=== PATIENT | female | born 1935 | race Caucasian/White ===

== ENCOUNTER → 2016-08-04 | Outpatient (CLI) | payer MEDICARE, OTHER ==
--- NOTE | 2016-08-04 15:12 | CT ---
EXAMINATION TYPE: CT abdomen pelvis w con DATE OF EXAM: 08/04/2016 2:10 PM COMPARISON: 11/15/2015 HISTORY: 80-year-old female with pancreatic mass, follow-up exam TECHNIQUE: Contiguous axial scanning of the abdomen and pelvis following administration of 100 ml Omn ipaque 300 IV contrast. Arterial phase and portal venous phase imaging was performed; coronal/sagitt al reconstructions performed. CT DLP: 1675 mGycm Automated exposure control for dose reduction was used. FINDINGS: Heart is upper limits of normal in size without pericardial effusion. Pacer leads are present. Redemo nstrated is strandy atelectasis or scarring at the left base without pleural effusion. No focal liver lesion or biliary ductal dilatation. Portal venous system is patent though there is ma ss effect onto the posterior margin of the main portal vein which is bowed forward due to the posteri or pancreatic head mass. This pancreatic head mass is lobulated and heterogeneous measuring 6.2 cm wide by 4.9 cm AP by 6.9 cm craniocaudal. This is in comparison to 11/15/2015 where it measured 5.8 x 4.8 x 7.2 cm. On 07/12/2015, t his measured 6.0 x 4.9 x 6.6 cm. Overall, this is not significantly changed allowing for some differe nces in measurement technique. Gallbladder, adrenal glands, kidneys spleen, and remainder of the atrophic pancreas show no gross abn ormality. No dilated small bowel, free fluid, or free air. Moderate atherosclerotic calcifications within the abdominal aorta and iliac arteries with mild fusif orm ectasia of the infrarenal abdominal aorta at 2.5 cm. No mesenteric or retroperitoneal lymphadenopathy. Scattered [id number] stool without pericolonic inflammatory change. Limited evaluation of the pelvis due to extensive artifact from the patient's bilateral hip arthropla sties. Bladder is underdistended. The uterus is visualized. There is normal size left ovary and dense calcifications in the region of the right ovary either representing phlebolith or a small dermoid. N o abnormal fluid collection the pelvis or obvious pelvic lymphadenopathy. Heterotopic ossification superior to the right hip. Posterior lumbar fusion hardware is also present. There appears to be lateral osseous fusion resulting in a fixed grade 2 anterolisthesis at L4-L5. Gr marian 1 retrolisthesis and advanced degenerative changes above the fusion at L2-L3. IMPRESSION: ALLOWING FOR SOME SMALL DIFFERENCES IN MEASUREMENT CALIPER POSITIONING, THE LOBULATED PANCREATIC HEAD MASS IS OVERALL STABLE FROM 07/12/2015, MEASURING UP TO 6.9 CM. 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 Consi jitendra EUS aspiration. If the patient is not eligible for resection, this can continue to be followed.
== END | disposition home or self-care (01) ==
LOC: RADCTMAIN 12:01
PROVIDERS: ATTEND Internal Medicine Gastroenterology
DX: K86.89 Other specified diseases of pancreas (principal)
CPT/HCPCS: 82565; 84520; 74177; 36415; Q9967

== ENCOUNTER 2016-10-08 08:38 | Inpatient (IN) | payer MEDICARE, OTHER ==
[2016-10-08] MEDS ORDERED: ACETAMINOPHEN TAB 325 MG TAB PO STA (09:26)
--- NOTE | 2016-10-08 09:28 | ED ---
SOB HPI - General Chief Complaint: Shortness of Breath Stated Complaint: SOB Time Seen by Provider: 10/08/16 08:38 Source: patient, EMS, RN notes reviewed Mode of arrival: EMS Limitations: no limitations - History of Present Illness Initial Comments: This is a 81-year-old female who was brought in by EMS for evaluation of shortness of breath. Patient is not sure exactly when it started she believes this morning she was given 2 DuoNeb absent as well as 125 mg a slight Medrol and route per EMS she is she was somewhat confused but has improved mentation since the treatment. She denies any overt fevers chills or sweats though per paramedics she did feel warm. She denies any chest pain focal weakness or other symptoms. MD Complaint: shortness of breath, cough - Related Data Home Medications Medication Instructions Recorded Confirmed Cholecalciferol [Vitamin D3] 2,000 unit PO DAILY 07/11/15 10/08/16 Albuterol Nebulized [Ventolin 2.5 mg INHALATION RT-TID 06/21/16 10/08/16 Nebulized] DULoxetine HCL [Cymbalta] 60 mg PO DAILY 06/21/16 10/08/16 Hydrocodone/Acetaminophen [[place] 1 tab PO Q4H PRN 06/21/16 10/08/16 10-325] Ipratropium Nebulized [Atrovent 0.5 mg INHALATION RT-QID 06/21/16 10/08/16 Nebulized] Levothyroxine Sodium [Synthroid] 50 mcg PO DAILY 06/21/16 10/08/16 Oxybutynin ER [Ditropan Xl] 15 mg PO DAILY 06/21/16 10/08/16 Apixaban [Eliquis] 2.5 mg PO BID 10/08/16 10/08/16 Atenolol [Tenormin] 12.5 mg PO DAILY 10/08/16 10/08/16 Biotin 5 mg PO DAILY 10/08/16 10/08/16 Ferrous Sulfate [Feosol] 325 mg PO DAILY 10/08/16 10/08/16 Meloxicam [Mobic] 15 mg PO DAILY 10/08/16 10/08/16 Omeprazole [PriLOSEC] 20 mg PO DAILY 10/08/16 10/08/16 Pregabalin [Lyrica] 75 mg PO BID 10/08/16 10/08/16 amLODIPine [Norvasc] 2.5 mg PO DAILY 10/08/16 10/08/16 Previous Rx's Medication Instructions Recorded Furosemide [Lasix] 40 mg PO DAILY #30 tab 06/24/16 Allergies Allergy/AdvReac Type Severity Reaction Status Date / Time No Known Allergies Allergy Verified 10/08/16 09:36 Review of Systems ROS Statement: Those systems with pertinent positive or pertinent negative responses have been documented in the HPI. ROS Other: All systems not noted in ROS Statement are negative. Past Medical History Past Medical History: COPD, Diabetes Mellitus, Fibromyalgia, Hypertension, Thyroid Disorder Additional Past Medical History / Comment(s): NEUROPATHY, obesity, coronary artery disease, paroxysmal atrial fibrillation, history of pacemaker insertion, degenerative arthritis, fibromyalgia, hypertension History of Any Multi-Drug Resistant Organisms: None Reported Past Surgical History: Appendectomy, Pacemaker Additional Past Surgical History / Comment(s): IVAN HIP, IVAN KNEE, MELANIE TO BACK, plate in left shoulder Past Anesthesia/Blood Transfusion Reactions: No Reported Reaction Type of Cardiac Device: Permanent Pacemaker Device Placement Date:: 2011 Past Psychological History: No Psychological Hx Reported Smoking Status: Former smoker Past Alcohol Use History: None Reported Past Drug Use History: None Reported - Past Family History Mother Family Medical History: Diabetes Mellitus Additional Family Medical History / Comment(s): AAA Father Family Medical History: Diabetes Mellitus, Myocardial Infarction ([place]) Brother(s) Family Medical History: Cancer, Diabetes Mellitus, Hypertension General Exam - General Exam Comments Initial Comments: This is a well-developed well-nourished awake alert but somewhat confused female Limitations: no limitations General appearance: alert, anxious, in distress Head exam: Present: atraumatic, normocephalic, normal inspection Eye exam: Present: normal appearance, PERRL, EOMI. Absent: scleral icterus, conjunctival injection, periorbital swelling ENT exam: Present: mucous membranes dry Neck exam: Present: normal inspection. Absent: tenderness, meningismus, lymphadenopathy Respiratory exam: Present: wheezes, rhonchi, accessory muscle use, decreased breath sounds Cardiovascular Exam: Present: regular rate, normal rhythm, normal heart sounds. Absent: systolic murmur, diastolic murmur, rubs, gallop, clicks GI/Abdominal exam: Present: soft, normal bowel sounds. Absent: distended, tenderness, guarding, rebound, rigid Extremities exam: Present: normal inspection, full ROM, normal capillary refill. Absent: tenderness, pedal edema, joint swelling, calf tenderness Back exam: Present: normal inspection Neurological exam: Present: alert, oriented X3, CN II-XII intact, other ( Patient was more alert during my exam.) Psychiatric exam: Present: normal affect, normal mood Skin exam: Present: warm, dry, intact, normal color. Absent: rash Course Vital Signs 10/08/16 10/08/16 10/08/16 08:41 09:42 10:45 Temperature 102.2 F H 98.0 F Pulse Rate 66 65 65 Respiratory 22 20 18 Rate Blood Pressure 135/63 117/55 128/59 O2 Sat by Pulse 96 95 96 Oximetry - Reevaluation(s) Reevaluation #1: 10/08/16 11:11 The patient was feeling improved and did voice a desire to go home. Reevaluation #2: 10/08/16 11:14 Patient's lung sounds have improved she has she is less dyspneic. Medical Decision Making - Medical Decision Making I did have a long discussion with the patient regarding the findings. She does demonstrate influenza positivity as well as evidence of chronic reveals patient' s he x-ray evidence of some CHF. She has a fever also her left gas is elevated this is likely on the basis of her chronic disease. She has agreed to be admitted. - Lab Data Result diagrams: 10/08/16 09:00 10/08/16 09:00 Lab Results 10/08/16 10/08/16 10/08/16 Range/Units 09:00 09:00 09:00 WBC 10.8 H (3.8-10.6) k/uL RBC 4.89 (3.80-5.40) m/uL Hgb 13.1 (11.4-16.0) gm/dL Hct 41.1 (34.0-46.0) % MCV 84.1 (80.0-100.0) fL MCH 26.8 (25.0-35.0) pg MCHC 31.8 (31.0-37.0) g/dL RDW 17.5 H (11.5-15.5) % Plt Count 130 L (150-450) k/uL Neutrophils % 85 % Lymphocytes % 9 % Monocytes % 2 % Eosinophils % 1 % Basophils % 0 % Neutrophils # 9.1 H (1.3-7.7) k/uL Lymphocytes # 1.0 (1.0-4.8) k/uL Monocytes # 0.2 (0-1.0) k/uL Eosinophils # 0.1 (0-0.7) k/uL Basophils # 0.0 (0-0.2) k/uL Hypochromasia Slight Poikilocytosis Slight Anisocytosis Slight PT (9.0-12.0) sec INR (<1.1) APTT (22.0-30.0) sec Sodium 140 (137-145) mmol/L Potassium 4.6 (3.5-5.1) mmol/L Chloride 103 (98-107) mmol/L Carbon Dioxide 25 (22-30) mmol/L Anion Gap 12 mmol/L BUN 24 H (7-17) mg/dL Creatinine 1.10 H (0.52-1.04) mg/dL Est GFR (MDRD) Af Amer 58 (>60 ml/min/1.73 sqM) Est GFR (MDRD) Non-Af 48 (>60 ml/min/1.73 sqM) Glucose 196 H (74-99) mg/dL Plasma Lactic Acid Benito (0.7-2.0) mmol/L Calcium 8.4 (8.4-10.2) mg/dL Magnesium 1.7 (1.6-2.3) mg/dL Total Bilirubin 0.8 (0.2-1.3) mg/dL AST 48 H (14-36) U/L ALT 27 (9-52) U/L Alkaline Phosphatase 106 (38-126) U/L Total Creatine Kinase 163 H (30-135) U/L CK-MB (CK-2) 1.7 (0.0-2.4) ng/mL CK-MB (CK-2) Rel Index 1.0 Troponin I 0.094 H* (0.000-0.034) ng/mL NT-Pro-B Natriuret Pep pg/mL Total Protein 6.7 (6.3-8.2) g/dL Albumin 3.7 (3.5-5.0) g/dL Influenza Type A RNA (Not Detectd) Influenza Type B (PCR) (Not Detectd) 03/30/17 03/30/17 03/30/17 Range/Units 09:00 09:00 09:00 WBC (3.8-10.6) k/uL RBC (3.80-5.40) m/uL Hgb (11.4-16.0) gm/dL Hct (34.0-46.0) % MCV (80.0-100.0) fL MCH (25.0-35.0) pg MCHC (31.0-37.0) g/dL RDW (11.5-15.5) % Plt Count (150-450) k/uL Neutrophils % % Lymphocytes % % Monocytes % % Eosinophils % % Basophils % % Neutrophils # (1.3-7.7) k/uL Lymphocytes # (1.0-4.8) k/uL Monocytes # (0-1.0) k/uL Eosinophils # (0-0.7) k/uL Basophils # (0-0.2) k/uL Hypochromasia Poikilocytosis Anisocytosis PT 10.4 (9.0-12.0) sec INR 1.0 (<1.1) APTT 25.3 (22.0-30.0) sec Sodium (137-145) mmol/L Potassium (3.5-5.1) mmol/L Chloride (98-107) mmol/L Carbon Dioxide (22-30) mmol/L Anion Gap mmol/L BUN (7-17) mg/dL Creatinine (0.52-1.04) mg/dL Est GFR (MDRD) Af Amer (>60 ml/min/1.73 sqM) Est GFR (MDRD) Non-Af (>60 ml/min/1.73 sqM) Glucose (74-99) mg/dL Plasma Lactic Acid [place]ito 2.8 H* (0.7-2.0) mmol/L Calcium (8.4-10.2) mg/dL Magnesium (1.6-2.3) mg/dL Total Bilirubin (0.2-1.3) mg/dL AST (14-36) U/L ALT (9-52) U/L Alkaline Phosphatase (38-126) U/L Total Creatine Kinase (30-135) U/L CK-MB (CK-2) (0.0-2.4) ng/mL CK-MB (CK-2) Rel Index Troponin I (0.000-0.034) ng/mL NT-Pro-B Natriuret Pep 1360 pg/mL Total Protein (6.3-8.2) g/dL Albumin (3.5-5.0) g/dL Influenza Type A RNA (Not Detectd) Influenza Type B (PCR) (Not Detectd) 10/08/16 Range/Units 09:00 WBC (3.8-10.6) k/uL RBC (3.80-5.40) m/uL Hgb (11.4-16.0) gm/dL Hct (34.0-46.0) % MCV (80.0-100.0) fL MCH (25.0-35.0) pg MCHC (31.0-37.0) g/dL RDW (11.5-15.5) % Plt Count (150-450) k/uL Neutrophils % % Lymphocytes % % Monocytes % % Eosinophils % % Basophils % % Neutrophils # (1.3-7.7) k/uL Lymphocytes # (1.0-4.8) k/uL Monocytes # (0-1.0) k/uL Eosinophils # (0-0.7) k/uL Basophils # (0-0.2) k/uL Hypochromasia Poikilocytosis Anisocytosis PT (9.0-12.0) sec INR (<1.1) APTT (22.0-30.0) sec Sodium (137-145) mmol/L Potassium (3.5-5.1) mmol/L Chloride (98-107) mmol/L Carbon Dioxide (22-30) mmol/L Anion Gap mmol/L BUN (7-17) mg/dL Creatinine (0.52-1.04) mg/dL Est GFR (MDRD) Af Amer (>60 ml/min/1.73 sqM) Est GFR (MDRD) Non-Af (>60 ml/min/1.73 sqM) Glucose (74-99) mg/dL Plasma Lactic Acid [place] (0.7-2.0) mmol/L Calcium (8.4-10.2) mg/dL Magnesium (1.6-2.3) mg/dL Total Bilirubin (0.2-1.3) mg/dL AST (14-36) U/L ALT (9-52) U/L Alkaline Phosphatase (38-126) U/L Total Creatine Kinase (30-135) U/L CK-MB (CK-2) (0.0-2.4) ng/mL CK-MB (CK-2) Rel Index Troponin I (0.000-0.034) ng/mL NT-Pro-B Natriuret Pep pg/mL Total Protein (6.3-8.2) g/dL Albumin (3.5-5.0) g/dL Influenza Type A RNA Not Detected (Not Detectd) Influenza Type B (PCR) Detected H (Not Detectd) - EKG Data -: EKG Interpreted by Ms EKG shows normal: sinus rhythm (Sinus rhythm with a rate of 66 QRS 154 daily since QTC of 448/469 similar configuration to the EKG dated 06/21/16) - Radiology Data Radiology results: report reviewed (X-rays do show evidence of congestive heart failure.), image reviewed Critical Care Time Critical Care Time: Yes Critical Care Time: 32 minutes critical care time which includes monitoring initially EMS run call as well as discussed with paramedics after arrival. History physical lab and x- rays on the patient. Evaluation of the same. Reevaluation the patient on several occasions. Evaluation of old charting. Discussion with patient regarding the findings discussion with the admitting physician and admission orders and documentation of the above. Disposition Clinical Impression: Influenza, Acute exacerbation of chronic obstructive airways disease, Renal insufficiency, Elevated troponin, Fever, Chronic congestive heart failure Disposition: ADMITTED IP TO THIS HOSP Condition: Stable
[2016-10-08 09:36] LABS: Anisocytosis Slight; Basophils % (A) 0 %; CH 26.9; Eosinophils # (A) 0.1 k/uL (0-0.7); Eosinophils % (A) 1 %; HCT 41.1 % (34.0-46.0); HDW 3.69; HGB 13.1 gm/dL (11.4-16.0); Hypochromasia Slight; Luc # (Auto) 0.23; Luc % (Auto) 2; Lymphocytes % (A) 9 %; MCH 26.8 pg (25.0-35.0); MCHC 31.8 g/dL (31.0-37.0); MCV 84.1 fL (80.0-100.0); Mean Platelet Volume 9.2; Monocytes # (A) 0.2 k/uL (0-1.0); Monocytes % (A) 2 %; Neutrophils # (A) 9.1 k/uL (1.3-7.7); Neutrophils % (A) 85 %; Poikilocytosis Slight; RBC 4.89 m/uL (3.80-5.40); RDW 17.5 % (11.5-15.5); WBC 10.8 k/uL (3.8-10.6); WBC (Perox) 11.54
[2016-10-08 09:48] LABS: Calcium 8.4 mg/dL (8.4-10.2); Magnesium 1.7 mg/dL (1.6-2.3); Potassium 4.6 mmol/L (3.5-5.1); Total Bilirubin 0.8 mg/dL (0.2-1.3); Total Protein 6.7 g/dL (6.3-8.2)
[2016-10-08 09:49] LABS: Partial Thromboplastin Time 25.3 sec (22.0-30.0); Prothrombin Time 10.4 sec (9.0-12.0)
--- NOTE | 2016-10-08 09:50 | XR ---
EXAMINATION TYPE: XR chest 2V DATE OF EXAM: 10/08/2016 9:40 AM COMPARISON: Prior chest x-ray 23 June 2016 HISTORY: Difficulty breathing, back pain TECHNIQUE: Frontal and lateral views of the chest are obtained. FINDINGS: Arthropathy noted within the shoulders, postop change noted to the proximal left humerus. Pacemaker generator is present left pectoral region, there are leads in the right atrium and ventricl e. Patient is rotated, the heart is enlarged. Interstitium and central vascularity are prominent. No pneumothorax or pleural effusion. IMPRESSION: Correlate for congestive heart failure.
[2016-10-08 10:15] LABS: Creatine Kinase MB 1.7 ng/mL (0.0-2.4)
[2016-10-08 10:28] LABS: Troponin I 0.094 ng/mL (0.000-0.034)
[2016-10-08] MEDS ORDERED: OSELTAMIVIR 75 MG CAP PO STA (10:36)
[2016-10-08] MEDS ORDERED: ACETAMINOPHEN TAB 325 MG TAB PO PRN (11:29)
[2016-10-08] MEDS ORDERED: SODIUM CHLORIDE 0.9% 1,000 ML IV SCH (11:30)
[2016-10-08] MEDS ORDERED: methylPREDNISolone SOD SUCCI 125 MG/2 ML VIAL IV SCH (12:00)
[2016-10-08] MEDS: IPRATROPIUM-ALBUTEROL 3 ML NEB INHALATION SCH ×3 (12:38→20:11)
[2016-10-08] MEDS: HYDROcodone/APAP 10-325MG 1 EACH TAB PO PRN ×2 (13:39→17:40)
--- NOTE | 2016-10-08 16:57 | P.HPIM ---
History of Present Illness H&P Date: 10/08/16 Chief Complaint: Difficulty breathing 81-year-old female with history of COPD, diastolic heart failure, chronic hypoxic respiratory failure comes in to the hospital with complaints of difficulty breathing associated with cough and will he productive in nature for the last 3-4 days. Patient states to have some generalized weakness, intermittent chills during the same period of time. Patient denies having a influenza vaccine done during this season. In the emergency room patient underwent the testing was found to be positive for influenza. Patient was also noted to have a lactic acid level II.6. Patient's vitals are stable at this time. A chest x-ray was done was read as pulmonary vessel congestion however on my repeat it appears to be more of a infiltrate on the left lower lobe. With some chronic changes. Patient denies having any abdominal pain, urinary urgency or frequency, diarrhea Review of Systems All systems: negative (Noted in HPI) Past Medical History Past Medical History: Atrial Fibrillation, Coronary Artery Disease (CAD), Heart Failure, COPD, Diabetes Mellitus, Fibromyalgia, GERD/Reflux, GI Bleed, Hypertension, Osteoarthritis (OA), Thyroid Disorder Additional Past Medical History / Comment(s): Chronic CHF, bronchitis, NIDDM type II, antral ulcer with bleed, hemorrhoids, pancreatic head mass-being followed at [facility], NEUROPATHY bilateral legs/feet, obesity, paroxysmal atrial fibrillation, CHB-pacemaker insertion, arthritis multiple joints, DJD, UTIs, hypothyroid, past L shoulder fracture x2. History of Any Multi-Drug Resistant Organisms: None Reported Past Surgical History: Appendectomy, Back Surgery, Joint Replacement, Orthopedic Surgery, Pacemaker Additional Past Surgical History / Comment(s): 06/24/16 EGD/colonoscopy, IVAN total hip arthroplasties, IVAN total KNEE arthroplasties, L femur fx with surgery , back fusion, MELANIE TO BACK, plate in left shoulder, bilateral cataract removal, D&Cs. Past Anesthesia/Blood Transfusion Reactions: No Reported Reaction Additional Past Anesthesia/Blood Transfusion Reaction / Comment(s): Pt has had blood transfusions and states "they couldn't finish the last one because I got sick." Type of Cardiac Device: Permanent Pacemaker Device Placement Date:: 2011 Past Psychological History: No Psychological Hx Reported Additional Psychological History / Comment(s): Pt resides alone. She uses a walker or cane. She drives near home. Smoking Status: Former smoker Past Alcohol Use History: None Reported Additional Past Alcohol Use History / Comment(s): Pt smoked from [id number]. Past Drug Use History: None Reported - Past Family History Mother Family Medical History: Diabetes Mellitus Additional Family Medical History / Comment(s): AAA Father Family Medical History: Diabetes Mellitus, Myocardial Infarction ([place]) Additional Family Medical History / Comment(s): Father had a MA at the age of 62 yrs and . Brother(s) Family Medical History: Cancer, Diabetes Mellitus, Hypertension Medications and Allergies Home Medications Medication Instructions Recorded Confirmed Type Cholecalciferol [Vitamin D3] 2,000 unit PO DAILY 07/11/15 10/08/16 History Albuterol Nebulized [Ventolin 2.5 mg INHALATION RT-TID 06/21/16 10/08/16 History Nebulized] DULoxetine HCL [Cymbalta] 60 mg PO DAILY 06/21/16 10/08/16 History Hydrocodone/Acetaminophen [[place] 1 tab PO Q4H PRN 06/21/16 10/08/16 History 10-325] Ipratropium Nebulized [Atrovent 0.5 mg INHALATION RT-QID 06/21/16 10/08/16 History Nebulized] Levothyroxine Sodium [Synthroid] 50 mcg PO DAILY 06/21/16 10/08/16 History Oxybutynin ER [Ditropan Xl] 15 mg PO DAILY 06/21/16 10/08/16 History Apixaban [Eliquis] 2.5 mg PO BID 10/08/16 10/08/16 History Atenolol [Tenormin] 12.5 mg PO DAILY 10/08/16 10/08/16 History Biotin 5 mg PO DAILY 10/08/16 10/08/16 History Ferrous Sulfate [Feosol] 325 mg PO DAILY 10/08/16 10/08/16 History Meloxicam [Mobic] 15 mg PO DAILY 10/08/16 10/08/16 History Omeprazole [PriLOSEC] 20 mg PO DAILY 10/08/16 10/08/16 History Pregabalin [Lyrica] 75 mg PO BID 10/08/16 10/08/16 History amLODIPine [Norvasc] 2.5 mg PO DAILY 10/08/16 10/08/16 History Allergies Allergy/AdvReac Type Severity Reaction Status Date / Time No Known Allergies Allergy Verified 10/08/16 09:36 Physical Exam Vitals: Vital Signs Temp Pulse Resp BP BP Pulse Ox 10/08/16 16:26 97.8 F 16 107/56 94 L 10/08/16 16:15 80 10/08/16 16:01 82 10/08/16 16:00 18 10/08/16 15:02 98.1 F 78 16 119/63 98 10/08/16 12:48 80 10/08/16 12:41 72 Intake and Output 10/08/16 10/08/16 10/08/16 06:59 14:59 22:59 Intake Total 90 Balance 90 Intake: Oral 90 Other: Voiding Method Toilet # Voids 1 Physical exam Gen. appearance oriented 3 in no distress Neck is supple no JVD Lungs rhonchi appreciated on the left posterior lower lung region, some crackles at the right lung base Heart S1-S2 heard regular rate and rhythm no murmurs appreciated Abdomen is soft nontender no organomegaly bowel sounds are intact Neurologically cranial nerves II-12 grossly intact no focal motor or sensory deficits noted Skin no abnormalities appreciated Results CBC & Chem 7: 10/08/16 09:00 10/08/16 09:00 Labs: Abnormal Lab Results - Last 24 Hours (Table) 10/08/16 Range/Units 11:59 Troponin I 0.294 H* (0.000-0.034) ng/mL Thrombosis Risk Factor Assmnt - Choose All That Apply Any of the Below Risk Factors Present?: Yes Each Factor Represents 1 point: Abnormal pulmonary function (COPD), Heart failure (<1month), Obesity (BMI >25) Other Risk Factors: Yes Each Risk Factor Represents 3 Points: Age 75 years or older Other congenital or acquired thrombophilia - If yes, enter type in comment: No Thrombosis Risk Factor Assessment Total Risk Factor Score: 6 Thrombosis Risk Factor Assessment Level: High Risk Assessment and Plan Plan: #1 influenza pneumonitis #2 CAD #3 history of pacemaker placement #4 HF PEF without an acute exacerbation #5 lactic acidosis #6 COPD #Chronic hypoxic respiratory failure #7 history of hypertension #8 history of diverticulosis #9 dyslipidemia #10 proximal atrial fibrillation #11 fiber myalgia #12 N STEMI Plan We'll continue treatment with the Tamiflu. We'll discontinue diuretics at this time. We'll start the patient on Rocephin to treat for any associated bacterial coexistent infection. Consult cardiology. We'll have pulmonary evaluate the patient is well. Continue home medications at this time.
[2016-10-08 17:31] LABS: Glucose,Whole Blood 269 mg/dL (75-99)
[2016-10-08] MEDS: INSULIN LISPRO (humaLOG) 300 UNIT/3 ML VIAL SQ SCH ×2 (17:41→21:03)
[2016-10-08] MEDS: AZITHROMYCIN 1,200 MG/30 ML BOTTLE PO SCH (18:32)
[2016-10-08] MEDS ORDERED: SODIUM CHLORIDE 0.9% 500 ML IV ONE (19:10)
[2016-10-08] MEDS: PREGABALIN 75 MG CAP PO SCH (20:54)
[2016-10-08] MEDS: APIXABAN 2.5 MG TABLET PO SCH (20:54)
[2016-10-08] MEDS ORDERED: OSELTAMIVIR 75 MG CAP PO SCH (21:00)
[2016-10-08 21:04] LABS: Glucose,Whole Blood 228 mg/dL (75-99)
[2016-10-08] MEDS: OSELTAMIVIR 60 MG/10 ML ORAL SYRINGE PO SCH (21:45)
[2016-10-08 21:58] LABS: Hemoglobin A1C 5.9 % (4.2-6.1)
[2016-10-09] MEDS: IPRATROPIUM-ALBUTEROL 3 ML NEB INHALATION SCH ×7 (00:48→20:07)
[2016-10-09] MEDS: HYDROcodone/APAP 10-325MG 1 EACH TAB PO PRN ×4 (01:23→19:56)
--- NOTE | 2016-10-09 01:39 | XR ---
EXAM: XR Chest, 1 View. CLINICAL HISTORY: increased SOB TECHNIQUE: Frontal view of the chest. COMPARISON: 10/08/16 FINDINGS: Lungs: Mild diffuse airspace opacity throughout both lungs, similar. Pleural space: Unremarkable. No pneumothorax. Heart: Unremarkable. No cardiomegaly. Mediastinum: Unremarkable. Bones/joints: Osteopenia. Moderate degenerative changes in the visualized osseous structures. Partially visualized fixation plate and screws of proximal left humerus. Other findings: Left pacer is again noted. IMPRESSION: No substantial change.
[2016-10-09 03:49] LABS: Anisocytosis Slight; CH 26.6; CHCM 31.8; HCT 36.6 % (34.0-46.0); HDW 3.62; HGB 11.7 gm/dL (11.4-16.0); Hypochromasia Moderate; MCH 26.7 pg (25.0-35.0); MCHC 31.9 g/dL (31.0-37.0); MCV 83.8 fL (80.0-100.0); Mean Platelet Volume 9.7; Poikilocytosis Slight; RBC 4.37 m/uL (3.80-5.40); RDW 17.3 % (11.5-15.5); WBC 5.4 k/uL (3.8-10.6); WBC (Perox) 5.97
[2016-10-09 04:04] LABS: Calcium 8.2 mg/dL (8.4-10.2); Potassium 4.6 mmol/L (3.5-5.1); Total Bilirubin 0.5 mg/dL (0.2-1.3); Total Protein 6.2 g/dL (6.3-8.2)
[2016-10-09 04:44] LABS: Add Differential Manual Differential
[2016-10-09 04:48] LABS: Manual Review Performed; Nucleated Red Blood Cells 0 /100 WBC (0-0); Total Cells Counted 100
[2016-10-09 06:25] LABS: Glucose,Whole Blood 176 mg/dL (75-99)
[2016-10-09] MEDS: PANTOPRAZOLE 40 MG TABLET PO SCH (06:37)
[2016-10-09] MEDS: LEVOTHYROXINE 50 MCG TAB PO SCH (06:38)
[2016-10-09] MEDS: INSULIN LISPRO (humaLOG) 300 UNIT/3 ML VIAL SQ SCH ×4 (06:38→21:17)
[2016-10-09] MEDS: ATENOLOL 12.5 MG TAB PO SCH (08:53)
[2016-10-09] MEDS: APIXABAN 2.5 MG TABLET PO SCH ×2 (08:54→21:15)
[2016-10-09] MEDS: amLODIPine 2.5 MG TAB PO SCH (08:54)
[2016-10-09] MEDS: OXYBUTYNIN 15 MG TAB.ER.24 PO SCH ×2 (08:54→09:38)
[2016-10-09] MEDS: PREGABALIN 75 MG CAP PO SCH ×2 (08:54→21:15)
[2016-10-09] MEDS: DULoxetine HCL 60 MG CAPSULE.DR PO SCH (08:54)
[2016-10-09] MEDS: OSELTAMIVIR 60 MG/10 ML ORAL SYRINGE PO SCH ×2 (08:54→21:15)
[2016-10-09] MEDS: MELOXICAM 7.5 MG TAB PO SCH (08:54)
[2016-10-09] MEDS: AZITHROMYCIN 1,200 MG/30 ML BOTTLE PO SCH (08:55)
[2016-10-09] MEDS ORDERED: NON-FORMULARY DRUG (Biotin [Biotin] 5 MG) PO SCH (09:00)
[2016-10-09] MEDS ORDERED: FUROSEMIDE 40 MG TAB PO SCH (09:00)
--- NOTE | 2016-10-09 10:12 | CONS ---
Alesia is an 81-year-old lady who was admitted to hospital primarily with shortness of breath. Cardiology had been consulted because of mild elevation in troponin. She has been getting progressively short of breath over the last several days, moderate to severe intensity, came on at rest, associated with cough that is productive in nature. Her troponin elevation is of unclear clinical significance and she does not have any chest pain. She is currently being evaluated for flu. Past medical history is significant for history of atrial fibrillation, COPD, congestive heart failure, significant for hypertension, atrial fibrillation. Patient had an echocardiogram in August of last year that revealed pulmonary hypertension with normal LV systolic function. Past surgical history is significant for knee arthroplasty, femur surgery, back fusion. MEDICATIONS: Patient is on: 1. Insulin. 2. Amlodipine. 3. Lyrica. 4. Ditropan. 5. Prilosec. 6. Mobic. 7. Synthroid. 8. Atrovent. 9. [place]. 10. Lasix. 11. Iron. 12. Cymbalta. 13. Tenormin. 14. Eliquis and 15. Ventolin. ALLERGIES: No known drug allergies. FAMILY HISTORY: Negative for premature coronary artery disease. SOCIAL HISTORY: Negative for current smoking, EtOH abuse or drug abuse. REVIEW OF SYSTEMS: HEENT: Unremarkable. CARDIAC: As described above. RESPIRATORY: As described above. GI: Negative. GENITOURINARY: Negative. ALLERGY/IMMUNOLOGY: Negative. SKIN: Negative. MUSCULOSKELETAL: Negative. ENDOCRINE: Negative. DERMATOLOGY: Negative. CONSTITUTIONAL: Significant for not feeling well. ONCOLOGICAL: Negative. Rest of the system review is not relevant. EKG shows sinus rhythm with intraventricular conduction delay. Labs have been reviewed and there is mild elevation of the troponin of unclear clinical significance. Chest x-ray shows interstitial prominence and a pacemaker. On exam, patient is comfortable at rest. Vital signs are stable. Chest reveals diffuse rhonchi bilaterally. Heart reveals first and second heart sounds. Systolic murmur at the left lower sternal border. Abdomen is soft. Extremities did not reveal any edema. Peripheral pulses are felt. EKG shows paced rhythm. Labs show hemoglobin of 11.7, platelet count is 101. Potassium is 4.6. Creatinine is 1.3. Troponin is 0.2, 0.2 and 0.09. ASSESSMENT: 1. Shortness of breath secondary to chronic obstructive pulmonary disease exacerbation. 2. History of atrial fibrillation. 3. Sick sinus syndrome, status post permanent pacemaker placement. 4. Elevated troponins. PLAN: Patient's elevated troponin is of unclear clinical significance. Once the respiratory problem resolves, we will consider an outpatient stress test on her.
--- NOTE | 2016-10-09 10:44 | ECHOF ---
Referral Reason:chf MEASUREMENTS -------- HEIGHT: 165.1 cm WEIGHT: 92.5 kg BP: 129/73 RVIDd: 3.9 cm (< 3.3) IVSd: 1.3 cm (0.6 - 1.1) LVIDd: 3.9 cm (3.9 - 5.3) LVPWd: 1.3 cm (0.6 - 1.1) IVSs: 1.7 cm LVIDs: 2.2 cm LVPWs: 1.9 cm Ao Diam: 2.9 cm (2.0 - 3.7) AV Cusp: 1.9 cm (1.5 - 2.6) LA Diam: 4.0 cm (2.7 - 3.8) MV EXCURSION: 16.312 mm (> 18.000) MV EF SLOPE: 52 mm/s (70 - 150) EPSS: 0.3 cm MV E Nico: 1.09 m/s MV DecT: 212 ms MV A Nioc: 0.93 m/s MV E/A Ratio: 1.18 RAP: 20.00 mmHg RVSP: 58.29 mmHg FINDINGS -------- Pacerwire seen in RV and RA. This was a technically difficult study with suboptimal views. The left ventricular size is normal. There is mild concentric left ventricular hypertrophy. Overall left ventricular systolic function is normal with, an EF between 55 - 60 %. The right ventricle is moderately enlarged. The left atrium is mildly dilated. The right atrium is normal in size. Aortic valve is trileaflet and is mildly thickened. Mild mitral annular calcification present. Mild mitral regurgitation is present. Moderate to severe tricuspid regurgitation present. There is moderate pulmonary hypertension. The right ventricular systolic pressure, as measured by Doppler, is 58.29mmHg. There is no pulmonic regurgitation present. The aortic root size is normal. There is no pericardial effusion. CONCLUSIONS -------- 1. Pacerwire seen in RV and RA. 2. There is moderate pulmonary hypertension. 3. The right ventricular systolic pressure, as measured by Doppler, is 58.29mmHg. 4. There is no pulmonic regurgitation present. 5. The aortic root size is normal. 6. There is no pericardial effusion. 7. This was a technically difficult study with suboptimal views. 8. There is mild concentric left ventricular hypertrophy. 9. Overall left ventricular systolic function is normal with, an EF between 55 - 60 %. 10. The right ventricle is moderately enlarged. 11. The left atrium is mildly dilated. 12. Aortic valve is trileaflet and is mildly thickened. 13. Mild mitral annular calcification present. 14. Mild mitral regurgitation is present. MANAGER BALANCE: Earlene Pozo RDCS
[2016-10-09 12:12] LABS: Glucose,Whole Blood 109 mg/dL (75-99)
[2016-10-09] MEDS: FERROUS SULFATE 325 MG TAB PO SCH (12:22)
[2016-10-09] MEDS: CHOLECALCIFEROL 1,000 UNIT TAB PO SCH (12:22)
--- NOTE | 2016-10-09 14:45 | P.CNPUL ---
History of Present Illness Consult date: 10/09/16 Requesting physician: Curtis Lam Reason for consult: dyspnea Chief complaint: Shortness of breath, cough congestion History of present illness: This is a very pleasant 81-year-old female patient who follows with Dr. Marin as her primary care physician. She has a history of hypertension, fibromyalgia, neuropathy, obesity, coronary disease, proximal atrial fibrillation status post permanent pacemaker implantation. She also has a history of chronic obstructive pulmonary disease with a 40 pack year smoking history though she had quit many years ago. She follows with Dr. Perdomo in our office for the same. She presented here to the emergency room yesterday morning with complaints of increasing shortness of breath, cough and congestion. She also had some altered mental status. Her presenting chest x- ray revealed mild diffuse airspace opacity throughout both lungs with some interstitial and central vascularity prominence. There is no significant leukocytosis. She did have a lactic acid level of 3.5 and a T-max of 103.2. She is influenza B+. She did require 6 L of high flow nasal cannula to maintain O2 saturations in the 90s. She's been hemodynamically stable. Troponin of 0.285. Presently, she is seen in consultation today on the selective care unit. She is sitting up in the chair at the bedside. She is awake and alert in no acute distress. Her FiO2 has been titrated down to 2 L/m per nasal cannula. She's been afebrile this morning. She states she is breathing easier today as compared to yesterday. She is still quite fatigued. She is alert and oriented 3. Review of Systems 14 point review of system was conducted. All negative other than as mentioned in HPI. Past Medical History Past Medical History: Atrial Fibrillation, Coronary Artery Disease (CAD), Heart Failure, COPD, Diabetes Mellitus, Fibromyalgia, GERD/Reflux, GI Bleed, Hypertension, Osteoarthritis (OA), Thyroid Disorder Additional Past Medical History / Comment(s): Chronic CHF, bronchitis, NIDDM type II, antral ulcer with bleed, hemorrhoids, pancreatic head mass-being followed at [facility], NEUROPATHY bilateral legs/feet, obesity, paroxysmal atrial fibrillation, CHB-pacemaker insertion, arthritis multiple joints, DJD, UTIs, hypothyroid, past L shoulder fracture x2. History of Any Multi-Drug Resistant Organisms: None Reported Past Surgical History: Appendectomy, Back Surgery, Joint Replacement, Orthopedic Surgery, Pacemaker Additional Past Surgical History / Comment(s): 06/24/16 EGD/colonoscopy, IVAN total hip arthroplasties, IVAN total KNEE arthroplasties, L femur fx with surgery , back fusion, MELANIE TO BACK, plate in left shoulder, bilateral cataract removal, D&Cs. Past Anesthesia/Blood Transfusion Reactions: No Reported Reaction Additional Past Anesthesia/Blood Transfusion Reaction / Comment(s): Pt has had blood transfusions and states "they couldn't finish the last one because I got sick." Type of Cardiac Device: Permanent Pacemaker Device Placement Date:: 2011 Past Psychological History: No Psychological Hx Reported Additional Psychological History / Comment(s): Pt resides alone. She uses a walker or cane. She drives near home. Smoking Status: Former smoker Past Alcohol Use History: None Reported Additional Past Alcohol Use History / Comment(s): Pt smoked from [id number]. Past Drug Use History: None Reported - Past Family History Mother Family Medical History: Diabetes Mellitus Additional Family Medical History / Comment(s): AAA Father Family Medical History: Diabetes Mellitus, Myocardial Infarction (ME) Additional Family Medical History / Comment(s): Father had a ME at the age of 62 yrs and . Brother(s) Family Medical History: Cancer, Diabetes Mellitus, Hypertension Medications and Allergies Home Medications Medication Instructions Recorded Confirmed Type Cholecalciferol [Vitamin D3] 2,000 unit PO DAILY 07/11/15 10/08/16 History Albuterol Nebulized [Ventolin 2.5 mg INHALATION RT-TID 06/21/16 10/08/16 History Nebulized] DULoxetine HCL [Cymbalta] 60 mg PO DAILY 06/21/16 10/08/16 History Hydrocodone/Acetaminophen [[place] 1 tab PO Q4H PRN 06/21/16 10/08/16 History 10-325] Ipratropium Nebulized [Atrovent 0.5 mg INHALATION RT-QID 06/21/16 10/08/16 History Nebulized] Levothyroxine Sodium [Synthroid] 50 mcg PO DAILY 06/21/16 10/08/16 History Oxybutynin ER [Ditropan Xl] 15 mg PO DAILY 06/21/16 10/08/16 History Apixaban [Eliquis] 2.5 mg PO BID 10/08/16 10/08/16 History Atenolol [Tenormin] 12.5 mg PO DAILY 10/08/16 10/08/16 History Biotin 5 mg PO DAILY 10/08/16 10/08/16 History Ferrous Sulfate [Feosol] 325 mg PO DAILY 10/08/16 10/08/16 History Insulin Lispro [humaLOG Kwikpen] 1 unit SQ ACHS PRN 10/08/16 10/08/16 History Meloxicam [Mobic] 15 mg PO DAILY 10/08/16 10/08/16 History Omeprazole [PriLOSEC] 20 mg PO DAILY 10/08/16 10/08/16 History Pregabalin [Lyrica] 75 mg PO BID 10/08/16 10/08/16 History amLODIPine [Norvasc] 2.5 mg PO DAILY 10/08/16 10/08/16 History Allergies Allergy/AdvReac Type Severity Reaction Status Date / Time No Known Allergies Allergy Verified 10/08/16 09:36 Physical Exam Vitals: Vital Signs Temp Pulse Resp BP BP Pulse Ox 10/09/16 12:00 97 F L 20 139/73 93 L 10/09/16 08:00 96.7 F L 20 147/73 97 10/09/16 07:44 88 10/09/16 07:33 84 10/09/16 04:18 80 10/09/16 04:05 76 10/09/16 04:00 96.4 F L 20 129/73 94 L 10/09/16 01:01 80 10/09/16 00:48 76 10/09/16 00:00 97.1 F L 21 129/62 95 10/08/16 20:22 76 10/08/16 20:11 76 10/08/16 20:00 96.6 F L 17 108/61 96 10/08/16 16:26 97.8 F 16 107/56 94 L 10/08/16 16:15 80 10/08/16 16:01 82 10/08/16 16:00 18 10/08/16 15:02 98.1 F 78 16 119/63 98 Intake and Output 10/08/16 10/09/16 10/09/16 22:59 06:59 14:59 Intake Total 290 1460 298 Output Total 750 Balance 290 710 298 Intake: IV 1460 Sodium Chloride 0.9% 1, 320 000 ml @ 80 mls/hr IV . [id number] [facility]ICK[facility] Rx#:[id number] Sodium Chloride 0.9% 500 1140 ml @ 999 mls/hr IV .Q31M ONE Rx#:[id number] Oral 290 298 Output: Urine 750 Other: Voiding Method Toilet Toilet # Voids 2 Weight 92.2 kg 92.9 kg Results - Laboratory Findings CBC and BMP: 10/09/16 03:21 10/09/16 03:21 PT/INR, D-dimer PT 10.4 sec (9.0-12.0) 10/08/16 09:00 INR 1.0 (<1.1) 10/08/16 09:00 Abnormal lab findings: Abnormal Labs 10/08/16 10/08/16 10/08/16 11:59 17:21 17:39 RDW Plt Count Lymphocytes # (Manual) Sodium BUN Creatinine Glucose POC Glucose (mg/dL) 269 H Plasma Lactic Acid Benito 4.4 H* Calcium AST Troponin I 0.294 H* Total Protein 10/08/16 10/08/16 10/08/16 21:02 21:30 21:30 RDW Plt Count Lymphocytes # (Manual) Sodium BUN Creatinine Glucose POC Glucose (mg/dL) 228 H Plasma Lactic Acid Benito 3.5 H* Calcium AST Troponin I 0.285 H* Total Protein 10/09/16 10/09/16 10/09/16 03:21 03:21 03:21 RDW 17.3 H Plt Count 101 L Lymphocytes # (Manual) 0.1 L Sodium 136 L BUN 30 H Creatinine 1.30 H Glucose 183 H POC Glucose (mg/dL) Plasma Lactic Acid Benito 2.1 H Calcium 8.2 L AST 54 H Troponin I Total Protein 6.2 L 10/09/16 10/09/16 06:20 12:05 RDW Plt Count Lymphocytes # (Manual) Sodium BUN Creatinine Glucose POC Glucose (mg/dL) 176 H 109 H Plasma Lactic Acid Benito Calcium AST Troponin I Total Protein - Diagnostic Findings Chest x-ray: image reviewed Assessment and Plan Plan: Impression: #1 Acute exacerbation of chronic obstructive pulmonary disease, complicated by influenza B. #2 Acute on chronic hypoxic respiratory failure secondary to above. #3 Influenza B infection. #4 Acute exacerbation of chronic diastolic congestive heart failure. #5 Moderate pulmonary hypertension, RVSP 58 mmHg. #6 Diabetes mellitus, type II. #7 Hypertension. #8 Hypothyroidism. #9 Proximal atrial fibrillation, status post permanent pacemaker implantation, anticoagulated on Eliquis. #10 Morbid obesity. #12 Coronary artery disease. #13 Remote history of chronic tobacco dependence. Plan: The patient was seen and evaluated by Dr. Boss. Her chest x-ray and labs were reviewed. We'll continue with her current pulmonary medications including bronchodilators will continue with her ceftriaxone and azithromycin. We'll continue her Tamiflu for a total of 5 days. We will continue to follow make further recommendations based on her clinical status. Time with Patient: Greater than 30
--- NOTE | 2016-10-09 15:54 | P.PN ---
Subjective 81-year-old female with history of COPD, diastolic heart failure, chronic hypoxic respiratory failure comes in to the hospital with complaints of difficulty breathing associated with cough and will he productive in nature for the last 3-4 days. Patient states to have some generalized weakness, intermittent chills during the same period of time. Patient denies having a influenza vaccine done during this season. In the emergency room patient underwent the testing was found to be positive for influenza. Patient was also noted to have a lactic acid level II.6. Patient's vitals are stable at this time. A chest x-ray was done was read as pulmonary vessel congestion however on my repeat it appears to be more of a infiltrate on the left lower lobe. With some chronic changes. Patient denies having any abdominal pain, urinary urgency or frequency, diarrhea 10/09/2001 Patient's is to be feeling significantly better. Denies having any fevers, chills, nausea, vomiting. Patient is ambulating around the halls without much difficulty. Objective - Vital Signs Vital signs: Vital Signs Temp 97 F L 10/09/16 12:00 Pulse 88 10/09/16 07:44 Resp 20 10/09/16 12:00 BP 139/73 10/09/16 12:00 Pulse Ox 93 L 10/09/16 12:00 Intake & Output 10/08/16 10/09/16 10/09/16 18:59 06:59 18:59 Intake Total 290 1460 858 Output Total 750 400 Balance 290 710 458 Weight 92.2 kg 92.9 kg Intake: IV 1460 560 Sodium Chloride 0.9% 1, 320 560 000 ml @ 80 mls/hr IV . [id number] [facility] Rx#:[id number] Sodium Chloride 0.9% 500 1140 ml @ 999 mls/hr IV .Q31M ONE Rx#:[id number] Oral 290 298 Output: Urine 750 400 Other: Voiding Method Toilet Toilet # Voids 1 2 - Exam Physical exam Gen. appearance oriented 3 in no distress Neck is supple no JVD Lungs good air movement slight wheezing noted no rhonchi. Significant improved from previous examination. Heart S1-S2 heard regular rate and rhythm no murmurs appreciated Abdomen is soft nontender no organomegaly bowel sounds are intact Neurologically cranial nerves II-12 grossly intact no focal motor or sensory deficits noted Skin no abnormalities appreciated - Labs CBC & Chem 7: 10/09/16 03:21 10/09/16 03:21 Labs: Abnormal Lab Results - Last 24 Hours (Table) 10/08/16 10/08/16 10/08/16 Range/Units 17:21 17:39 21:02 RDW (11.5-15.5) % Plt Count (150-450) k/uL Lymphocytes # (Manual) (1.0-4.8) k/uL Sodium (137-145) mmol/L BUN (7-17) mg/dL Creatinine (0.52-1.04) mg/dL Glucose (74-99) mg/dL POC Glucose (mg/dL) 269 H 228 H (75-99) mg/dL Plasma Lactic Acid Benito 4.4 H* (0.7-2.0) mmol/L Calcium (8.4-10.2) mg/dL AST (14-36) U/L Troponin I (0.000-0.034) ng/mL Total Protein (6.3-8.2) g/dL 10/08/16 10/08/16 10/09/16 Range/Units 21:30 21:30 03:21 RDW 17.3 H (11.5-15.5) % Plt Count 101 L (150-450) k/uL Lymphocytes # (Manual) 0.1 L (1.0-4.8) k/uL Sodium (137-145) mmol/L BUN (7-17) mg/dL Creatinine (0.52-1.04) mg/dL Glucose (74-99) mg/dL POC Glucose (mg/dL) (75-99) mg/dL Plasma Lactic Acid Benito 3.5 H* (0.7-2.0) mmol/L Calcium (8.4-10.2) mg/dL AST (14-36) U/L Troponin I 0.285 H* (0.000-0.034) ng/mL Total Protein (6.3-8.2) g/dL 10/09/16 10/09/16 10/09/16 Range/Units 03:21 03:21 06:20 RDW (11.5-15.5) % Plt Count (150-450) k/uL Lymphocytes # (Manual) (1.0-4.8) k/uL Sodium 136 L (137-145) mmol/L BUN 30 H (7-17) mg/dL Creatinine 1.30 H (0.52-1.04) mg/dL Glucose 183 H (74-99) mg/dL POC Glucose (mg/dL) 176 H (75-99) mg/dL Plasma Lactic Acid Benito 2.1 H (0.7-2.0) mmol/L Calcium 8.2 L (8.4-10.2) mg/dL AST 54 H (14-36) U/L Troponin I (0.000-0.034) ng/mL Total Protein 6.2 L (6.3-8.2) g/dL 10/09/16 Range/Units 12:05 RDW (11.5-15.5) % Plt Count (150-450) k/uL Lymphocytes # (Manual) (1.0-4.8) k/uL Sodium (137-145) mmol/L BUN (7-17) mg/dL Creatinine (0.52-1.04) mg/dL Glucose (74-99) mg/dL POC Glucose (mg/dL) 109 H (75-99) mg/dL Plasma Lactic Acid Benito (0.7-2.0) mmol/L Calcium (8.4-10.2) mg/dL AST (14-36) U/L Troponin I (0.000-0.034) ng/mL Total Protein (6.3-8.2) g/dL Assessment and Plan Plan: #1 influenza pneumonitis causing an acute exacerbation of COPD #2 CAD #3 history of pacemaker placement #4 HF PEF without an acute exacerbation #5 lactic acidosis #6 COPD #Chronic hypoxic respiratory failure #7 history of hypertension #8 history of diverticulosis #9 dyslipidemia #10 proximal atrial fibrillation #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 Outpatient stress test is recommended. #13 sick sinus syndrome status post pacemaker placement. Plan patient is improved. Will likelydischarge the patient with Tamiflu for 5 days in the next 24 hours. Breathing treatments to continue. Encourage ambulation.
[2016-10-09 17:02] LABS: Glucose,Whole Blood 133 mg/dL (75-99)
[2016-10-09] MEDS ORDERED: IPRATROPIUM-ALBUTEROL 3 ML NEB INHALATION PRN (19:55)
[2016-10-09 20:35] LABS: Glucose,Whole Blood 139 mg/dL (75-99)
[2016-10-10] MEDS: HYDROcodone/APAP 10-325MG 1 EACH TAB PO PRN ×2 (04:05→21:47)
[2016-10-10 06:04] LABS: Glucose,Whole Blood 123 mg/dL (75-99)
[2016-10-10] MEDS: INSULIN LISPRO (humaLOG) 300 UNIT/3 ML VIAL SQ SCH ×4 (06:08→21:24)
[2016-10-10] MEDS: LEVOTHYROXINE 50 MCG TAB PO SCH (06:30)
[2016-10-10] MEDS: PANTOPRAZOLE 40 MG TABLET PO SCH (06:30)
[2016-10-10] MEDS: IPRATROPIUM-ALBUTEROL 3 ML NEB INHALATION SCH ×4 (07:34→21:11)
[2016-10-10] MEDS: OSELTAMIVIR 60 MG/10 ML ORAL SYRINGE PO SCH ×2 (09:15→21:27)
[2016-10-10] MEDS: AZITHROMYCIN 1,200 MG/30 ML BOTTLE PO SCH (09:16)
[2016-10-10] MEDS: APIXABAN 2.5 MG TABLET PO SCH ×2 (09:18→21:28)
[2016-10-10] MEDS: amLODIPine 2.5 MG TAB PO SCH (09:18)
[2016-10-10] MEDS: DULoxetine HCL 60 MG CAPSULE.DR PO SCH (09:18)
[2016-10-10] MEDS: ATENOLOL 12.5 MG TAB PO SCH (09:18)
[2016-10-10] MEDS: MELOXICAM 7.5 MG TAB PO SCH (09:19)
[2016-10-10] MEDS: PREGABALIN 75 MG CAP PO SCH ×2 (09:20→21:28)
[2016-10-10] MEDS: CHOLECALCIFEROL 1,000 UNIT TAB PO SCH (09:20)
[2016-10-10] MEDS: FERROUS SULFATE 325 MG TAB PO SCH (09:20)
[2016-10-10] MEDS: OXYBUTYNIN 15 MG TAB.ER.24 PO SCH (09:20)
[2016-10-10 12:06] LABS: Glucose,Whole Blood 121 mg/dL (75-99)
--- NOTE | 2016-10-10 12:29 | P.PN ---
Subjective This is a very pleasant 81-year-old female patient who follows with Dr. Marin as her primary care physician. She has a history of hypertension, fibromyalgia, neuropathy, obesity, coronary disease, proximal atrial fibrillation status post permanent pacemaker implantation. She also has a history of chronic obstructive pulmonary disease with a 40 pack year smoking history though she had quit many years ago. She follows with Dr. Perdomo in our office for the same. She presented here to the emergency room yesterday morning with complaints of increasing shortness of breath, cough and congestion. She also had some altered mental status. Her presenting chest x- ray revealed mild diffuse airspace opacity throughout both lungs with some interstitial and central vascularity prominence. There is no significant leukocytosis. She did have a lactic acid level of 3.5 and a T-max of 103.2. She is influenza B+. She did require 6 L of high flow nasal cannula to maintain O2 saturations in the 90s. She's been hemodynamically stable. Troponin of 0.285. Presently, she is seen in consultation today on the selective care unit. She is sitting up in the chair at the bedside. She is awake and alert in no acute distress. Her FiO2 has been titrated down to 2 L/m per nasal cannula. She's been afebrile this morning. She states she is breathing easier today as compared to yesterday. She is still quite fatigued. She is alert and oriented 3. The patient is seen again today in 10/10/2016 in follow-up on the selective care unit. She is awake and alert in no acute distress. She does get quite dyspneic on minimal exertion. She is still somewhat weak and tired. She denies any worsening shortness of breath, cough or congestion. No fever chills. No diarrhea. Blood cultures reveal no growth to date. She is maintaining good O2 saturations in the low 90s on 3 L/m per nasal cannula. She remains afebrile. Objective - Vital Signs Vital signs: Vital Signs Temp 98.6 F 10/10/16 08:00 Pulse 64 10/10/16 12:02 Resp 18 10/10/16 08:00 BP 147/75 10/10/16 08:00 Pulse Ox 93 L 10/10/16 08:00 Intake & Output 10/09/16 10/10/16 10/10/16 18:59 06:59 18:59 Intake Total 858 Output Total 400 350 Balance 458 -350 Weight 95.2 kg Intake: IV 560 Sodium Chloride 0.9% 1, 560 000 ml @ 80 mls/hr IV . [id number] [facility] Rx#:[id number] Oral 298 Output: Urine 400 350 Other: Voiding Method Toilet Toilet # Voids 1 - Exam GENERAL EXAM: Alert, comfortable in no apparent distress. HEAD: Normocephalic. EYES: Normal reaction of pupils, equal size. NOSE: Clear with pink turbinates. THROAT: No erythema or exudates. NECK: No masses, no JVD. CHEST: No chest wall deformity. LUNGS: Equal air entry with no crackles, wheeze, rhonchi or dullness. CVS: S1 and S2 normal with no audible murmurs, regular rhythm. ABDOMEN: Obese, normal bowel sounds, no guarding or rigidity. Extremities: There is trace peripheral edema. No clubbing, no cyanosis. Peripheral pulses are intact. - Labs CBC & Chem 7: 10/09/16 03:21 10/09/16 03:21 Labs: Abnormal Lab Results - Last 24 Hours (Table) 10/09/16 10/09/16 10/10/16 Range/Units 16:57 20:33 06:02 POC Glucose (mg/dL) 133 H 139 H 123 H (75-99) mg/dL 10/10/16 Range/Units 12:05 POC Glucose (mg/dL) 121 H (75-99) mg/dL Assessment and Plan Plan: Impression: #1 Acute exacerbation of chronic obstructive pulmonary disease, complicated by influenza B. #2 Acute on chronic hypoxic respiratory failure secondary to above. #3 Influenza B. #4 Acute exacerbation of chronic diastolic congestive heart failure. #5 Moderate pulmonary hypertension, RVSP 58 mmHg. #6 Diabetes mellitus, type II. #7 Hypertension. #8 Hypothyroidism. #9 Proximal atrial fibrillation, status post permanent pacemaker implantation, anticoagulated on Eliquis. #10 Morbid obesity. #12 Coronary artery disease. #13 Remote history of chronic tobacco dependence. Plan: The patient was seen and evaluated by Dr. Boss. We'll continue with her current pulmonary medications including bronchodilators will continue with her ceftriaxone and azithromycin. We'll continue her Tamiflu for a total of 5 days. She remains anticoagulated with Eliquis. She is on Protonix for GI prophylaxis. She could possibly be discharged home later today or perhaps tomorrow morning. We will continue to follow make further recommendations based on her clinical status.
[2016-10-10 17:26] LABS: Glucose,Whole Blood 114 mg/dL (75-99)
--- NOTE | 2016-10-10 17:46 | P.PN ---
Subjective 81-year-old female with history of COPD, diastolic heart failure, chronic hypoxic respiratory failure comes in to the hospital with complaints of difficulty breathing associated with cough and will he productive in nature for the last 3-4 days. Patient states to have some generalized weakness, intermittent chills during the same period of time. Patient denies having a influenza vaccine done during this season. In the emergency room patient underwent the testing was found to be positive for influenza. Patient was also noted to have a lactic acid level II.6. Patient's vitals are stable at this time. A chest x-ray was done was read as pulmonary vessel congestion however on my repeat it appears to be more of a infiltrate on the left lower lobe. With some chronic changes. Patient denies having any abdominal pain, urinary urgency or frequency, diarrhea 10/09/2001 Patient's is to be feeling significantly better. Denies having any fevers, chills, nausea, vomiting. Patient is ambulating around the halls without much difficulty. 10/10/2016 States that she is worse today. Has significant difficulty in breathing however this is only started within the few hours prior to my evaluation. Denies having any fevers, chills, nausea, vomiting, diarrhea, chest pain. Objective - Vital Signs Vital signs: Vital Signs Temp 97.6 F 10/10/16 12:00 Pulse 72 10/10/16 15:22 Resp 18 10/10/16 12:00 BP 135/65 10/10/16 12:00 Pulse Ox 96 10/10/16 12:00 Intake & Output 10/09/16 10/10/16 10/10/16 18:59 06:59 18:59 Intake Total 858 Output Total 400 350 Balance 458 -350 Weight 95.2 kg Intake: IV 560 Sodium Chloride 0.9% 1, 560 000 ml @ 80 mls/hr IV . [id number] [facility] Rx#:[id number] Oral 298 Output: Urine 400 350 Other: Voiding Method Toilet Toilet # Voids 1 - Exam Physical exam Gen. appearance oriented 3 in no distress Neck is supple no JVD Lungs my evaluation patient has significant wheezing no rhonchi appreciated Heart S1-S2 heard regular rate and rhythm no murmurs appreciated Abdomen is soft nontender no organomegaly bowel sounds are intact Neurologically cranial nerves II-12 grossly intact no focal motor or sensory deficits noted Skin no abnormalities appreciated - Labs CBC & Chem 7: 10/09/16 03:21 10/09/16 03:21 Labs: Abnormal Lab Results - Last 24 Hours (Table) 10/09/16 10/10/16 10/10/16 Range/Units 20:33 06:02 12:05 POC Glucose (mg/dL) 139 H 123 H 121 H (75-99) mg/dL 10/10/16 Range/Units 17:22 POC Glucose (mg/dL) 114 H (75-99) mg/dL Assessment and Plan Plan: #1 influenza pneumonitis causing an acute exacerbation of COPD #2 CAD #3 history of pacemaker placement #4 HF PEF without an acute exacerbation #5 lactic acidosis #6 COPD #Chronic hypoxic respiratory failure #7 history of hypertension #8 history of diverticulosis #9 dyslipidemia #10 proximal atrial fibrillation #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 Outpatient stress test is recommended. #13 sick sinus syndrome status post pacemaker placement. Plan Evaluation patient had significant amount of wheezing. Additional breathing treatments were given. Patient was dyspneic with minimal exertion. Hence we' ll hold the patient another night. We'll give the patient prednisone 40 mg. Patient does have a underlying diagnosis of COPD. Continue current antibiotics and breathing treatments at this time.
[2016-10-10] MEDS: predniSONE 20 MG TAB PO SCH (20:22)
[2016-10-10 21:10] LABS: Glucose,Whole Blood 116 mg/dL (75-99)
[2016-10-11 05:58] LABS: Glucose,Whole Blood 172 mg/dL (75-99)
[2016-10-11] MEDS: LEVOTHYROXINE 50 MCG TAB PO SCH (06:42)
[2016-10-11] MEDS: PANTOPRAZOLE 40 MG TABLET PO SCH (06:42)
[2016-10-11] MEDS: INSULIN LISPRO (humaLOG) 300 UNIT/3 ML VIAL SQ SCH ×2 (06:43→12:20)
[2016-10-11] MEDS: IPRATROPIUM-ALBUTEROL 3 ML NEB INHALATION SCH ×2 (08:15→11:30)
[2016-10-11] MEDS: MELOXICAM 7.5 MG TAB PO SCH (09:11)
[2016-10-11] MEDS: OXYBUTYNIN 15 MG TAB.ER.24 PO SCH (09:11)
[2016-10-11] MEDS: amLODIPine 2.5 MG TAB PO SCH (09:12)
[2016-10-11] MEDS: PREGABALIN 75 MG CAP PO SCH (09:12)
[2016-10-11] MEDS: APIXABAN 2.5 MG TABLET PO SCH (09:12)
[2016-10-11] MEDS: DULoxetine HCL 60 MG CAPSULE.DR PO SCH (09:12)
[2016-10-11] MEDS: predniSONE 20 MG TAB PO SCH (09:12)
[2016-10-11] MEDS: AZITHROMYCIN 1,200 MG/30 ML BOTTLE PO SCH (09:12)
[2016-10-11] MEDS: ATENOLOL 12.5 MG TAB PO SCH (09:12)
[2016-10-11] MEDS: OSELTAMIVIR 60 MG/10 ML ORAL SYRINGE PO SCH (09:17)
[2016-10-11 09:28] VITALS: RESP 20
[2016-10-11 11:35] VITALS: BP 167/79; TEMP 97
[2016-10-11 11:44] VITALS: PULSE 80
[2016-10-11 12:10] LABS: Glucose,Whole Blood 197 mg/dL (75-99)
--- NOTE | 2016-10-11 12:15 | P.PN ---
Subjective Progress note dated 10/11/2016 This is an 81-year-old female who was seen by myself and our nurse practitioner. Note to Dr. Perdomo and our office. Came with complaints of shortness of breath with minimal exertion. Was weak and tired. Had cough and congestion. The patient is feeling a bit better. Blood cultures are thus far negative. Vital signs are reasonably stable. She remains on oxygen therapy. She was positive for influenza B. She has a history of COPD influenza B hypoxemic respiratory failure diastolic CHF pulmonary pretension diabetes hypertension hypothyroidism atrial fibrillation obesity coronary artery disease and remote history of chronic tobacco dependence. She should be on the Tamiflu for 5 days. She'll continue on her current antibiotics. Objective - Vital Signs Vital signs: Vital Signs Temp 97.0 F L 10/11/16 11:34 Pulse 80 10/11/16 11:40 Resp 20 10/11/16 11:34 BP 167/79 10/11/16 11:34 Pulse Ox 97 10/11/16 11:34 Intake & Output 10/10/16 10/11/16 10/11/16 18:59 06:59 18:59 Intake Total 300 230 Output Total 350 Balance -350 300 230 Weight 93.7 kg Intake: Intake, IV Titration 50 Amount cefTRIAXone 1,000 mg In 50 Sodium Chloride 0.9% 50 ml @ 100 mls/hr IVPB Q24HR [facility] Rx#:[id number] Oral 300 180 Output: Urine 350 Other: Voiding Method Toilet Toilet Toilet # Voids 1 # Bowel Movements 1 - Exam No acute distress, oriented 3. HEENT examination is grossly unremarkable. Mucous members are moist. No oral lesions. Neck supple. Full range of motion. No adenopathy or thyromegaly. Neck veins are flat. Cardiovascular examination reveals regular rhythm rate. No S3-S4. No murmur. Heart rate about 80. His regular. Lungs reveal few scattered rhonchi. No wheezes or crackles. Breath sounds are diminished. Slight prolongation. Abdomen soft bowel sounds are heard. Extremities are intact. - Labs CBC & Chem 7: 10/09/16 03:21 10/09/16 03:21 Labs: Abnormal Lab Results - Last 24 Hours (Table) 10/10/16 10/10/16 10/11/16 Range/Units 17:22 21:07 05:57 POC Glucose (mg/dL) 114 H 116 H 172 H (75-99) mg/dL 10/11/16 Range/Units 12:07 POC Glucose (mg/dL) 197 H (75-99) mg/dL Assessment and Plan (1) Acute exacerbation of chronic obstructive airways disease Status: Acute (2) Chronic congestive heart failure Status: Acute (3) Fever Status: Acute (4) Influenza Status: Acute (5) Atypical chest pain Status: Acute (6) CHF (congestive heart failure) Status: Acute (7) Diastolic CHF, acute on chronic Status: Acute (8) HTN (hypertension) Status: Acute (9) Pacemaker Status: Acute Plan: Plan dated 10/11/2016 The patient is doing well. The patient could be discharged home. We saw the patient yesterday we thought the patient would be discharged to a yesterday or today. The patient's overall clinical status has improved. She should continue on the Tamiflu 75 mg twice a day for full 5 days. Currently on her anticoagulant and antibiotics. We'll continue to follow. Prognosis is guarded but generally good. She is improved. Time with Patient: Less than 30
[2016-10-11] MEDS: FERROUS SULFATE 325 MG TAB PO SCH (12:20)
[2016-10-11] MEDS: CHOLECALCIFEROL 1,000 UNIT TAB PO SCH (12:20)
--- NOTE | 2016-10-14 15:04 | P.DS ---
Providers Date of admission: 10/08/16 11:21 Attending physician: Curtsi Lam MD Consults: 10/08/16 15:11 Consult Physician Urgent Consulting Provider: Scott Bo Consult Reason/Comments: NSTEMI Do you want consulting provider notified?: Yes 10/08/16 16:57 Consult Physician Urgent Consulting Provider: Houston Boss Reason/Comments: CHARLIE Do you want consulting provider notified?: Yes Primary care physician: [facility] Course: 81-year-old female with history of COPD, diastolic heart failure, chronic hypoxic respiratory failure comes in to the hospital with complaints of difficulty breathing associated with cough and will he productive in nature for the last 3-4 days. Patient states to have some generalized weakness, intermittent chills during the same period of time. Patient denies having a influenza vaccine done during this season. In the emergency room patient underwent the testing was found to be positive for influenza. Patient was also noted to have a lactic acid level II.6. Patient's vitals are stable at this time. A chest x-ray was done was read as pulmonary vessel congestion however on my repeat it appears to be more of a infiltrate on the left lower lobe. With some chronic changes. Patient denies having any abdominal pain, urinary urgency or frequency, diarrhea 10/09/2001 Patient's is to be feeling significantly better. Denies having any fevers, chills, nausea, vomiting. Patient is ambulating around the halls without much difficulty. 10/10/2016 States that she is worse today. Has significant difficulty in breathing however this is only started within the few hours prior to my evaluation. Denies having any fevers, chills, nausea, vomiting, diarrhea, chest pain. - Exam Physical exam Gen. appearance oriented 3 in no distress Neck is supple no JVD Lungs my evaluation patient has significant wheezing no rhonchi appreciated Heart S1-S2 heard regular rate and rhythm no murmurs appreciated Abdomen is soft nontender no organomegaly bowel sounds are intact Neurologically cranial nerves II-12 grossly intact no focal motor or sensory deficits noted Skin no abnormalities appreciated Assessment and Plan Plan: #1 influenza pneumonitis causing an acute exacerbation of COPD #2 CAD #3 history of pacemaker placement #4 HF PEF without an acute exacerbation #5 lactic acidosis #6 COPD #Chronic hypoxic respiratory failure #7 history of hypertension #8 history of diverticulosis #9 dyslipidemia #10 proximal atrial fibrillation #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 Outpatient stress test is recommended. #13 sick sinus syndrome status post pacemaker placement. discharged home Taper of steroids Patient Condition at Discharge: Stable Plan - Discharge Summary New Discharge Prescriptions: Azithromycin [Zithromax] 250 mg PO DAILY #5 ml Oseltamivir 6Mg/ml Oral Susp [Tamiflu] 30 mg PO Q12HR 5 Days predniSONE 20 mg PO DAILY #5 tab Discharge Medication List Cholecalciferol [Vitamin D3] 2,000 unit PO DAILY 07/11/15 [History] Albuterol Nebulized [Ventolin Nebulized] 2.5 mg INHALATION RT-TID 06/21/16 [ History] DULoxetine HCL [Cymbalta] 60 mg PO DAILY 06/21/16 [History] Hydrocodone/Acetaminophen [[place] 10-325] 1 tab PO Q4H PRN 06/21/16 [History] Ipratropium Nebulized [Atrovent Nebulized] 0.5 mg INHALATION RT-QID 06/21/16 [ History] Levothyroxine Sodium [Synthroid] 50 mcg PO DAILY 06/21/16 [History] Oxybutynin ER [Ditropan Xl] 15 mg PO DAILY 06/21/16 [History] Furosemide [Lasix] 40 mg PO DAILY #30 tab 06/24/16 [Rx] Apixaban [Eliquis] 2.5 mg PO BID 10/08/16 [History] Atenolol [Tenormin] 12.5 mg PO DAILY 10/08/16 [History] Biotin 5 mg PO DAILY 10/08/16 [History] Ferrous Sulfate [Feosol] 325 mg PO DAILY 10/08/16 [History] Insulin Lispro [humaLOG Kwikpen] 1 unit SQ ACHS PRN 10/08/16 [History] Meloxicam [Mobic] 15 mg PO DAILY 10/08/16 [History] Omeprazole [PriLOSEC] 20 mg PO DAILY 10/08/16 [History] Pregabalin [Lyrica] 75 mg PO BID 10/08/16 [History] amLODIPine [Norvasc] 2.5 mg PO DAILY 10/08/16 [History] Azithromycin [Zithromax] 250 mg PO DAILY #5 ml 10/11/16 [Rx] Oseltamivir 6Mg/ml Oral Susp [Tamiflu] 30 mg PO Q12HR 5 Days 10/11/16 [Rx] predniSONE 20 mg PO DAILY #5 tab 10/11/16 [Rx] Follow up Appointment(s)/Referral(s): [facility], [NON-STAFF] - Balaji Marin DO [Primary Care Provider] - 1-2 days (OFFICES ARE CLOSED, AT THIS TIME I AM UNABLE TO MAKE AN APPOINTMENT. PLEASE CALL TO MAKE AN APPOINTMENT.) Izabella Perdomo MD [STAFF PHYSICIAN] - 1 Week (OFFICES ARE CLOSED, AT THIS TIME I AM UNABLE TO MAKE AN APPOINTMENT. PLEASE CALL TO MAKE AN APPOINTMENT.) Patient Instructions/Handouts: Influenza Virus Vaccine (By injection), Influenza (DC) Discharge Disposition: HOME WITH HOME HEALTH SERVICES
== END 2016-10-11 15:44 | disposition home health service (06) | DRG 194 ==
LOC: EC 08:38 → 6SEL 11:21
PROVIDERS: ADMIT Internal Medicine; ATTEND Internal Medicine
DX: J10.00 Influenza due to other identified influenza virus with unspecified type of pneumonia (principal); I44.2 Atrioventricular block, complete; N17.9 Acute kidney failure, unspecified; J96.11 Chronic respiratory failure with hypoxia; I27.2 Other secondary pulmonary hypertension; I50.32 Chronic diastolic (congestive) heart failure; J44.0 Chronic obstructive pulmonary disease with (acute) lower respiratory infection; E87.2 Acidosis; J44.1 Chronic obstructive pulmonary disease with (acute) exacerbation; I49.5 Sick sinus syndrome; E11.40 Type 2 diabetes mellitus with diabetic neuropathy, unspecified; I11.0 Hypertensive heart disease with heart failure; E66.01 Morbid (severe) obesity due to excess calories; I48.0 Paroxysmal atrial fibrillation; R74.8 Abnormal levels of other serum enzymes; E78.5 Hyperlipidemia, unspecified; M79.7 Fibromyalgia; I25.10 Atherosclerotic heart disease of native coronary artery without angina pectoris; E03.9 Hypothyroidism, unspecified; R41.82 Altered mental status, unspecified; R53.83 Other fatigue; K64.9 Unspecified hemorrhoids; K57.90 Diverticulosis of intestine, part unspecified, without perforation or abscess without bleeding; K21.9 Gastro-esophageal reflux disease without esophagitis; M19.90 Unspecified osteoarthritis, unspecified site; Z79.01 Long term (current) use of anticoagulants; Z87.891 Personal history of nicotine dependence; Z83.3 Family history of diabetes mellitus; Z82.49 Family history of ischemic heart disease and other diseases of the circulatory system; Z79.899 Other long term (current) drug therapy; Z96.653 Presence of artificial knee joint, bilateral; Z95.0 Presence of cardiac pacemaker; Z79.1 Long term (current) use of non-steroidal anti-inflammatories (NSAID); Z87.11 Personal history of peptic ulcer disease; Z79.4 Long term (current) use of insulin; Z79.891 Long term (current) use of opiate analgesic; Z87.19 Personal history of other diseases of the digestive system; Z68.34 Body mass index [BMI] 34.0-34.9, adult; Z98.1 Arthrodesis status; Z96.643 Presence of artificial hip joint, bilateral; Z98.42 Cataract extraction status, left eye; Z98.41 Cataract extraction status, right eye; Z90.49 Acquired absence of other specified parts of digestive tract; Z87.440 Personal history of urinary (tract) infections; Z86.19 Personal history of other infectious and parasitic diseases; Z87.09 Personal history of other diseases of the respiratory system; Z80.9 Family history of malignant neoplasm, unspecified; Z87.81 Personal history of (healed) traumatic fracture
CPT/HCPCS: 36415; 71010; 71020; 80053; 82550; 82553; 83036; 83605; 83735; 83880; 84484; 85025; 85610; 85730; 87040; 87502; 93005; 93306; 94640; 96361; 96374; 99291

== ENCOUNTER 2016-11-24 15:04 | Inpatient (IN) | payer MEDICARE, OTHER ==
[2016-11-24] MEDS ORDERED: SODIUM CHLORIDE 0.9% 500 ML IV STA (15:28)
[2016-11-24] MEDS ORDERED: SODIUM CHLORIDE 0.9% 1,000 ML IV STA (15:28)
[2016-11-24] MEDS ORDERED: ACETAMINOPHEN TAB 500 MG TAB PO STA (15:28)
[2016-11-24] MEDS ORDERED: LEVOFLOXACIN 750MG-D5W PMX 750 MG in DEXTROSE/WATER 1 150ML.BAG IVPB STA (15:30)
--- NOTE | 2016-11-24 15:56 | XR ---
EXAMINATION TYPE: XR chest 2V DATE OF EXAM: 11/24/2016 3:52 PM COMPARISON: 10/09/2016 TECHNIQUE: PA and lateral views submitted. HISTORY: Fever FINDINGS: Postsurgical change left shoulder with arthropathy noted bilaterally. Central interstitial pattern se en. Cardiac device and cardiomegaly noted. No definite consolidative process. Hypertrophic and degene rative change of the spine. IMPRESSION: 1. Correlate for mild venous congestion. Interstitial pneumonitis or pneumonia would be less likely c onsideration.
[2016-11-24 16:01] LABS: Basophils % (A) 0 %; CH 28.8; CHCM 33.6; Eosinophils % (A) 0 %; HCT 40.6 % (34.0-46.0); HDW 3.24; HGB 13.4 gm/dL (11.4-16.0); Luc # (Auto) 0.14; Luc % (Auto) 1; Lymphocytes # (A) 0.9 k/uL (1.0-4.8); Lymphocytes % (A) 5 %; MCH 28.4 pg (25.0-35.0); MCHC 33.1 g/dL (31.0-37.0); Monocytes # (A) 0.5 k/uL (0-1.0); Monocytes % (A) 3 %; Neutrophils # (A) 14.3 k/uL (1.3-7.7); Neutrophils % (A) 90 %; RBC 4.71 m/uL (3.80-5.40); RDW 15.3 % (11.5-15.5); WBC 15.8 k/uL (3.8-10.6)
[2016-11-24 16:06] LABS: Appearance,Urine Clear (Clear); Bilirubin,Urine Negative (Negative); Glucose,Urine (UA) Negative (Negative); Ketones,Urine Trace (Negative); Leukocyte Esterase,Urine Small (Negative); Mucus,Urine Rare /hpf; Nitrite,Urine Negative (Negative); Particle Count 29561; Protein,Urine 1+ (Negative); RBC,Urine 14 /hpf (0-5); Specific Gravity,Urine 1.014 (1.001-1.035); UA Billing (MACRO vs. MICRO) MICRO; Urobilinogen,Urine <2.0 mg/dL (<2.0); WBC,Urine 9 /hpf (0-5)
[2016-11-24 16:16] LABS: ALT 23 U/L (9-52); AST 37 U/L (14-36); Alkaline Phosphatase 94 U/L (38-126); Anion Gap 14 mmol/L; Blood Urea Nitrogen 20 mg/dL (7-17); Calcium 8.5 mg/dL (8.4-10.2); Carbon Dioxide 24 mmol/L (22-30); Chloride 100 mmol/L (98-107); Glucose 149 mg/dL (74-99); Non-African American GFR(MDRD) 55 (>60 ml/min/1.73 sqM); Potassium 3.8 mmol/L (3.5-5.1); Sodium 138 mmol/L (137-145); Total Bilirubin 2.2 mg/dL (0.2-1.3); Total Protein 6.9 g/dL (6.3-8.2)
--- NOTE | 2016-11-24 18:03 | ED ---
Fever HPI - General Chief Complaint: Fever Stated Complaint: Weakness Time Seen by Provider: 11/24/16 15:12 Source: patient Mode of arrival: EMS Limitations: no limitations - History of Present Illness Initial Comments: This 81-year-old white female presents with a complaint of a fever. She apparently developed a fever 102 today. She does relate that she's been feeling very weak. She denies any cough or difficulty breathing. She denies any frequency, urgency, or dysuria. She denies any nausea, vomiting, diarrhea, or constipation. Everything apparently occurred this morning. Her son later does present and states that over the past month he's noticed a cognitive decline. He is worried about polypharmacy. She apparently was taken off her Lyrica due to the possible side effects of this medication causing cognitive problems. She apparently fell several times in the past month as well. She denies any other complaints or modifying factors. - Related Data Home Medications Medication Instructions Recorded Confirmed Albuterol Nebulized [Ventolin 2.5 mg INHALATION RT-TID 06/21/16 11/24/16 Nebulized] DULoxetine HCL [Cymbalta] 60 mg PO DAILY 06/21/16 11/24/16 Hydrocodone/Acetaminophen [[place] 1 tab PO Q4H PRN 06/21/16 11/24/16 10-325] Levothyroxine Sodium [Synthroid] 50 mcg PO DAILY 06/21/16 11/24/16 Oxybutynin ER [Ditropan Xl] 15 mg PO DAILY 06/21/16 11/24/16 Apixaban [Eliquis] 2.5 mg PO BID 10/08/16 11/24/16 Atenolol [Tenormin] 12.5 mg PO DAILY 10/08/16 11/24/16 Biotin 5 mg PO DAILY 10/08/16 11/24/16 Insulin Lispro [humaLOG Kwikpen] See Protocol SQ ACHS PRN 10/08/16 11/24/16 Meloxicam [Mobic] 15 mg PO DAILY 10/08/16 11/24/16 Omeprazole [PriLOSEC] 20 mg PO DAILY 10/08/16 11/24/16 Ipratropium-Albuterol Nebulize 3 ml INHALATION RT-TID 11/24/16 11/24/16 [Duoneb 0.5 mg-3 mg/3 ml Soln] amLODIPine BESYLATE [Norvasc] 2.5 mg PO DAILY 11/24/16 11/24/16 Previous Rx's Medication Instructions Recorded Furosemide [Lasix] 40 mg PO DAILY #30 tab 06/24/16 Allergies Allergy/AdvReac Type Severity Reaction Status Date / Time No Known Allergies Allergy Verified 11/24/16 15:12 Review of Systems ROS Statement: Those systems with pertinent positive or pertinent negative responses have been documented in the HPI. ROS Other: All systems not noted in ROS Statement are negative. Past Medical History Past Medical History: Atrial Fibrillation, Coronary Artery Disease (CAD), Heart Failure, COPD, Diabetes Mellitus, Fibromyalgia, GERD/Reflux, GI Bleed, Hypertension, Osteoarthritis (OA), Thyroid Disorder Additional Past Medical History / Comment(s): Chronic CHF, bronchitis, NIDDM type II, antral ulcer with bleed, hemorrhoids, pancreatic head mass-being followed at [facility], NEUROPATHY bilateral legs/feet, obesity, paroxysmal atrial fibrillation, CHB-pacemaker insertion, arthritis multiple joints, DJD, UTIs, hypothyroid, past L shoulder fracture x2. History of Any Multi-Drug Resistant Organisms: None Reported Past Surgical History: Appendectomy, Back Surgery, Joint Replacement, Orthopedic Surgery, Pacemaker Additional Past Surgical History / Comment(s): 06/24/16 EGD/colonoscopy, IVAN total hip arthroplasties, IVAN total KNEE arthroplasties, L femur fx with surgery , back fusion, MELANIE TO BACK, plate in left shoulder, bilateral cataract removal, D&Cs. Past Anesthesia/Blood Transfusion Reactions: No Reported Reaction Additional Past Anesthesia/Blood Transfusion Reaction / Comment(s): Pt has had blood transfusions and states "they couldn't finish the last one because I got sick." Type of Cardiac Device: Permanent Pacemaker Device Placement Date:: 2011 Past Psychological History: No Psychological Hx Reported Additional Psychological History / Comment(s): Pt resides alone. She uses a walker or cane. She drives near home. Smoking Status: Former smoker Past Alcohol Use History: None Reported Additional Past Alcohol Use History / Comment(s): Pt smoked from [id number]. Past Drug Use History: None Reported - Past Family History Mother Family Medical History: Diabetes Mellitus Additional Family Medical History / Comment(s): AAA Father Family Medical History: Diabetes Mellitus, Myocardial Infarction (ID) Additional Family Medical History / Comment(s): Father had a ID at the age of 62 yrs and . Brother(s) Family Medical History: Cancer, Diabetes Mellitus, Hypertension General Exam - General Exam Comments Initial Comments: GENERAL: The patient is well nourished and well hydrated. VITAL SIGNS: Heart rate, blood pressure, respiratory rate reviewed as recorded in nurse's notes. EYES: Pupils are round and reactive. Extraocular movements are intact. No conjunctival / lid redness or swelling. ENT: No external evidence of injury, swelling, or ecchymosis. Airway is patent. Throat is clear. NECK: Nontender. No swelling or evidence of injury. No subcutaneous emphysema. Trachea is midline. No thyroid mass. HEART: Regular rate and rhythm. Good peripheral pulses. LUNGS/CHEST: Breath sounds clear and equal bilaterally. No rales, rhonchi, or wheezes. No ecchymosis, subcutaneous emphysema, or tenderness. ABDOMEN: Abdomen soft without tenderness. No palpable masses or organomegaly. No peritoneal signs. No abdominal wall swelling or ecchymosis. EXTREMITIES: No extremity tenderness. Normal muscle tone and function. No thoracolumbar tenderness. NEUROLOGIC: Sensation is grossly intact. Cranial nerve exam reveals face is symmetrical, tongue is midline, speech is clear. SKIN: No abrasions or ecchymosis is noted. No induration or masses noted. PSYCHIATRIC: Alert and oriented. Appropriate behavior and judgment. Limitations: no limitations Course Vital Signs 11/24/16 11/24/16 11/24/16 15:10 16:00 17:00 Temperature 102.0 F H 100.6 F H Pulse Rate 65 65 64 Respiratory 22 22 20 Rate Blood Pressure 177/72 163/73 146/65 O2 Sat by Pulse 97 98 98 Oximetry Medical Decision Making - Medical Decision Making The patient was seen and examined. All diagnostics were reviewed. EKG shows a ventricular paced rhythm. The heart rate is 65, QRS duration is 154, and the QTc interval is 465. The patient had a laboratory analysis done which shows elevation of the white blood cell count. It also shows signs of a urinary tract infection. The chest x-ray shows possible fluid overload. The possibility of underlying pneumonitis or pneumonia is possible as well. She started on some Levaquin intravenously. It is felt that she would benefit from admission to the hospital for further treatment. Blood cultures and urine cultures are pending. Case is discussed with internal medicine and they're agreeable to admission. The son does relate a significant concern regarding her recent decline in mental status over the past month and not just over the past day or 2 with her current fevers. He would like this further investigated and is requesting a neurology consult. He also states that she is not always there completely mentally and that he would like to be involved with her care significantly. He would like his name placed on the chart for physicians to call him with any updates and for further input. His name is Ga Box and his cell phone is [phone]. - Lab Data Result diagrams: 11/24/16 15:15 11/24/16 15:15 Lab Results 11/24/16 11/24/16 11/24/16 Range/Units 15:15 15:15 15:15 WBC 15.8 H (3.8-10.6) k/uL RBC 4.71 (3.80-5.40) m/uL Hgb 13.4 (11.4-16.0) gm/dL Hct 40.6 (34.0-46.0) % MCV 86.0 (80.0-100.0) fL MCH 28.4 (25.0-35.0) pg MCHC 33.1 (31.0-37.0) g/dL RDW 15.3 (11.5-15.5) % Plt Count 119 L (150-450) k/uL Neutrophils % 90 % Lymphocytes % 5 % Monocytes % 3 % Eosinophils % 0 % Basophils % 0 % Neutrophils # 14.3 H (1.3-7.7) k/uL Lymphocytes # 0.9 L (1.0-4.8) k/uL Monocytes # 0.5 (0-1.0) k/uL Eosinophils # 0.0 (0-0.7) k/uL Basophils # 0.0 (0-0.2) k/uL Sodium 138 (137-145) mmol/L Potassium 3.8 (3.5-5.1) mmol/L Chloride 100 (98-107) mmol/L Carbon Dioxide 24 (22-30) mmol/L Anion Gap 14 mmol/L BUN 20 H (7-17) mg/dL Creatinine 0.97 (0.52-1.04) mg/dL Est GFR (MDRD) Af Amer >60 (>60 ml/min/1.73 sqM) Est GFR (MDRD) Non-Af 55 (>60 ml/min/1.73 sqM) Glucose 149 H (74-99) mg/dL Plasma Lactic Acid Benito 2.8 H* (0.7-2.0) mmol/L Calcium 8.5 (8.4-10.2) mg/dL Total Bilirubin 2.2 H (0.2-1.3) mg/dL AST 37 H (14-36) U/L ALT 23 (9-52) U/L Alkaline Phosphatase 94 (38-126) U/L Total Protein 6.9 (6.3-8.2) g/dL Albumin 3.9 (3.5-5.0) g/dL Urine Color Urine Appearance (Clear) Urine pH (5.0-8.0) Ur Specific Wilson (1.001-1.035) Urine Protein (Negative) Urine Glucose (UA) (Negative) Urine Ketones (Negative) Urine Blood (Negative) Urine Nitrite (Negative) Urine Bilirubin (Negative) Urine Urobilinogen (<2.0) mg/dL Ur Leukocyte Esterase (Negative) Urine RBC (0-5) /hpf Urine WBC (0-5) /hpf Urine Mucus (None) /hpf 11/24/16 Range/Units 15:15 WBC (3.8-10.6) k/uL RBC (3.80-5.40) m/uL Hgb (11.4-16.0) gm/dL Hct (34.0-46.0) % MCV (80.0-100.0) fL MCH (25.0-35.0) pg MCHC (31.0-37.0) g/dL RDW (11.5-15.5) % Plt Count (150-450) k/uL Neutrophils % % Lymphocytes % % Monocytes % % Eosinophils % % Basophils % % Neutrophils # (1.3-7.7) k/uL Lymphocytes # (1.0-4.8) k/uL Monocytes # (0-1.0) k/uL Eosinophils # (0-0.7) k/uL Basophils # (0-0.2) k/uL Sodium (137-145) mmol/L Potassium (3.5-5.1) mmol/L Chloride (98-107) mmol/L Carbon Dioxide (22-30) mmol/L Anion Gap mmol/L BUN (7-17) mg/dL Creatinine (0.52-1.04) mg/dL Est GFR (MDRD) Af Amer (>60 ml/min/1.73 sqM) Est GFR (MDRD) Non-Af (>60 ml/min/1.73 sqM) Glucose (74-99) mg/dL Plasma Lactic Acid Benito (0.7-2.0) mmol/L Calcium (8.4-10.2) mg/dL Total Bilirubin (0.2-1.3) mg/dL AST (14-36) U/L ALT (9-52) U/L Alkaline Phosphatase (38-126) U/L Total Protein (6.3-8.2) g/dL Albumin (3.5-5.0) g/dL Urine Color Yellow Urine Appearance Clear (Clear) Urine pH 7.0 (5.0-8.0) Ur Specific [place] 1.014 (1.001-1.035) Urine Protein 1+ H (Negative) Urine Glucose (UA) Negative (Negative) Urine Ketones Trace H (Negative) Urine Blood Small H (Negative) Urine Nitrite Negative (Negative) Urine Bilirubin Negative (Negative) Urine Urobilinogen <2.0 (<2.0) mg/dL Ur Leukocyte Esterase Small H (Negative) Urine RBC 14 H (0-5) /hpf Urine WBC 9 H (0-5) /hpf Urine Mucus Rare H (None) /hpf Disposition Clinical Impression: Fever, UTI (urinary tract infection), Leukocytosis, Weakness, Cognitive impairment, Lactic acidosis Disposition: ADMITTED IP TO THIS HOSP Condition: Fair Referrals: Balaji Marin DO [Primary Care Provider] - 1-2 days Time of Disposition: 18:02
[2016-11-24] MEDS ORDERED: NALOXONE 0.4 MG/ML 1 ML VIAL IV PRN (18:04)
[2016-11-24 20:30] LABS: Glucose,Whole Blood 102 mg/dL (75-99)
[2016-11-24] MEDS: ALBUTEROL NEBULIZED 2.5 MG/3 ML INHALATION SCH (20:46)
[2016-11-24] MEDS: APIXABAN 2.5 MG TABLET PO SCH (20:58)
[2016-11-24] MEDS ORDERED: INSULIN LISPRO (humaLOG) 300 UNIT/3 ML VIAL SQ SCH (21:00)
[2016-11-24] MEDS ORDERED: SODIUM CHLORIDE 0.9% 500 ML IV ONE (21:24)
[2016-11-24] MEDS: HYDROcodone/APAP 10-325MG 1 EACH TAB PO PRN (23:13)
[2016-11-25 00:12] LABS: Glucose,Whole Blood 167 mg/dL (75-99)
[2016-11-25] MEDS ORDERED: ALPRAZolam 0.25 MG TAB PO STA (00:16)
[2016-11-25] MEDS ORDERED: FUROSEMIDE 10 MG/ML 4 ML VIAL IV STA ×2 (00:17→15:47)
[2016-11-25] MEDS ORDERED: hydrALAZINE HCL 20 MG/ML 1 ML VIAL IVP PRN (00:17)
[2016-11-25] MEDS ORDERED: RX INFO: IV CONTRAST WAS GIVEN 1 EACH MISC MISCELLANE PRN (00:43)
[2016-11-25 01:01] LABS: Glucose,Whole Blood 190 mg/dL (75-99)
[2016-11-25] MEDS ORDERED: ACETAMINOPHEN IV (For NPO) 1,000 MG in EMPTY BAG 1 BAG IVPB ONE (01:50)
[2016-11-25] MEDS ORDERED: NALOXONE 0.4 MG/ML 1 ML VIAL IV PRN (01:50)
[2016-11-25 01:54] LABS: ABG PCO2 32 mmHg (35-45); ABG PH 7.41 (7.35-7.45)
[2016-11-25 01:55] LABS: ABG HCO3 20 mmol/L (21-25); ABG PO2 >400 mmHg (83-108); ABG TCO2 21 mmol/L (19-24)
[2016-11-25] MEDS ORDERED: LORazepam 2 MG/ML SYRINGE IV STA (01:57)
[2016-11-25] MEDS: INSULIN LISPRO (humaLOG) 300 UNIT/3 ML VIAL SQ SCH ×3 (05:33→18:42)
[2016-11-25] MEDS: LEVOTHYROXINE 50 MCG TAB PO SCH (05:33)
[2016-11-25 05:34] LABS: Glucose,Whole Blood 182 mg/dL (75-99)
[2016-11-25 05:43] LABS: Anion Gap 12 mmol/L; Blood Urea Nitrogen 21 mg/dL (7-17); Calcium 8.6 mg/dL (8.4-10.2); Carbon Dioxide 21 mmol/L (22-30); Chloride 103 mmol/L (98-107); Glucose 184 mg/dL (74-99); Magnesium 1.6 mg/dL (1.6-2.3); Non-African American GFR(MDRD) 53 (>60 ml/min/1.73 sqM); Phosphorous 4.1 mg/dL (2.5-4.5); Potassium 4.1 mmol/L (3.5-5.1); Sodium 136 mmol/L (137-145)
[2016-11-25] MEDS: MAGNESIUM SULFATE-D5W PMX 1 GM in DEXTROSE/WATER 1 100ML.BAG IVPB SCH ×2 (06:22→09:23)
[2016-11-25 06:44] LABS: Basophils % (A) 0 %; CH 28.6; CHCM 33.1; Eosinophils % (A) 0 %; HCT 39.8 % (34.0-46.0); HDW 3.27; HGB 12.9 gm/dL (11.4-16.0); Luc # (Auto) 0.21; Luc % (Auto) 1; Lymphocytes # (A) 0.9 k/uL (1.0-4.8); Lymphocytes % (A) 5 %; MCH 28.1 pg (25.0-35.0); MCHC 32.4 g/dL (31.0-37.0); MCV 86.8 fL (80.0-100.0); Mean Platelet Volume 9.7; Monocytes # (A) 0.7 k/uL (0-1.0); Monocytes % (A) 4 %; Neutrophils # (A) 15.7 k/uL (1.3-7.7); Neutrophils % (A) 90 %; RBC 4.59 m/uL (3.80-5.40); RDW 15.4 % (11.5-15.5); WBC 17.5 k/uL (3.8-10.6); WBC (Perox) 18.18
[2016-11-25 07:58] LABS: Manual Review Performed
[2016-11-25] MEDS ORDERED: FUROSEMIDE 10 MG/ML 4 ML VIAL IV SCH (08:00)
[2016-11-25 08:07] LABS: Toxic Granulation Present; Toxic Vacuolation Present
[2016-11-25] MEDS: ALBUTEROL NEBULIZED 2.5 MG/3 ML INHALATION SCH ×2 (08:10→12:43)
[2016-11-25] MEDS ORDERED: NON-FORMULARY DRUG (Biotin [Biotin] 5 MG) PO SCH (09:00)
[2016-11-25] MEDS ORDERED: FUROSEMIDE 40 MG TAB PO SCH (09:00)
--- NOTE | 2016-11-25 09:09 | XR ---
EXAMINATION TYPE: XR chest 1V DATE OF EXAM: 11/25/2016 6:22 AM COMPARISON: 11/24/2016 HISTORY: Shortness of breath, infiltrate TECHNIQUE: Single frontal view of the chest is obtained. FINDINGS: Left lower lobe infiltrate noted. Heart is enlarged and there is cardiac device. Previous surgery left shoulder. No pneumothorax or overt failure. Hypertrophic change of the spine. IMPRESSION: 1. Left lower lobe infiltrate and small effusion. Interstitium appears to be improved suggestive of r educing venous congestion.
[2016-11-25] MEDS ORDERED: IV VANCOMYCIN PER PHARMACY 1 EACH MISC MISCELLANE PRN (09:14)
[2016-11-25] MEDS: APIXABAN 2.5 MG TABLET PO SCH ×2 (09:30→20:27)
--- NOTE | 2016-11-25 09:41 | P.CNPUL ---
History of Present Illness Consult date: 11/25/16 Chief complaint: sepsis History of present illness: 81-year-old female patient with multiple medical positive comorbidities who lives independently at home and the patient was found to be having some altered mental status. There has been gradual decline in the patient's health. The patient become more weak and she had been falling at home and over the past 24 hours she started having episodes of high-grade fever with a temperature 102 along with altered mental status. No neck stiffness. No headaches. No head trauma. She denies having any cough or sputum production. She did complain of some increased shortness of breath. No nausea. No vomiting. No diarrhea. No aspiration. No dystrophic emergency. No hematuria. No flank pain. No open wounds or sores. The patient has multiple orthopedic surgeries with bilateral knee and hip replacement and she has a pacemaker in place.yet, none of these seem to be infected at this point. The patient got moved to the intensive care unit after being admitted to the medical floor. She was having altered mental status. Her lactic acid level was at 2.8. The patient received IV fluids initially half a liter bolus of normal saline and then another half a liter. Subsequent lactic acid level dropped down to 1.4. Her blood cultures from this morning is showing gram-positive cocci in pairs. The patient had received a dose of Levaquin in the emergency department. I switch her to a combination of Zosyn and Levaquin. The patient's white cell count is at 17.5. Her renal function is within normal. Chest x-ray shows some limited infiltration of the left lung base other was not acute abdominal masses noted. Overnight, the patient was placed on a BiPAP and earlier this morning she was taken off the BiPAP and she was placed on 40 still oxygen nasal cannula. She is known to have CHF with diastolic dysfunction with an ejection fraction of 55-60%. She was in the hospital in September 2016 for an acute influenza be respiratory tract infection pH is known to have COPD along with various other comorbidities as will be discussed later on in my dictation. No skin rashes. No focal neurological deficits. She seems to be much more awake and alert is point in time. Hemodynamically stable. Producing adequate amount of urine output. Review of Systems Full review of system was done and the positive findings are almost above in history of present illness Past Medical History Past Medical History: Atrial Fibrillation, Coronary Artery Disease (CAD), Heart Failure, COPD, Diabetes Mellitus, Fibromyalgia, GERD/Reflux, GI Bleed, Hypertension, Osteoarthritis (OA), Thyroid Disorder Additional Past Medical History / Comment(s): Chronic CHF with an ejection fraction of 55-60% and diastolic dysfunction, coronary artery disease , COPD, nondistended dependent diabetes mellitus type 2, peptic ulcer disease with an antral ulcer and previous history of bleeding, hemorrhoids, history of pancreatic head mass/lesion that has been stable and this has been followed up at [facility], previous history of GI bleeding, fibromyalgia, obesity, paroxysmal atrial fibrillation, cardiac heart block insertion, arthritis multiple joints, DJD, UTIs, hypothyroid, past L shoulder fracture x2, influenza B respiratory tract infection History of Any Multi-Drug Resistant Organisms: None Reported Past Surgical History: Appendectomy, Back Surgery, Joint Replacement, Orthopedic Surgery, Pacemaker Additional Past Surgical History / Comment(s): 06/24/16 EGD/colonoscopy, IVAN total hip arthroplasties, IVAN total KNEE arthroplasties, L femur fx with surgery , back fusion, MELANIE TO BACK, plate in left shoulder, bilateral cataract removal, D&Cs. Past Anesthesia/Blood Transfusion Reactions: No Reported Reaction Additional Past Anesthesia/Blood Transfusion Reaction / Comment(s): Pt has had blood transfusions and states "they couldn't finish the last one because I got sick." Type of Cardiac Device: Permanent Pacemaker Device Placement Date:: 2011 Past Psychological History: No Psychological Hx Reported Additional Psychological History / Comment(s): Pt resides alone. She uses a walker or cane. She drives near home. Smoking Status: Former smoker Past Alcohol Use History: None Reported Additional Past Alcohol Use History / Comment(s): Pt smoked from [id number]. Past Drug Use History: None Reported - Past Family History Mother Family Medical History: Diabetes Mellitus Additional Family Medical History / Comment(s): AAA Father Family Medical History: Diabetes Mellitus, Myocardial Infarction (NV) Additional Family Medical History / Comment(s): Father had a NV at the age of 62 yrs and . Brother(s) Family Medical History: Cancer, Diabetes Mellitus, Hypertension Medications and Allergies Home Medications Medication Instructions Recorded Confirmed Type Albuterol Nebulized [Ventolin 2.5 mg INHALATION RT-TID 06/21/16 11/24/16 History Nebulized] DULoxetine HCL [Cymbalta] 60 mg PO DAILY 06/21/16 11/24/16 History Hydrocodone/Acetaminophen [Tibbie 1 tab PO Q4H PRN 06/21/16 11/24/16 History 10-325] Levothyroxine Sodium [Synthroid] 50 mcg PO DAILY 06/21/16 11/24/16 History Oxybutynin ER [Ditropan Xl] 15 mg PO DAILY 06/21/16 11/24/16 History Apixaban [Eliquis] 2.5 mg PO BID 10/08/16 11/24/16 History Atenolol [Tenormin] 12.5 mg PO DAILY 10/08/16 11/24/16 History Biotin 5 mg PO DAILY 10/08/16 11/24/16 History Insulin Lispro [humaLOG Kwikpen] See Protocol SQ ACHS PRN 10/08/16 11/24/16 History Meloxicam [Mobic] 15 mg PO DAILY 10/08/16 11/24/16 History Omeprazole [PriLOSEC] 20 mg PO DAILY 10/08/16 11/24/16 History Ipratropium-Albuterol Nebulize 3 ml INHALATION RT-TID 11/24/16 11/24/16 History [Duoneb 0.5 mg-3 mg/3 ml Soln] amLODIPine BESYLATE [Norvasc] 2.5 mg PO DAILY 11/24/16 11/24/16 History Allergies Allergy/AdvReac Type Severity Reaction Status Date / Time No Known Allergies Allergy Verified 11/24/16 15:12 Physical Exam Vitals: Vital Signs Temp Pulse Pulse Pulse Resp BP BP 11/25/16 08:30 65 11/25/16 08:10 65 11/25/16 08:00 97.7 F 65 18 106/58 11/25/16 07:00 65 20 106/56 11/25/16 06:50 65 18 100/49 11/25/16 06:40 65 18 100/49 11/25/16 06:30 65 16 99/53 11/25/16 06:20 65 18 111/54 11/25/16 06:10 65 18 111/54 11/25/16 06:00 65 18 88/49 11/25/16 05:50 65 19 116/57 05/17/17 05:40 65 19 116/57 11/25/16 05:30 65 35 H 128/58 11/25/16 05:20 65 19 133/61 11/25/16 05:10 65 36 H 133/61 11/25/16 05:00 65 40 H 124/53 11/25/16 04:50 65 29 H 111/56 11/25/16 04:40 65 36 H 111/56 11/25/16 04:30 65 33 H 123/56 11/25/16 04:20 65 23 118/57 11/25/16 04:10 65 32 H 118/57 11/25/16 04:00 98.9 F 65 65 41 H 117/48 11/25/16 03:50 65 25 H 125/60 11/25/16 03:40 65 42 H 125/60 11/25/16 03:30 65 29 H 117/45 11/25/16 03:20 65 22 94/47 11/25/16 03:10 98.7 F 65 23 94/47 11/25/16 03:00 65 22 91/44 11/25/16 02:59 65 40 H 11/25/16 02:50 65 24 151/101 11/25/16 02:40 65 39 H 169/66 11/25/16 02:30 65 28 H 169/66 11/25/16 02:20 65 35 H 158/76 11/25/16 02:10 65 35 H 152/78 11/25/16 02:00 65 60 H 154/59 11/25/16 01:50 65 38 H 111/58 11/25/16 01:40 65 35 H 145/61 11/25/16 01:30 65 22 145/61 11/25/16 01:20 101 F H 65 41 H 177/88 11/25/16 01:10 65 43 H 229/78 11/25/16 01:00 65 41 H 11/25/16 00:59 65 11/25/16 00:54 65 42 H 11/25/16 00:25 100.9 F H 61 40 H 11/24/16 23:19 100.7 F H 05 23:00 98 F 65 20 133/60 11/24/16 20:58 68 05 20:46 66 11/24/16 19:31 97.7 F 69 18 145/62 11/24/16 17:00 100.6 F H 64 20 146/65 11/24/16 16:00 65 22 163/73 11/24/16 15:10 102.0 F H 65 22 177/72 BP Pulse Ox 11/25/16 08:30 11/25/16 08:10 11/25/16 08:00 98 11/25/16 07:00 11/25/16 06:50 11/25/16 06:40 11/25/16 06:30 11/25/16 06:20 11/25/16 06:10 11/25/16 06:00 11/25/16 05:50 11/25/16 05:40 11/25/16 05:30 11/25/16 05:20 11/25/16 05:10 11/25/16 05:00 11/25/16 04:50 11/25/16 04:40 11/25/16 04:30 11/25/16 04:20 11/25/16 04:10 99 11/25/16 04:00 99 11/25/16 03:50 99 11/25/16 03:40 99 11/25/16 03:30 99 11/25/16 03:20 99 11/25/16 03:10 99 11/25/16 03:00 99 11/25/16 02:59 11/25/16 02:50 11/25/16 02:40 11/25/16 02:30 99 11/25/16 02:20 99 11/25/16 02:10 97 11/25/16 02:00 98 11/25/16 01:50 99 11/25/16 01:40 98 11/25/16 01:30 11/25/16 01:20 11/25/16 01:10 11/25/16 01:00 11/25/16 00:59 11/25/16 00:54 220/69 94 L 11/25/16 00:25 230/96 94 L 11/24/16 23:19 11/24/16 23:00 98 11/24/16 20:58 11/24/16 20:46 11/24/16 19:31 95 11/24/16 17:00 98 11/24/16 16:00 98 11/24/16 15:10 97 Intake and Output 11/24/16 11/25/16 11/25/16 22:59 06:59 14:59 Intake Total 240 100 Output Total 915 85 Balance 240 -915 15 Intake: Intake, IV Titration 100 Amount Magnesium Sulfate-D5w Pmx 100 1 gm In Dextrose/Water 1 100ml.bag @ 100 mls/hr IVPB Q1H COUNT INCLUDES THE [facility] Rx#: [id number] Oral 240 Output: Urine 915 85 Other: Voiding Method Indwelling Catheter # Voids 1 Weight 85.729 kg 85.5 kg 89 kg Patient Weight 11/26/16 06:59 Weight 89 kg The patient appeared well nourished and normally developed. Vital signs as documented. Head exam is unremarkable. No scleral icterus or corneal arcus noted. Neck is without jugular venous distension, thyromegaly, or carotid bruits. Carotid upstrokes are brisk bilaterally. Lung sounds are diminished and there are some crackles in the lung bases bilaterally more so on the left. Cardiac exam reveals the PMI to be normally sized and situated. Rhythm is regular. First and second heart sounds normal. No murmurs, rubs or gallops. Patient has a pacemaker in place and the pacemaker pocket seems to be intact and within normal limits. Abdominal exam reveals normal bowel sounds, no masses , no organomegaly and no aortic enlargement. Extremities are nonedematous and both femoral and pedal pulses are normal. The patient has had multiple orthopedic surgeries including a scar over the left shoulder, bilateral hips, bilateral knees and all of these joints are within normal limits. Skin is intact and there is no open wounds or sores. Results - Laboratory Findings CBC and BMP: 11/25/16 05:13 11/25/16 05:13 ABG ABG pH 7.41 (7.35-7.45) 11/25/16 01:46 ABG pCO2 32 mmHg (35-45) L 11/25/16 01:46 ABG pO2 >400 mmHg (83-108) H 11/25/16 01:46 ABG O2 Saturation 100.0 % (94-97) H 11/25/16 01:46 Abnormal lab findings: Abnormal Labs 11/24/16 11/24/16 11/24/16 15:15 15:15 15:15 WBC 15.8 H Plt Count 119 L Neutrophils # 14.3 H Lymphocytes # 0.9 L ABG pCO2 ABG pO2 ABG HCO3 ABG O2 Saturation Sodium Carbon Dioxide BUN 20 H Glucose 149 H POC Glucose (mg/dL) Plasma Lactic Acid Benito 2.8 H* Total Bilirubin 2.2 H AST 37 H Urine Protein Urine Ketones Urine Blood Ur Leukocyte Esterase Urine RBC Urine WBC Urine Mucus 11/24/16 11/24/16 11/24/16 15:15 19:46 20:28 WBC Plt Count Neutrophils # Lymphocytes # ABG pCO2 ABG pO2 ABG HCO3 ABG O2 Saturation Sodium Carbon Dioxide BUN Glucose POC Glucose (mg/dL) 102 H Plasma Lactic Acid Benito 2.7 H* Total Bilirubin AST Urine Protein 1+ H Urine Ketones Trace H Urine Blood Small H Ur Leukocyte Esterase Small H Urine RBC 14 H Urine WBC 9 H Urine Mucus Rare H 11/25/16 11/25/16 11/25/16 00:11 00:58 01:46 WBC Plt Count Neutrophils # Lymphocytes # ABG pCO2 32 L ABG pO2 >400 H ABG HCO3 20 L ABG O2 Saturation 100.0 H Sodium Carbon Dioxide BUN Glucose POC Glucose (mg/dL) 167 H 190 H Plasma Lactic Acid Benito Total Bilirubin AST Urine Protein Urine Ketones Urine Blood Ur Leukocyte Esterase Urine RBC Urine WBC Urine Mucus 11/25/16 11/25/16 11/25/16 05:13 05:13 05:32 WBC 17.5 H Plt Count 98 L Neutrophils # 15.7 H Lymphocytes # 0.9 L ABG pCO2 ABG pO2 ABG HCO3 ABG O2 Saturation Sodium 136 L Carbon Dioxide 21 L BUN 21 H Glucose 184 H POC Glucose (mg/dL) 182 H Plasma Lactic Acid Benito Total Bilirubin AST Urine Protein Urine Ketones Urine Blood Ur Leukocyte Esterase Urine RBC Urine WBC Urine Mucus - Diagnostic Findings Chest x-ray: image reviewed Assessment and Plan Plan: Assessment 1 sepsis with gram-positive bacteremia. The blood cultures are showing gram- positive cocci impairs. Exact source is not clear. Rule out underlying lower lobe pneumonia. Alternative source of infection cannot be completely excluded. No evidence of encephalitis or meningitis. Mental status is improving 2 acute febrile illness secondary to sepsis 3 change in mental status secondary to above, improving. We'll obtain a CAT scan of the head based on her history of falls and trauma and long-term anticoagulation 4 recent hospitalization for influenza B respiratory tract infection 5 CHF with diastolic dysfunction and an ejection fraction of 55% 6 history of heart block status post permanent pacemaker insertion 7 diabetes mellitus type 2 8 fibromyalgia 9 degenerative arthritis with multiple joint replacements 10 history of peptic ulcer disease and previous history of GI bleed 11 paroxysmal atrial fibrillation, current rhythm is paced and the patient is on anticoagulation 12 history of falls 13 peripheral neuropathy 14 COPD 15 coronary artery disease 16 hypothyroidism Plan We will continue IV fluids and we'll cut down the IV fluids to normal saline at rate of 50 mL an hour. Put the patient on a combination of Zosyn and vancomycin. Obtain a CAT scan of the head without contrast for the reasons mentioned above. Obtain ID consultation. Follow-up on the blood cultures and urine cultures. Follow-up chest x-ray with next 24 hours. 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 Sliding scale insulin for blood sugar control. Continue cannulation for now. Provide diet. A transferred to [facility] with telemetry at a later stage of her condition remains stable.
[2016-11-25] MEDS: PIPERACILLIN-TAZOBACTAM 3.375 GM in DEXTROSE/WATER 1 50ML.BAG IVPB SCH ×2 (09:56→16:31)
[2016-11-25] MEDS: ATENOLOL 12.5 MG TAB PO SCH (09:57)
[2016-11-25] MEDS: amLODIPine 2.5 MG TAB PO SCH (09:57)
[2016-11-25] MEDS: PANTOPRAZOLE 40 MG/10 ML VIAL IV SCH (10:25)
[2016-11-25] MEDS: DULoxetine HCL 60 MG CAPSULE.DR PO SCH (10:27)
[2016-11-25] MEDS: MELOXICAM 7.5 MG TAB PO SCH (10:27)
[2016-11-25] MEDS: SODIUM CHLORIDE 0.9% 1,000 ML IV SCH (10:28)
[2016-11-25] MEDS: OXYBUTYNIN 15 MG TAB.ER.24 PO SCH (10:28)
[2016-11-25] MEDS ORDERED: VANCOMYCIN 2,500 MG in SODIUM CHLORIDE 0.9% 500 ML IVPB ONE (10:30)
--- NOTE | 2016-11-25 12:24 | CT ---
EXAMINATION TYPE: CT brain wo con DATE OF EXAM: 11/25/2016 11:41 AM COMPARISON: NONE INDICATION: Patient poor historian. Patient shows signs of altered mental status and weakness. DLP: 831.5 mGycm, Automated exposure control for dose reduction was used. CONTRAST: None CT of the brain is performed utilizing 3 mm thick sections through the posterior fossa and 3 mm thick sections through the remaining calvarium. Study is performed within 24 hours of arrival to the hosp ital. No abnormal hyperdensity is present to suggest an acute intracranial hemorrhage. No mass lesion is evident. No acute infarcts are evident. Chronic appearing periventricular white matter hypodensity is present likely on the basis of white matter ischemic changes. Note is made of some hyperostosis frontalis int ernus, normal variant. Ventricles and sulci are mildly prominent for the patient age. Paranasal sinuses and mastoid air cells within the [id number] are clear. IMPRESSIONS: 1. Age-related atrophy with chronic appearing periventricular white matter ischemic type changes.
[2016-11-25 12:26] LABS: Hemoglobin A1C 5.7 % (4.2-6.1)
[2016-11-25 12:52] LABS: Glucose,Whole Blood 122 mg/dL (75-99)
[2016-11-25] MEDS ORDERED: FUROSEMIDE 10 MG/ML 4 ML VIAL ONE (15:45)
[2016-11-25] MEDS ORDERED: IPRATROPIUM-ALBUTEROL 3 ML NEB INHALATION PRN (15:51)
[2016-11-25] MEDS ORDERED: LEVOFLOXACIN 750MG-D5W PMX 750 MG in DEXTROSE/WATER 1 150ML.BAG IVPB SCH (16:00)
[2016-11-25] MEDS: LORazepam 2 MG/ML SYRINGE IV PRN ×2 (16:22→21:06)
[2016-11-25] MEDS ORDERED: LABETALOL 5 MG/ML VIAL MDV IVP PRN (16:25)
[2016-11-25] MEDS: IPRATROPIUM-ALBUTEROL 3 ML NEB INHALATION SCH ×2 (16:28→19:47)
[2016-11-25 18:34] LABS: Glucose,Whole Blood 132 mg/dL (75-99)
--- NOTE | 2016-11-25 19:41 | HP ---
DATE OF ADMISSION: REASON FOR ADMISSION: Difficulty in breathing. HISTORY OF PRESENTING ILLNESS: This is an 81-year-old female who was admitted to the hospital multiple times previously; comes into the hospital with some complaints of difficulty in breathing. However, patient was brought into the hospital with change in mental status, was noted to have a high-grade fever recorded at 102 degrees Fahrenheit. Patient was initially admitted to the med/telemetry floor. Patient was appropriately fluid-resuscitated; however, due to respiratory distress, a Rapid Response was called. Thereafter she was triaged to the intensive care unit. Patient improved rapidly, until this morning on BiPAP; was alert, oriented x3. She was moving air well on physical examination, according to the securities attorney's note. Patient was supposed to be triaged out of the ICU; however, about half hour prior to my evaluation patient apparently was significantly dyspneic and was audibly wheezing. Thereafter BiPAP was restarted. Patient appeared to be in respiratory distress during my evaluation. Most of the history is obtained from review of the chart. Patient is currently on BiPAP with settings of 12/5 with FiO2 of 40%. Patient is noted to have a left lower lobe infiltrate with concern about [id number] organisms. Patient has been started on Levaquin and Zosyn at this time. The patient appears to be answering some questions appropriately. No other complaints are reported, including headaches, nausea, vomiting, diarrhea or lower extremity tenderness. REVIEW OF SYSTEMS: Fourteen-point review of systems was none; none pertinent other than what was mentioned above. Past medical history includes: 1. Atrial fibrillation. 2. CAD. 3. Heart failure. 4. COPD. 5. Diabetes mellitus. 6. Fibromyalgia. 7. History of GI bleed. 8. Hypertension. 9. Osteoarthritis. 10. History of a pancreatic mass. 11. Hypothyroidism. Past surgical history includes: 1. Appendectomy. 2. Back surgery. 3. Joint replacement. 4. Orthopedic surgery. 5. Pacemaker placement. 6. Bilateral knee arthroplasties. 7. EGD. 8. Colonoscopy. 9. Bilateral cataract removal. 10. D&C. SOCIAL HISTORY: Currently lives alone. Former smoker. No alcohol or other illicit drug use is reported. FAMILY HISTORY: Not pertinent to the current admission. Some history of cancers reported in her brother. Medications at home include: 1. Ventolin. 2. Duloxetine. 3. Toughkenamon. 4. Synthroid. 5. Ditropan. 6. Eliquis. 7. Tenormin. 8. Biotin. 9. Insulin Lispro. 10. Meloxicam. 11. Omeprazole. 12. DuoNeb. 13. Amlodipine. Doses were appropriately reviewed and reconciled. ALLERGIES: NO KNOWN DRUG ALLERGIES. PHYSICAL EXAM: Temperature 97.7, respiratory rate 32, heart rate around 110. Saturating 95% on 40% FiO2. Blood pressure is around 190/64 during my evaluation. GENERAL APPEARANCE: Appears to be in distress; however, awake to answer some questions. LUNGS: Poor air movement appreciated anteriorly. Silent chest. No significant wheezing appreciated yet. HEART: S1, S2 heard. Appears to be irregular at this time. No murmurs appreciated. ABDOMEN: Soft; however, slightly distended. No organomegaly appreciated. LOWER EXTREMITIES: No significant edema noted. NEURO: Slightly confused; however, is moving all 4 extremities. No focal deficit appreciated from the limited examination. Laboratory data include hemoglobin 12.9, hematocrit 39.8, white count of 17.5, platelets of 98,000. Sodium 136, potassium 4.1, chloride 103, bicarb 20. BUN 21, creatinine of 1. ASSESSMENT AND PLAN: 1. Severe sepsis with Gram-positive bacteremia, source likely being pneumonia. 2. Acute hypoxic respiratory failure from [id number] pneumonia. 3. Congestive heart failure with diastolic dysfunction, which is compensated. 4. History of heart block, status post pacemaker placement. 5. History of atrial fibrillation. Continues to be in atrial fibrillation. 6. Fibromyalgia. 7. Degenerative disc disease. 8. Diabetes mellitus, type 2. 9. Peripheral neuropathy. 10. Chronic obstructive pulmonary disease. 11. Mild to moderate protein-calorie malnutrition. 12. Hypothyroidism. 13. Coronary artery disease. PLAN: Continue ongoing care with antibiotic therapy. Continue with BiPAP therapy, breathing treatments at this time. Await results of the bacteremia. Continue with empiric antibiotic therapy at this time. A CT scan of the head was obtained by the securities attorney which appears to be within normal limits. Continue glucose control with sliding scale, as patient does not have significant ( ) intake. Continue full ICU support at this time. DVT prophylaxis is maintained, as patient is already on Eliquis. Patient's family was at bedside as well. I did discuss the case with patient's son. Continue ongoing care.
[2016-11-25] MEDS: ACETAMINOPHEN TAB 325 MG TAB PO PRN (20:26)
--- NOTE | 2016-11-25 23:06 | P.CONS ---
History of Present Illness - Reason for Consult Consult date: 11/25/16 - History of Present Illness 81-year-old female who has a history of hospitalization earlier this year. At that point in time she had significant pneumonia and influenza. Since her hospital stations been doing relatively well. He does appear in the days before admission she was becoming weak and having difficulties with falls. She then developed temperature 102 and her mental status became altered. Because of this she was brought to the emergency room where she was complaining of shortness of breath she had cough without significant sputum production or hemoptysis. There was evidence of an elevated lactic acid and she did respond to fluid resuscitation and antibiotics. Ultrasound evidence of sepsis and was brought to the intensive care unit because of her respiratory failure requiring BiPAP. She this point time is doing slightly better. She is regaining her appetite and would like to have her dinner. BiPAP was removed and she does have some difficulties with decreasing oxygenation. She however is comfortable is denying acute discomfort at this time. Review of Systems 81-year-old woman with a BiPAP in place. It is removed and she relates that she is more comfortable. She is hungry and would like to have her dinner. HEENT:Denies headache or acute visual change. Denies sinus or mouth discomforts. Denies neck stiffness or pain. Denies significant oral cavity pain. Denies difficulty on swallowing. Lungs: As per the HPI Cardiovascular: Denies significant chest pain, chest wall pain, orthopnea, dyspnea on exertion, syncope Gastrointestinal:Denies nausea, vomiting, diarrhea, constipation, hematemesis, melena, hematochezia. No no significant change of bowel habit noticed. Musculoskeletal: denies significant myalgias or arthralgias. No new joint swelling. Denies new back pain. Skin: Denies new rash or lesions. No new ulcers or wounds are related.. Neuro: Denies headache or visual change. Denies any new onset weakness or difficulty with ambulation. Denies falls or seizures. Psychiatric:Denies anxiety or depression. Endocrine: Recent fatigue but weight is been stable Past Medical History Past Medical History: Atrial Fibrillation, Coronary Artery Disease (CAD), Heart Failure, COPD, Diabetes Mellitus, Fibromyalgia, GERD/Reflux, GI Bleed, Hypertension, Osteoarthritis (OA), Thyroid Disorder Additional Past Medical History / Comment(s): Chronic CHF with an ejection fraction of 55-60% and diastolic dysfunction, coronary artery disease , COPD, nondistended dependent diabetes mellitus type 2, peptic ulcer disease with an antral ulcer and previous history of bleeding, hemorrhoids, history of pancreatic head mass/lesion that has been stable and this has been followed up at [facility], previous history of GI bleeding, fibromyalgia, obesity, paroxysmal atrial fibrillation, cardiac heart block insertion, arthritis multiple joints, DJD, UTIs, hypothyroid, past L shoulder fracture x2, influenza B respiratory tract infection History of Any Multi-Drug Resistant Organisms: None Reported Past Surgical History: Appendectomy, Back Surgery, Joint Replacement, Orthopedic Surgery, Pacemaker Additional Past Surgical History / Comment(s): 06/24/16 EGD/colonoscopy, IVAN total hip arthroplasties, IVAN total KNEE arthroplasties, L femur fx with surgery , back fusion, MELANIE TO BACK, plate in left shoulder, bilateral cataract removal, D&Cs. Past Anesthesia/Blood Transfusion Reactions: No Reported Reaction Additional Past Anesthesia/Blood Transfusion Reaction / Comm: Pt has had blood transfusions and states "they couldn't finish the last one because I got sick." Type of Cardiac Device: Permanent Pacemaker Device Placement Date:: 2011 Past Psychological History: No Psychological Hx Reported Additional Psychological History / Comment(s): Pt resides alone. She uses a walker or cane. She drives near home. No animal exposures. No experience. 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 No international travel Smoking Status: Former smoker Past Alcohol Use History: None Reported Additional Past Alcohol Use History / Comment(s): Pt smoked from [id number]. Past Drug Use History: None Reported - Past Family History Mother Family Medical History: Diabetes Mellitus Additional Family Medical History / Comment(s): AAA Father Family Medical History: Diabetes Mellitus, Myocardial Infarction (MA) Additional Family Medical History / Comment(s): Father had a MA at the age of 62 yrs and . Brother(s) Family Medical History: Cancer, Diabetes Mellitus, Hypertension Medications and Allergies Home Medications and Allergies Comment(s): Current Medications Acetaminophen (Tylenol Tab) 650 mg PO Q6HR PRN PRN Reason: Mild Pain or Fever > 100.5 Last Admin: 11/25/16 20:26 Dose: 650 mg Hydrocodone Bitart/Acetaminophen ([place] 10) 1 each PO Q4H PRN PRN Reason: Moderate Pain Last Admin: 11/24/16 23:13 Dose: 1 each Albuterol/Ipratropium (Duoneb 0.5 Mg-3 Mg/3 Ml Soln) 3 ml INHALATION RT-QID PRN PRN Reason: Shortness Of Breath Or Wheezing Albuterol/Ipratropium (Duoneb 0.5 Mg-3 Mg/3 Ml Soln) 3 ml INHALATION RT-QID [facility] Last Admin: 11/25/16 19:47 Dose: 3 ml Amlodipine Besylate (Norvasc) 2.5 mg PO DAILY [facility] Last Admin: 11/25/16 09:57 Dose: Not Given Apixaban (Eliquis) 2.5 mg PO BID [facility] Last Admin: 11/25/16 20:27 Dose: 2.5 mg Atenolol (Tenormin) 12.5 mg PO DAILY [facility] Last Admin: 11/25/16 09:57 Dose: Not Given Duloxetine HCl (Cymbalta) 60 mg PO DAILY [facility] Last Admin: 11/25/16 10:27 Dose: 60 mg Hydralazine HCl (Apresoline) 10 mg IVP Q6HR PRN PRN Reason: Blood Pressure - High Last Admin: 11/25/16 00:38 Dose: 10 mg Piperacillin/Tazobactam/ (Dextrose 3.375 gm/ IV Solution) 50 mls @ 12.5 mls/hr IVPB Q8HR [facility] Last Admin: 11/25/16 16:31 Dose: 12.5 mls/hr Vancomycin HCl 1,500 mg/ (Sodium Chloride) 250 mls @ 125 mls/hr IVPB Q48H [facility] Sodium Chloride (Saline 0.9%) 1,000 mls @ 50 mls/hr IV .Q20H [facility] Last Admin: 11/25/16 10:28 Dose: 50 mls/hr Insulin Human Lispro (Humalog) 0 unit SQ Q6H [facility] PRN Reason: Protocol Last Admin: 11/25/16 18:42 Dose: Not Given Labetalol HCl (Trandate) 10 mg IVP Q6H PRN PRN Reason: For SBP > 180 Levothyroxine Sodium (Synthroid) 50 mcg PO DAILY@0630 [facility] Last Admin: 11/25/16 05:33 Dose: 50 mcg Lorazepam (Ativan) 0.5 mg IV Q2H PRN PRN Reason: Anxiety Last Admin: 11/25/16 21:06 Dose: 0.5 mg Meloxicam (Mobic) 15 mg PO DAILY [facility] Last Admin: 11/25/16 10:27 Dose: 15 mg Miscellaneous Information (Rx Info: Iv Contrast Was Given) 1 each MISCELLANE DAILY PRN PRN Reason: Per Protocol Stop: 11/27/16 00:44 Naloxone HCl (Narcan) 0.2 mg IV Q2M PRN PRN Reason: Opioid Reversal Oxybutynin Chloride (Ditropan Xl) 15 mg PO DAILY [facility] Last Admin: 11/25/16 10:28 Dose: 15 mg Pantoprazole Sodium (Protonix) 40 mg IV DAILY [facility] Last Admin: 11/25/16 10:25 Dose: 40 mg Sodium Chloride (Saline Flush) 10 ml IV BID [facility] Last Admin: 11/25/16 20:48 Dose: 10 ml Home Medications Medication Instructions Recorded Confirmed Type Albuterol Nebulized [Ventolin 2.5 mg INHALATION RT-TID 06/21/16 11/24/16 History Nebulized] DULoxetine HCL [Cymbalta] 60 mg PO DAILY 06/21/16 11/24/16 History Hydrocodone/Acetaminophen [[place] 1 tab PO Q4H PRN 06/21/16 11/24/16 History 10-325] Levothyroxine Sodium [Synthroid] 50 mcg PO DAILY 06/21/16 11/24/16 History Oxybutynin ER [Ditropan Xl] 15 mg PO DAILY 06/21/16 11/24/16 History Apixaban [Eliquis] 2.5 mg PO BID 10/08/16 11/24/16 History Atenolol [Tenormin] 12.5 mg PO DAILY 10/08/16 11/24/16 History Biotin 5 mg PO DAILY 10/08/16 11/24/16 History Insulin Lispro [humaLOG Kwikpen] See Protocol SQ ACHS PRN 10/08/16 11/24/16 History Meloxicam [Mobic] 15 mg PO DAILY 10/08/16 11/24/16 History Omeprazole [PriLOSEC] 20 mg PO DAILY 10/08/16 11/24/16 History Ipratropium-Albuterol Nebulize 3 ml INHALATION RT-TID 11/24/16 11/24/16 History [Duoneb 0.5 mg-3 mg/3 ml Soln] amLODIPine BESYLATE [Norvasc] 2.5 mg PO DAILY 11/24/16 11/24/16 History Allergies Allergy/AdvReac Type Severity Reaction Status Date / Time No Known Allergies Allergy Verified 11/24/16 15:12 Physical Exam Vitals: Vital Signs Temp Pulse Pulse Pulse Resp BP BP 11/25/16 21:00 65 24 116/40 11/25/16 20:00 100.6 F H 65 28 H 111/44 11/25/16 19:51 65 11/25/16 19:39 65 11/25/16 19:00 65 32 H 102/54 11/25/16 18:00 65 34 H 152/52 11/25/16 17:00 65 32 H 161/63 11/25/16 16:00 65 32 H 199/80 11/25/16 15:00 97.7 F 65 26 H 142/63 11/25/16 14:00 65 27 H 91/64 11/25/16 13:00 66 25 H 155/65 11/25/16 12:44 65 11/25/16 12:00 97.7 F 65 25 H 127/54 11/25/16 11:00 65 16 119/57 11/25/16 10:00 65 20 104/50 11/25/16 09:00 65 21 128/64 11/25/16 08:30 65 11/25/16 08:10 65 11/25/16 08:00 97.7 F 65 25 H 106/58 11/25/16 07:00 65 20 106/56 11/25/16 06:50 65 18 100/49 11/25/16 06:40 65 18 100/49 11/25/16 06:30 65 16 99/53 11/25/16 06:20 65 18 111/54 11/25/16 06:10 65 18 111/54 11/25/16 06:00 65 18 88/49 11/25/16 05:50 65 19 116/57 11/25/16 05:40 65 19 116/57 11/25/16 05:30 65 35 H 128/58 11/25/16 05:20 65 19 133/61 11/25/16 05:10 65 36 H 133/61 11/25/16 05:00 65 40 H 124/53 11/25/16 04:50 65 29 H 111/56 11/25/16 04:40 65 36 H 111/56 11/25/16 04:30 65 33 H 123/56 11/25/16 04:20 65 23 118/57 11/25/16 04:10 65 32 H 118/57 11/25/16 04:00 98.9 F 65 65 41 H 117/48 11/25/16 03:50 65 25 H 125/60 11/25/16 03:40 65 42 H 125/60 11/25/16 03:30 65 29 H 117/45 11/25/16 03:20 65 22 94/47 11/25/16 03:10 98.7 F 65 23 94/47 11/25/16 03:00 65 22 91/44 11/25/16 02:59 65 40 H 11/25/16 02:50 65 24 151/101 11/25/16 02:40 65 39 H 169/66 11/25/16 02:30 65 28 H 169/66 11/25/16 02:20 65 35 H 158/76 11/25/16 02:10 65 35 H 152/78 11/25/16 02:00 65 60 H 154/59 11/25/16 01:50 65 38 H 111/58 11/25/16 01:40 65 35 H 145/61 11/25/16 01:30 65 22 145/61 11/25/16 01:20 101 F H 65 41 H 177/88 11/25/16 01:10 65 43 H 229/78 11/25/16 01:00 65 41 H 11/25/16 00:59 65 11/25/16 00:54 65 42 H 11/25/16 00:25 100.9 F H 61 40 H 11/24/16 23:19 100.7 F H 11/24/16 23:00 98 F 65 20 133/60 BP Pulse Ox 11/25/16 21:00 97 11/25/16 20:00 98 11/25/16 19:51 11/25/16 19:39 11/25/16 19:00 99 11/25/16 18:00 97 11/25/16 17:00 99 11/25/16 16:00 96 11/25/16 15:00 93 L 11/25/16 14:00 93 L 11/25/16 13:00 11/25/16 12:44 11/25/16 12:00 100 11/25/16 11:00 100 11/25/16 10:00 11/25/16 09:00 11/25/16 08:30 11/25/16 08:10 11/25/16 08:00 98 11/25/16 07:00 11/25/16 06:50 11/25/16 06:40 11/25/16 06:30 11/25/16 06:20 11/25/16 06:10 11/25/16 06:00 11/25/16 05:50 11/25/16 05:40 11/25/16 05:30 11/25/16 05:20 11/25/16 05:10 11/25/16 05:00 11/25/16 04:50 11/25/16 04:40 11/25/16 04:30 11/25/16 04:20 11/25/16 04:10 99 11/25/16 04:00 99 11/25/16 03:50 99 11/25/16 03:40 99 11/25/16 03:30 99 11/25/16 03:20 99 11/25/16 03:10 99 11/25/16 03:00 99 11/25/16 02:59 11/25/16 02:50 11/25/16 02:40 11/25/16 02:30 99 11/25/16 02:20 99 11/25/16 02:10 97 11/25/16 02:00 98 11/25/16 01:50 99 11/25/16 01:40 98 11/25/16 01:30 11/25/16 01:20 11/25/16 01:10 11/25/16 01:00 11/25/16 00:59 11/25/16 00:54 220/69 94 L 11/25/16 00:25 230/96 94 L 11/24/16 23:19 11/24/16 23:00 98 Intake and Output 11/25/16 11/25/16 11/25/16 06:59 14:59 22:59 Intake Total 950 520 Output Total 915 355 700 Balance -915 595 -180 Intake: Intake, IV Titration 950 400 Amount Magnesium Sulfate-D5w Pmx 200 1 gm In Dextrose/Water 1 100ml.bag @ 100 mls/hr IVPB Q1H [facility] Rx#: [id number] Piperacillin-Tazobactam 3 50 50 .375 gm In Dextrose/Water 1 50ml.bag @ 12.5 mls/hr IVPB Q8HR [facility] Rx#: [id number] Sodium Chloride 0.9% 1, 200 350 000 ml @ 50 mls/hr IV . Q20H [facility] Rx#:[id number] Vancomycin 2,500 mg In 500 Sodium Chloride 0.9% 500 ml @ 167 mls/hr IVPB ONCE ONE Rx#:[id number] Oral 120 Output: Urine 915 469 700 Other: Voiding Method Indwelling Catheter Indwelling Catheter Indwelling Catheter Weight 85.5 kg 89 kg 89 kg Patient Weight 11/26/16 06:59 Weight 89 kg Pleasant 81-year-old woman who has BiPAP in place. It is removed for her meal. She is able to speak quite well. Does have some difficulty with some desaturation with BiPAP off. HEENT: Anicteric conjunctiva are pink and moist nasal mucosa grossly intact without significant lesions, there is no thrush. Neck: The neck is supple without significant lymphadenopathy or thyromegaly. Lungs: There is symmetrical air entry. Evidence of basilar crackles. Few bronchial sounds at the right base are noted. No dullness or egophony was noted. Heart: Irregular with an audible S1 and S2 soft S4 no distinct murmur click or rub. Pacemaker left anterior chest wall is without tenderness or purulence. Abdomen: Positive bowel sounds soft and nontender without palpable masses or organomegaly. There was no guarding or rebound. Extremities: The extremity is have trace edema. Pulses are 2+ and symmetric. No open lesions are seen. Neuro: Awake alert oriented to person place and time. There are no acute new gross focal sensory motor deficits. Results CBC & Chem 7: 11/25/16 05:13 11/25/16 05:13 Labs: Abnormal Lab Results - Last 24 Hours (Table) 11/25/16 11/25/16 11/25/16 Range/Units 00:11 00:58 01:46 WBC (3.8-10.6) k/uL Plt Count (150-450) k/uL Neutrophils # (1.3-7.7) k/uL Lymphocytes # (1.0-4.8) k/uL ABG pCO2 32 L (35-45) mmHg ABG pO2 >400 H (83-108) mmHg ABG HCO3 20 L (21-25) mmol/L ABG O2 Saturation 100.0 H (94-97) % Sodium (137-145) mmol/L Carbon Dioxide (22-30) mmol/L BUN (7-17) mg/dL Glucose (74-99) mg/dL POC Glucose (mg/dL) 167 H 190 H (75-99) mg/dL 11/25/16 11/25/16 11/25/16 Range/Units 05:13 05:13 05:32 WBC 17.5 H (3.8-10.6) k/uL Plt Count 98 L (150-450) k/uL Neutrophils # 15.7 H (1.3-7.7) k/uL Lymphocytes # 0.9 L (1.0-4.8) k/uL ABG pCO2 (35-45) mmHg ABG pO2 (83-108) mmHg ABG HCO3 (21-25) mmol/L ABG O2 Saturation (94-97) % Sodium 136 L (137-145) mmol/L Carbon Dioxide 21 L (22-30) mmol/L BUN 21 H (7-17) mg/dL Glucose 184 H (74-99) mg/dL POC Glucose (mg/dL) 182 H (75-99) mg/dL 11/25/16 11/25/16 Range/Units 12:50 18:32 WBC (3.8-10.6) k/uL Plt Count (150-450) k/uL Neutrophils # (1.3-7.7) k/uL Lymphocytes # (1.0-4.8) k/uL ABG pCO2 (35-45) mmHg ABG pO2 (83-108) mmHg ABG HCO3 (21-25) mmol/L ABG O2 Saturation (94-97) % Sodium (137-145) mmol/L Carbon Dioxide (22-30) mmol/L BUN (7-17) mg/dL Glucose (74-99) mg/dL POC Glucose (mg/dL) 122 H 132 H (75-99) mg/dL Microbiology - Last 24 Hours (Table) 11/24/16 15:15 Blood Culture Gram Stain - Preliminary Blood Blood Culture - Preliminary Group D Enterococcus 11/24/16 15:15 Blood Culture - Preliminary Blood No Growth after 24 hours 11/24/16 15:15 Urine Culture - Preliminary Urine,Catheterized Laboratory Results WBC 17.5 k/uL (3.8-10.6) H 11/25/16 05:13 RBC 4.59 m/uL (3.80-5.40) 11/25/16 05:13 Hgb 12.9 gm/dL (11.4-16.0) 11/25/16 05:13 Hct 39.8 % (34.0-46.0) 11/25/16 05:13 MCV 86.8 fL (80.0-100.0) 11/25/16 05:13 MCH 28.1 pg (25.0-35.0) 11/25/16 05:13 MCHC 32.4 g/dL (31.0-37.0) 11/25/16 05:13 RDW 15.4 % (11.5-15.5) 11/25/16 05:13 Plt Count 98 k/uL (150-450) L 11/25/16 05:13 Neutrophils % 90 % 11/25/16 05:13 Lymphocytes % 5 % 11/25/16 05:13 Monocytes % 4 % 11/25/16 05:13 Eosinophils % 0 % 11/25/16 05:13 Basophils % 0 % 11/25/16 05:13 Neutrophils # 15.7 k/uL (1.3-7.7) H 11/25/16 05:13 Lymphocytes # 0.9 k/uL (1.0-4.8) L 11/25/16 05:13 Monocytes # 0.7 k/uL (0-1.0) 11/25/16 05:13 Eosinophils # 0.0 k/uL (0-0.7) 11/25/16 05:13 Basophils # 0.0 k/uL (0-0.2) 11/25/16 05:13 Manual Slide Review Performed 11/25/16 05:13 Toxic Granulation Present 11/25/16 05:13 Toxic Vacuolation Present 11/25/16 05:13 Poikilocytosis (manual Present 11/25/16 05:13 Sample Site rbch 11/25/16 01:46 ABG pH 7.41 (7.35-7.45) 11/25/16 01:46 ABG pCO2 32 mmHg (35-45) L 11/25/16 01:46 ABG pO2 >400 mmHg (83-108) H 11/25/16 01:46 ABG HCO3 20 mmol/L (21-25) L 11/25/16 01:46 ABG Total CO2 21 mmol/L (19-24) 11/25/16 01:46 ABG O2 Saturation 100.0 % (94-97) H 11/25/16 01:46 ABG Base Excess -4.0 mmol/L 11/25/16 01:46 FiO2 100 % 11/25/16 01:46 Sodium 136 mmol/L (137-145) L 11/25/16 05:13 Potassium 4.1 mmol/L (3.5-5.1) 11/25/16 05:13 Chloride 103 mmol/L (98-107) 11/25/16 05:13 Carbon Dioxide 21 mmol/L (22-30) L 11/25/16 05:13 Anion Gap 12 mmol/L 11/25/16 05:13 BUN 21 mg/dL (7-17) H 11/25/16 05:13 Creatinine 1.00 mg/dL (0.52-1.04) 11/25/16 05:13 Est GFR (MDRD) Af Amer >60 (>60 ml/min/1.73 sqM) 11/25/16 05:13 Est GFR (MDRD) Non-Af 53 (>60 ml/min/1.73 sqM) 11/25/16 05:13 Glucose 184 mg/dL (74-99) H 11/25/16 05:13 POC Glucose (mg/dL) 132 mg/dL (75-99) H 11/25/16 18:32 POC Glu Support Dba ID PegGris 11/25/16 18:[address] Glu mg/dL 117 mg/dL 11/25/16 05:13 Hemoglobin A1c 5.7 % (4.2-6.1) 11/25/16 05:13 Plasma Lactic Acid [place] 1.4 mmol/L (0.7-2.0) 11/25/16 05:13 Calcium 8.6 mg/dL (8.4-10.2) 11/25/16 05:13 Phosphorus 4.1 mg/dL (2.5-4.5) 11/25/16 05:13 Magnesium 1.6 mg/dL (1.6-2.3) 11/25/16 05:13 Total Bilirubin 2.2 mg/dL (0.2-1.3) H 11/24/16 15:15 AST 37 U/L (14-36) H 11/24/16 15:15 ALT 23 U/L (9-52) 11/24/16 15:15 Alkaline Phosphatase 94 U/L (38-126) 11/24/16 15:15 Total Protein 6.9 g/dL (6.3-8.2) 11/24/16 15:15 Albumin 3.9 g/dL (3.5-5.0) 11/24/16 15:15 Urine Color Yellow 11/24/16 15:15 Urine Appearance Clear (Clear) 11/24/16 15:15 Urine pH 7.0 (5.0-8.0) 11/24/16 15:15 Ur Specific [place] 1.014 (1.001-1.035) 11/24/16 15:15 Urine Protein 1+ (Negative) H 11/24/16 15:15 Urine Glucose (UA) Negative (Negative) 11/24/16 15:15 Urine Ketones Trace (Negative) H 11/24/16 15:15 Urine Blood Small (Negative) H 11/24/16 15:15 Urine Nitrite Negative (Negative) 11/24/16 15:15 Urine Bilirubin Negative (Negative) 11/24/16 15:15 Urine Urobilinogen <2.0 mg/dL (<2.0) 11/24/16 15:15 Ur Leukocyte Esterase Small (Negative) H 11/24/16 15:15 Urine RBC 14 /hpf (0-5) H 11/24/16 15:15 Urine WBC 9 /hpf (0-5) H 11/24/16 15:15 Urine Mucus Rare /hpf (None) H 11/24/16 15:15 Microbiology 11/24/16 15:15 Blood Blood Culture Gram Stain - Preliminary 11/24/16 15:15 Blood Blood Culture - Preliminary Group D Enterococcus 11/24/16 15:15 Blood Blood Culture - Preliminary No Growth after 24 hours 11/24/16 15:15 Urine,Catheterized Urine Culture - Preliminary Assessment and Plan (1) Sepsis Narrative/Plan: 81-year-old woman who has a history of hospitalization earlier this year with pneumonia. Was at home when she became ill. She was having increasing weakness and falls. She had altered mental status was brought to hospital. There is evidence of a new left lower lobe infiltrate on the chest x-ray. The patient is evidence of positive blood cultures. Antibiotic therapy with piperacillin tazobactam and vancomycin are being utilized. Workup is in progress and septic coccus pneumoniae or group C strep would be concerned at this point in time for which Zosyn should give us coverage. as would the vancomycin. Continue Zosyn for now some process would continue treatment for gram-negative pneumonia given the fact she is in ICU and has a recent history of pneumonia. It is sometime since her influenza pneumonia diagnosis staph aureus pneumonia would be somewhat unusual in this situation. The leukocytosis directly related to the current pneumonia. As is the respiratory failure. The city showing some slight improvement this evening. We'll follow blood cultures to ensure her bacteremia is clearing. Did have an echocardiogram done in September which showed evidence of a preserved ejection fraction and some pulmonary hypertension. If she has ongoing positive blood cultures follow-up imaging study of her heart will be required assessing for endocarditis. Status: Acute
[2016-11-26 00:02] LABS: Glucose,Whole Blood 125 mg/dL (75-99)
[2016-11-26] MEDS: INSULIN LISPRO (humaLOG) 300 UNIT/3 ML VIAL SQ SCH ×4 (00:02→22:31)
[2016-11-26] MEDS: PIPERACILLIN-TAZOBACTAM 3.375 GM in DEXTROSE/WATER 1 50ML.BAG IVPB SCH ×4 (00:02→23:12)
[2016-11-26 04:50] LABS: Basophils % (A) 0 %; CH 28.5; Eosinophils # (A) 0.2 k/uL (0-0.7); Eosinophils % (A) 3 %; HCT 33.2 % (34.0-46.0); HDW 3.51; HGB 11.5 gm/dL (11.4-16.0); Luc # (Auto) 0.24; Luc % (Auto) 3; Lymphocytes # (A) 1.2 k/uL (1.0-4.8); Lymphocytes % (A) 16 %; MCH 29.1 pg (25.0-35.0); MCHC 34.6 g/dL (31.0-37.0); MCV 84.1 fL (80.0-100.0); Mean Platelet Volume 9.4; Monocytes # (A) 0.5 k/uL (0-1.0); Monocytes % (A) 7 %; Neutrophils # (A) 5.5 k/uL (1.3-7.7); Neutrophils % (A) 72 %; Poikilocytosis Slight; RBC 3.95 m/uL (3.80-5.40); WBC 7.6 k/uL (3.8-10.6); WBC (Perox) 7.42
[2016-11-26 05:01] LABS: Glucose,Whole Blood 104 mg/dL (75-99)
[2016-11-26 05:09] LABS: Calcium 8.3 mg/dL (8.4-10.2); Magnesium 2.1 mg/dL (1.6-2.3); Phosphorous 4.1 mg/dL (2.5-4.5); Potassium 3.4 mmol/L (3.5-5.1)
[2016-11-26] MEDS ORDERED: Potassium Replacement Protocol 1 EACH MISC MISCELLANE PRN (05:35)
[2016-11-26] MEDS: POTASSIUM CHLORIDE 10 MEQ, LIDOCAINE 2% INJ 10 MG in SODIUM CHLORIDE 0.9% 100 ML IV SCH ×2 (06:14→07:19)
[2016-11-26] MEDS: LEVOTHYROXINE 50 MCG TAB PO SCH (06:14)
[2016-11-26] MEDS: SODIUM CHLORIDE 0.9% 1,000 ML IV SCH ×3 (06:14→21:41)
[2016-11-26] MEDS: IPRATROPIUM-ALBUTEROL 3 ML NEB INHALATION SCH ×4 (08:07→21:11)
[2016-11-26] MEDS: PANTOPRAZOLE 40 MG/10 ML VIAL IV SCH (08:38)
[2016-11-26] MEDS: DULoxetine HCL 60 MG CAPSULE.DR PO SCH (08:44)
[2016-11-26] MEDS: MELOXICAM 7.5 MG TAB PO SCH (08:44)
[2016-11-26] MEDS: OXYBUTYNIN 15 MG TAB.ER.24 PO SCH (08:45)
--- NOTE | 2016-11-26 09:25 | XR ---
EXAMINATION TYPE: XR chest 1V DATE OF EXAM: 11/26/2016 5:54 AM COMPARISON: 11/25/2016 HISTORY: Shortness of breath TECHNIQUE: Single frontal view of the chest is obtained. FINDINGS: Heart is prominent there is improving left lower lobe infiltrate. Cardiac device seen. Ath erosclerotic change aorta. Postsurgical change left shoulder arthropathy of the shoulders. IMPRESSION: Improving left lower lobe infiltrate
--- NOTE | 2016-11-26 09:52 | CONS ---
DATE OF CONSULTATION: 11/25/2016 CHIEF COMPLAINT: Cognitive impairment. HISTORY OF PRESENT ILLNESS: Mrs. Box is a pleasant 81-year-old female who is being evaluated today on 11/25/2016 by the Neurology Service per the request of Dr. Vasquez for cognitive impairment. The patient was brought in to [facility] emergency room with complaints of a fever and generalized weakness. She was also slightly confused. Her son was with her and he was concerned about medications causing her symptoms. 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 The Lyrica was discontinued approximately 2 weeks ago. In the emergency room, a CT scan of the brain was done, which showed generalized atrophy and small vessel ischemic changes. Her CBC showed leukocytosis at 17.5 and thrombocytopenia at 98,000. Her chest x-ray showed evidence of a left lower lobe infiltrate and her urinalysis showed 9 WBCs with small leukocyte esterase. Her basic metabolic profile was normal. The patient was started on IV antibiotics. Regarding her confusion, her son states that she has been having some memory issues for the past couple of months but it has significantly worsened over the past few days. At the time of my evaluation, the patient is lying in her intensive care unit bed and is on a BiPAP at this time. She is awake and follows commands appropriately. She denies any headache or lateralizing numbness or weakness. PAST MEDICAL HISTORY: Atrial fibrillation, coronary artery disease, heart failure, chronic obstructive pulmonary disease, diabetes, fibromyalgia, chronic joint pain, gastroesophageal reflux disease, hypertension, osteoarthritis, hypothyroidism, history of pancreatic mass, history of pacemaker placement, arthritis, degenerative joint disease, orthopedic surgeries, appendectomy, lumbar spine surgery, cataract surgery, D&C, left shoulder surgery. SOCIAL HISTORY: The patient is a former smoker. She denies any alcohol or drug use. FAMILY HISTORY: Positive for diabetes and heart disease and cancer. HOME MEDICATIONS: Reviewed in the chart. ALLERGIES: No known drug allergies. REVIEW OF SYSTEMS: As mentioned above and otherwise negative. PHYSICAL EXAM: Vital signs show a temperature of 97.7, pulse 65, respirations 32, blood pressure 161/63. GENERAL APPEARANCE: The patient is an obese female who appears to be in no acute distress. HEENT: Normocephalic, atraumatic, no facial asymmetry is seen. BiPAP mask is intact. Neck is supple with no masses felt. CARDIOVASCULAR: Regular rate and rhythm. ABDOMEN: Obese, nontender, nondistended. Extremities showed trace edema with no clubbing seen. NEUROLOGICAL EXAM: The patient is awake and oriented x3. The patient does follow commands appropriately and her language testing was normal. Speech was difficult to assess due to BiPAP mask. She does move all 4 extremities to command with no obvious lateralizing weakness seen. Strength appears to be 4-/5 in bilateral lower extremities and 5-/5 in bilateral upper extremities. No facial asymmetry is seen on cranial nerve testing. IMPRESSION: 1. Acute infectious encephalopathy. 2. Altered mental status. 3. Mild cognitive impairment. 4. Pneumonia. 5. Acute urinary tract infection. RECOMMENDATION: The patient's current confusion is likely due to her current pneumonia and urinary tract infection. Continue IV antibiotics and continue BiPAP use as needed. I had a lengthy discussion with the patient and her son who was at bedside. I did inform them that this current worsening that he has noticed over the past couple of days is most likely reversible once the infection has cleared. As for the mild cognitive impairment he had noticed over the past couple of months, she will need further outpatient neurological work-up to check for evidence of dementia. This will only be done once her medical condition has improved. I will order a thyroid function panel and a serum B12 level. I will continue to follow with you. Further recommendations to follow. Thank you for allowing me participate in the care of your patient. If you have any questions, please feel free to contact me.
[2016-11-26] MEDS: ATENOLOL 12.5 MG TAB PO SCH (11:19)
[2016-11-26] MEDS: amLODIPine 2.5 MG TAB PO SCH (11:19)
[2016-11-26] MEDS: APIXABAN 2.5 MG TABLET PO SCH ×2 (11:29→21:36)
[2016-11-26 12:35] LABS: Glucose,Whole Blood 111 mg/dL (75-99)
--- NOTE | 2016-11-26 13:17 | P.PN ---
Subjective HISTORY OF PRESENTING ILLNESS: This is an 81-year-old female who was admitted to the hospital multiple times previously; comes into the hospital with some complaints of difficulty in breathing. However, patient was brought into the hospital with change in mental status, was noted to have a high-grade fever recorded at 102 degrees Fahrenheit. Patient was initially admitted to the med/telemetry floor. Patient was appropriately fluid-resuscitated; however, due to respiratory distress, a Rapid Response was called. Thereafter she was triaged to the intensive care unit. Patient improved rapidly, until this morning on BiPAP; was alert, oriented x3. She was moving air well on physical examination, according to the certified coder's note. Patient was supposed to be triaged out of the ICU; however, about half hour prior to my evaluation patient apparently was significantly dyspneic and was audibly wheezing. Thereafter BiPAP was restarted. Patient appeared to be in respiratory distress during my evaluation. Most of the history is obtained from review of the chart. Patient is currently on BiPAP with settings of 12/5 with FiO2 of 40%. Patient is noted to have a left lower lobe infiltrate with concern about [id number] organisms. Patient has been started on Levaquin and Zosyn at this time. The patient appears to be answering some questions appropriately. No other complaints are reported, including headaches, nausea, vomiting, diarrhea or lower extremity tenderness. 11/26/2016 Patient is on supplemental oxygen is awake is answering questions appropriately denies having any Breathing difficulty at this time. States that she is tired of being admitted to the hospital multiple times or graft no fevers chills diarrhea Nausea vomiting or reported at this time. REVIEW OF SYSTEMS: Fourteen-point review of systems was none; none pertinent other than what was mentioned above. PHYSICAL EXAM: Temperature 97.7, respiratory rate 32, heart rate around 110. Saturating 95% on 3 L of supplemental oxygen. GENERAL APPEARANCE: Appears to be in distress; however, awake to answer some questions. LUNGS: Poor air movement appreciated anteriorly. Silent chest. No significant wheezing appreciated yet. HEART: S1, S2 heard. Appears to be irregular at this time. No murmurs appreciated. ABDOMEN: Soft; however, slightly distended. No organomegaly appreciated. LOWER EXTREMITIES: No significant edema noted. NEURO: Appropriate however, is moving all 4 extremities. No focal deficit appreciated Objective - Vital Signs Vital signs: Vital Signs Temp 97.6 F 11/26/16 12:00 Pulse 65 11/26/16 12:00 Resp 16 11/26/16 12:00 BP 101/54 11/26/16 12:00 Pulse Ox 97 11/26/16 12:00 Intake & Output 11/25/16 11/26/16 11/26/16 18:59 06:59 18:59 Intake Total 1250 720.0 740 Output Total 940 445 175 Balance 310 275.0 565 Weight 89 kg 90.6 kg 90.6 kg Intake: Intake, IV Titration 1250 600.0 500 Amount Magnesium Sulfate-D5w Pmx 200 1 gm In Dextrose/Water 1 100ml.bag @ 100 mls/hr IVPB Q1H [facility] Rx#: [id number] Piperacillin-Tazobactam 3 100 50.0 50 .375 gm In Dextrose/Water 1 50ml.bag @ 12.5 mls/hr IVPB Q8HR [facility] Rx#: [id number] Potassium Chloride 10 meq 200 Lidocaine 2% Inj 10 mg In Sodium Chloride 0.9% 100 ml @ 100 mls/hr IV Q1HR [facility] Rx#:[id number] Sodium Chloride 0.9% 1, 450 550 250 000 ml @ 50 mls/hr IV . Q20H [facility] Rx#:[id number] Vancomycin 2,500 mg In 500 Sodium Chloride 0.9% 500 ml @ 167 mls/hr IVPB ONCE ONE Rx#:[id number] Oral 120 240 Output: Urine 940 445 175 Other: Voiding Method Indwelling Catheter Indwelling Catheter Indwelling Catheter - Labs CBC & Chem 7: 11/26/16 04:30 11/26/16 04:30 Labs: Abnormal Lab Results - Last 24 Hours (Table) 11/25/16 11/26/16 11/26/16 Range/Units 18:32 00:01 04:30 Hct 33.2 L (34.0-46.0) % Plt Count 82 L (150-450) k/uL Sodium (137-145) mmol/L Potassium (3.5-5.1) mmol/L BUN (7-17) mg/dL Creatinine (0.52-1.04) mg/dL Glucose (74-99) mg/dL POC Glucose (mg/dL) 132 H 125 H (75-99) mg/dL Calcium (8.4-10.2) mg/dL 11/26/16 11/26/16 11/26/16 Range/Units 04:30 04:59 12:30 Hct (34.0-46.0) % Plt Count (150-450) k/uL Sodium 135 L (137-145) mmol/L Potassium 3.4 L (3.5-5.1) mmol/L BUN 27 H (7-17) mg/dL Creatinine 1.10 H (0.52-1.04) mg/dL Glucose 101 H (74-99) mg/dL POC Glucose (mg/dL) 104 H 111 H (75-99) mg/dL Calcium 8.3 L (8.4-10.2) mg/dL Microbiology - Last 24 Hours (Table) 11/24/16 15:15 Urine Culture - Preliminary Urine,Catheterized Group D Enterococcus 11/24/16 15:15 Blood Culture Gram Stain - Preliminary Blood Blood Culture - Preliminary Group D Enterococcus 11/24/16 15:15 Blood Culture - Preliminary Blood No Growth after 24 hours Assessment and Plan Plan: ASSESSMENT AND PLAN: 1. Severe sepsis with Gram-positive bacteremia, source likely being pneumonia. 2. Acute hypoxic respiratory failure from [id number]-[id number] pneumonia. 3. Congestive heart failure with diastolic dysfunction, which is compensated. 4. History of heart block, status post pacemaker placement. 5. History of atrial fibrillation. Continues to be in atrial fibrillation. 6. Fibromyalgia. 7. Degenerative disc disease. 8. Diabetes mellitus, type 2. 9. Peripheral neuropathy. 10. Chronic obstructive pulmonary disease. 11. Mild to moderate protein-calorie malnutrition. 12. Hypothyroidism. 13. Coronary artery disease Plan Patient is noted to have group D enterococcus continue the antibiotic therapy as recommended by infectious diseases. Patient is significantly improved Triaged out of the intensive care unit. Patient states that she started being admitted to the hospital discussed that we continue the current goals of care at this time she states that she does not want to be readmitted to the hospital again I discussed this would ultimately lead to her demise. Verbalized understanding stated he would have a detailed discussion in the next 24-48 hours regarding further goals of care no decisions made at this time We'll need to assess the patient would benefit from BiPAP at home defer to the certified coder .
--- NOTE | 2016-11-26 15:07 | P.PN ---
Subjective 81-year-old female patient with multiple medical positive comorbidities who lives independently at home and the patient was found to be having some altered mental status. There has been gradual decline in the patient's health. The patient become more weak and she had been falling at home and over the past 24 hours she started having episodes of high-grade fever with a temperature 102 along with altered mental status. No neck stiffness. No headaches. No head trauma. She denies having any cough or sputum production. She did complain of some increased shortness of breath. No nausea. No vomiting. No diarrhea. No aspiration. No dystrophic emergency. No hematuria. No flank pain. No open wounds or sores. The patient has multiple orthopedic surgeries with bilateral knee and hip replacement and she has a pacemaker in place.yet, none of these seem to be infected at this point. The patient got moved to the intensive care unit after being admitted to the medical floor. She was having altered mental status. Her lactic acid level was at 2.8. The patient received IV fluids initially half a liter bolus of normal saline and then another half a liter. Subsequent lactic acid level dropped down to 1.4. Her blood cultures from this morning is showing gram-positive cocci in pairs. The patient had received a dose of Levaquin in the emergency department. I switch her to a combination of Zosyn and Levaquin. The patient's white cell count is at 17.5. Her renal function is within normal. Chest x-ray shows some limited infiltration of the left lung base other was not acute abdominal masses noted. Overnight, the patient was placed on a BiPAP and earlier this morning she was taken off the BiPAP and she was placed on 40 still oxygen nasal cannula. She is known to have CHF with diastolic dysfunction with an ejection fraction of 55-60%. She was in the hospital in September 2016 for an acute influenza be respiratory tract infection pH is known to have COPD along with various other comorbidities as will be discussed later on in my dictation. No skin rashes. No focal neurological deficits. She seems to be much more awake and alert is point in time. Hemodynamically stable. Producing adequate amount of urine output. On today's evaluation of 11/26/2016, the patient is being seen in follow-up. The patient is doing better. She is awake and alert. She was found to have enterococcus group D urinary tract infection and her blood culture was also positive. The patient was seen by infectious disease. The patient was kept on accommodation of Zosyn and vancomycin. She is on no pressors. No chest pain. No shortness of breath. No other complaints otherwise for now. Pulse ox is around 97% 40s of oxygen nasal cannula. The patient remains in atrial fibrillation. Objective - Vital Signs Vital signs: Vital Signs Temp 97.6 F 11/26/16 12:00 Pulse 65 11/26/16 13:00 Resp 28 H 11/26/16 13:00 BP 110/58 11/26/16 13:00 Pulse Ox 90 L 11/26/16 13:00 Intake & Output 11/25/16 11/26/16 11/26/16 18:59 06:59 18:59 Intake Total 1250 720.0 840 Output Total 940 445 245 Balance 310 275.0 595 Weight 89 kg 90.6 kg 90.6 kg Intake: Intake, IV Titration 1250 600.0 600 Amount Magnesium Sulfate-D5w Pmx 200 1 gm In Dextrose/Water 1 100ml.bag @ 100 mls/hr IVPB Q1H [facility] Rx#: [id number] Piperacillin-Tazobactam 3 100 50.0 50 .375 gm In Dextrose/Water 1 50ml.bag @ 12.5 mls/hr IVPB Q8HR [facility] Rx#: [id number] Potassium Chloride 10 meq 200 Lidocaine 2% Inj 10 mg In Sodium Chloride 0.9% 100 ml @ 100 mls/hr IV Q1HR [facility] Rx#:[id number] Sodium Chloride 0.9% 1, 450 550 350 000 ml @ 50 mls/hr IV . Q20H [facility] Rx#:[id number] Vancomycin 2,500 mg In 500 Sodium Chloride 0.9% 500 ml @ 167 mls/hr IVPB ONCE ONE Rx#:[id number] Oral 120 240 Output: Urine 940 445 245 Other: Voiding Method Indwelling Catheter Indwelling Catheter Indwelling Catheter - Exam The patient appeared well nourished and normally developed. Vital signs as documented. Head exam is unremarkable. No scleral icterus or corneal arcus noted. Neck is without jugular venous distension, thyromegaly, or carotid bruits. Carotid upstrokes are brisk bilaterally. Lung sounds are diminished and there are some crackles in the lung bases bilaterally more so on the left. Cardiac exam reveals the PMI to be normally sized and situated. Rhythm is regular. First and second heart sounds normal. No murmurs, rubs or gallops. Patient has a pacemaker in place and the pacemaker pocket seems to be intact and within normal limits. Abdominal exam reveals normal bowel sounds, no masses , no organomegaly and no aortic enlargement. Extremities are nonedematous and both femoral and pedal pulses are normal. The patient has had multiple orthopedic surgeries including a scar over the left shoulder, bilateral hips, bilateral knees and all of these joints are within normal limits. Skin is intact and there is no open wounds or sores. - Labs CBC & Chem 7: 11/26/16 04:30 11/26/16 04:30 Labs: Abnormal Lab Results - Last 24 Hours (Table) 11/25/16 11/26/16 11/26/16 Range/Units 18:32 00:01 04:30 Hct 33.2 L (34.0-46.0) % Plt Count 82 L (150-450) k/uL Sodium (137-145) mmol/L Potassium (3.5-5.1) mmol/L BUN (7-17) mg/dL Creatinine (0.52-1.04) mg/dL Glucose (74-99) mg/dL POC Glucose (mg/dL) 132 H 125 H (75-99) mg/dL Calcium (8.4-10.2) mg/dL 11/26/16 11/26/16 11/26/16 Range/Units 04:30 04:59 12:30 Hct (34.0-46.0) % Plt Count (150-450) k/uL Sodium 135 L (137-145) mmol/L Potassium 3.4 L (3.5-5.1) mmol/L BUN 27 H (7-17) mg/dL Creatinine 1.10 H (0.52-1.04) mg/dL Glucose 101 H (74-99) mg/dL POC Glucose (mg/dL) 104 H 111 H (75-99) mg/dL Calcium 8.3 L (8.4-10.2) mg/dL Microbiology - Last 24 Hours (Table) 11/24/16 15:15 Urine Culture - Preliminary Urine,Catheterized Group D Enterococcus 11/24/16 15:15 Blood Culture Gram Stain - Preliminary Blood Blood Culture - Preliminary Group D Enterococcus 11/24/16 15:15 Blood Culture - Preliminary Blood No Growth after 24 hours Assessment and Plan Plan: Assessment 1 sepsis with enterococcus group D. This is likely of a urinary source. The same microorganism was cultured in the urine and the blood. Mental status is improving 2 acute febrile illness secondary to sepsis, improved 3 change in mental status secondary to above, improving, improved, and a CAT scan of the brain was essentially negative 4 recent hospitalization for influenza B respiratory tract infection 5 CHF with diastolic dysfunction and an ejection fraction of 55% 6 history of heart block status post permanent pacemaker insertion 7 diabetes mellitus type 2 8 fibromyalgia 9 degenerative arthritis with multiple joint replacements 10 history of peptic ulcer disease and previous history of GI bleed 11 paroxysmal atrial fibrillation, current rhythm is paced and the patient is on anticoagulation 12 history of falls 13 peripheral neuropathy 14 COPD 15 coronary artery disease 16 hypothyroidism Plan 8 IV fluids to KVO. Continue the same antibiotic coverage pending further cultures and sensitivities. Patient is condition is stable. Continue same medications. She can be transferred to a medical surgical floor for now. She needs to be placed on telemetry in addition.
[2016-11-26] MEDS: ACETAMINOPHEN TAB 325 MG TAB PO PRN (15:17)
--- NOTE | 2016-11-26 16:02 | P.PN ---
Subjective Principal diagnosis: Patient is a pleasant 81-year-old female who is being followed by the neurology service for cognitive impairment. Family reports patient has been decreased mentation and increased falls over the last few weeks. Patient developed a fever and generalized weakness and was brought to [facility] for further evaluation. Computed tomography scan of the brain was done which showed generalized atrophy and small vessel ischemic changes. CBC showed leukocytosis at 17.5. Chest x-ray showed evidence of left lower lobe infiltrate and UA revealed UTI. Patient's son also reports patient mentation has been declining over the last few months even prior to this episode. At the time of my evaluation, patient is seen in the ICU setting. Patient is sitting up in bed is awake alert and conversant. Patient appears to be in no acute distress. Family is at the bedside. Objective - Vital Signs Vital signs: Vital Signs Temp 97.6 F 11/26/16 12:00 Pulse 63 11/26/16 15:39 Resp 25 H 11/26/16 15:00 BP 101/50 11/26/16 15:00 Pulse Ox 98 11/26/16 15:00 Intake & Output 11/25/16 11/26/16 11/26/16 18:59 06:59 18:59 Intake Total 1250 720.0 890 Output Total 940 445 285 Balance 310 275.0 605 Weight 89 kg 90.6 kg 90.6 kg Intake: Intake, IV Titration 1250 600.0 650 Amount Magnesium Sulfate-D5w Pmx 200 1 gm In Dextrose/Water 1 100ml.bag @ 100 mls/hr IVPB Q1H [facility] Rx#: [id number] Piperacillin-Tazobactam 3 100 50.0 50 .375 gm In Dextrose/Water 1 50ml.bag @ 12.5 mls/hr IVPB Q8HR [facility] Rx#: [id number] Potassium Chloride 10 meq 200 Lidocaine 2% Inj 10 mg In Sodium Chloride 0.9% 100 ml @ 100 mls/hr IV Q1HR [facility] Rx#:[id number] Sodium Chloride 0.9% 1, 450 550 400 000 ml @ 50 mls/hr IV . Q20H [facility] Rx#:[id number] Vancomycin 2,500 mg In 500 Sodium Chloride 0.9% 500 ml @ 167 mls/hr IVPB ONCE ONE Rx#:[id number] Oral 120 240 Output: Urine 940 445 285 Other: Voiding Method Indwelling Catheter Indwelling Catheter Indwelling Catheter - Exam PHYSICAL EXAM: GENERAL APPEARANCE: Patient is a well-developed, female who appears to be in no acute distress. HEENT: Normocephalic, atraumatic, no facial asymmetry is seen. Neck is supple with no masses felt. CARDIOVASCULAR: Regular rate and rhythm. ABDOMEN: Nontender, nondistended. EXTREMITIES: Show no edema or clubbing. NEUROLOGICAL EXAM: Patient is awake, alert, and oriented 3. Speech and language are normal. Strength is full in all 4 extremities. Sensory exam is normal to light touch in all 4 extremities. No facial asymmetry is seen on cranial nerve testing. No tremors or seizure-like activity is seen. - Labs CBC & Chem 7: 11/26/16 04:30 11/26/16 04:30 Labs: Abnormal Lab Results - Last 24 Hours (Table) 11/25/16 11/26/16 11/26/16 Range/Units 18:32 00:01 04:30 Hct 33.2 L (34.0-46.0) % Plt Count 82 L (150-450) k/uL Sodium (137-145) mmol/L Potassium (3.5-5.1) mmol/L BUN (7-17) mg/dL Creatinine (0.52-1.04) mg/dL Glucose (74-99) mg/dL POC Glucose (mg/dL) 132 H 125 H (75-99) mg/dL Calcium (8.4-10.2) mg/dL 11/26/16 11/26/16 11/26/16 Range/Units 04:30 04:59 12:30 Hct (34.0-46.0) % Plt Count (150-450) k/uL Sodium 135 L (137-145) mmol/L Potassium 3.4 L (3.5-5.1) mmol/L BUN 27 H (7-17) mg/dL Creatinine 1.10 H (0.52-1.04) mg/dL Glucose 101 H (74-99) mg/dL POC Glucose (mg/dL) 104 H 111 H (75-99) mg/dL Calcium 8.3 L (8.4-10.2) mg/dL Microbiology - Last 24 Hours (Table) 11/24/16 15:15 Urine Culture - Preliminary Urine,Catheterized Group D Enterococcus 11/24/16 15:15 Blood Culture Gram Stain - Preliminary Blood Blood Culture - Preliminary Group D Enterococcus 11/24/16 15:15 Blood Culture - Preliminary Blood No Growth after 24 hours Assessment and Plan (1) Cognitive impairment Status: Acute (2) Leukocytosis Status: Acute (3) Sepsis Status: Acute (4) UTI (urinary tract infection) Status: Acute Plan: Recommendation: Patient is much more alert and responsive today. Patient's confusion was likely due to her pneumonia and urinary tract infection. As previously mentioned, family is concerned about declining mentation over the past few months. It was discussed with family, as infections improve, so should her mental status. As for her decline in mentation over the last few months, this can be worked up as an outpatient in the office setting. I did order a thyroid function panel and a serum B12 level which both were within normal limits. Again, mental status changes felt to be related to sepsis. I will continue to follow with you on an as-needed basis. Feel free to call with any questions or concerns. I performed an examination of the patient and discussed the management with the ELEMENTARY READING SPECIALIST. I have reviewed the ELEMENTARY READING SPECIALIST notes and agree with the findings and plan of care.
[2016-11-26] MEDS: HYDROcodone/APAP 10-325MG 1 EACH TAB PO PRN (21:37)
[2016-11-26 22:35] LABS: Glucose,Whole Blood 109 mg/dL (75-99)
--- NOTE | 2016-11-26 23:14 | P.PN ---
Subjective Principal diagnosis: Pneumonia 81-year-old female who has a history of hospitalization earlier this year. At that point in time she had significant pneumonia and influenza. Since her hospital stations been doing relatively well. He does appear in the days before admission she was becoming weak and having difficulties with falls. She then developed temperature 102 and her mental status became altered. Because of this she was brought to the emergency room where she was complaining of shortness of breath she had cough without significant sputum production or hemoptysis. There was evidence of an elevated lactic acid and she did respond to fluid resuscitation and antibiotics. Ultrasound evidence of sepsis and was brought to the intensive care unit because of her respiratory failure requiring BiPAP. She this point time is doing slightly better. She is regaining her appetite and would like to have her dinner. BiPAP was removed and she does have some difficulties with decreasing oxygenation. Patient is more comfortable tonight. Still having some confusion. But does not relate to any new discomforts. Objective - Vital Signs Vital signs: Vital Signs Temp 97.6 F 11/26/16 12:00 Pulse 78 11/26/16 21:12 Resp 18 11/26/16 17:00 BP 101/56 11/26/16 17:00 Pulse Ox 97 11/26/16 17:00 Intake & Output 11/26/16 11/26/16 11/27/16 06:59 18:59 06:59 Intake Total 720.0 990 Output Total 445 355 Balance 275.0 635 Weight 90.6 kg 90.6 kg Intake: Intake, IV Titration 600.0 750 Amount Piperacillin-Tazobactam 3 50.0 50 .375 gm In Dextrose/Water 1 50ml.bag @ 12.5 mls/hr IVPB Q8HR RICKI Rx#: [id number] Potassium Chloride 10 meq 200 Lidocaine 2% Inj 10 mg In Sodium Chloride 0.9% 100 ml @ 100 mls/hr IV Q1HR R[facility]I Rx#:[id number] Sodium Chloride 0.9% 1, 550 500 000 ml @ 50 mls/hr IV . Q20H RICKI Rx#:[id number] Oral 120 240 Output: Urine 445 355 Other: Voiding Method Indwelling Catheter Indwelling Catheter - Exam Pleasant 81-year-old woman who improved now on 4 L nasal cannula off of the BiPAP with adequate oxygenation. HEENT: Anicteric conjunctiva are pink and moist nasal mucosa grossly intact without significant lesions, there is no thrush. Neck: The neck is supple without significant lymphadenopathy or thyromegaly. Lungs: There is symmetrical air entry. Evidence of basilar crackles. Few bronchial sounds at the right base are noted. No dullness or egophony was noted. Heart: Irregular with an audible S1 and S2 soft S4 no distinct murmur click or rub. Pacemaker left anterior chest wall is without tenderness or purulence. Abdomen: Positive bowel sounds soft and nontender without palpable masses or organomegaly. There was no guarding or rebound. Extremities: The extremity is have trace edema. Pulses are 2+ and symmetric. No open lesions are seen. Neuro: Awake alert oriented to person and place. There are no acute new gross focal sensory motor deficits. - Labs CBC & Chem 7: 11/26/16 04:30 11/26/16 04:30 Labs: Abnormal Lab Results - Last 24 Hours (Table) 11/26/16 11/26/16 11/26/16 Range/Units 00:01 04:30 04:30 Hct 33.2 L (34.0-46.0) % Plt Count 82 L (150-450) k/uL Sodium 135 L (137-145) mmol/L Potassium 3.4 L (3.5-5.1) mmol/L BUN 27 H (7-17) mg/dL Creatinine 1.10 H (0.52-1.04) mg/dL Glucose 101 H (74-99) mg/dL POC Glucose (mg/dL) 125 H (75-99) mg/dL Calcium 8.3 L (8.4-10.2) mg/dL 11/26/16 11/26/16 11/26/16 Range/Units 04:59 12:30 22:15 Hct (34.0-46.0) % Plt Count (150-450) k/uL Sodium (137-145) mmol/L Potassium (3.5-5.1) mmol/L BUN (7-17) mg/dL Creatinine (0.52-1.04) mg/dL Glucose (74-99) mg/dL POC Glucose (mg/dL) 104 H 111 H 109 H (75-99) mg/dL Calcium (8.4-10.2) mg/dL Microbiology - Last 24 Hours (Table) 11/24/16 15:15 Blood Culture Gram Stain - Final Blood Blood Culture - Final Enterococcus faecalis 11/24/16 15:15 Blood Culture - Preliminary Blood No Growth after 48 hours 11/24/16 15:15 Urine Culture - Preliminary Urine,Catheterized Group D Enterococcus Laboratory Results WBC 7.6 k/uL (3.8-10.6) 11/26/16 04:30 RBC 3.95 m/uL (3.80-5.40) 11/26/16 04:30 Hgb 11.5 gm/dL (11.4-16.0) 11/26/16 04:30 Hct 33.2 % (34.0-46.0) L 11/26/16 04:30 MCV 84.1 fL (80.0-100.0) 11/26/16 04:30 MCH 29.1 pg (25.0-35.0) 11/26/16 04:30 MCHC 34.6 g/dL (31.0-37.0) 11/26/16 04:30 RDW 15.0 % (11.5-15.5) 11/26/16 04:30 Plt Count 82 k/uL (150-450) L 11/26/16 04:30 Neutrophils % 72 % 11/26/16 04:30 Lymphocytes % 16 % 11/26/16 04:30 Monocytes % 7 % 11/26/16 04:30 Eosinophils % 3 % 11/26/16 04:30 Basophils % 0 % 11/26/16 04:30 Neutrophils # 5.5 k/uL (1.3-7.7) 11/26/16 04:30 Lymphocytes # 1.2 k/uL (1.0-4.8) 11/26/16 04:30 Monocytes # 0.5 k/uL (0-1.0) 11/26/16 04:30 Eosinophils # 0.2 k/uL (0-0.7) 11/26/16 04:30 Basophils # 0.0 k/uL (0-0.2) 11/26/16 04:30 Manual Slide Review Performed 11/25/16 05:13 Toxic Granulation Present 11/25/16 05:13 Toxic Vacuolation Present 11/25/16 05:13 Poikilocytosis Slight 11/26/16 04:30 Poikilocytosis (manual Present 11/25/16 05:13 Sample Site rbch 11/25/16 01:46 ABG pH 7.41 (7.35-7.45) 11/25/16 01:46 ABG pCO2 32 mmHg (35-45) L 11/25/16 01:46 ABG pO2 >400 mmHg (83-108) H 11/25/16 01:46 ABG HCO3 20 mmol/L (21-25) L 11/25/16 01:46 ABG Total CO2 21 mmol/L (19-24) 11/25/16 01:46 ABG O2 Saturation 100.0 % (94-97) H 11/25/16 01:46 ABG Base Excess -4.0 mmol/L 11/25/16 01:46 FiO2 100 % 11/25/16 01:46 Sodium 135 mmol/L (137-145) L 11/26/16 04:30 Potassium 3.4 mmol/L (3.5-5.1) L 11/26/16 04:30 Chloride 103 mmol/L (98-107) 11/26/16 04:30 Carbon Dioxide 24 mmol/L (22-30) 11/26/16 04:30 Anion Gap 8 mmol/L 11/26/16 04:30 BUN 27 mg/dL (7-17) H 11/26/16 04:30 Creatinine 1.10 mg/dL (0.52-1.04) H 11/26/16 04:30 Est GFR (MDRD) Af Amer 58 (>60 ml/min/1.73 sqM) 11/26/16 04:30 Est GFR (MDRD) Non-Af 48 (>60 ml/min/1.73 sqM) 11/26/16 04:30 Glucose 101 mg/dL (74-99) H 11/26/16 04:30 POC Glucose (mg/dL) 109 mg/dL (75-99) H 11/26/16 22:15 POC Glu Senior [employer] Systems Administrator ID Carlene Manzano 11/26/16 22:[address] Glu mg/dL 117 mg/dL 11/25/16 05:13 Hemoglobin A1c 5.7 % (4.2-6.1) 11/25/16 05:13 Plasma Lactic Acid Benito 1.4 mmol/L (0.7-2.0) 11/25/16 05:13 Calcium 8.3 mg/dL (8.4-10.2) L 11/26/16 04:30 Phosphorus 4.1 mg/dL (2.5-4.5) 11/26/16 04:30 Magnesium 2.1 mg/dL (1.6-2.3) 11/26/16 04:30 Total Bilirubin 2.2 mg/dL (0.2-1.3) H 11/24/16 15:15 AST 37 U/L (14-36) H 11/24/16 15:15 ALT 23 U/L (9-52) 11/24/16 15:15 Alkaline Phosphatase 94 U/L (38-126) 11/24/16 15:15 Total Protein 6.9 g/dL (6.3-8.2) 11/24/16 15:15 Albumin 3.9 g/dL (3.5-5.0) 11/24/16 15:15 Vitamin B12 366 pg/mL 11/26/16 04:30 TSH 1.000 mIU/L (0.465-4.680) 11/26/16 04:30 Free T4 1.63 ng/dL (0.78-2.19) 11/26/16 04:30 Free T3 pg/mL 3.0 pg/ml (2.8-5.3) 11/26/16 04:30 Urine Color Yellow 11/24/16 15:15 Urine Appearance Clear (Clear) 11/24/16 15:15 Urine pH 7.0 (5.0-8.0) 11/24/16 15:15 Ur Specific [place] 1.014 (1.001-1.035) 11/24/16 15:15 Urine Protein 1+ (Negative) H 11/24/16 15:15 Urine Glucose (UA) Negative (Negative) 11/24/16 15:15 Urine Ketones Trace (Negative) H 11/24/16 15:15 Urine Blood Small (Negative) H 11/24/16 15:15 Urine Nitrite Negative (Negative) 11/24/16 15:15 Urine Bilirubin Negative (Negative) 11/24/16 15:15 Urine Urobilinogen <2.0 mg/dL (<2.0) 11/24/16 15:15 Ur Leukocyte Esterase Small (Negative) H 11/24/16 15:15 Urine RBC 14 /hpf (0-5) H 11/24/16 15:15 Urine WBC 9 /hpf (0-5) H 11/24/16 15:15 Urine Mucus Rare /hpf (None) H 11/24/16 15:15 Microbiology 11/24/16 15:15 Blood Blood Culture Gram Stain - Final 11/24/16 15:15 Blood Blood Culture - Final Enterococcus faecalis 11/24/16 15:15 Blood Blood Culture - Preliminary No Growth after 48 hours 11/24/16 15:15 Urine,Catheterized Urine Culture - Preliminary Group D Enterococcus Assessment and Plan (1) Sepsis Narrative/Plan: 81-year-old woman who has a history of hospitalization earlier this year with pneumonia. Was at home when she became ill. She was having increasing weakness and falls. She had altered mental status was brought to hospital. There is evidence of a new left lower lobe infiltrate on the chest x-ray. The patient is evidence of positive blood cultures. Antibiotic therapy with piperacillin tazobactam and vancomycin are being utilized. Workup is in progress and septic coccus pneumoniae or group C strep would be concerned at this point in time for which Zosyn should give us coverage. as would the vancomycin. Continue Zosyn for now some process would continue treatment for gram-negative pneumonia given the fact she is in ICU and has a recent history of pneumonia. It is sometime since her influenza pneumonia diagnosis staph aureus pneumonia would be somewhat unusual in this situation. The leukocytosis directly related to the current pneumonia. As is the respiratory failure. The city showing some slight improvement this evening. We'll follow blood cultures to ensure her bacteremia is clearing. Did have an echocardiogram done in September which showed evidence of a preserved ejection fraction and some pulmonary hypertension. No evidence of vegetations at that time. If she has ongoing positive blood cultures follow-up imaging study of her heart will be required assessing for endocarditis. There is evidence of enterococcus in the urine as well as the blood with the bloodstream is a likely etiology of the current sepsis. Complicated by secondary pneumonia. Enterococcus is not VRE. Status: Acute
[2016-11-27] MEDS: LORazepam 2 MG/ML SYRINGE IV PRN ×2 (00:02→02:14)
[2016-11-27] MEDS: ACETAMINOPHEN TAB 325 MG TAB PO PRN (02:10)
[2016-11-27] MEDS: PIPERACILLIN-TAZOBACTAM 3.375 GM in DEXTROSE/WATER 1 50ML.BAG IVPB SCH ×3 (04:51→19:17)
[2016-11-27] MEDS: LEVOTHYROXINE 50 MCG TAB PO SCH (06:25)
[2016-11-27] MEDS: IPRATROPIUM-ALBUTEROL 3 ML NEB INHALATION SCH ×4 (07:29→19:31)
[2016-11-27 07:37] LABS: Glucose,Whole Blood 93 mg/dL (75-99)
[2016-11-27] MEDS: INSULIN LISPRO (humaLOG) 300 UNIT/3 ML VIAL SQ SCH ×4 (07:52→21:35)
[2016-11-27] MEDS: DULoxetine HCL 60 MG CAPSULE.DR PO SCH (08:17)
[2016-11-27] MEDS: MELOXICAM 7.5 MG TAB PO SCH (08:17)
[2016-11-27] MEDS: ATENOLOL 12.5 MG TAB PO SCH (08:17)
[2016-11-27] MEDS: APIXABAN 2.5 MG TABLET PO SCH ×2 (08:21→20:30)
[2016-11-27] MEDS: PANTOPRAZOLE 40 MG TABLET PO SCH (08:21)
[2016-11-27] MEDS: amLODIPine 2.5 MG TAB PO SCH (08:21)
[2016-11-27] MEDS: OXYBUTYNIN 15 MG TAB.ER.24 PO SCH (08:21)
[2016-11-27] MEDS ORDERED: VANCOMYCIN 1,500 MG in SODIUM CHLORIDE 0.9% 250 ML IVPB SCH (09:00)
[2016-11-27 09:03] LABS: Anion Gap 10 mmol/L; Blood Urea Nitrogen 27 mg/dL (7-17); Calcium 8.6 mg/dL (8.4-10.2); Carbon Dioxide 23 mmol/L (22-30); Chloride 106 mmol/L (98-107); Glucose 99 mg/dL (74-99); Magnesium 2.1 mg/dL (1.6-2.3); Non-African American GFR(MDRD) 51 (>60 ml/min/1.73 sqM); Phosphorous 4.1 mg/dL (2.5-4.5); Potassium 3.8 mmol/L (3.5-5.1); Sodium 139 mmol/L (137-145)
[2016-11-27 09:09] LABS: Basophils % (A) 0 %; CH 28.5; CHCM 33.7; Eosinophils # (A) 0.6 k/uL (0-0.7); Eosinophils % (A) 9 %; HCT 34.9 % (34.0-46.0); HDW 3.52; HGB 11.8 gm/dL (11.4-16.0); Luc # (Auto) 0.28; Luc % (Auto) 4; Lymphocytes # (A) 1.5 k/uL (1.0-4.8); Lymphocytes % (A) 22 %; MCH 28.8 pg (25.0-35.0); MCHC 33.8 g/dL (31.0-37.0); MCV 85.1 fL (80.0-100.0); Mean Platelet Volume 9.4; Monocytes # (A) 0.4 k/uL (0-1.0); Monocytes % (A) 6 %; Neutrophils # (A) 3.9 k/uL (1.3-7.7); Neutrophils % (A) 59 %; Poikilocytosis Slight; WBC 6.6 k/uL (3.8-10.6); WBC (Perox) 6.23
[2016-11-27 10:38] LABS: Hemoglobin A1C 5.8 % (4.2-6.1)
[2016-11-27 12:29] LABS: Glucose,Whole Blood 110 mg/dL (75-99)
[2016-11-27] MEDS: SODIUM CHLORIDE 0.9% 1,000 ML IV SCH (14:06)
--- NOTE | 2016-11-27 14:40 | P.PN ---
Subjective 81-year-old female patient with multiple medical positive comorbidities who lives independently at home and the patient was found to be having some altered mental status. There has been gradual decline in the patient's health. The patient become more weak and she had been falling at home and over the past 24 hours she started having episodes of high-grade fever with a temperature 102 along with altered mental status. No neck stiffness. No headaches. No head trauma. She denies having any cough or sputum production. She did complain of some increased shortness of breath. No nausea. No vomiting. No diarrhea. No aspiration. No dystrophic emergency. No hematuria. No flank pain. No open wounds or sores. The patient has multiple orthopedic surgeries with bilateral knee and hip replacement and she has a pacemaker in place.yet, none of these seem to be infected at this point. The patient got moved to the intensive care unit after being admitted to the medical floor. She was having altered mental status. Her lactic acid level was at 2.8. The patient received IV fluids initially half a liter bolus of normal saline and then another half a liter. Subsequent lactic acid level dropped down to 1.4. Her blood cultures from this morning is showing gram-positive cocci in pairs. The patient had received a dose of Levaquin in the emergency department. I switch her to a combination of Zosyn and Levaquin. The patient's white cell count is at 17.5. Her renal function is within normal. Chest x-ray shows some limited infiltration of the left lung base other was not acute abdominal masses noted. Overnight, the patient was placed on a BiPAP and earlier this morning she was taken off the BiPAP and she was placed on 40 still oxygen nasal cannula. She is known to have CHF with diastolic dysfunction with an ejection fraction of 55-60%. She was in the hospital in September 2016 for an acute influenza be respiratory tract infection pH is known to have COPD along with various other comorbidities as will be discussed later on in my dictation. No skin rashes. No focal neurological deficits. She seems to be much more awake and alert is point in time. Hemodynamically stable. Producing adequate amount of urine output. On today's evaluation of 11/26/2016, the patient is being seen in follow-up. The patient is doing better. She is awake and alert. She was found to have enterococcus group D urinary tract infection and her blood culture was also positive. The patient was seen by infectious disease. The patient was kept on accommodation of Zosyn and vancomycin. She is on no pressors. No chest pain. No shortness of breath. No other complaints otherwise for now. Pulse ox is around 97% 40s of oxygen nasal cannula. The patient remains in atrial fibrillation. The patient was seen again today 11/27/2016 on the regular medical floor in follow-up. She is awake and alert in no acute distress. She denies any worsening shortness of breath, cough or congestion. She is maintaining good O2 saturations in the mid 90s on 2 L/m per nasal cannula. Blood and urine cultures were positive for Enterococcus faecalis. She remains on vancomycin and Zosyn. She has been hemodynamically stable. No leukocytosis. No fever. Objective - Vital Signs Vital signs: Vital Signs Temp 98 F 11/27/16 07:00 Pulse 68 11/27/16 11:45 Resp 16 11/27/16 08:00 BP 141/67 11/27/16 07:00 Pulse Ox 95 11/27/16 07:30 Intake & Output 11/26/16 11/27/16 11/27/16 18:59 06:59 18:59 Intake Total 990 850 Output Total 355 Balance 635 850 Weight 90.6 kg 90 kg Intake: IV 260 Piperacillin-Tazobactam 3 100 .375 gm In Dextrose/Water 1 50ml.bag @ 12.5 mls/hr IVPB Q8H [facility] Rx#: [id number] Sodium Chloride 0.9% 1, 160 000 ml @ 20 mls/hr IV . Q24H [facility]I Rx#:[id number] Intake, IV Titration 750 Amount Piperacillin-Tazobactam 3 50 .375 gm In Dextrose/Water 1 50ml.bag @ 12.5 mls/hr IVPB Q8HR [facility] Rx#: [id number] Potassium Chloride 10 meq 200 Lidocaine 2% Inj 10 mg In Sodium Chloride 0.9% 100 ml @ 100 mls/hr IV Q1HR [facility] Rx#:[id number] Sodium Chloride 0.9% 1, 500 000 ml @ 20 mls/hr IV . Q24H [facility]I Rx#:[id number] Oral 240 590 Output: Urine 355 Other: Voiding Method Indwelling Catheter Bedside Commode Bedside Commode # Voids 2 # Bowel Movements 1 - Exam The patient appeared well nourished and normally developed. Vital signs as documented. Head exam is unremarkable. No scleral icterus or corneal arcus noted. Neck is without jugular venous distension, thyromegaly, or carotid bruits. Carotid upstrokes are brisk bilaterally. Lung sounds are diminished and there are some crackles in the lung bases bilaterally more so on the left. Cardiac exam reveals the PMI to be normally sized and situated. Rhythm is regular. First and second heart sounds normal. No murmurs, rubs or gallops. Patient has a pacemaker in place and the pacemaker pocket seems to be intact and within normal limits. Abdominal exam reveals normal bowel sounds, no masses , no organomegaly and no aortic enlargement. Extremities are nonedematous and both femoral and pedal pulses are normal. The patient has had multiple orthopedic surgeries including a scar over the left shoulder, bilateral hips, bilateral knees and all of these joints are within normal limits. Skin is intact and there is no open wounds or sores. - Labs CBC & Chem 7: 11/27/16 08:06 11/27/16 08:06 Labs: Abnormal Lab Results - Last 24 Hours (Table) 11/26/16 11/27/16 11/27/16 Range/Units 22:15 08:06 08:06 Plt Count 95 L (150-450) k/uL BUN 27 H (7-17) mg/dL POC Glucose (mg/dL) 109 H (75-99) mg/dL 11/27/16 Range/Units 12:23 Plt Count (150-450) k/uL BUN (7-17) mg/dL POC Glucose (mg/dL) 110 H (75-99) mg/dL Microbiology - Last 24 Hours (Table) 11/26/16 04:57 Blood Culture - Preliminary Blood No Growth after 24 hours 11/26/16 04:30 Blood Culture - Preliminary Blood No Growth after 24 hours 11/24/16 15:15 Urine Culture - Final Urine,Catheterized Enterococcus faecalis 11/24/16 15:15 Blood Culture Gram Stain - Final Blood Blood Culture - Final Enterococcus faecalis 11/24/16 15:15 Blood Culture - Preliminary Blood No Growth after 48 hours Assessment and Plan Plan: Assessment 1 sepsis with enterococcus group D. This is likely of a urinary source. The same microorganism was cultured in the urine and the blood. Mental status is improved 2 acute febrile illness secondary to sepsis, improved 3 change in mental status secondary to above, improving, improved, and a CAT scan of the brain was essentially negative 4 recent hospitalization for influenza B respiratory tract infection 5 CHF with diastolic dysfunction and an ejection fraction of 55% 6 history of heart block status post permanent pacemaker insertion 7 diabetes mellitus type 2 8 fibromyalgia 9 degenerative arthritis with multiple joint replacements 10 history of peptic ulcer disease and previous history of GI bleed 11 paroxysmal atrial fibrillation, current rhythm is paced and the patient is on anticoagulation 12 history of falls 13 peripheral neuropathy 14 COPD 15 coronary artery disease 16 hypothyroidism Plan: The patient was seen and evaluated by Dr. Perdomo. She is improved from the pulmonary and critical care standpoint. She's been stable on the regular medical floor. We'll continue with her current medications including antibiotics in form of vancomycin and Zosyn. We'll continue to follow.
--- NOTE | 2016-11-27 15:27 | P.PN ---
Subjective HISTORY OF PRESENTING ILLNESS: This is an 81-year-old female who was admitted to the hospital multiple times previously; comes into the hospital with some complaints of difficulty in breathing. However, patient was brought into the hospital with change in mental status, was noted to have a high-grade fever recorded at 102 degrees Fahrenheit. Patient was initially admitted to the med/telemetry floor. Patient was appropriately fluid-resuscitated; however, due to respiratory distress, a Rapid Response was called. Thereafter she was triaged to the intensive care unit. Patient improved rapidly, until this morning on BiPAP; was alert, oriented x3. She was moving air well on physical examination, according to the clean rice grader and reel tender's note. Patient was supposed to be triaged out of the ICU; however, about half hour prior to my evaluation patient apparently was significantly dyspneic and was audibly wheezing. Thereafter BiPAP was restarted. Patient appeared to be in respiratory distress during my evaluation. Most of the history is obtained from review of the chart. Patient is currently on BiPAP with settings of 12/5 with FiO2 of 40%. Patient is noted to have a left lower lobe infiltrate with concern about [id number] organisms. Patient has been started on Levaquin and Zosyn at this time. The patient appears to be answering some questions appropriately. No other complaints are reported, including headaches, nausea, vomiting, diarrhea or lower extremity tenderness. 11/26/2016 Patient is on supplemental oxygen is awake is answering questions appropriately denies having any Breathing difficulty at this time. States that she is tired of being admitted to the hospital multiple times or graft no fevers chills diarrhea Nausea vomiting or reported at this time. 11/27/2016 Patient is improved is able to answer questions appropriately denies having headaches blurry vision nausea vomiting or diarrhea. No urinary urgency or frequency is reported. REVIEW OF SYSTEMS: Fourteen-point review of systems was none; none pertinent other than what was mentioned above. Objective - Vital Signs Vital signs: Vital Signs Temp 98 F 11/27/16 07:00 Pulse 68 11/27/16 11:45 Resp 16 11/27/16 08:00 BP 141/67 11/27/16 07:00 Pulse Ox 95 11/27/16 07:30 Intake & Output 11/26/16 11/27/16 11/27/16 18:59 06:59 18:59 Intake Total 990 850 Output Total 355 Balance 635 850 Weight 90.6 kg 90 kg Intake: IV 260 Piperacillin-Tazobactam 3 100 .375 gm In Dextrose/Water 1 50ml.bag @ 12.5 mls/hr IVPB Q8H [facility] Rx#: [id number] Sodium Chloride 0.9% 1, 160 000 ml @ 20 mls/hr IV . Q24H RICKI Rx#:[id number] Intake, IV Titration 750 Amount Piperacillin-Tazobactam 3 50 .375 gm In Dextrose/Water 1 50ml.bag @ 12.5 mls/hr IVPB Q8HR [facility]I Rx#: [id number] Potassium Chloride 10 meq 200 Lidocaine 2% Inj 10 mg In Sodium Chloride 0.9% 100 ml @ 100 mls/hr IV Q1HR [facility]I Rx#:[id number] Sodium Chloride 0.9% 1, 500 000 ml @ 20 mls/hr IV . Q24H RICKI Rx#:[id number] Oral 240 590 Output: Urine 355 Other: Voiding Method Indwelling Catheter Bedside Commode Bedside Commode # Voids 2 # Bowel Movements 1 - Exam PHYSICAL EXAM: Temperature 97.7, respiratory rate 32, heart rate around 110. Saturating 95% on 3 L of supplemental oxygen. GENERAL APPEARANCE: Appears to be in distress; however, awake to answer some questions. LUNGS: Poor air movement appreciated anteriorly. Silent chest. No significant wheezing appreciated yet. HEART: S1, S2 heard. Appears to be irregular at this time. No murmurs appreciated. ABDOMEN: Soft; however, slightly distended. No organomegaly appreciated. LOWER EXTREMITIES: No significant edema noted. NEURO: Appropriate however, is moving all 4 extremities. No focal deficit appreciated - Labs CBC & Chem 7: 11/27/16 08:06 11/27/16 08:06 Labs: Abnormal Lab Results - Last 24 Hours (Table) 11/26/16 11/27/16 11/27/16 Range/Units 22:15 08:06 08:06 Plt Count 95 L (150-450) k/uL BUN 27 H (7-17) mg/dL POC Glucose (mg/dL) 109 H (75-99) mg/dL 11/27/16 Range/Units 12:23 Plt Count (150-450) k/uL BUN (7-17) mg/dL POC Glucose (mg/dL) 110 H (75-99) mg/dL Microbiology - Last 24 Hours (Table) 11/26/16 04:57 Blood Culture - Preliminary Blood No Growth after 24 hours 11/26/16 04:30 Blood Culture - Preliminary Blood No Growth after 24 hours 11/24/16 15:15 Urine Culture - Final Urine,Catheterized Enterococcus faecalis 11/24/16 15:15 Blood Culture Gram Stain - Final Blood Blood Culture - Final Enterococcus faecalis 11/24/16 15:15 Blood Culture - Preliminary Blood No Growth after 48 hours Assessment and Plan Plan: ASSESSMENT AND PLAN: 1. Severe sepsis with Gram-positive bacteremia, source likely being pneumonia. 2. Acute hypoxic respiratory failure from [id number] pneumonia. 3. Congestive heart failure with diastolic dysfunction, which is compensated. 4. History of heart block, status post pacemaker placement. 5. History of atrial fibrillation. Continues to be in atrial fibrillation. 6. Fibromyalgia. 7. Degenerative disc disease. 8. Diabetes mellitus, type 2. 9. Peripheral neuropathy. 10. Chronic obstructive pulmonary disease. 11. Mild to moderate protein-calorie malnutrition. 12. Hypothyroidism. 13. Coronary artery disease Plan patient is noted to have enterococcus faecalis bacteremia. If repeat blood cultures are negative patient could likely be treated with ampicillin for total of 14 days thereafter we'll defer to infectious diseases for the treatment. Repeat blood cultures. Will likely need a placement on discharge Continue ongoing care
[2016-11-27] MEDS: HYDROcodone/APAP 10-325MG 1 EACH TAB PO PRN (15:43)
[2016-11-27 17:23] LABS: Glucose,Whole Blood 96 mg/dL (75-99)
[2016-11-27 21:27] LABS: Glucose,Whole Blood 117 mg/dL (75-99)
--- NOTE | 2016-11-27 23:43 | P.PN ---
Subjective Principal diagnosis: Pneumonia 81-year-old female who has a history of hospitalization earlier this year. At that point in time she had significant pneumonia and influenza. Since her hospital stations been doing relatively well. He does appear in the days before admission she was becoming weak and having difficulties with falls. She then developed temperature 102 and her mental status became altered. Because of this she was brought to the emergency room where she was complaining of shortness of breath she had cough without significant sputum production or hemoptysis. There was evidence of an elevated lactic acid and she did respond to fluid resuscitation and antibiotics. Ultrasound evidence of sepsis and was brought to the intensive care unit because of her respiratory failure requiring BiPAP. She this point time is doing slightly better. She is regaining her appetite and would like to have her dinner. BiPAP was removed and she does have some difficulties with decreasing oxygenation. Patient is more comfortable tonight. confusion has further improved Objective - Vital Signs Vital signs: Vital Signs Temp 97.6 F 11/27/16 22:35 Pulse 64 11/27/16 22:35 Resp 18 11/27/16 22:35 BP 155/68 11/27/16 22:35 Pulse Ox 95 11/27/16 22:35 Intake & Output 11/27/16 11/27/16 11/28/16 06:59 18:59 06:59 Intake Total 850 Balance 850 Weight 90 kg Intake: IV 260 Piperacillin-Tazobactam 3 100 .375 gm In Dextrose/Water 1 50ml.bag @ 12.5 mls/hr IVPB Q8H [facility] Rx#: [id number] Sodium Chloride 0.9% 1, 160 000 ml @ 20 mls/hr IV . Q24H [facility] Rx#:[id number] Oral 590 Other: Voiding Method Bedside Commode Bedside Commode # Voids 2 1 # Bowel Movements 1 1 - Exam Pleasant 81-year-old woman who improved now on 4 L nasal cannula off of the BiPAP with adequate oxygenation. HEENT: Anicteric conjunctiva are pink and moist nasal mucosa grossly intact without significant lesions, there is no thrush. Neck: The neck is supple without significant lymphadenopathy or thyromegaly. Lungs: There is symmetrical air entry. Evidence of basilar crackles. Few bronchial sounds at the right base are noted. No dullness or egophony was noted. Heart: Irregular with an audible S1 and S2 soft S4 no distinct murmur click or rub. Pacemaker left anterior chest wall is without tenderness or purulence. Abdomen: Positive bowel sounds soft and nontender without palpable masses or organomegaly. There was no guarding or rebound. Extremities: The extremity is have trace edema. Pulses are 2+ and symmetric. No open lesions are seen. Neuro: Awake alert oriented to person and place. There are no acute new gross focal sensory motor deficits. - Labs CBC & Chem 7: 11/27/16 08:06 11/27/16 08:06 Labs: Abnormal Lab Results - Last 24 Hours (Table) 11/27/16 11/27/16 11/27/16 Range/Units 08:06 08:06 12:23 Plt Count 95 L (150-450) k/uL BUN 27 H (7-17) mg/dL POC Glucose (mg/dL) 110 H (75-99) mg/dL 11/27/16 Range/Units 21:07 Plt Count (150-450) k/uL BUN (7-17) mg/dL POC Glucose (mg/dL) 117 H (75-99) mg/dL Microbiology - Last 24 Hours (Table) 11/26/16 04:57 Blood Culture Gram Stain - Preliminary Blood 11/26/16 04:57 Blood Culture - Preliminary Blood 11/24/16 15:15 Blood Culture - Preliminary Blood No Growth after 72 hours 11/26/16 04:30 Blood Culture - Preliminary Blood No Growth after 24 hours 11/24/16 15:15 Urine Culture - Final Urine,Catheterized Enterococcus faecalis 11/24/16 15:15 Blood Culture Gram Stain - Final Blood Blood Culture - Final Enterococcus faecalis Laboratory Results WBC 6.6 k/uL (3.8-10.6) 11/27/16 08:06 RBC 4.10 m/uL (3.80-5.40) 11/27/16 08:06 Hgb 11.8 gm/dL (11.4-16.0) 11/27/16 08:06 Hct 34.9 % (34.0-46.0) 11/27/16 08:06 MCV 85.1 fL (80.0-100.0) 11/27/16 08:06 MCH 28.8 pg (25.0-35.0) 11/27/16 08:06 MCHC 33.8 g/dL (31.0-37.0) 11/27/16 08:06 RDW 15.0 % (11.5-15.5) 11/27/16 08:06 Plt Count 95 k/uL (150-450) L 11/27/16 08:06 Neutrophils % 59 % 11/27/16 08:06 Lymphocytes % 22 % 11/27/16 08:06 Monocytes % 6 % 11/27/16 08:06 Eosinophils % 9 % 11/27/16 08:06 Basophils % 0 % 11/27/16 08:06 Neutrophils # 3.9 k/uL (1.3-7.7) 11/27/16 08:06 Lymphocytes # 1.5 k/uL (1.0-4.8) 11/27/16 08:06 Monocytes # 0.4 k/uL (0-1.0) 11/27/16 08:06 Eosinophils # 0.6 k/uL (0-0.7) 11/27/16 08:06 Basophils # 0.0 k/uL (0-0.2) 11/27/16 08:06 Manual Slide Review Performed 11/25/16 05:13 Toxic Granulation Present 11/25/16 05:13 Toxic Vacuolation Present 11/25/16 05:13 Poikilocytosis Slight 11/27/16 08:06 Poikilocytosis (manual Present 11/25/16 05:13 [facility] 11/25/16 01:46 ABG pH 7.41 (7.35-7.45) 11/25/16 01:46 ABG pCO2 32 mmHg (35-45) L 11/25/16 01:46 ABG pO2 >400 mmHg (83-108) H 11/25/16 01:46 ABG HCO3 20 mmol/L (21-25) L 11/25/16 01:46 ABG Total CO2 21 mmol/L (19-24) 11/25/16 01:46 ABG O2 Saturation 100.0 % (94-97) H 11/25/16 01:46 ABG Base Excess -4.0 mmol/L 11/25/16 01:46 FiO2 100 % 11/25/16 01:46 Sodium 139 mmol/L (137-145) 11/27/16 08:06 Potassium 3.8 mmol/L (3.5-5.1) 11/27/16 08:06 Chloride 106 mmol/L (98-107) 11/27/16 08:06 Carbon Dioxide 23 mmol/L (22-30) 11/27/16 08:06 Anion Gap 10 mmol/L 11/27/16 08:06 BUN 27 mg/dL (7-17) H 11/27/16 08:06 Creatinine 1.04 mg/dL (0.52-1.04) 11/27/16 08:06 Est GFR (MDRD) Af Amer >60 (>60 ml/min/1.73 sqM) 11/27/16 08:06 Est GFR (MDRD) Non-Af 51 (>60 ml/min/1.73 sqM) 11/27/16 08:06 Glucose 99 mg/dL (74-99) 11/27/16 08:06 POC Glucose (mg/dL) 117 mg/dL (75-99) H 11/27/16 21:07 POC Glu Medical Device JASON Gutierrezler Judi 11/27/16 21:[address] Glu mg/dL 120 mg/dL 11/27/16 08:06 Hemoglobin A1c 5.8 % (4.2-6.1) 11/27/16 08:06 Plasma Lactic Acid Benito 1.4 mmol/L (0.7-2.0) 11/25/16 05:13 Calcium 8.6 mg/dL (8.4-10.2) 11/27/16 08:06 Phosphorus 4.1 mg/dL (2.5-4.5) 11/27/16 08:06 Magnesium 2.1 mg/dL (1.6-2.3) 11/27/16 08:06 Total Bilirubin 2.2 mg/dL (0.2-1.3) H 11/24/16 15:15 AST 37 U/L (14-36) H 11/24/16 15:15 ALT 23 U/L (9-52) 11/24/16 15:15 Alkaline Phosphatase 94 U/L (38-126) 11/24/16 15:15 Total Protein 6.9 g/dL (6.3-8.2) 11/24/16 15:15 Albumin 3.9 g/dL (3.5-5.0) 11/24/16 15:15 Vitamin B12 366 pg/mL 11/26/16 04:30 TSH 1.000 mIU/L (0.465-4.680) 11/26/16 04:30 Free T4 1.63 ng/dL (0.78-2.19) 11/26/16 04:30 Free T3 pg/mL 3.0 pg/ml (2.8-5.3) 11/26/16 04:30 Urine Color Yellow 11/24/16 15:15 Urine Appearance Clear (Clear) 11/24/16 15:15 Urine pH 7.0 (5.0-8.0) 11/24/16 15:15 Ur Specific [place] 1.014 (1.001-1.035) 11/24/16 15:15 Urine Protein 1+ (Negative) H 11/24/16 15:15 Urine Glucose (UA) Negative (Negative) 11/24/16 15:15 Urine Ketones Trace (Negative) H 11/24/16 15:15 Urine Blood Small (Negative) H 11/24/16 15:15 Urine Nitrite Negative (Negative) 11/24/16 15:15 Urine Bilirubin Negative (Negative) 11/24/16 15:15 Urine Urobilinogen <2.0 mg/dL (<2.0) 11/24/16 15:15 Ur Leukocyte Esterase Small (Negative) H 11/24/16 15:15 Urine RBC 14 /hpf (0-5) H 11/24/16 15:15 Urine WBC 9 /hpf (0-5) H 11/24/16 15:15 Urine Mucus Rare /hpf (None) H 11/24/16 15:15 Microbiology 11/26/16 04:57 Blood Blood Culture Gram Stain - Preliminary 11/26/16 04:57 Blood Blood Culture - Preliminary 11/24/16 15:15 Blood Blood Culture - Preliminary No Growth after 72 hours 11/26/16 04:30 Blood Blood Culture - Preliminary No Growth after 24 hours 11/24/16 15:15 Urine,Catheterized Urine Culture - Final Enterococcus faecalis 11/24/16 15:15 Blood Blood Culture Gram Stain - Final 11/24/16 15:15 Blood Blood Culture - Final Enterococcus faecalis Assessment and Plan (1) Sepsis Narrative/Plan: 81-year-old woman who has a history of hospitalization earlier this year with pneumonia. Was at home when she became ill. She was having increasing weakness and falls. She had altered mental status was brought to hospital. There is evidence of a new left lower lobe infiltrate on the chest x-ray. The patient is evidence of positive blood cultures. Antibiotic therapy with piperacillin tazobactam and vancomycin are being utilized. Workup is in progress and septic coccus pneumoniae or group C strep would be concerned at this point in time for which Zosyn should give us coverage. as would the vancomycin. Continue Zosyn for now some process would continue treatment for gram-negative pneumonia given the fact she is in ICU and has a recent history of pneumonia. It is sometime since her influenza pneumonia diagnosis staph aureus pneumonia would be somewhat unusual in this situation. The leukocytosis directly related to the current pneumonia. As is the respiratory failure. The city showing some slight improvement this evening. We'll follow blood cultures to ensure her bacteremia is clearing. Did have an echocardiogram done in September which showed evidence of a preserved ejection fraction and some pulmonary hypertension. No evidence of vegetations at that time. If she has ongoing positive blood cultures follow-up imaging study of her heart will be required assessing for endocarditis. There is evidence of enterococcus in the urine as well as the blood with the bloodstream is a likely etiology of the current sepsis. Complicated by secondary pneumonia. Enterococcus is not VRE.is showing some improvement. Status: Acute
[2016-11-28] MEDS: ACETAMINOPHEN TAB 325 MG TAB PO PRN (00:19)
[2016-11-28] MEDS: PIPERACILLIN-TAZOBACTAM 3.375 GM in DEXTROSE/WATER 1 50ML.BAG IVPB SCH ×3 (04:41→19:40)
[2016-11-28] MEDS: LEVOTHYROXINE 50 MCG TAB PO SCH (06:18)
[2016-11-28] MEDS: IPRATROPIUM-ALBUTEROL 3 ML NEB INHALATION SCH ×4 (07:25→20:22)
[2016-11-28 07:29] LABS: Glucose,Whole Blood 103 mg/dL (75-99)
[2016-11-28] MEDS: INSULIN LISPRO (humaLOG) 300 UNIT/3 ML VIAL SQ SCH ×4 (07:48→21:15)
[2016-11-28] MEDS: OXYBUTYNIN 15 MG TAB.ER.24 PO SCH (07:51)
[2016-11-28] MEDS: PANTOPRAZOLE 40 MG TABLET PO SCH (07:51)
[2016-11-28] MEDS: amLODIPine 2.5 MG TAB PO SCH (07:51)
[2016-11-28] MEDS: ATENOLOL 12.5 MG TAB PO SCH (07:52)
[2016-11-28] MEDS: MELOXICAM 7.5 MG TAB PO SCH (07:52)
[2016-11-28] MEDS: APIXABAN 2.5 MG TABLET PO SCH ×2 (07:52→20:24)
[2016-11-28] MEDS: DULoxetine HCL 60 MG CAPSULE.DR PO SCH (07:54)
[2016-11-28 08:53] LABS: Aty Lym Flag Slight; CH 28.1; CHCM 32.6; HCT 35.4 % (34.0-46.0); HDW 3.31; HGB 11.6 gm/dL (11.4-16.0); Hypochromasia Slight; MCH 28.4 pg (25.0-35.0); MCHC 32.8 g/dL (31.0-37.0); MCV 86.6 fL (80.0-100.0); Mean Platelet Volume 9.3; RBC 4.09 m/uL (3.80-5.40); RDW 15.1 % (11.5-15.5); WBC 5.3 k/uL (3.8-10.6); WBC (Perox) 5.86
[2016-11-28 09:06] LABS: ALT 33 U/L (9-52); AST 34 U/L (14-36); Alkaline Phosphatase 71 U/L (38-126); Anion Gap 8 mmol/L; Blood Urea Nitrogen 19 mg/dL (7-17); Calcium 8.7 mg/dL (8.4-10.2); Carbon Dioxide 27 mmol/L (22-30); Chloride 107 mmol/L (98-107); Glucose 105 mg/dL (74-99); Magnesium 2.1 mg/dL (1.6-2.3); Non-African American GFR(MDRD) >60 (>60 ml/min/1.73 sqM); Phosphorous 4.5 mg/dL (2.5-4.5); Potassium 3.9 mmol/L (3.5-5.1); Sodium 142 mmol/L (137-145); Total Bilirubin 1.2 mg/dL (0.2-1.3); Total Protein 5.9 g/dL (6.3-8.2)
[2016-11-28 10:01] LABS: Add Differential Manual Differential
[2016-11-28 10:03] LABS: Manual Review Performed; Nucleated Red Blood Cells 0 /100 WBC (0-0); Total Cells Counted 100; Toxic Granulation Present
[2016-11-28] MEDS ORDERED: amLODIPine 5 MG TAB PO STA (10:25)
[2016-11-28 12:27] LABS: Glucose,Whole Blood 115 mg/dL (75-99)
[2016-11-28] MEDS: SODIUM CHLORIDE 0.9% 1,000 ML IV SCH (12:53)
[2016-11-28] MEDS: VANCOMYCIN 1,500 MG in SODIUM CHLORIDE 0.9% 250 ML IVPB SCH (13:08)
--- NOTE | 2016-11-28 14:48 | P.PN ---
Subjective 81-year-old female patient with multiple medical positive comorbidities who lives independently at home and the patient was found to be having some altered mental status. There has been gradual decline in the patient's health. The patient become more weak and she had been falling at home and over the past 24 hours she started having episodes of high-grade fever with a temperature 102 along with altered mental status. No neck stiffness. No headaches. No head trauma. She denies having any cough or sputum production. She did complain of some increased shortness of breath. No nausea. No vomiting. No diarrhea. No aspiration. No dystrophic emergency. No hematuria. No flank pain. No open wounds or sores. The patient has multiple orthopedic surgeries with bilateral knee and hip replacement and she has a pacemaker in place.yet, none of these seem to be infected at this point. The patient got moved to the intensive care unit after being admitted to the medical floor. She was having altered mental status. Her lactic acid level was at 2.8. The patient received IV fluids initially half a liter bolus of normal saline and then another half a liter. Subsequent lactic acid level dropped down to 1.4. Her blood cultures from this morning is showing gram-positive cocci in pairs. The patient had received a dose of Levaquin in the emergency department. I switch her to a combination of Zosyn and Levaquin. The patient's white cell count is at 17.5. Her renal function is within normal. Chest x-ray shows some limited infiltration of the left lung base other was not acute abdominal masses noted. Overnight, the patient was placed on a BiPAP and earlier this morning she was taken off the BiPAP and she was placed on 40 still oxygen nasal cannula. She is known to have CHF with diastolic dysfunction with an ejection fraction of 55-60%. She was in the hospital in September 2016 for an acute influenza be respiratory tract infection pH is known to have COPD along with various other comorbidities as will be discussed later on in my dictation. No skin rashes. No focal neurological deficits. She seems to be much more awake and alert is point in time. Hemodynamically stable. Producing adequate amount of urine output. On today's evaluation of 11/26/2016, the patient is being seen in follow-up. The patient is doing better. She is awake and alert. She was found to have enterococcus group D urinary tract infection and her blood culture was also positive. The patient was seen by infectious disease. The patient was kept on accommodation of Zosyn and vancomycin. She is on no pressors. No chest pain. No shortness of breath. No other complaints otherwise for now. Pulse ox is around 97% 40s of oxygen nasal cannula. The patient remains in atrial fibrillation. The patient was seen again today 11/27/2016 on the regular medical floor in follow-up. She is awake and alert in no acute distress. She denies any worsening shortness of breath, cough or congestion. She is maintaining good O2 saturations in the mid 90s on 2 L/m per nasal cannula. Blood and urine cultures were positive for Enterococcus faecalis. She remains on vancomycin and Zosyn. She has been hemodynamically stable. No leukocytosis. No fever. The patient is seen again today 11/28/2016 in follow-up on the regular medical floor. She is currently sitting up in a chair at the bedside. She is awake and alert in no acute distress. She states she is feeling stronger today as compared to yesterday. She has no pulmonary complaints. No worsening shortness of breath, cough or congestion. She is maintaining good O2 saturations in the mid 90s on 2 L/m per nasal cannula. She's been afebrile. Hemodynamically stable. Objective - Vital Signs Vital signs: Vital Signs Temp 97.0 F L 11/28/16 07:00 Pulse 65 11/28/16 13:12 Resp 16 11/28/16 08:00 BP 151/66 11/28/16 13:12 Pulse Ox 95 11/28/16 07:26 Intake & Output 11/27/16 11/28/16 11/28/16 18:59 06:59 18:59 Intake Total 160 Balance 160 Weight 90 kg Intake: IV 160 Sodium Chloride 0.9% 1, 160 000 ml @ 20 mls/hr IV . Q24H [facility] Rx#:[id number] Other: Voiding Method Bedside Commode Bedside Commode Bedside Commode # Voids 3 2 # Bowel Movements 1 - Exam The patient appeared well nourished and normally developed. Vital signs as documented. Head exam is unremarkable. No scleral icterus or corneal arcus noted. Neck is without jugular venous distension, thyromegaly, or carotid bruits. Carotid upstrokes are brisk bilaterally. Lung sounds are diminished and there are some crackles in the lung bases bilaterally more so on the left. Cardiac exam reveals the PMI to be normally sized and situated. Rhythm is regular. First and second heart sounds normal. No murmurs, rubs or gallops. Patient has a pacemaker in place and the pacemaker pocket seems to be intact and within normal limits. Abdominal exam reveals normal bowel sounds, no masses , no organomegaly and no aortic enlargement. Extremities are nonedematous and both femoral and pedal pulses are normal. The patient has had multiple orthopedic surgeries including a scar over the left shoulder, bilateral hips, bilateral knees and all of these joints are within normal limits. Skin is intact and there is no open wounds or sores. - Labs CBC & Chem 7: 11/28/16 08:06 11/28/16 08:06 Labs: Abnormal Lab Results - Last 24 Hours (Table) 11/27/16 11/28/16 11/28/16 Range/Units 21:07 07:23 08:06 Plt Count 117 L (150-450) k/uL BUN (7-17) mg/dL Glucose (74-99) mg/dL POC Glucose (mg/dL) 117 H 103 H (75-99) mg/dL Total Protein (6.3-8.2) g/dL Albumin (3.5-5.0) g/dL 11/28/16 11/28/16 Range/Units 08:06 12:22 Plt Count (150-450) k/uL BUN 19 H (7-17) mg/dL Glucose 105 H (74-99) mg/dL POC Glucose (mg/dL) 115 H (75-99) mg/dL Total Protein 5.9 L (6.3-8.2) g/dL Albumin 3.1 L (3.5-5.0) g/dL Microbiology - Last 24 Hours (Table) 11/27/16 08:06 Blood Culture Gram Stain - Preliminary Blood 11/26/16 04:57 Blood Culture Gram Stain - Preliminary Blood 11/27/16 08:35 Blood Culture - Preliminary Blood No Growth after 24 hours 11/27/16 08:06 Blood Culture - Preliminary Blood 11/26/16 04:30 Blood Culture - Preliminary Blood No Growth after 48 hours 11/26/16 04:57 Blood Culture - Preliminary Blood 11/24/16 15:15 Blood Culture - Preliminary Blood No Growth after 72 hours Assessment and Plan Plan: Assessment 1 sepsis with enterococcus group D. This is likely of a urinary source. The same microorganism was cultured in the urine and the blood. Mental status is improved 2 acute febrile illness secondary to sepsis, improved 3 change in mental status secondary to above, improving, improved, and a CAT scan of the brain was essentially negative 4 recent hospitalization for influenza B respiratory tract infection 5 CHF with diastolic dysfunction and an ejection fraction of 55% 6 history of heart block status post permanent pacemaker insertion 7 diabetes mellitus type 2 8 fibromyalgia 9 degenerative arthritis with multiple joint replacements 10 history of peptic ulcer disease and previous history of GI bleed 11 paroxysmal atrial fibrillation, current rhythm is paced and the patient is on anticoagulation 12 history of falls 13 peripheral neuropathy 14 COPD 15 coronary artery disease 16 hypothyroidism Plan: The patient was seen and evaluated by Dr. Perdomo. She currently has no pulmonary complaints. She is up ambulating with assistance. Discharge planning is in place whether she will go home with help or to an extended care facility. In the interim, we'll continue with her current medications including antibiotics in form of vancomycin and Zosyn. We'll continue to follow.
--- NOTE | 2016-11-28 15:42 | P.PN ---
Subjective HISTORY OF PRESENTING ILLNESS: This is an 81-year-old female who was admitted to the hospital multiple times previously; comes into the hospital with some complaints of difficulty in breathing. However, patient was brought into the hospital with change in mental status, was noted to have a high-grade fever recorded at 102 degrees Fahrenheit. Patient was initially admitted to the med/telemetry floor. Patient was appropriately fluid-resuscitated; however, due to respiratory distress, a Rapid Response was called. Thereafter she was triaged to the intensive care unit. Patient improved rapidly, until this morning on BiPAP; was alert, oriented x3. She was moving air well on physical examination, according to the gas meter repairer's note. Patient was supposed to be triaged out of the ICU; however, about half hour prior to my evaluation patient apparently was significantly dyspneic and was audibly wheezing. Thereafter BiPAP was restarted. Patient appeared to be in respiratory distress during my evaluation. Most of the history is obtained from review of the chart. Patient is currently on BiPAP with settings of 12/5 with FiO2 of 40%. Patient is noted to have a left lower lobe infiltrate with concern about [id number] organisms. Patient has been started on Levaquin and Zosyn at this time. The patient appears to be answering some questions appropriately. No other complaints are reported, including headaches, nausea, vomiting, diarrhea or lower extremity tenderness. 11/26/2016 Patient is on supplemental oxygen is awake is answering questions appropriately denies having any Breathing difficulty at this time. States that she is tired of being admitted to the hospital multiple times or graft no fevers chills diarrhea Nausea vomiting or reported at this time. 11/27/2016 Patient is improved is able to answer questions appropriately denies having headaches blurry vision nausea vomiting or diarrhea. No urinary urgency or frequency is reported. REVIEW OF SYSTEMS: Fourteen-point review of systems was none; none pertinent other than what was mentioned above. 11/28/2001 No new overnight events reported. Patient is doing well. States that she is had some cough with minimal sputum production No fevers chills nausea vomiting diarrhea or urinary urgency or frequency is reported Objective - Vital Signs Vital signs: Vital Signs Temp 97.0 F L 11/28/16 07:00 Pulse 65 11/28/16 13:12 Resp 16 11/28/16 08:00 BP 151/66 11/28/16 13:12 Pulse Ox 95 11/28/16 07:26 Intake & Output 11/27/16 11/28/16 11/28/16 18:59 06:59 18:59 Intake Total 160 Balance 160 Weight 90 kg Intake: IV 160 Sodium Chloride 0.9% 1, 160 000 ml @ 20 mls/hr IV . Q24H [facility] Rx#:[id number] Other: Voiding Method Bedside Commode Bedside Commode Bedside Commode # Voids 3 2 # Bowel Movements 1 - Exam PHYSICAL EXAM: Temperature 97.7, respiratory rate 32, heart rate around 110. Saturating 95% on 3 L of supplemental oxygen. GENERAL APPEARANCE: Appears to be in distress; however, awake to answer some questions. LUNGS: Poor air movement appreciated anteriorly. Silent chest. No significant wheezing appreciated yet. HEART: S1, S2 heard. Appears to be irregular at this time. No murmurs appreciated. ABDOMEN: Soft; however, slightly distended. No organomegaly appreciated. LOWER EXTREMITIES: No significant edema noted. NEURO: Appropriate however, is moving all 4 extremities. No focal deficit appreciated - Labs CBC & Chem 7: 11/28/16 08:06 11/28/16 08:06 Labs: Abnormal Lab Results - Last 24 Hours (Table) 11/27/16 11/28/16 11/28/16 Range/Units 21:07 07:23 08:06 Plt Count 117 L (150-450) k/uL BUN (7-17) mg/dL Glucose (74-99) mg/dL POC Glucose (mg/dL) 117 H 103 H (75-99) mg/dL Total Protein (6.3-8.2) g/dL Albumin (3.5-5.0) g/dL 11/28/16 11/28/16 Range/Units 08:06 12:22 Plt Count (150-450) k/uL BUN 19 H (7-17) mg/dL Glucose 105 H (74-99) mg/dL POC Glucose (mg/dL) 115 H (75-99) mg/dL Total Protein 5.9 L (6.3-8.2) g/dL Albumin 3.1 L (3.5-5.0) g/dL Microbiology - Last 24 Hours (Table) 11/27/16 08:06 Blood Culture Gram Stain - Preliminary Blood 11/26/16 04:57 Blood Culture Gram Stain - Preliminary Blood 11/27/16 08:35 Blood Culture - Preliminary Blood No Growth after 24 hours 11/27/16 08:06 Blood Culture - Preliminary Blood 11/26/16 04:30 Blood Culture - Preliminary Blood No Growth after 48 hours 11/26/16 04:57 Blood Culture - Preliminary Blood 11/24/16 15:15 Blood Culture - Preliminary Blood No Growth after 72 hours Assessment and Plan Plan: ASSESSMENT AND PLAN: 1. Severe sepsis with Gram-positive bacteremia, source likely being pneumonia. 2. Acute hypoxic respiratory failure from [id number] pneumonia. 3. Congestive heart failure with diastolic dysfunction, which is compensated. 4. History of heart block, status post pacemaker placement. 5. History of atrial fibrillation. Continues to be in atrial fibrillation. 6. Fibromyalgia. 7. Degenerative disc disease. 8. Diabetes mellitus, type 2. 9. Peripheral neuropathy. 10. Chronic obstructive pulmonary disease. 11. Mild to moderate protein-calorie malnutrition. 12. Hypothyroidism. 13. Coronary artery disease Plan patient is noted to have enterococcus faecalis bacteremia. Await repeat blood cultures. So far no growth is noted after 48 hours Vitals are stable. Clinically improved. Will likely need a placement on discharge Continue ongoing care
[2016-11-28 17:33] LABS: Glucose,Whole Blood 119 mg/dL (75-99)
[2016-11-28] MEDS: HYDROcodone/APAP 10-325MG 1 EACH TAB PO PRN (19:44)
[2016-11-28 21:00] LABS: Glucose,Whole Blood 118 mg/dL (75-99)
[2016-11-28] MEDS: TEMAZEPAM 15 MG CAP PO PRN (23:28)
[2016-11-28] MEDS: guaiFENesin SYRUP 100MG/5ML 200 MG/10 ML CUP PO PRN (23:28)
[2016-11-29] MEDS: PIPERACILLIN-TAZOBACTAM 3.375 GM in DEXTROSE/WATER 1 50ML.BAG IVPB SCH (04:31)
[2016-11-29] MEDS: LEVOTHYROXINE 50 MCG TAB PO SCH (06:07)
[2016-11-29] MEDS: guaiFENesin SYRUP 100MG/5ML 200 MG/10 ML CUP PO PRN (06:10)
[2016-11-29 07:35] LABS: Glucose,Whole Blood 102 mg/dL (75-99)
[2016-11-29 07:54] LABS: Aty Lym Flag Slight; CH 27.9; CHCM 32.4; HCT 34.9 % (34.0-46.0); HDW 3.29; HGB 11.3 gm/dL (11.4-16.0); Hypochromasia Slight; MCH 28.1 pg (25.0-35.0); MCHC 32.5 g/dL (31.0-37.0); MCV 86.6 fL (80.0-100.0); Mean Platelet Volume 8.9; RBC 4.03 m/uL (3.80-5.40); RDW 14.9 % (11.5-15.5); WBC 6.6 k/uL (3.8-10.6); WBC (Perox) 6.95
[2016-11-29] MEDS: INSULIN LISPRO (humaLOG) 300 UNIT/3 ML VIAL SQ SCH ×4 (07:59→20:58)
[2016-11-29 08:24] LABS: Anion Gap 7 mmol/L; Blood Urea Nitrogen 12 mg/dL (7-17); Calcium 8.7 mg/dL (8.4-10.2); Carbon Dioxide 29 mmol/L (22-30); Chloride 107 mmol/L (98-107); Glucose 104 mg/dL (74-99); Magnesium 1.9 mg/dL (1.6-2.3); Non-African American GFR(MDRD) >60 (>60 ml/min/1.73 sqM); Phosphorous 3.9 mg/dL (2.5-4.5); Potassium 3.9 mmol/L (3.5-5.1); Sodium 143 mmol/L (137-145)
[2016-11-29] MEDS: PANTOPRAZOLE 40 MG TABLET PO SCH (08:28)
[2016-11-29] MEDS: DULoxetine HCL 60 MG CAPSULE.DR PO SCH (08:28)
[2016-11-29] MEDS: OXYBUTYNIN 15 MG TAB.ER.24 PO SCH (08:28)
[2016-11-29] MEDS: amLODIPine 10 MG TAB PO SCH (08:28)
[2016-11-29] MEDS: ATENOLOL 12.5 MG TAB PO SCH (08:28)
[2016-11-29] MEDS: APIXABAN 2.5 MG TABLET PO SCH ×2 (08:28→20:58)
[2016-11-29] MEDS: MELOXICAM 7.5 MG TAB PO SCH (08:29)
[2016-11-29] MEDS: VANCOMYCIN 1,500 MG in SODIUM CHLORIDE 0.9% 250 ML IVPB SCH (08:30)
[2016-11-29] MEDS: HYDROcodone/APAP 10-325MG 1 EACH TAB PO PRN ×2 (08:30→21:01)
[2016-11-29 08:50] LABS: Add Differential Manual Differential
[2016-11-29 08:55] LABS: Nucleated Red Blood Cells 0 /100 WBC (0-0)
[2016-11-29 08:56] LABS: Manual Review Performed; Myelocytes % 0.5 %; Total Cells Counted 200
[2016-11-29] MEDS: IPRATROPIUM-ALBUTEROL 3 ML NEB INHALATION SCH ×4 (09:25→20:28)
[2016-11-29] MEDS ORDERED: GENTAMICIN PER PHARMACY MISCELLANE PRN (10:48)
--- NOTE | 2016-11-29 11:17 | P.PN ---
Subjective Principal diagnosis: Pneumonia 81-year-old female who has a history of hospitalization earlier this year. At that point in time she had significant pneumonia and influenza. Since her hospital stations been doing relatively well. He does appear in the days before admission she was becoming weak and having difficulties with falls. She then developed temperature 102 and her mental status became altered. Because of this she was brought to the emergency room where she was complaining of shortness of breath she had cough without significant sputum production or hemoptysis. There was evidence of an elevated lactic acid and she did respond to fluid resuscitation and antibiotics. Ultrasound evidence of sepsis and was brought to the intensive care unit because of her respiratory failure requiring BiPAP. She this point time is doing slightly better. She is regaining her appetite and would like to have her dinner. Remains on nasal oxygen. She is having significant congestion. She is somewhat short of breath. Relates that she was more short of breath with breakfast. She is denying fever, chills or rigors. Feels poorly. Objective - Vital Signs Vital signs: Vital Signs Temp 97.6 F 11/29/16 07:00 Pulse 64 11/29/16 09:36 Resp 18 11/29/16 08:00 BP 175/77 11/29/16 07:00 Pulse Ox 98 11/29/16 07:00 Intake & Output 11/28/16 11/29/16 11/29/16 18:59 06:59 18:59 Intake Total 830 460 Balance 830 460 Intake: IV 160 Sodium Chloride 0.9% 1, 160 000 ml @ 20 mls/hr IV . Q24H RICKI Rx#:[id number] Intake, IV Titration 350 Amount Piperacillin-Tazobactam 3 100 .375 gm In Dextrose/Water 1 50ml.bag @ 12.5 mls/hr IVPB Q8H RICKI Rx#: [id number] Vancomycin 1,500 mg In 250 Sodium Chloride 0.9% 250 ml @ 125 mls/hr IVPB Q24HR RICKI Rx#:[id number] Oral 480 300 Other: Voiding Method Bedside Commode Bedside Commode Bedside Commode # Voids 3 1 - Exam Pleasant 81-year-old woman who improved now on 4 L nasal cannula off of the BiPAP with adequate oxygenation. HEENT: Anicteric conjunctiva are pink and moist nasal mucosa grossly intact without significant lesions, there is no thrush. Neck: The neck is supple without significant lymphadenopathy or thyromegaly. Lungs: There is symmetrical air entry. There are now some coarse crackles that are scattered in the lung armendariz. Few basilar crackles are also noted. No dullness is noted. Heart: Irregular with an audible S1 and S2 soft S4 no distinct murmur click or rub. Pacemaker left anterior chest wall is without tenderness or purulence. Abdomen: Positive bowel sounds soft and nontender without palpable masses or organomegaly. There was no guarding or rebound. Extremities: The extremity is have trace edema. Pulses are 2+ and symmetric. No open lesions are seen. Neuro: Awake alert oriented to person and place. There are no acute new gross focal sensory motor deficits. - Labs CBC & Chem 7: 11/29/16 07:12 11/29/16 07:12 Labs: Abnormal Lab Results - Last 24 Hours (Table) 11/28/16 11/28/16 11/28/16 Range/Units 12:22 17:27 20:39 Hgb (11.4-16.0) gm/dL Plt Count (150-450) k/uL Glucose (74-99) mg/dL POC Glucose (mg/dL) 115 H 119 H 118 H (75-99) mg/dL 11/29/16 11/29/16 11/29/16 Range/Units 07:12 07:12 07:31 Hgb 11.3 L (11.4-16.0) gm/dL Plt Count 130 L (150-450) k/uL Glucose 104 H (74-99) mg/dL POC Glucose (mg/dL) 102 H (75-99) mg/dL Microbiology - Last 24 Hours (Table) 11/27/16 08:35 Blood Culture - Preliminary Blood No Growth after 48 hours 11/26/16 04:30 Blood Culture - Preliminary Blood No Growth after 72 hours 11/24/16 15:15 Blood Culture - Preliminary Blood No Growth after 96 hours 11/27/16 08:06 Blood Culture Gram Stain - Preliminary Blood Blood Culture - Preliminary Group D Enterococcus 11/26/16 04:57 Blood Culture Gram Stain - Preliminary Blood Blood Culture - Preliminary Group D Enterococcus Laboratory Results WBC 6.6 k/uL (3.8-10.6) 11/29/16 07:12 RBC 4.03 m/uL (3.80-5.40) 11/29/16 07:12 Hgb 11.3 gm/dL (11.4-16.0) L 11/29/16 07:12 Hct 34.9 % (34.0-46.0) 11/29/16 07:12 MCV 86.6 fL (80.0-100.0) 11/29/16 07:12 MCH 28.1 pg (25.0-35.0) 11/29/16 07:12 MCHC 32.5 g/dL (31.0-37.0) 11/29/16 07:12 RDW 14.9 % (11.5-15.5) 11/29/16 07:12 Plt Count 130 k/uL (150-450) L 11/29/16 07:12 Neutrophils % 59 % 11/27/16 08:06 Neutrophils % (Manual) 58.0 % 11/29/16 07:12 Band Neutrophils % 1.0 % 11/29/16 07:12 Lymphocytes % 22 % 11/27/16 08:06 Lymphocytes % (Manual) 26.5 % 11/29/16 07:12 Monocytes % 6 % 11/27/16 08:06 Monocytes % (Manual) 8.0 % 11/29/16 07:12 Eosinophils % 9 % 11/27/16 08:06 Eosinophils % (Manual) 6.0 % 11/29/16 07:12 Basophils % 0 % 11/27/16 08:06 Myelocytes % 0.5 % 11/29/16 07:12 Neutrophils # 3.9 k/uL (1.3-7.7) 11/27/16 08:06 Neutrophils # (Manual) 3.9 k/uL (1.3-7.7) 11/29/16 07:12 Lymphocytes # 1.5 k/uL (1.0-4.8) 11/27/16 08:06 Lymphocytes # (Manual) 1.7 k/uL (1.0-4.8) 11/29/16 07:12 Monocytes # 0.4 k/uL (0-1.0) 11/27/16 08:06 Monocytes # (Manual) 0.5 k/uL (0-1.0) 11/29/16 07:12 Eosinophils # 0.6 k/uL (0-0.7) 11/27/16 08:06 Eosinophils # (Manual) 0.4 k/uL (0-0.7) 11/29/16 07:12 Basophils # 0.0 k/uL (0-0.2) 11/27/16 08:06 Nucleated RBCs 0 /100 WBC (0-0) 11/29/16 07:12 Manual Slide Review Performed 11/29/16 07:12 Toxic Granulation Present 11/28/16 08:06 Toxic Vacuolation Present 11/25/16 05:13 Hypochromasia Slight 11/29/16 07:12 Poikilocytosis Slight 11/27/16 08:06 Poikilocytosis (manual Present 11/25/16 05:13 [facility] 11/25/16 01:46 ABG pH 7.41 (7.35-7.45) 11/25/16 01:46 ABG pCO2 32 mmHg (35-45) L 11/25/16 01:46 ABG pO2 >400 mmHg (83-108) H 11/25/16 01:46 ABG HCO3 20 mmol/L (21-25) L 11/25/16 01:46 ABG Total CO2 21 mmol/L (19-24) 11/25/16 01:46 ABG O2 Saturation 100.0 % (94-97) H 11/25/16 01:46 ABG Base Excess -4.0 mmol/L 11/25/16 01:46 FiO2 100 % 11/25/16 01:46 Sodium 143 mmol/L (137-145) 11/29/16 07:12 Potassium 3.9 mmol/L (3.5-5.1) 11/29/16 07:12 Chloride 107 mmol/L (98-107) 11/29/16 07:12 Carbon Dioxide 29 mmol/L (22-30) 11/29/16 07:12 Anion Gap 7 mmol/L 11/29/16 07:12 BUN 12 mg/dL (7-17) 11/29/16 07:12 Creatinine 0.81 mg/dL (0.52-1.04) 11/29/16 07:12 Est GFR (MDRD) Af Amer >60 (>60 ml/min/1.73 sqM) 11/29/16 07:12 Est GFR (MDRD) Non-Af >60 (>60 ml/min/1.73 sqM) 11/29/16 07:12 Glucose 104 mg/dL (74-99) H 11/29/16 07:12 POC Glucose (mg/dL) 102 mg/dL (75-99) H 11/29/16 07:31 POC Glu Supervisor [employer] ID Carlene Minor 11/29/16 07:[address] Glu mg/dL 120 mg/dL 11/27/16 08:06 Hemoglobin A1c 5.8 % (4.2-6.1) 11/27/16 08:06 Plasma Lactic Acid Benito 1.4 mmol/L (0.7-2.0) 11/25/16 05:13 Calcium 8.7 mg/dL (8.4-10.2) 11/29/16 07:12 Phosphorus 3.9 mg/dL (2.5-4.5) 11/29/16 07:12 Magnesium 1.9 mg/dL (1.6-2.3) 11/29/16 07:12 Total Bilirubin 1.2 mg/dL (0.2-1.3) 11/28/16 08:06 AST 34 U/L (14-36) 11/28/16 08:06 ALT 33 U/L (9-52) 11/28/16 08:06 Alkaline Phosphatase 71 U/L (38-126) 11/28/16 08:06 Total Protein 5.9 g/dL (6.3-8.2) L 11/28/16 08:06 Albumin 3.1 g/dL (3.5-5.0) L 11/28/16 08:06 Vitamin B12 366 pg/mL 11/26/16 04:30 TSH 1.000 mIU/L (0.465-4.680) 11/26/16 04:30 Free T4 1.63 ng/dL (0.78-2.19) 11/26/16 04:30 Free T3 pg/mL 3.0 pg/ml (2.8-5.3) 11/26/16 04:30 Urine Color Yellow 11/24/16 15:15 Urine Appearance Clear (Clear) 11/24/16 15:15 Urine pH 7.0 (5.0-8.0) 11/24/16 15:15 Ur Specific [place] 1.014 (1.001-1.035) 11/24/16 15:15 Urine Protein 1+ (Negative) H 11/24/16 15:15 Urine Glucose (UA) Negative (Negative) 11/24/16 15:15 Urine Ketones Trace (Negative) H 11/24/16 15:15 Urine Blood Small (Negative) H 11/24/16 15:15 Urine Nitrite Negative (Negative) 11/24/16 15:15 Urine Bilirubin Negative (Negative) 11/24/16 15:15 Urine Urobilinogen <2.0 mg/dL (<2.0) 11/24/16 15:15 Ur Leukocyte Esterase Small (Negative) H 11/24/16 15:15 Urine RBC 14 /hpf (0-5) H 11/24/16 15:15 Urine WBC 9 /hpf (0-5) H 11/24/16 15:15 Urine Mucus Rare /hpf (None) H 11/24/16 15:15 Microbiology 11/27/16 08:35 Blood Blood Culture - Preliminary No Growth after 48 hours 11/26/16 04:30 Blood Blood Culture - Preliminary No Growth after 72 hours 11/24/16 15:15 Blood Blood Culture - Preliminary No Growth after 96 hours 11/27/16 08:06 Blood Blood Culture Gram Stain - Preliminary 11/27/16 08:06 Blood Blood Culture - Preliminary Group D Enterococcus 11/26/16 04:57 Blood Blood Culture Gram Stain - Preliminary 11/26/16 04:57 Blood Blood Culture - Preliminary Group D Enterococcus 11/27/16 08:06 Blood Blood Culture - Preliminary 11/26/16 04:57 Blood Blood Culture - Preliminary 11/24/16 15:15 Urine,Catheterized Urine Culture - Final Enterococcus faecalis 11/24/16 15:15 Blood Blood Culture Gram Stain - Final 11/24/16 15:15 Blood Blood Culture - Final Enterococcus faecalis Assessment and Plan (1) Sepsis Narrative/Plan: 81-year-old woman who has a history of hospitalization earlier this year with pneumonia. Was at home when she became ill. She was having increasing weakness and falls. She had altered mental status was brought to hospital. There is evidence of a new left lower lobe infiltrate on the chest x-ray. The patient is evidence of positive blood cultures. Antibiotic therapy with piperacillin tazobactam and vancomycin are being utilized. Workup is in progress and septic coccus pneumoniae or group C strep would be concerned at this point in time for which Zosyn should give us coverage. as would the vancomycin. Continue Zosyn for now some process would continue treatment for gram-negative pneumonia given the fact she is in ICU and has a recent history of pneumonia. It is sometime since her influenza pneumonia diagnosis staph aureus pneumonia would be somewhat unusual in this situation. The leukocytosis directly related to the current pneumonia. As is the respiratory failure. The city showing some slight improvement this evening. We'll follow blood cultures to ensure her bacteremia is clearing. Did have an echocardiogram done in September which showed evidence of a preserved ejection fraction and some pulmonary hypertension. No evidence of vegetations at that time. If she has ongoing positive blood cultures follow-up imaging study of her heart will be required assessing for endocarditis. There is evidence of enterococcus in the urine as well as the blood with the bloodstream is a likely etiology of the current sepsis. Complicated by secondary pneumonia. At this time there is ongoing positive blood culture. Enterococcus continues to be isolated. No other pathogens found. We'll alter antibiotic therapy to ampicillin with sulbactam and gentamicin for synergistic combination with maximum enterococcal activity. ROBERTO will be arranged Chart is reviewed and would like to image her renal system also to assure there is no obstruction or stone as a potential etiology of ongoing bacteremia. Chest x-ray requested in that she is a bit more congested Status: Acute
--- NOTE | 2016-11-29 11:39 | US ---
EXAMINATION TYPE: US kidneys/renal and bladder DATE OF EXAM: 11/29/2016 11:28 AM COMPARISON: NONE CLINICAL HISTORY: obstructive uropathy with ongoing bacteremia. EXAM MEASUREMENTS: Right Kidney: 9.2 x 4.5 x 4.6 cm Left Kidney: 9.2 x 5.6 x 4.9 cm Right Kidney: No hydronephrosis or masses seen Left Kidney: No hydronephrosis or masses seen, lobular contour . There may be a cyst on the lateral left renal cortex with a dromedary hump. This would measure 1.0 cm in size. Bladder: wnl There is no evidence for hydronephrosis at this point in time. No nephrolithiasis is seen. No naresh s are identified. The urinary bladder is anechoic. Bilateral ureteral jets are seen. IMPRESSION: 1. No suspicious acute changes bilateral kidneys
[2016-11-29 12:09] LABS: Glucose,Whole Blood 127 mg/dL (75-99)
--- NOTE | 2016-11-29 12:23 | XR ---
EXAMINATION TYPE: XR chest 2V DATE OF EXAM: 11/29/2016 11:43 AM COMPARISON: 11/26/2016 INDICATION: Pneumonia, CHF TECHNIQUE: 2 view chest FINDINGS: The heart size is normal. The pulmonary vasculature is prominent. Small left pleural effusion is present. There is subtle blunting of the right costophrenic angle. A minimal right pleural effusion may be pre sent. IMPRESSION: 1. Correlate for volume overload or early congestive heart failure. 2. Small left pleural effusion. Minimal right pleural effusion may be present.
[2016-11-29] MEDS ORDERED: GENTAMICIN IVPB ONE (13:00)
[2016-11-29] MEDS ORDERED: SODIUM CHLORIDE 0.9% IVPB ONE (13:00)
[2016-11-29] MEDS: AMPICILLIN-SULBACTAM 3 GM in SODIUM CHLORIDE 0.9% 100 ML IVPB SCH ×2 (13:25→17:56)
[2016-11-29] MEDS: SODIUM CHLORIDE 0.9% 1,000 ML IV SCH (13:26)
--- NOTE | 2016-11-29 14:32 | P.PN ---
Subjective 81-year-old female patient with multiple medical positive comorbidities who lives independently at home and the patient was found to be having some altered mental status. There has been gradual decline in the patient's health. The patient become more weak and she had been falling at home and over the past 24 hours she started having episodes of high-grade fever with a temperature 102 along with altered mental status. No neck stiffness. No headaches. No head trauma. She denies having any cough or sputum production. She did complain of some increased shortness of breath. No nausea. No vomiting. No diarrhea. No aspiration. No dystrophic emergency. No hematuria. No flank pain. No open wounds or sores. The patient has multiple orthopedic surgeries with bilateral knee and hip replacement and she has a pacemaker in place.yet, none of these seem to be infected at this point. The patient got moved to the intensive care unit after being admitted to the medical floor. She was having altered mental status. Her lactic acid level was at 2.8. The patient received IV fluids initially half a liter bolus of normal saline and then another half a liter. Subsequent lactic acid level dropped down to 1.4. Her blood cultures from this morning is showing gram-positive cocci in pairs. The patient had received a dose of Levaquin in the emergency department. I switch her to a combination of Zosyn and Levaquin. The patient's white cell count is at 17.5. Her renal function is within normal. Chest x-ray shows some limited infiltration of the left lung base other was not acute abdominal masses noted. Overnight, the patient was placed on a BiPAP and earlier this morning she was taken off the BiPAP and she was placed on 40 still oxygen nasal cannula. She is known to have CHF with diastolic dysfunction with an ejection fraction of 55-60%. She was in the hospital in September 2016 for an acute influenza be respiratory tract infection pH is known to have COPD along with various other comorbidities as will be discussed later on in my dictation. No skin rashes. No focal neurological deficits. She seems to be much more awake and alert is point in time. Hemodynamically stable. Producing adequate amount of urine output. On today's evaluation of 11/26/2016, the patient is being seen in follow-up. The patient is doing better. She is awake and alert. She was found to have enterococcus group D urinary tract infection and her blood culture was also positive. The patient was seen by infectious disease. The patient was kept on accommodation of Zosyn and vancomycin. She is on no pressors. No chest pain. No shortness of breath. No other complaints otherwise for now. Pulse ox is around 97% 40s of oxygen nasal cannula. The patient remains in atrial fibrillation. The patient was seen again today 11/27/2016 on the regular medical floor in follow-up. She is awake and alert in no acute distress. She denies any worsening shortness of breath, cough or congestion. She is maintaining good O2 saturations in the mid 90s on 2 L/m per nasal cannula. Blood and urine cultures were positive for Enterococcus faecalis. She remains on vancomycin and Zosyn. She has been hemodynamically stable. No leukocytosis. No fever. The patient is seen again today 11/28/2016 in follow-up on the regular medical floor. She is currently sitting up in a chair at the bedside. She is awake and alert in no acute distress. She states she is feeling stronger today as compared to yesterday. She has no pulmonary complaints. No worsening shortness of breath, cough or congestion. She is maintaining good O2 saturations in the mid 90s on 2 L/m per nasal cannula. She's been afebrile. Hemodynamically stable. On 11/29/2016, the patient is doing well pH is sitting up on a chair. She is less short of breath. She is not having any major stroke difficulties. No nausea. No vomiting. Her main complaint is generalized weakness. The patient has shown persistent bacteremia and 2 of the blood cultures came back positive for enterococcus group D and this is likely an Enterococcus faecalis. As such, ID is on the case and further workup will be done regarding the source of this infection including the possibility of endocarditis. As part of the investigation, a ROBERTO will be done. Meanwhile, the patient is on IV Unasyn. ID is on the case. Ultrasound of the renal system will be also done to make sure there is no evidence of any septic focus within the kidneys. Objective - Vital Signs Vital signs: Vital Signs Temp 97.6 F 11/29/16 07:00 Pulse 64 11/29/16 09:36 Resp 18 11/29/16 08:00 BP 175/77 11/29/16 07:00 Pulse Ox 98 11/29/16 07:00 Intake & Output 11/28/16 11/29/16 11/29/16 18:59 06:59 18:59 Intake Total 830 460 Balance 830 460 Intake: IV 160 Sodium Chloride 0.9% 1, 160 000 ml @ 20 mls/hr IV . Q24H RICKI Rx#:[id number] Intake, IV Titration 350 Amount Piperacillin-Tazobactam 3 100 .375 gm In Dextrose/Water 1 50ml.bag @ 12.5 mls/hr IVPB Q8H RICKI Rx#: [id number] Vancomycin 1,500 mg In 250 Sodium Chloride 0.9% 250 ml @ 125 mls/hr IVPB Q24HR RICKI Rx#:[id number] Oral 480 300 Other: Voiding Method Bedside Commode Bedside Commode Bedside Commode # Voids 3 1 - Exam The patient appeared well nourished and normally developed. Vital signs as documented. Head exam is unremarkable. No scleral icterus or corneal arcus noted. Neck is without jugular venous distension, thyromegaly, or carotid bruits. Carotid upstrokes are brisk bilaterally. Lung sounds are diminished and there are some crackles in the lung bases bilaterally more so on the left. Cardiac exam reveals the PMI to be normally sized and situated. Rhythm is regular. First and second heart sounds normal. No murmurs, rubs or gallops. Patient has a pacemaker in place and the pacemaker pocket seems to be intact and within normal limits. Abdominal exam reveals normal bowel sounds, no masses , no organomegaly and no aortic enlargement. Extremities are nonedematous and both femoral and pedal pulses are normal. The patient has had multiple orthopedic surgeries including a scar over the left shoulder, bilateral hips, bilateral knees and all of these joints are within normal limits. Skin is intact and there is no open wounds or sores. - Labs CBC & Chem 7: 11/29/16 07:12 11/29/16 07:12 Labs: Abnormal Lab Results - Last 24 Hours (Table) 11/28/16 11/28/16 11/29/16 Range/Units 17:27 20:39 07:12 Hgb 11.3 L (11.4-16.0) gm/dL Plt Count 130 L (150-450) k/uL Glucose (74-99) mg/dL POC Glucose (mg/dL) 119 H 118 H (75-99) mg/dL 11/29/16 11/29/16 11/29/16 Range/Units 07:12 07:31 11:55 Hgb (11.4-16.0) gm/dL Plt Count (150-450) k/uL Glucose 104 H (74-99) mg/dL POC Glucose (mg/dL) 102 H 127 H (75-99) mg/dL Microbiology - Last 24 Hours (Table) 11/27/16 08:35 Blood Culture - Preliminary Blood No Growth after 48 hours 11/26/16 04:30 Blood Culture - Preliminary Blood No Growth after 72 hours 11/24/16 15:15 Blood Culture - Preliminary Blood No Growth after 96 hours 11/27/16 08:06 Blood Culture Gram Stain - Preliminary Blood Blood Culture - Preliminary Group D Enterococcus 11/26/16 04:57 Blood Culture Gram Stain - Preliminary Blood Blood Culture - Preliminary Group D Enterococcus Assessment and Plan Plan: Assessment 1 sepsis with Enterococcus faecalis and persistent bacteremia despite being on antibiotics. We'll further screen this patient for any ongoing septic focus including the possibility of endocarditis. 2 acute febrile illness secondary to sepsis, improved 3 change in mental status secondary to above, improving, improved, and a CAT scan of the brain was essentially negative 4 recent hospitalization for influenza B respiratory tract infection 5 CHF with diastolic dysfunction and an ejection fraction of 55% 6 history of heart block status post permanent pacemaker insertion 7 diabetes mellitus type 2 8 fibromyalgia 9 degenerative arthritis with multiple joint replacements 10 history of peptic ulcer disease and previous history of GI bleed 11 paroxysmal atrial fibrillation, current rhythm is paced and the patient is on anticoagulation 12 history of falls 13 peripheral neuropathy 14 COPD 15 coronary artery disease 16 hypothyroidism Plan Into the IV antibiotics. Monitor the blood cultures. ROBERTO will be arranged. Ultrasound the kidneys. ID is on the case. Clinically improved. We'll continue to follow.
[2016-11-29 17:03] LABS: Glucose,Whole Blood 104 mg/dL (75-99)
[2016-11-29] MEDS ORDERED: FUROSEMIDE 10 MG/ML 4 ML VIAL IV STA (18:52)
--- NOTE | 2016-11-29 18:58 | P.PN ---
Subjective HISTORY OF PRESENTING ILLNESS: This is an 81-year-old female who was admitted to the hospital multiple times previously; comes into the hospital with some complaints of difficulty in breathing. However, patient was brought into the hospital with change in mental status, was noted to have a high-grade fever recorded at 102 degrees Fahrenheit. Patient was initially admitted to the med/telemetry floor. Patient was appropriately fluid-resuscitated; however, due to respiratory distress, a Rapid Response was called. Thereafter she was triaged to the intensive care unit. Patient improved rapidly, until this morning on BiPAP; was alert, oriented x3. She was moving air well on physical examination, according to the storage battery inspector's note. Patient was supposed to be triaged out of the ICU; however, about half hour prior to my evaluation patient apparently was significantly dyspneic and was audibly wheezing. Thereafter BiPAP was restarted. Patient appeared to be in respiratory distress during my evaluation. Most of the history is obtained from review of the chart. Patient is currently on BiPAP with settings of 12/5 with FiO2 of 40%. Patient is noted to have a left lower lobe infiltrate with concern about [id number] organisms. Patient has been started on Levaquin and Zosyn at this time. The patient appears to be answering some questions appropriately. No other complaints are reported, including headaches, nausea, vomiting, diarrhea or lower extremity tenderness. 11/26/2016 Patient is on supplemental oxygen is awake is answering questions appropriately denies having any Breathing difficulty at this time. States that she is tired of being admitted to the hospital multiple times or graft no fevers chills diarrhea Nausea vomiting or reported at this time. 11/27/2016 Patient is improved is able to answer questions appropriately denies having headaches blurry vision nausea vomiting or diarrhea. No urinary urgency or frequency is reported. REVIEW OF SYSTEMS: Fourteen-point review of systems was none; none pertinent other than what was mentioned above. 11/28/2016 No new overnight events reported. Patient is doing well. States that she is had some cough with minimal sputum production No fevers chills nausea vomiting diarrhea or urinary urgency or frequency is reported 11/29/16 states to have cough with yellowish sputum no fevers, headaches, nausea, vomiting, diarrhea reported Objective - Vital Signs Vital signs: Vital Signs Temp 97.9 F 11/29/16 15:00 Pulse 68 11/29/16 16:16 Resp 20 11/29/16 15:00 BP 127/59 11/29/16 15:00 Pulse Ox 96 11/29/16 15:00 Intake & Output 11/28/16 11/29/16 11/29/16 18:59 06:59 18:59 Intake Total 830 460 480 Balance 830 460 480 Intake: IV 160 Sodium Chloride 0.9% 1, 160 000 ml @ 20 mls/hr IV . Q24H RICKI Rx#:[id number] Intake, IV Titration 350 Amount Piperacillin-Tazobactam 3 100 .375 gm In Dextrose/Water 1 50ml.bag @ 12.5 mls/hr IVPB Q8H RICKI Rx#: [id number] Vancomycin 1,500 mg In 250 Sodium Chloride 0.9% 250 ml @ 125 mls/hr IVPB Q24HR RICKI Rx#:[id number] Oral 480 300 480 Other: Voiding Method Bedside Commode Bedside Commode Bedside Commode # Voids 3 1 - Exam PHYSICAL EXAM: Temperature 97.7, respiratory rate 32, heart rate around 110. Saturating 95% on 3 L of supplemental oxygen. GENERAL APPEARANCE: Appears to be in distress; improved LUNGS: Poor air movement appreciated anteriorly. Silent chest. No significant wheezing appreciated yet. HEART: S1, S2 heard. Appears to be irregular at this time. No murmurs appreciated. ABDOMEN: Soft; however, slightly distended. No organomegaly appreciated. LOWER EXTREMITIES: No significant edema noted. NEURO: Appropriate however, is moving all 4 extremities. No focal deficit appreciated - Labs CBC & Chem 7: 11/29/16 07:12 11/29/16 07:12 Labs: Abnormal Lab Results - Last 24 Hours (Table) 11/28/16 11/29/16 11/29/16 Range/Units 20:39 07:12 07:12 Hgb 11.3 L (11.4-16.0) gm/dL Plt Count 130 L (150-450) k/uL Glucose 104 H (74-99) mg/dL POC Glucose (mg/dL) 118 H (75-99) mg/dL 11/29/16 11/29/16 11/29/16 Range/Units 07:31 11:55 16:59 Hgb (11.4-16.0) gm/dL Plt Count (150-450) k/uL Glucose (74-99) mg/dL POC Glucose (mg/dL) 102 H 127 H 104 H (75-99) mg/dL Microbiology - Last 24 Hours (Table) 11/24/16 15:15 Blood Culture - Preliminary Blood No Growth after 120 hours 11/27/16 08:06 Blood Culture Gram Stain - Final Blood Blood Culture - Final Enterococcus faecalis 11/26/16 04:57 Blood Culture Gram Stain - Final Blood Blood Culture - Final Enterococcus faecalis 11/27/16 08:35 Blood Culture - Preliminary Blood No Growth after 48 hours 11/26/16 04:30 Blood Culture - Preliminary Blood No Growth after 72 hours Assessment and Plan Plan: ASSESSMENT AND PLAN: 1. Severe sepsis with Gram-positive bacteremia, source likely being pneumonia. 2. Acute hypoxic respiratory failure from [id number] pneumonia. 3. Congestive heart failure with diastolic dysfunction, which is compensated. 4. History of heart block, status post pacemaker placement. 5. History of atrial fibrillation. Continues to be in atrial fibrillation. 6. Fibromyalgia. 7. Degenerative disc disease. 8. Diabetes mellitus, type 2. 9. Peripheral neuropathy. 10. Chronic obstructive pulmonary disease. 11. Mild to moderate protein-calorie malnutrition. 12. Hypothyroidism. 13. Coronary artery disease Plan patient is noted to have enterococcus faecalis bacteremia. which is persistent TTE is ordered ROBERTO will be requested to rule out endocarditis abx were changes tesselon pearles abdomen ultrasound Will likely need a placement on discharge Continue ongoing care
[2016-11-29] MEDS: BENZONATATE 100 MG CAP PO SCH (19:40)
[2016-11-29 20:30] LABS: Glucose,Whole Blood 117 mg/dL (75-99)
[2016-11-29] MEDS: GENTAMICIN IVPB SCH (22:56)
[2016-11-29] MEDS: TEMAZEPAM 15 MG CAP PO PRN (22:56)
[2016-11-29] MEDS: SODIUM CHLORIDE 0.9% IVPB SCH (22:56)
[2016-11-30] MEDS: AMPICILLIN-SULBACTAM 3 GM in SODIUM CHLORIDE 0.9% 100 ML IVPB SCH ×5 (00:58→23:37)
[2016-11-30] MEDS: LEVOTHYROXINE 50 MCG TAB PO SCH (06:16)
[2016-11-30 07:06] LABS: Glucose,Whole Blood 111 mg/dL (75-99)
[2016-11-30] MEDS: IPRATROPIUM-ALBUTEROL 3 ML NEB INHALATION SCH ×4 (08:02→20:29)
[2016-11-30 08:13] LABS: Basophils # (A) 0.1 k/uL (0-0.2); Basophils % (A) 1 %; CH 28.1; CHCM 32.7; Eosinophils # (A) 0.8 k/uL (0-0.7); Eosinophils % (A) 10 %; HCT 35.8 % (34.0-46.0); HDW 3.27; HGB 11.6 gm/dL (11.4-16.0); Luc # (Auto) 0.36; Luc % (Auto) 5; Lymphocytes # (A) 1.7 k/uL (1.0-4.8); Lymphocytes % (A) 21 %; MCH 27.9 pg (25.0-35.0); MCHC 32.3 g/dL (31.0-37.0); MCV 86.3 fL (80.0-100.0); Mean Platelet Volume 7.9; Monocytes # (A) 0.4 k/uL (0-1.0); Monocytes % (A) 5 %; Neutrophils # (A) 4.8 k/uL (1.3-7.7); Neutrophils % (A) 59 %; RBC 4.16 m/uL (3.80-5.40); RDW 14.9 % (11.5-15.5); WBC (Perox) 8.16
[2016-11-30 08:35] LABS: ALT 28 U/L (9-52); AST 35 U/L (14-36); Alkaline Phosphatase 75 U/L (38-126); Anion Gap 9 mmol/L; Blood Urea Nitrogen 12 mg/dL (7-17); Calcium 8.8 mg/dL (8.4-10.2); Carbon Dioxide 29 mmol/L (22-30); Chloride 105 mmol/L (98-107); Glucose 102 mg/dL (74-99); Magnesium 1.7 mg/dL (1.6-2.3); Non-African American GFR(MDRD) >60 (>60 ml/min/1.73 sqM); Phosphorous 4.6 mg/dL (2.5-4.5); Potassium 3.6 mmol/L (3.5-5.1); Sodium 143 mmol/L (137-145); Total Bilirubin 0.9 mg/dL (0.2-1.3)
[2016-11-30] MEDS: INSULIN LISPRO (humaLOG) 300 UNIT/3 ML VIAL SQ SCH ×4 (08:38→21:04)
[2016-11-30] MEDS: BENZONATATE 100 MG CAP PO SCH ×3 (08:41→21:02)
[2016-11-30] MEDS: ATENOLOL 12.5 MG TAB PO SCH (08:41)
[2016-11-30] MEDS: PANTOPRAZOLE 40 MG TABLET PO SCH (08:41)
[2016-11-30] MEDS: OXYBUTYNIN 15 MG TAB.ER.24 PO SCH (08:41)
[2016-11-30] MEDS: APIXABAN 2.5 MG TABLET PO SCH ×2 (08:41→21:02)
[2016-11-30] MEDS: amLODIPine 10 MG TAB PO SCH (08:41)
[2016-11-30] MEDS: DULoxetine HCL 60 MG CAPSULE.DR PO SCH (08:41)
[2016-11-30] MEDS: MELOXICAM 7.5 MG TAB PO SCH (08:42)
--- NOTE | 2016-11-30 10:15 | ECHOF ---
Referral Reason:endocarditis MEASUREMENTS -------- HEIGHT: 157.5 cm WEIGHT: 89.8 kg BP: 134/62 IVSd: 1.1 cm (0.6 - 1.1) LVIDd: 4.2 cm (3.9 - 5.3) LVPWd: 1.1 cm (0.6 - 1.1) IVSs: 1.7 cm LVIDs: 2.1 cm LVPWs: 1.5 cm Ao Diam: 3.0 cm (2.0 - 3.7) AV Cusp: 1.4 cm (1.5 - 2.6) LA Diam: 3.5 cm (2.7 - 3.8) MV EXCURSION: 9.371 mm (> 18.000) MV EF SLOPE: 41 mm/s (70 - 150) EPSS: 0.9 cm MV E Nico: 1.02 m/s MV DecT: 276 ms MV A Nico: 0.97 m/s MV E/A Ratio: 1.06 AV maxP.48 mmHg AV meanP.93 mmHg RAP: 5.00 mmHg RVSP: 12.60 mmHg FINDINGS -------- Sinus rhythm. Pacemaker This was a technically difficult study with suboptimal views. The left ventricular size is normal. Left ventricular wall thickness is normal. Overall left ventricular systolic function is normal with, an EF between 55 - 60 %. The right ventricle is normal in size and function. The left atrium is normal in size. The right atrium is normal in size. 1.5mg of Definity was utilized for enhancement of images There is mild aortic valve sclerosis. Moderate mitral annular calcification present. Mild mitral regurgitation is present. Moderate tricuspid regurgitation present. The right ventricular systolic pressure, as measured by Doppler, is 12.60mmHg. The pulmonic valve was not well visualized. There is no pericardial effusion. CONCLUSIONS -------- 1. Sinus rhythm. 2. Mild mitral regurgitation is present. 3. Moderate tricuspid regurgitation present. 4. The right ventricular systolic pressure, as measured by Doppler, is 12.60mmHg. 5. The pulmonic valve was not well visualized. 6. There is no pericardial effusion. 7. Pacemaker 8. This was a technically difficult study with suboptimal views. 9. Left ventricular wall thickness is normal. 10. Overall left ventricular systolic function is normal with, an EF between 55 - 60 %. 11. The left atrium is normal in size. 12. 1.5mg of Definity was utilized for enhancement of images 13. There is mild aortic valve sclerosis. 14. Moderate mitral annular calcification present. MANAGER MEDICARE: Earlene Pozo RDCS
[2016-11-30] MEDS: HYDROcodone/APAP 10-325MG 1 EACH TAB PO PRN ×2 (11:02→18:07)
[2016-11-30 11:41] LABS: Glucose,Whole Blood 128 mg/dL (75-99)
[2016-11-30] MEDS: guaiFENesin SYRUP 100MG/5ML 200 MG/10 ML CUP PO PRN (11:52)
[2016-11-30] MEDS: SODIUM CHLORIDE 0.9% 1,000 ML IV SCH (12:03)
--- NOTE | 2016-11-30 12:14 | CONS ---
DATE OF CONSULTATION: Mrs. Box is an 81-year-old female with a history of permanent pacemaker implantation, history of hypertension as well as diabetes mellitus, who has been followed on a regular basis by Dr. Wade. She presented to the hospital with change in mental status and evidence of an infectious process. She had continued positive blood cultures and Cardiology consultation was requested to undergo transesophageal echocardiogram to rule out endocarditis. Patient has been told in the past that she has a congestive heart failure. She also has a history of atrial fibrillation and she has a permanent pacemaker and has been anticoagulated. She has occasional peripheral edema. No chest pain. No clear PND. No orthopnea. No dizziness. No palpitation. No syncope. She is average in her exercise tolerance and has done reasonably well. She was in the hospital in September of this year for symptoms of progressive dyspnea and had minimal elevation of the troponin. She was coughing at that time. Patient has a history of chronic obstructive lung disease. She had an echocardiogram during that admission that revealed no evidence of significant abnormalities. Her coronary risk factors are remarkable for hypertension, hyperlipidemia, diabetes. She is a nonsmoker. Her medications at home include amlodipine, Ditropan, insulin, Lasix 40 mg daily, atenolol 12.5 mg daily, Eliquis 2.5 mg twice a day, Ventolin, Cymbalta. REVIEW OF SYSTEMS: RESPIRATORY SYSTEM: She had a history of chronic obstructive lung disease. Mild cough. She had fever on presentation. GI SYSTEM: No recent GI bleeding. No peptic ulcer disease. SYSTEM: No dysuria or hematuria. NERVOUS SYSTEM: No history of seizure. PHYSICAL EXAMINATION: She is an 81-year-old female, alert, in no apparent distress. Blood pressure running in the 130s to 150s with a heart rate in the 60s. HEAD: Normocephalic. EYES: Sclerae nonicteric. NECK: Good upstroke. No bruit. LUNGS: With decreased air exchange. No wheezes appreciated. HEART: S1, S2 with systolic murmur at the base. No diastolic murmur. No rub. ABDOMEN: Soft, nontender, positive bowel sounds. No organomegaly. EXTREMITIES: No edema. +1 distal pulses. LAB DATA: Her chest x-ray showed left lower lobe infiltrate. BUN and creatinine of 12 and 0.76. Potassium 3.6. Hemoglobin of 11.6. Her blood culture continued to be positive for Enterococcus faecalis. IMPRESSION: 1. Febrile episode with possible pneumonia and persistent positive blood cultures in a patient with a history of permanent pacemaker implantation. 2. Status post permanent pacemaker implantation. 3. History of atrial fibrillation. 4. Prior history of congestive heart failure with diastolic dysfunction. 5. History of hypertension. RECOMMENDATION: Because of the persistent positive blood cultures and the febrile episode, patient will undergo transesophageal echocardiogram. I have discussed with her the risks and the complication of the procedure. The procedure will be done tomorrow by Dr. Les Wade who is her primary punch finisher. Thank you for this consult. Will follow with you.
[2016-11-30] MEDS: GENTAMICIN IVPB SCH ×2 (13:13→22:32)
[2016-11-30] MEDS: SODIUM CHLORIDE 0.9% IVPB SCH ×2 (13:13→22:32)
--- NOTE | 2016-11-30 16:35 | P.PN ---
Subjective Principal diagnosis: Acute enterococcal faecalis sepsis and bacteremia 81-year-old female patient with multiple medical positive comorbidities who lives independently at home and the patient was found to be having some altered mental status. There has been gradual decline in the patient's health. The patient become more weak and she had been falling at home and over the past 24 hours she started having episodes of high-grade fever with a temperature 102 along with altered mental status. No neck stiffness. No headaches. No head trauma. She denies having any cough or sputum production. She did complain of some increased shortness of breath. No nausea. No vomiting. No diarrhea. No aspiration. No dystrophic emergency. No hematuria. No flank pain. No open wounds or sores. The patient has multiple orthopedic surgeries with bilateral knee and hip replacement and she has a pacemaker in place.yet, none of these seem to be infected at this point. The patient got moved to the intensive care unit after being admitted to the medical floor. She was having altered mental status. Her lactic acid level was at 2.8. The patient received IV fluids initially half a liter bolus of normal saline and then another half a liter. Subsequent lactic acid level dropped down to 1.4. Her blood cultures from this morning is showing gram-positive cocci in pairs. The patient had received a dose of Levaquin in the emergency department. I switch her to a combination of Zosyn and Levaquin. The patient's white cell count is at 17.5. Her renal function is within normal. Chest x-ray shows some limited infiltration of the left lung base other was not acute abdominal masses noted. Overnight, the patient was placed on a BiPAP and earlier this morning she was taken off the BiPAP and she was placed on 40 still oxygen nasal cannula. She is known to have CHF with diastolic dysfunction with an ejection fraction of 55-60%. She was in the hospital in September 2016 for an acute influenza be respiratory tract infection pH is known to have COPD along with various other comorbidities as will be discussed later on in my dictation. No skin rashes. No focal neurological deficits. She seems to be much more awake and alert is point in time. Hemodynamically stable. Producing adequate amount of urine output. On today's evaluation of 11/26/2016, the patient is being seen in follow-up. The patient is doing better. She is awake and alert. She was found to have enterococcus group D urinary tract infection and her blood culture was also positive. The patient was seen by infectious disease. The patient was kept on accommodation of Zosyn and vancomycin. She is on no pressors. No chest pain. No shortness of breath. No other complaints otherwise for now. Pulse ox is around 97% 40s of oxygen nasal cannula. The patient remains in atrial fibrillation. The patient was seen again today 11/27/2016 on the regular medical floor in follow-up. She is awake and alert in no acute distress. She denies any worsening shortness of breath, cough or congestion. She is maintaining good O2 saturations in the mid 90s on 2 L/m per nasal cannula. Blood and urine cultures were positive for Enterococcus faecalis. She remains on vancomycin and Zosyn. She has been hemodynamically stable. No leukocytosis. No fever. The patient is seen again today 11/28/2016 in follow-up on the regular medical floor. She is currently sitting up in a chair at the bedside. She is awake and alert in no acute distress. She states she is feeling stronger today as compared to yesterday. She has no pulmonary complaints. No worsening shortness of breath, cough or congestion. She is maintaining good O2 saturations in the mid 90s on 2 L/m per nasal cannula. She's been afebrile. Hemodynamically stable. On 11/29/2016, the patient is doing well pH is sitting up on a chair. She is less short of breath. She is not having any major stroke difficulties. No nausea. No vomiting. Her main complaint is generalized weakness. The patient has shown persistent bacteremia and 2 of the blood cultures came back positive for enterococcus group D and this is likely an Enterococcus faecalis. As such, ID is on the case and further workup will be done regarding the source of this infection including the possibility of endocarditis. As part of the investigation, a ROBERTO will be done. Meanwhile, the patient is on IV Unasyn. ID is on the case. Ultrasound of the renal system will be also done to make sure there is no evidence of any septic focus within the kidneys. On 11/30/2016, patient seems to be very comfortable, in no form of distress. No shortness of breath no cough no wheezing, patient is scheduled to have a transesophageal echocardiogram in a.m. Her blood cultures are positive for enterococcus group D/Enterococcus faecalis. Patient is being investigated for possible endocarditis. Remains on Unasyn, being followed by infectious disease. Objective - Vital Signs Vital signs: Vital Signs Temp 97.3 F L 11/30/16 14:57 Pulse 65 11/30/16 14:57 Resp 20 11/30/16 14:57 BP 140/67 11/30/16 14:57 Pulse Ox 96 11/30/16 14:57 Intake & Output 11/29/16 11/30/16 11/30/16 18:59 06:59 18:59 Intake Total 480 50 140 Balance 480 50 140 Weight 90 kg Intake: IV 140 Sodium Chloride 0.9% 1, 140 000 ml @ 20 mls/hr IV . Q24H RICKI Rx#:[id number] Oral 480 50 Other: Voiding Method Bedside Commode Bedside Commode Toilet # Voids 3 2 # Bowel Movements 1 - Exam The patient appeared well nourished and normally developed. Vital signs as documented. Head exam is unremarkable. No scleral icterus or corneal arcus noted. Neck is without jugular venous distension, thyromegaly, or carotid bruits. Carotid upstrokes are brisk bilaterally. Lung sounds are diminished and there are some crackles in the lung bases bilaterally more so on the left. Cardiac exam reveals the PMI to be normally sized and situated. Rhythm is regular. First and second heart sounds normal. No murmurs, rubs or gallops. Patient has a pacemaker in place and the pacemaker pocket seems to be intact and within normal limits. Abdominal exam reveals normal bowel sounds, no masses , no organomegaly and no aortic enlargement. Extremities are nonedematous and both femoral and pedal pulses are normal. The patient has had multiple orthopedic surgeries including a scar over the left shoulder, bilateral hips, bilateral knees and all of these joints are within normal limits. Skin is intact and there is no open wounds or sores. - Labs CBC & Chem 7: 11/30/16 07:42 11/30/16 07:42 Labs: Abnormal Lab Results - Last 24 Hours (Table) 11/29/16 11/29/16 11/30/16 Range/Units 16:59 20:20 07:05 Eosinophils # (0-0.7) k/uL Glucose (74-99) mg/dL POC Glucose (mg/dL) 104 H 117 H 111 H (75-99) mg/dL Phosphorus (2.5-4.5) mg/dL Total Protein (6.3-8.2) g/dL Albumin (3.5-5.0) g/dL 11/30/16 11/30/16 11/30/16 Range/Units 07:42 07:42 11:39 Eosinophils # 0.8 H (0-0.7) k/uL Glucose 102 H (74-99) mg/dL POC Glucose (mg/dL) 128 H (75-99) mg/dL Phosphorus 4.6 H (2.5-4.5) mg/dL Total Protein 6.0 L (6.3-8.2) g/dL Albumin 3.3 L (3.5-5.0) g/dL Microbiology - Last 24 Hours (Table) 11/26/16 04:57 Blood Culture - Final Blood 11/27/16 08:06 Blood Culture - Final Blood 11/27/16 08:35 Blood Culture - Preliminary Blood No Growth after 72 hours 11/26/16 04:30 Blood Culture - Preliminary Blood No Growth after 96 hours 11/24/16 15:15 Blood Culture - Preliminary Blood No Growth after 120 hours 11/27/16 08:06 Blood Culture Gram Stain - Final Blood Blood Culture - Final Enterococcus faecalis 11/26/16 04:57 Blood Culture Gram Stain - Final Blood Blood Culture - Final Enterococcus faecalis Assessment and Plan Plan: 1 sepsis with Enterococcus faecalis and persistent bacteremia despite being on antibiotics. We'll further screen this patient for any ongoing septic focus including the possibility of endocarditis. 2 acute febrile illness secondary to sepsis, improved 3 change in mental status secondary to above, improving, improved, and a CAT scan of the brain was essentially negative 4 recent hospitalization for influenza B respiratory tract infection 5 CHF with diastolic dysfunction and an ejection fraction of 55% 6 history of heart block status post permanent pacemaker insertion 7 diabetes mellitus type 2 8 fibromyalgia 9 degenerative arthritis with multiple joint replacements 10 history of peptic ulcer disease and previous history of GI bleed 11 paroxysmal atrial fibrillation, current rhythm is paced and the patient is on anticoagulation 12 history of falls 13 peripheral neuropathy 14 COPD 15 coronary artery disease 16 hypothyroidism Recommendation: Continue IV antibiotics, workup in progress for possible endocarditis. We'll continue to follow. Time with Patient: Less than 30
[2016-11-30 17:36] LABS: Glucose,Whole Blood 100 mg/dL (75-99)
--- NOTE | 2016-11-30 17:37 | P.PN ---
Subjective HISTORY OF PRESENTING ILLNESS: This is an 81-year-old female who was admitted to the hospital multiple times previously; comes into the hospital with some complaints of difficulty in breathing. However, patient was brought into the hospital with change in mental status, was noted to have a high-grade fever recorded at 102 degrees Fahrenheit. Patient was initially admitted to the med/telemetry floor. Patient was appropriately fluid-resuscitated; however, due to respiratory distress, a Rapid Response was called. Thereafter she was triaged to the intensive care unit. Patient improved rapidly, until this morning on BiPAP; was alert, oriented x3. She was moving air well on physical examination, according to the remote broadcast engineer's note. Patient was supposed to be triaged out of the ICU; however, about half hour prior to my evaluation patient apparently was significantly dyspneic and was audibly wheezing. Thereafter BiPAP was restarted. Patient appeared to be in respiratory distress during my evaluation. Most of the history is obtained from review of the chart. Patient is currently on BiPAP with settings of 12/5 with FiO2 of 40%. Patient is noted to have a left lower lobe infiltrate with concern about [id number] organisms. Patient has been started on Levaquin and Zosyn at this time. The patient appears to be answering some questions appropriately. No other complaints are reported, including headaches, nausea, vomiting, diarrhea or lower extremity tenderness. 11/26/2016 Patient is on supplemental oxygen is awake is answering questions appropriately denies having any Breathing difficulty at this time. States that she is tired of being admitted to the hospital multiple times or graft no fevers chills diarrhea Nausea vomiting or reported at this time. 11/27/2016 Patient is improved is able to answer questions appropriately denies having headaches blurry vision nausea vomiting or diarrhea. No urinary urgency or frequency is reported. REVIEW OF SYSTEMS: Fourteen-point review of systems was none; none pertinent other than what was mentioned above. 11/28/2016 No new overnight events reported. Patient is doing well. States that she is had some cough with minimal sputum production No fevers chills nausea vomiting diarrhea or urinary urgency or frequency is reported 11/29/16 states to have cough with yellowish sputum no fevers, headaches, nausea, vomiting, diarrhea reported 11/30/16 Improved in regards to cough no fevers, chills, n/v, diarrhea noted Objective - Vital Signs Vital signs: Vital Signs Temp 97.3 F L 11/30/16 14:57 Pulse 70 11/30/16 17:23 Resp 16 11/30/16 16:00 BP 140/67 11/30/16 14:57 Pulse Ox 96 11/30/16 14:57 Intake & Output 11/29/16 11/30/16 11/30/16 18:59 06:59 18:59 Intake Total 480 50 140 Balance 480 50 140 Weight 90 kg Intake: IV 140 Sodium Chloride 0.9% 1, 140 000 ml @ 20 mls/hr IV . Q24H [facility] Rx#:[id number] Oral 480 50 Other: Voiding Method Bedside Commode Bedside Commode Toilet # Voids 3 2 # Bowel Movements 1 - Exam PHYSICAL EXAM: Temperature 97.7, respiratory rate 32, heart rate around 110. Saturating 95% on 3 L of supplemental oxygen. GENERAL APPEARANCE: Appears to be in distress; improved LUNGS: Poor air movement appreciated anteriorly. Silent chest. No significant wheezing appreciated yet. HEART: S1, S2 heard. Appears to be irregular at this time. No murmurs appreciated. ABDOMEN: Soft; however, slightly distended. No organomegaly appreciated. LOWER EXTREMITIES: No significant edema noted. NEURO: Appropriate however, is moving all 4 extremities. No focal deficit appreciated - Labs CBC & Chem 7: 11/30/16 07:42 11/30/16 07:42 Labs: Abnormal Lab Results - Last 24 Hours (Table) 11/29/16 11/30/16 11/30/16 Range/Units 20:20 07:05 07:42 Eosinophils # 0.8 H (0-0.7) k/uL Glucose (74-99) mg/dL POC Glucose (mg/dL) 117 H 111 H (75-99) mg/dL Phosphorus (2.5-4.5) mg/dL Total Protein (6.3-8.2) g/dL Albumin (3.5-5.0) g/dL 11/30/16 11/30/16 Range/Units 07:42 11:39 Eosinophils # (0-0.7) k/uL Glucose 102 H (74-99) mg/dL POC Glucose (mg/dL) 128 H (75-99) mg/dL Phosphorus 4.6 H (2.5-4.5) mg/dL Total Protein 6.0 L (6.3-8.2) g/dL Albumin 3.3 L (3.5-5.0) g/dL Microbiology - Last 24 Hours (Table) 11/26/16 04:57 Blood Culture - Final Blood 11/27/16 08:06 Blood Culture - Final Blood 11/27/16 08:35 Blood Culture - Preliminary Blood No Growth after 72 hours 11/26/16 04:30 Blood Culture - Preliminary Blood No Growth after 96 hours 11/24/16 15:15 Blood Culture - Preliminary Blood No Growth after 120 hours 11/27/16 08:06 Blood Culture Gram Stain - Final Blood Blood Culture - Final Enterococcus faecalis 11/26/16 04:57 Blood Culture Gram Stain - Final Blood Blood Culture - Final Enterococcus faecalis Assessment and Plan Plan: ASSESSMENT AND PLAN: 1. Severe sepsis with Gram-positive bacteremia, source likely being pneumonia. 2. Acute hypoxic respiratory failure from [id number] pneumonia. 3. Congestive heart failure with diastolic dysfunction, which is compensated. 4. History of heart block, status post pacemaker placement. 5. History of atrial fibrillation. Continues to be in atrial fibrillation. 6. Fibromyalgia. 7. Degenerative disc disease. 8. Diabetes mellitus, type 2. 9. Peripheral neuropathy. 10. Chronic obstructive pulmonary disease. 11. Mild to moderate protein-calorie malnutrition. 12. Hypothyroidism. 13. Coronary artery disease Plan patient is noted to have enterococcus faecalis bacteremia. which is persistent ROBERTO will be requested to rule out endocarditis abx to continue bonifacio wheelermouna Will likely need a placement on discharge
[2016-11-30 20:34] LABS: Glucose,Whole Blood 138 mg/dL (75-99)
[2016-11-30] MEDS: TEMAZEPAM 15 MG CAP PO PRN (22:32)
--- NOTE | 2016-11-30 23:07 | P.PN ---
Subjective Principal diagnosis: Pneumonia 81-year-old female who has a history of hospitalization earlier this year. At that point in time she had significant pneumonia and influenza. Since her hospital stations been doing relatively well. He does appear in the days before admission she was becoming weak and having difficulties with falls. She then developed temperature 102 and her mental status became altered. Because of this she was brought to the emergency room where she was complaining of shortness of breath she had cough without significant sputum production or hemoptysis. There was evidence of an elevated lactic acid and she did respond to fluid resuscitation and antibiotics. Ultrasound evidence of sepsis and was brought to the intensive care unit because of her respiratory failure requiring BiPAP. She this point time is doing slightly better. She is regaining her appetite and would like to have her dinner. Remains on nasal oxygen. She is having significant congestion. She is somewhat short of breath. Relates that she was more short of breath with breakfast. She is denying fever, chills or rigors. Feels poorly. Objective - Vital Signs Vital signs: Vital Signs Temp 97.9 F 11/30/16 22:52 Pulse 65 11/30/16 22:52 Resp 16 11/30/16 22:52 BP 133/64 11/30/16 22:52 Pulse Ox 96 11/30/16 22:52 Intake & Output 11/30/16 11/30/16 12/01/16 06:59 18:59 06:59 Intake Total 50 140 Balance 50 140 Intake: IV 140 Sodium Chloride 0.9% 1, 140 000 ml @ 20 mls/hr IV . Q24H [facility] Rx#:[id number] Oral 50 Other: Voiding Method Bedside Commode Toilet # Voids 2 # Bowel Movements 1 - Exam Pleasant 81-year-old woman who improved now on 4 L nasal cannula off of the BiPAP with adequate oxygenation. HEENT: Anicteric conjunctiva are pink and moist nasal mucosa grossly intact without significant lesions, there is no thrush. Neck: The neck is supple without significant lymphadenopathy or thyromegaly. Lungs: There is symmetrical air entry. There are now some coarse crackles that are scattered in the lung armendariz. Few basilar crackles are also noted. No dullness is noted. Heart: Irregular with an audible S1 and S2 soft S4 no distinct murmur click or rub. Pacemaker left anterior chest wall is without tenderness or purulence. Abdomen: Positive bowel sounds soft and nontender without palpable masses or organomegaly. There was no guarding or rebound. Extremities: The extremity is have trace edema. Pulses are 2+ and symmetric. No open lesions are seen. Neuro: Awake alert oriented to person and place. There are no acute new gross focal sensory motor deficits. - Labs CBC & Chem 7: 11/30/16 07:42 11/30/16 07:42 Labs: Abnormal Lab Results - Last 24 Hours (Table) 11/30/16 11/30/16 11/30/16 Range/Units 07:05 07:42 07:42 Eosinophils # 0.8 H (0-0.7) k/uL Glucose 102 H (74-99) mg/dL POC Glucose (mg/dL) 111 H (75-99) mg/dL Phosphorus 4.6 H (2.5-4.5) mg/dL Total Protein 6.0 L (6.3-8.2) g/dL Albumin 3.3 L (3.5-5.0) g/dL 11/30/16 11/30/16 11/30/16 Range/Units 11:39 17:34 20:16 Eosinophils # (0-0.7) k/uL Glucose (74-99) mg/dL POC Glucose (mg/dL) 128 H 100 H 138 H (75-99) mg/dL Phosphorus (2.5-4.5) mg/dL Total Protein (6.3-8.2) g/dL Albumin (3.5-5.0) g/dL Microbiology - Last 24 Hours (Table) 11/24/16 15:15 Blood Culture - Final Blood No Growth after 144 hours 11/26/16 04:57 Blood Culture - Final Blood 11/27/16 08:06 Blood Culture - Final Blood 11/27/16 08:35 Blood Culture - Preliminary Blood No Growth after 72 hours 11/26/16 04:30 Blood Culture - Preliminary Blood No Growth after 96 hours Laboratory Results WBC 8.0 k/uL (3.8-10.6) 11/30/16 07:42 RBC 4.16 m/uL (3.80-5.40) 11/30/16 07:42 Hgb 11.6 gm/dL (11.4-16.0) 11/30/16 07:42 Hct 35.8 % (34.0-46.0) 11/30/16 07:42 MCV 86.3 fL (80.0-100.0) 11/30/16 07:42 MCH 27.9 pg (25.0-35.0) 11/30/16 07:42 MCHC 32.3 g/dL (31.0-37.0) 11/30/16 07:42 RDW 14.9 % (11.5-15.5) 11/30/16 07:42 Plt Count 163 k/uL (150-450) 11/30/16 07:42 Neutrophils % 59 % 11/30/16 07:42 Neutrophils % (Manual) 58.0 % 11/29/16 07:12 Band Neutrophils % 1.0 % 11/29/16 07:12 Lymphocytes % 21 % 11/30/16 07:42 Lymphocytes % (Manual) 26.5 % 11/29/16 07:12 Monocytes % 5 % 11/30/16 07:42 Monocytes % (Manual) 8.0 % 11/29/16 07:12 Eosinophils % 10 % 11/30/16 07:42 Eosinophils % (Manual) 6.0 % 11/29/16 07:12 Basophils % 1 % 11/30/16 07:42 Myelocytes % 0.5 % 11/29/16 07:12 Neutrophils # 4.8 k/uL (1.3-7.7) 11/30/16 07:42 Neutrophils # (Manual) 3.9 k/uL (1.3-7.7) 11/29/16 07:12 Lymphocytes # 1.7 k/uL (1.0-4.8) 11/30/16 07:42 Lymphocytes # (Manual) 1.7 k/uL (1.0-4.8) 11/29/16 07:12 Monocytes # 0.4 k/uL (0-1.0) 11/30/16 07:42 Monocytes # (Manual) 0.5 k/uL (0-1.0) 11/29/16 07:12 Eosinophils # 0.8 k/uL (0-0.7) H 11/30/16 07:42 Eosinophils # (Manual) 0.4 k/uL (0-0.7) 11/29/16 07:12 Basophils # 0.1 k/uL (0-0.2) 11/30/16 07:42 Nucleated RBCs 0 /100 WBC (0-0) 11/29/16 07:12 Manual Slide Review Performed 11/29/16 07:12 Toxic Granulation Present 11/28/16 08:06 Toxic Vacuolation Present 11/25/16 05:13 Hypochromasia Slight 11/29/16 07:12 Poikilocytosis Slight 11/27/16 08:06 Poikilocytosis (manual Present 11/25/16 05:13 [facility] 11/25/16 01:46 ABG pH 7.41 (7.35-7.45) 11/25/16 01:46 ABG pCO2 32 mmHg (35-45) L 11/25/16 01:46 ABG pO2 >400 mmHg (83-108) H 11/25/16 01:46 ABG HCO3 20 mmol/L (21-25) L 11/25/16 01:46 ABG Total CO2 21 mmol/L (19-24) 11/25/16 01:46 ABG O2 Saturation 100.0 % (94-97) H 11/25/16 01:46 ABG Base Excess -4.0 mmol/L 11/25/16 01:46 FiO2 100 % 11/25/16 01:46 Sodium 143 mmol/L (137-145) 11/30/16 07:42 Potassium 3.6 mmol/L (3.5-5.1) 11/30/16 07:42 Chloride 105 mmol/L (98-107) 11/30/16 07:42 Carbon Dioxide 29 mmol/L (22-30) 11/30/16 07:42 Anion Gap 9 mmol/L 11/30/16 07:42 BUN 12 mg/dL (7-17) 11/30/16 07:42 Creatinine 0.76 mg/dL (0.52-1.04) 11/30/16 07:42 Est GFR (MDRD) Af Amer >60 (>60 ml/min/1.73 sqM) 11/30/16 07:42 Est GFR (MDRD) Non-Af >60 (>60 ml/min/1.73 sqM) 11/30/16 07:42 Glucose 102 mg/dL (74-99) H 11/30/16 07:42 POC Glucose (mg/dL) 138 mg/dL (75-99) H 11/30/16 20:16 POC Glu Industrial Arts Teacher ID Carlene Manzano 11/30/16 20:[address] Glu mg/dL 120 mg/dL 11/27/16 08:06 Hemoglobin A1c 5.8 % (4.2-6.1) 11/27/16 08:06 Plasma Lactic Acid Benito 1.4 mmol/L (0.7-2.0) 11/25/16 05:13 Calcium 8.8 mg/dL (8.4-10.2) 11/30/16 07:42 Phosphorus 4.6 mg/dL (2.5-4.5) H 11/30/16 07:42 Magnesium 1.7 mg/dL (1.6-2.3) 11/30/16 07:42 Total Bilirubin 0.9 mg/dL (0.2-1.3) 11/30/16 07:42 AST 35 U/L (14-36) 11/30/16 07:42 ALT 28 U/L (9-52) 11/30/16 07:42 Alkaline Phosphatase 75 U/L (38-126) 11/30/16 07:42 Total Protein 6.0 g/dL (6.3-8.2) L 11/30/16 07:42 Albumin 3.3 g/dL (3.5-5.0) L 11/30/16 07:42 Vitamin B12 366 pg/mL 11/26/16 04:30 TSH 1.000 mIU/L (0.465-4.680) 11/26/16 04:30 Free T4 1.63 ng/dL (0.78-2.19) 11/26/16 04:30 Free T3 pg/mL 3.0 pg/ml (2.8-5.3) 11/26/16 04:30 Urine Color Yellow 11/24/16 15:15 Urine Appearance Clear (Clear) 11/24/16 15:15 Urine pH 7.0 (5.0-8.0) 11/24/16 15:15 Ur Specific [place] 1.014 (1.001-1.035) 11/24/16 15:15 Urine Protein 1+ (Negative) H 11/24/16 15:15 Urine Glucose (UA) Negative (Negative) 11/24/16 15:15 Urine Ketones Trace (Negative) H 11/24/16 15:15 Urine Blood Small (Negative) H 11/24/16 15:15 Urine Nitrite Negative (Negative) 11/24/16 15:15 Urine Bilirubin Negative (Negative) 11/24/16 15:15 Urine Urobilinogen <2.0 mg/dL (<2.0) 11/24/16 15:15 Ur Leukocyte Esterase Small (Negative) H 11/24/16 15:15 Urine RBC 14 /hpf (0-5) H 11/24/16 15:15 Urine WBC 9 /hpf (0-5) H 11/24/16 15:15 Urine Mucus Rare /hpf (None) H 11/24/16 15:15 Microbiology 11/24/16 15:15 Blood Blood Culture - Final No Growth after 144 hours 11/26/16 04:57 Blood Blood Culture - Final 11/27/16 08:06 Blood Blood Culture - Final 11/27/16 08:35 Blood Blood Culture - Preliminary No Growth after 72 hours 11/26/16 04:30 Blood Blood Culture - Preliminary No Growth after 96 hours 11/27/16 08:06 Blood Blood Culture Gram Stain - Final 11/27/16 08:06 Blood Blood Culture - Final Enterococcus faecalis 11/26/16 04:57 Blood Blood Culture Gram Stain - Final 11/26/16 04:57 Blood Blood Culture - Final Enterococcus faecalis 11/24/16 15:15 Urine,Catheterized Urine Culture - Final Enterococcus faecalis 11/24/16 15:15 Blood Blood Culture Gram Stain - Final 11/24/16 15:15 Blood Blood Culture - Final Enterococcus faecalis Assessment and Plan (1) Sepsis Narrative/Plan: 81-year-old woman who has a history of hospitalization earlier this year with pneumonia. Was at home when she became ill. She was having increasing weakness and falls. She had altered mental status was brought to hospital. There is evidence of a new left lower lobe infiltrate on the chest x-ray. The patient is evidence of positive blood cultures. Antibiotic therapy with piperacillin tazobactam and vancomycin are being utilized. Workup is in progress and septic coccus pneumoniae or group C strep would be concerned at this point in time for which Zosyn should give us coverage. as would the vancomycin. Continue Zosyn for now some process would continue treatment for gram-negative pneumonia given the fact she is in ICU and has a recent history of pneumonia. It is sometime since her influenza pneumonia diagnosis staph aureus pneumonia would be somewhat unusual in this situation. The leukocytosis directly related to the current pneumonia. As is the respiratory failure. The city showing some slight improvement this evening. We'll follow blood cultures to ensure her bacteremia is clearing. Did have an echocardiogram done in September which showed evidence of a preserved ejection fraction and some pulmonary hypertension. No evidence of vegetations at that time. With the multiple positive blood cultures follow-up imaging study of her heart will be required assessing for endocarditis. ROBERTO planned. There is evidence of enterococcus in the urine as well as the blood with the bloodstream is a likely etiology of the current sepsis. Complicated by secondary pneumonia. At this time there is ongoing positive blood culture. Enterococcus continues to be isolated. No other pathogens found. We'll alter antibiotic therapy to ampicillin with sulbactam and gentamicin for synergistic combination with maximum enterococcal activity. Renal ultrasound did not reveal hydronephrosis or mass Chest x-ray requested in that she is a bit more congested Status: Acute
[2016-12-01] MEDS: AMPICILLIN-SULBACTAM 3 GM in SODIUM CHLORIDE 0.9% 100 ML IVPB SCH ×3 (05:04→17:10)
[2016-12-01] MEDS: LEVOTHYROXINE 50 MCG TAB PO SCH (05:51)
[2016-12-01] MEDS: PANTOPRAZOLE 40 MG TABLET PO SCH (07:18)
[2016-12-01] MEDS: INSULIN LISPRO (humaLOG) 300 UNIT/3 ML VIAL SQ SCH ×4 (07:18→21:21)
[2016-12-01 07:22] LABS: Glucose,Whole Blood 101 mg/dL (75-99)
[2016-12-01] MEDS: IPRATROPIUM-ALBUTEROL 3 ML NEB INHALATION SCH ×5 (08:47→20:48)
[2016-12-01] MEDS: amLODIPine 10 MG TAB PO SCH (08:49)
[2016-12-01] MEDS: DULoxetine HCL 60 MG CAPSULE.DR PO SCH (08:49)
[2016-12-01] MEDS: APIXABAN 2.5 MG TABLET PO SCH ×2 (08:49→21:21)
[2016-12-01] MEDS: ATENOLOL 12.5 MG TAB PO SCH (08:49)
[2016-12-01] MEDS: MELOXICAM 7.5 MG TAB PO SCH (08:49)
[2016-12-01] MEDS: BENZONATATE 100 MG CAP PO SCH ×3 (08:49→21:47)
[2016-12-01] MEDS: OXYBUTYNIN 15 MG TAB.ER.24 PO SCH (08:49)
[2016-12-01] MEDS: HYDROcodone/APAP 10-325MG 1 EACH TAB PO PRN (08:50)
[2016-12-01 09:28] LABS: Basophils % (A) 0 %; CH 27.8; CHCM 31.9; Eosinophils # (A) 0.8 k/uL (0-0.7); Eosinophils % (A) 8 %; HCT 39.6 % (34.0-46.0); HDW 3.24; HGB 13.2 gm/dL (11.4-16.0); Hypochromasia Slight; Luc # (Auto) 0.24; Luc % (Auto) 2; Lymphocytes # (A) 1.8 k/uL (1.0-4.8); Lymphocytes % (A) 17 %; MCH 29.3 pg (25.0-35.0); MCHC 33.3 g/dL (31.0-37.0); MCV 87.7 fL (80.0-100.0); Mean Platelet Volume 8.5; Monocytes # (A) 0.7 k/uL (0-1.0); Monocytes % (A) 7 %; Neutrophils # (A) 6.9 k/uL (1.3-7.7); Neutrophils % (A) 66 %; RBC 4.51 m/uL (3.80-5.40); RDW 15.2 % (11.5-15.5); WBC 10.5 k/uL (3.8-10.6); WBC (Perox) 9.93
[2016-12-01 10:06] LABS: Polychromasia Present
[2016-12-01 11:24] LABS: Glucose,Whole Blood 108 mg/dL (75-99)
[2016-12-01] MEDS: GENTAMICIN IVPB SCH (11:33)
[2016-12-01] MEDS: SODIUM CHLORIDE 0.9% IVPB SCH (11:33)
[2016-12-01 11:45] VITALS: BMI 44.3
[2016-12-01] MEDS ORDERED: fentaNYL (PF) 50 MCG/ML 2 ML AMP ONE (12:07)
[2016-12-01] MEDS ORDERED: MIDAZOLAM 2 MG/2 ML VIAL ONE (12:07)
[2016-12-01] MEDS ORDERED: SODIUM CHLORIDE 0.9% 1,000 ML IV ONE (12:21)
[2016-12-01] MEDS ORDERED: BENZOCAINE SPRAY 100 APPLIC/CAN MUCOUS MEM ONE ×2 (12:21→12:32)
[2016-12-01] MEDS ORDERED: fentaNYL (PF) 50 MCG/ML 2 ML AMP IV ONE (12:31)
[2016-12-01] MEDS ORDERED: MIDAZOLAM 2 MG/2 ML VIAL IVP ONE ×2 (12:31→12:37)
--- NOTE | 2016-12-01 13:41 | ECHOT ---
DATE OF SERVICE: This transesophageal echocardiogram was performed to rule out any evidence of endocarditis because of the persistent bacteremia with Enterococcus faecalis. Patient was given intravenous sedation with Versed and fentanyl and transesophageal echocardiogram was performed without any complications. Left ventricular chamber is normal in size with normal left ventricular systolic function. There is mild thickening of the mitral leaflet noted without any evidence of vegetations. There is a mild thickening of the aortic leaflets without any evidence of vegetations. Tricuspid valve morphology is normal. Color Doppler study shows evidence of mild degree of mitral regurgitation. No significant aortic regurgitation is noted. Interatrial septum is intact. There is no evidence of any PFO. The pacemaker wire is well visualized and there is no definite evidence of vegetations, which could be seen on the pacemaker wire. FINAL IMPRESSION: 1. This study reveals mild thickening of the mitral and aortic valve without any definite evidence of vegetations. There is a mild degree of mitral regurgitation. 2. The left ventricular systolic function is normal. The pacemaker wire appears normal. There is no definite evidence of vegetations. Interatrial septum is intact.
[2016-12-01] MEDS: SODIUM CHLORIDE 0.9% 1,000 ML IV SCH (13:42)
--- NOTE | 2016-12-01 14:22 | P.PN ---
Subjective 81-year-old female patient with multiple medical positive comorbidities who lives independently at home and the patient was found to be having some altered mental status. There has been gradual decline in the patient's health. The patient become more weak and she had been falling at home and over the past 24 hours she started having episodes of high-grade fever with a temperature 102 along with altered mental status. No neck stiffness. No headaches. No head trauma. She denies having any cough or sputum production. She did complain of some increased shortness of breath. No nausea. No vomiting. No diarrhea. No aspiration. No dystrophic emergency. No hematuria. No flank pain. No open wounds or sores. The patient has multiple orthopedic surgeries with bilateral knee and hip replacement and she has a pacemaker in place.yet, none of these seem to be infected at this point. The patient got moved to the intensive care unit after being admitted to the medical floor. She was having altered mental status. Her lactic acid level was at 2.8. The patient received IV fluids initially half a liter bolus of normal saline and then another half a liter. Subsequent lactic acid level dropped down to 1.4. Her blood cultures from this morning is showing gram-positive cocci in pairs. The patient had received a dose of Levaquin in the emergency department. I switch her to a combination of Zosyn and Levaquin. The patient's white cell count is at 17.5. Her renal function is within normal. Chest x-ray shows some limited infiltration of the left lung base other was not acute abdominal masses noted. Overnight, the patient was placed on a BiPAP and earlier this morning she was taken off the BiPAP and she was placed on 40 still oxygen nasal cannula. She is known to have CHF with diastolic dysfunction with an ejection fraction of 55-60%. She was in the hospital in September 2016 for an acute influenza be respiratory tract infection pH is known to have COPD along with various other comorbidities as will be discussed later on in my dictation. No skin rashes. No focal neurological deficits. She seems to be much more awake and alert is point in time. Hemodynamically stable. Producing adequate amount of urine output. On today's evaluation of 11/26/2016, the patient is being seen in follow-up. The patient is doing better. She is awake and alert. She was found to have enterococcus group D urinary tract infection and her blood culture was also positive. The patient was seen by infectious disease. The patient was kept on accommodation of Zosyn and vancomycin. She is on no pressors. No chest pain. No shortness of breath. No other complaints otherwise for now. Pulse ox is around 97% 40s of oxygen nasal cannula. The patient remains in atrial fibrillation. The patient was seen again today 11/27/2016 on the regular medical floor in follow-up. She is awake and alert in no acute distress. She denies any worsening shortness of breath, cough or congestion. She is maintaining good O2 saturations in the mid 90s on 2 L/m per nasal cannula. Blood and urine cultures were positive for Enterococcus faecalis. She remains on vancomycin and Zosyn. She has been hemodynamically stable. No leukocytosis. No fever. The patient is seen again today 11/28/2016 in follow-up on the regular medical floor. She is currently sitting up in a chair at the bedside. She is awake and alert in no acute distress. She states she is feeling stronger today as compared to yesterday. She has no pulmonary complaints. No worsening shortness of breath, cough or congestion. She is maintaining good O2 saturations in the mid 90s on 2 L/m per nasal cannula. She's been afebrile. Hemodynamically stable. On 11/29/2016, the patient is doing well pH is sitting up on a chair. She is less short of breath. She is not having any major stroke difficulties. No nausea. No vomiting. Her main complaint is generalized weakness. The patient has shown persistent bacteremia and 2 of the blood cultures came back positive for enterococcus group D and this is likely an Enterococcus faecalis. As such, ID is on the case and further workup will be done regarding the source of this infection including the possibility of endocarditis. As part of the investigation, a ROBERTO will be done. Meanwhile, the patient is on IV Unasyn. ID is on the case. Ultrasound of the renal system will be also done to make sure there is no evidence of any septic focus within the kidneys. On 11/30/2016, patient seems to be very comfortable, in no form of distress. No shortness of breath no cough no wheezing, patient is scheduled to have a transesophageal echocardiogram in a.m. Her blood cultures are positive for enterococcus group D/Enterococcus faecalis. Patient is being investigated for possible endocarditis. Remains on Unasyn, being followed by infectious disease. The patient is seen again today 12/01/2016 in follow-up in the regular medical floor. She is currently sitting up in the chair at the bedside. She is awake and alert in no acute distress. No pulmonary complaints. She is somewhat fatigued and weak more so today as compared to yesterday. She is planning to go for a ROBERTO today to rule out endocarditis. She remains on Unasyn per infectious disease for her positive enterococcus group D/Enterococcus faecalis follows blood cultures. Objective - Vital Signs Vital signs: Vital Signs Temp 97.6 F 12/01/16 07:00 Pulse 72 12/01/16 11:35 Resp 16 12/01/16 08:00 BP 157/70 12/01/16 07:00 Pulse Ox 94 L 12/01/16 07:00 Intake & Output 11/30/16 12/01/16 12/01/16 18:59 06:59 18:59 Intake Total 140 550 200 Balance 140 550 200 Weight 110 kg 110 kg Intake: IV 140 140 200 Sodium Chloride 0.9% 1, 140 140 000 ml @ 20 mls/hr IV . Q24H RICKI Rx#:[id number] Intake, IV Titration 360 Amount Ampicillin-Sulbactam 3 gm 100 In Sodium Chloride 0.9% 100 ml @ 100 mls/hr IVPB Q6HR RICKI Rx#:[id number] Gentamicin 64 mg In 100 Sodium Chloride 0.9% 100 ml @ 101.6 mls/hr IVPB Q12HR@1100,2300 RICKI Rx#: [id number] Sodium Chloride 0.9% 1, 160 000 ml @ 20 mls/hr IV . Q24H RICKI Rx#:[id number] Oral 50 Other: Voiding Method Toilet Toilet Toilet # Voids 2 - Exam The patient appeared well nourished and normally developed. Vital signs as documented. Head exam is unremarkable. No scleral icterus or corneal arcus noted. Neck is without jugular venous distension, thyromegaly, or carotid bruits. Carotid upstrokes are brisk bilaterally. Lung sounds are diminished and there are some crackles in the lung bases bilaterally more so on the left. Cardiac exam reveals the PMI to be normally sized and situated. Rhythm is regular. First and second heart sounds normal. No murmurs, rubs or gallops. Patient has a pacemaker in place and the pacemaker pocket seems to be intact and within normal limits. Abdominal exam reveals normal bowel sounds, no masses , no organomegaly and no aortic enlargement. Extremities are nonedematous and both femoral and pedal pulses are normal. The patient has had multiple orthopedic surgeries including a scar over the left shoulder, bilateral hips, bilateral knees and all of these joints are within normal limits. Skin is intact and there is no open wounds or sores. - Labs CBC & Chem 7: 12/01/16 07:16 11/30/16 07:42 Labs: Abnormal Lab Results - Last 24 Hours (Table) 11/30/16 11/30/16 12/01/16 Range/Units 17:34 20:16 07:01 Eosinophils # (0-0.7) k/uL POC Glucose (mg/dL) 100 H 138 H 101 H (75-99) mg/dL 12/01/16 12/01/16 Range/Units 07:16 11:19 Eosinophils # 0.8 H (0-0.7) k/uL POC Glucose (mg/dL) 108 H (75-99) mg/dL Microbiology - Last 24 Hours (Table) 11/27/16 08:35 Blood Culture - Preliminary Blood No Growth after 96 hours 11/26/16 04:30 Blood Culture - Preliminary Blood No Growth after 120 hours 11/24/16 15:15 Blood Culture - Final Blood No Growth after 144 hours 11/26/16 04:57 Blood Culture - Final Blood 11/27/16 08:06 Blood Culture - Final Blood Assessment and Plan Plan: Assessment 1 sepsis secondary to Enterococcus faecalis and persistent bacteremia despite antibiotics. Currently on Unasyn. The plan is for ROBERTO today to rule out endocarditis. 2 acute febrile illness secondary to sepsis, improved 3 change in mental status secondary to above, improving, improved, and a CAT scan of the brain was essentially negative 4 recent hospitalization for influenza B respiratory tract infection 5 CHF with diastolic dysfunction and an ejection fraction of 55% 6 history of heart block status post permanent pacemaker insertion 7 diabetes mellitus type 2 8 fibromyalgia 9 degenerative arthritis with multiple joint replacements 10 history of peptic ulcer disease and previous history of GI bleed 11 paroxysmal atrial fibrillation, current rhythm is paced and the patient is on anticoagulation in the form of Eliquis. 12 history of falls 13 peripheral neuropathy 14 COPD 15 coronary artery disease 16 hypothyroidism Plan: The patient was seen and evaluated by Dr. Danielle. She remains stable from the pulmonary standpoint. We will await results of the ROBERTO. Continue current antibiotics and medications. Infectious diseases on the case as well. We will continue to follow.
[2016-12-01] MEDS ORDERED: methylPREDNISolone SOD SUCCI 125 MG/2 ML VIAL IV STA (16:30)
--- NOTE | 2016-12-01 16:30 | P.PN ---
Subjective HISTORY OF PRESENTING ILLNESS: This is an 81-year-old female who was admitted to the hospital multiple times previously; comes into the hospital with some complaints of difficulty in breathing. However, patient was brought into the hospital with change in mental status, was noted to have a high-grade fever recorded at 102 degrees Fahrenheit. Patient was initially admitted to the med/telemetry floor. Patient was appropriately fluid-resuscitated; however, due to respiratory distress, a Rapid Response was called. Thereafter she was triaged to the intensive care unit. Patient improved rapidly, until this morning on BiPAP; was alert, oriented x3. She was moving air well on physical examination, according to the parking lot laborer's note. Patient was supposed to be triaged out of the ICU; however, about half hour prior to my evaluation patient apparently was significantly dyspneic and was audibly wheezing. Thereafter BiPAP was restarted. Patient appeared to be in respiratory distress during my evaluation. Most of the history is obtained from review of the chart. Patient is currently on BiPAP with settings of 12/5 with FiO2 of 40%. Patient is noted to have a left lower lobe infiltrate with concern about [id number] organisms. Patient has been started on Levaquin and Zosyn at this time. The patient appears to be answering some questions appropriately. No other complaints are reported, including headaches, nausea, vomiting, diarrhea or lower extremity tenderness. 11/26/2016 Patient is on supplemental oxygen is awake is answering questions appropriately denies having any Breathing difficulty at this time. States that she is tired of being admitted to the hospital multiple times or graft no fevers chills diarrhea Nausea vomiting or reported at this time. 11/27/2016 Patient is improved is able to answer questions appropriately denies having headaches blurry vision nausea vomiting or diarrhea. No urinary urgency or frequency is reported. REVIEW OF SYSTEMS: Fourteen-point review of systems was none; none pertinent other than what was mentioned above. 11/28/2016 No new overnight events reported. Patient is doing well. States that she is had some cough with minimal sputum production No fevers chills nausea vomiting diarrhea or urinary urgency or frequency is reported 11/29/16 states to have cough with yellowish sputum no fevers, headaches, nausea, vomiting, diarrhea reported 11/30/16 Improved in regards to cough no fevers, chills, n/v, diarrhea noted 12/01/16 states to be doing well however continues to have a cough productive in nature states to have pleuritic chest pain no fevers, chills, diarrhea, urinary urgency or frequency reported. Objective - Vital Signs Vital signs: Vital Signs Temp 97.3 F L 12/01/16 14:18 Pulse 72 12/01/16 16:19 Resp 16 12/01/16 15:43 BP 131/65 12/01/16 14:18 Pulse Ox 96 12/01/16 14:18 Intake & Output 11/30/16 12/01/16 12/01/16 18:59 06:59 18:59 Intake Total 140 550 340 Balance 140 550 340 Weight 110 kg 110 kg Intake: IV 140 140 340 Sodium Chloride 0.9% 1, 140 140 140 000 ml @ 20 mls/hr IV . Q24H RICKI Rx#:[id number] Intake, IV Titration 360 Amount Ampicillin-Sulbactam 3 gm 100 In Sodium Chloride 0.9% 100 ml @ 100 mls/hr IVPB Q6HR R[facility]I Rx#:[id number] Gentamicin 64 mg In 100 Sodium Chloride 0.9% 100 ml @ 101.6 mls/hr IVPB Q12HR@1100,2300 RICKI Rx#: [id number] Sodium Chloride 0.9% 1, 160 000 ml @ 20 mls/hr IV . Q24H RICKI Rx#:[id number] Oral 50 Other: Voiding Method Toilet Toilet Toilet # Voids 2 - Exam PHYSICAL EXAM: Temperature 97.7, respiratory rate 32, heart rate around 110. Saturating 95% on 3 L of supplemental oxygen. GENERAL APPEARANCE: Appears to be in distress; improved LUNGS: Poor air movement appreciated anteriorly. Silent chest. No significant wheezing appreciated yet. HEART: S1, S2 heard. Appears to be irregular at this time. No murmurs appreciated. ABDOMEN: Soft; however, slightly distended. No organomegaly appreciated. LOWER EXTREMITIES: No significant edema noted. NEURO: Appropriate however, is moving all 4 extremities. No focal deficit appreciated - Labs CBC & Chem 7: 12/01/16 07:16 11/30/16 07:42 Labs: Abnormal Lab Results - Last 24 Hours (Table) 11/30/16 11/30/16 12/01/16 Range/Units 17:34 20:16 07:01 Eosinophils # (0-0.7) k/uL POC Glucose (mg/dL) 100 H 138 H 101 H (75-99) mg/dL 12/01/16 12/01/16 Range/Units 07:16 11:19 Eosinophils # 0.8 H (0-0.7) k/uL POC Glucose (mg/dL) 108 H (75-99) mg/dL Microbiology - Last 24 Hours (Table) 11/27/16 08:35 Blood Culture - Preliminary Blood No Growth after 96 hours 11/26/16 04:30 Blood Culture - Preliminary Blood No Growth after 120 hours 11/24/16 15:15 Blood Culture - Final Blood No Growth after 144 hours Assessment and Plan Plan: ASSESSMENT AND PLAN: 1. Severe sepsis with Gram-positive bacteremia, source likely being pneumonia. 2. Acute hypoxic respiratory failure from [id number] pneumonia. 3. Congestive heart failure with diastolic dysfunction, which is compensated. 4. History of heart block, status post pacemaker placement. 5. History of atrial fibrillation. Continues to be in atrial fibrillation. 6. Fibromyalgia. 7. Degenerative disc disease. 8. Diabetes mellitus, type 2. 9. Peripheral neuropathy. 10. Chronic obstructive pulmonary disease. 11. Mild to moderate protein-calorie malnutrition. 12. Hypothyroidism. 13. Coronary artery disease Plan patient is noted to have enterococcus faecalis bacteremia. which is persistent ROBERTO was negative for vegetations one dose of solumedrol respiratory cultures to be repeated blood cultures to be repeated. abx to continue tesselon pearles Will likely need a placement on discharge
[2016-12-01 17:27] LABS: Glucose,Whole Blood 98 mg/dL (75-99)
[2016-12-01] MEDS: guaiFENesin SYRUP 100MG/5ML 200 MG/10 ML CUP PO PRN (19:57)
[2016-12-01 20:16] LABS: Glucose,Whole Blood 200 mg/dL (75-99)
[2016-12-01] MEDS: TEMAZEPAM 15 MG CAP PO PRN (22:50)
--- NOTE | 2016-12-01 22:53 | P.PN ---
Subjective Principal diagnosis: Pneumonia 81-year-old female who has a history of hospitalization earlier this year. At that point in time she had significant pneumonia and influenza. Since her hospital stations been doing relatively well. He does appear in the days before admission she was becoming weak and having difficulties with falls. She then developed temperature 102 and her mental status became altered. Because of this she was brought to the emergency room where she was complaining of shortness of breath she had cough without significant sputum production or hemoptysis. There was evidence of an elevated lactic acid and she did respond to fluid resuscitation and antibiotics. Ultrasound evidence of sepsis and was brought to the intensive care unit because of her respiratory failure requiring BiPAP. She this point time is doing slightly better. She is regaining her appetite and would like to have her dinner. Remains on nasal oxygen. She is having significant congestion. She is somewhat short of breath. Relates that she was more short of breath with breakfast. She is denying fever, chills or rigors. Feels poorly. Will have ROBERTO today. Objective - Vital Signs Vital signs: Vital Signs Temp 97.3 F L 12/01/16 14:18 Pulse 74 12/01/16 21:03 Resp 16 12/01/16 15:43 BP 131/65 12/01/16 14:18 Pulse Ox 96 12/01/16 14:18 Intake & Output 12/01/16 12/01/16 12/02/16 06:59 18:59 06:59 Intake Total 550 340 240 Balance 550 340 240 Weight 110 kg 110 kg Intake: IV 140 340 Sodium Chloride 0.9% 1, 140 140 000 ml @ 20 mls/hr IV . Q24H [facility] Rx#:[id number] Intake, IV Titration 360 Amount Ampicillin-Sulbactam 3 gm 100 In Sodium Chloride 0.9% 100 ml @ 100 mls/hr IVPB Q6HR [facility] Rx#:[id number] Gentamicin 64 mg In 100 Sodium Chloride 0.9% 100 ml @ 101.6 mls/hr IVPB Q12HR@1100,2300 [facility] Rx#: [id number] Sodium Chloride 0.9% 1, 160 000 ml @ 20 mls/hr IV . Q24H [facility] Rx#:[id number] Oral 50 240 Other: Voiding Method Toilet Toilet Toilet # Voids 2 - Exam Pleasant 81-year-old woman who improved now on 4 L nasal cannula off of the BiPAP with adequate oxygenation. HEENT: Anicteric conjunctiva are pink and moist nasal mucosa grossly intact without significant lesions, there is no thrush. Neck: The neck is supple without significant lymphadenopathy or thyromegaly. Lungs: There is symmetrical air entry. There are now some coarse crackles that are scattered in the lung armendariz. Few basilar crackles are also noted. No dullness is noted. Heart: Irregular with an audible S1 and S2 soft S4 no distinct murmur click or rub. Pacemaker left anterior chest wall is without tenderness or purulence. Abdomen: Positive bowel sounds soft and nontender without palpable masses or organomegaly. There was no guarding or rebound. Extremities: The extremity is have trace edema. Pulses are 2+ and symmetric. No open lesions are seen. Neuro: Awake alert oriented to person and place. There are no acute new gross focal sensory motor deficits. - Labs CBC & Chem 7: 12/01/16 07:16 11/30/16 07:42 Labs: Abnormal Lab Results - Last 24 Hours (Table) 12/01/16 12/01/16 12/01/16 Range/Units 07:01 07:16 11:19 Eosinophils # 0.8 H (0-0.7) k/uL POC Glucose (mg/dL) 101 H 108 H (75-99) mg/dL 12/01/16 Range/Units 20:15 Eosinophils # (0-0.7) k/uL POC Glucose (mg/dL) 200 H (75-99) mg/dL Microbiology - Last 24 Hours (Table) 11/30/16 19:31 Blood Culture - Preliminary Blood No Growth after 24 hours 11/30/16 18:55 Blood Culture - Preliminary Blood No Growth after 24 hours 11/27/16 08:35 Blood Culture - Preliminary Blood No Growth after 96 hours 11/26/16 04:30 Blood Culture - Preliminary Blood No Growth after 120 hours Laboratory Results WBC 10.5 k/uL (3.8-10.6) 12/01/16 07:16 RBC 4.51 m/uL (3.80-5.40) 12/01/16 07:16 Hgb 13.2 gm/dL (11.4-16.0) 12/01/16 07:16 Hct 39.6 % (34.0-46.0) 12/01/16 07:16 MCV 87.7 fL (80.0-100.0) 12/01/16 07:16 MCH 29.3 pg (25.0-35.0) 12/01/16 07:16 MCHC 33.3 g/dL (31.0-37.0) 12/01/16 07:16 RDW 15.2 % (11.5-15.5) 12/01/16 07:16 Plt Count 229 k/uL (150-450) 12/01/16 07:16 Neutrophils % 66 % 12/01/16 07:16 Neutrophils % (Manual) 58.0 % 11/29/16 07:12 Band Neutrophils % 1.0 % 11/29/16 07:12 Lymphocytes % 17 % 12/01/16 07:16 Lymphocytes % (Manual) 26.5 % 11/29/16 07:12 Monocytes % 7 % 12/01/16 07:16 Monocytes % (Manual) 8.0 % 11/29/16 07:12 Eosinophils % 8 % 12/01/16 07:16 Eosinophils % (Manual) 6.0 % 11/29/16 07:12 Basophils % 0 % 12/01/16 07:16 Myelocytes % 0.5 % 11/29/16 07:12 Neutrophils # 6.9 k/uL (1.3-7.7) 12/01/16 07:16 Neutrophils # (Manual) 3.9 k/uL (1.3-7.7) 11/29/16 07:12 Lymphocytes # 1.8 k/uL (1.0-4.8) 12/01/16 07:16 Lymphocytes # (Manual) 1.7 k/uL (1.0-4.8) 11/29/16 07:12 Monocytes # 0.7 k/uL (0-1.0) 12/01/16 07:16 Monocytes # (Manual) 0.5 k/uL (0-1.0) 11/29/16 07:12 Eosinophils # 0.8 k/uL (0-0.7) H 12/01/16 07:16 Eosinophils # (Manual) 0.4 k/uL (0-0.7) 11/29/16 07:12 Basophils # 0.0 k/uL (0-0.2) 12/01/16 07:16 Nucleated RBCs 0 /100 WBC (0-0) 11/29/16 07:12 Manual Slide Review Performed 11/29/16 07:12 Toxic Granulation Present 11/28/16 08:06 Toxic Vacuolation Present 11/25/16 05:13 Polychromasia Present 12/01/16 07:16 Hypochromasia Slight 12/01/16 07:16 Poikilocytosis Slight 11/27/16 08:06 Poikilocytosis (manual Present 11/25/16 05:13 [facility] 11/25/16 01:46 ABG pH 7.41 (7.35-7.45) 11/25/16 01:46 ABG pCO2 32 mmHg (35-45) L 11/25/16 01:46 ABG pO2 >400 mmHg (83-108) H 11/25/16 01:46 ABG HCO3 20 mmol/L (21-25) L 11/25/16 01:46 ABG Total CO2 21 mmol/L (19-24) 11/25/16 01:46 ABG O2 Saturation 100.0 % (94-97) H 11/25/16 01:46 ABG Base Excess -4.0 mmol/L 11/25/16 01:46 FiO2 100 % 11/25/16 01:46 Sodium 143 mmol/L (137-145) 11/30/16 07:42 Potassium 3.6 mmol/L (3.5-5.1) 11/30/16 07:42 Chloride 105 mmol/L (98-107) 11/30/16 07:42 Carbon Dioxide 29 mmol/L (22-30) 11/30/16 07:42 Anion Gap 9 mmol/L 11/30/16 07:42 BUN 12 mg/dL (7-17) 11/30/16 07:42 Creatinine 0.76 mg/dL (0.52-1.04) 11/30/16 07:42 Est GFR (MDRD) Af Amer >60 (>60 ml/min/1.73 sqM) 11/30/16 07:42 Est GFR (MDRD) Non-Af >60 (>60 ml/min/1.73 sqM) 11/30/16 07:42 Glucose 102 mg/dL (74-99) H 11/30/16 07:42 POC Glucose (mg/dL) 200 mg/dL (75-99) H 12/01/16 20:15 POC Glu [employer] Hallie Paul 12/01/16 20:[address] Glu mg/dL 120 mg/dL 11/27/16 08:06 Hemoglobin A1c 5.8 % (4.2-6.1) 11/27/16 08:06 Plasma Lactic Acid Benito 1.4 mmol/L (0.7-2.0) 11/25/16 05:13 Calcium 8.8 mg/dL (8.4-10.2) 11/30/16 07:42 Phosphorus 4.6 mg/dL (2.5-4.5) H 11/30/16 07:42 Magnesium 1.7 mg/dL (1.6-2.3) 11/30/16 07:42 Total Bilirubin 0.9 mg/dL (0.2-1.3) 11/30/16 07:42 AST 35 U/L (14-36) 11/30/16 07:42 ALT 28 U/L (9-52) 11/30/16 07:42 Alkaline Phosphatase 75 U/L (38-126) 11/30/16 07:42 Total Protein 6.0 g/dL (6.3-8.2) L 11/30/16 07:42 Albumin 3.3 g/dL (3.5-5.0) L 11/30/16 07:42 Vitamin B12 366 pg/mL 11/26/16 04:30 TSH 1.000 mIU/L (0.465-4.680) 11/26/16 04:30 Free T4 1.63 ng/dL (0.78-2.19) 11/26/16 04:30 Free T3 pg/mL 3.0 pg/ml (2.8-5.3) 11/26/16 04:30 Urine Color Yellow 11/24/16 15:15 Urine Appearance Clear (Clear) 11/24/16 15:15 Urine pH 7.0 (5.0-8.0) 11/24/16 15:15 Ur Specific Plover 1.014 (1.001-1.035) 11/24/16 15:15 Urine Protein 1+ (Negative) H 11/24/16 15:15 Urine Glucose (UA) Negative (Negative) 11/24/16 15:15 Urine Ketones Trace (Negative) H 11/24/16 15:15 Urine Blood Small (Negative) H 11/24/16 15:15 Urine Nitrite Negative (Negative) 11/24/16 15:15 Urine Bilirubin Negative (Negative) 11/24/16 15:15 Urine Urobilinogen <2.0 mg/dL (<2.0) 11/24/16 15:15 Ur Leukocyte Esterase Small (Negative) H 11/24/16 15:15 Urine RBC 14 /hpf (0-5) H 11/24/16 15:15 Urine WBC 9 /hpf (0-5) H 11/24/16 15:15 Urine Mucus Rare /hpf (None) H 11/24/16 15:15 Microbiology 11/30/16 19:31 Blood Blood Culture - Preliminary No Growth after 24 hours 11/30/16 18:55 Blood Blood Culture - Preliminary No Growth after 24 hours 11/27/16 08:35 Blood Blood Culture - Preliminary No Growth after 96 hours 11/26/16 04:30 Blood Blood Culture - Preliminary No Growth after 120 hours 11/24/16 15:15 Blood Blood Culture - Final No Growth after 144 hours 11/26/16 04:57 Blood Blood Culture - Final 11/27/16 08:06 Blood Blood Culture - Final 11/27/16 08:06 Blood Blood Culture Gram Stain - Final 11/27/16 08:06 Blood Blood Culture - Final Enterococcus faecalis 11/26/16 04:57 Blood Blood Culture Gram Stain - Final 11/26/16 04:57 Blood Blood Culture - Final Enterococcus faecalis 11/24/16 15:15 Urine,Catheterized Urine Culture - Final Enterococcus faecalis 11/24/16 15:15 Blood Blood Culture Gram Stain - Final 11/24/16 15:15 Blood Blood Culture - Final Enterococcus faecalis Assessment and Plan (1) Sepsis Narrative/Plan: 81-year-old woman who has a history of hospitalization earlier this year with pneumonia. Was at home when she became ill. She was having increasing weakness and falls. She had altered mental status was brought to hospital. There is evidence of a new left lower lobe infiltrate on the chest x-ray. The patient is evidence of positive blood cultures. Antibiotic therapy with piperacillin tazobactam and vancomycin are being utilized. Workup is in progress and septic coccus pneumoniae or group C strep would be concerned at this point in time for which Zosyn should give us coverage. as would the vancomycin. Continue Zosyn for now some process would continue treatment for gram-negative pneumonia given the fact she is in ICU and has a recent history of pneumonia. It is sometime since her influenza pneumonia diagnosis staph aureus pneumonia would be somewhat unusual in this situation. The leukocytosis directly related to the current pneumonia. As is the respiratory failure. The city showing some slight improvement this evening. We'll follow blood cultures to ensure her bacteremia is clearing. Did have an echocardiogram done in September which showed evidence of a preserved ejection fraction and some pulmonary hypertension. No evidence of vegetations at that time. With the multiple positive blood cultures follow-up imaging study of her heart will be required assessing for endocarditis. ROBERTO planned. There is evidence of enterococcus in the urine as well as the blood with the bloodstream is a likely etiology of the current sepsis. Complicated by secondary pneumonia. Antibiotic therapy was altered to Unasyn and gentamicin. Goal for clearance of her bacteremia. With evidence of negative blood cultures the gentamicin was discontinued, especially because the CHOCO 500 is resistant. ROBERTO to be performed today Renal ultrasound did not reveal hydronephrosis or mass Chest x-ray requested in that she is a bit more congested Status: Acute
[2016-12-02] MEDS: AMPICILLIN-SULBACTAM 3 GM in SODIUM CHLORIDE 0.9% 100 ML IVPB SCH ×4 (00:13→18:02)
[2016-12-02] MEDS: LEVOTHYROXINE 50 MCG TAB PO SCH (06:10)
[2016-12-02 07:33] LABS: Glucose,Whole Blood 132 mg/dL (75-99)
[2016-12-02] MEDS: IPRATROPIUM-ALBUTEROL 3 ML NEB INHALATION SCH ×4 (07:52→20:50)
[2016-12-02] MEDS: INSULIN LISPRO (humaLOG) 300 UNIT/3 ML VIAL SQ SCH ×4 (08:34→20:41)
[2016-12-02] MEDS: HYDROcodone/APAP 10-325MG 1 EACH TAB PO PRN ×3 (08:36→22:47)
[2016-12-02] MEDS: ATENOLOL 12.5 MG TAB PO SCH (08:37)
[2016-12-02] MEDS: PANTOPRAZOLE 40 MG TABLET PO SCH (08:37)
[2016-12-02] MEDS: BENZONATATE 100 MG CAP PO SCH ×3 (08:37→20:39)
[2016-12-02] MEDS: APIXABAN 2.5 MG TABLET PO SCH ×2 (08:37→20:39)
[2016-12-02] MEDS: amLODIPine 10 MG TAB PO SCH (08:38)
[2016-12-02] MEDS: MELOXICAM 7.5 MG TAB PO SCH (08:38)
[2016-12-02] MEDS: DULoxetine HCL 60 MG CAPSULE.DR PO SCH (08:39)
[2016-12-02] MEDS: SODIUM CHLORIDE 0.9% 1,000 ML IV SCH ×3 (08:45→14:57)
[2016-12-02] MEDS: OXYBUTYNIN 15 MG TAB.ER.24 PO SCH (08:47)
[2016-12-02 09:34] LABS: ALT 28 U/L (9-52); AST 35 U/L (14-36); Alkaline Phosphatase 92 U/L (38-126); Anion Gap 14 mmol/L; Blood Urea Nitrogen 16 mg/dL (7-17); Calcium 9.5 mg/dL (8.4-10.2); Carbon Dioxide 21 mmol/L (22-30); Chloride 107 mmol/L (98-107); Glucose 129 mg/dL (74-99); Non-African American GFR(MDRD) >60 (>60 ml/min/1.73 sqM); Potassium 4.5 mmol/L (3.5-5.1); Sodium 142 mmol/L (137-145); Total Bilirubin 1.1 mg/dL (0.2-1.3); Total Protein 7.3 g/dL (6.3-8.2)
[2016-12-02 09:42] LABS: Basophils % (A) 0 %; CH 28.1; CHCM 32.4; Eosinophils % (A) 0 %; HCT 39.1 % (34.0-46.0); HDW 3.26; HGB 12.8 gm/dL (11.4-16.0); Hypochromasia Slight; Luc # (Auto) 0.08; Luc % (Auto) 1; Lymphocytes # (A) 0.9 k/uL (1.0-4.8); Lymphocytes % (A) 10 %; MCH 28.6 pg (25.0-35.0); MCHC 32.8 g/dL (31.0-37.0); MCV 87.1 fL (80.0-100.0); Mean Platelet Volume 8.2; Monocytes # (A) 0.2 k/uL (0-1.0); Monocytes % (A) 2 %; Neutrophils # (A) 7.4 k/uL (1.3-7.7); Neutrophils % (A) 87 %; RBC 4.49 m/uL (3.80-5.40); WBC 8.6 k/uL (3.8-10.6); WBC (Perox) 9.11
[2016-12-02] MEDS: guaiFENesin SYRUP 100MG/5ML 200 MG/10 ML CUP PO PRN ×2 (10:34→22:48)
[2016-12-02 12:02] LABS: Glucose,Whole Blood 129 mg/dL (75-99)
--- NOTE | 2016-12-02 12:07 | P.PN ---
Subjective 81-year-old female patient with multiple medical positive comorbidities who lives independently at home and the patient was found to be having some altered mental status. There has been gradual decline in the patient's health. The patient become more weak and she had been falling at home and over the past 24 hours she started having episodes of high-grade fever with a temperature 102 along with altered mental status. No neck stiffness. No headaches. No head trauma. She denies having any cough or sputum production. She did complain of some increased shortness of breath. No nausea. No vomiting. No diarrhea. No aspiration. No dystrophic emergency. No hematuria. No flank pain. No open wounds or sores. The patient has multiple orthopedic surgeries with bilateral knee and hip replacement and she has a pacemaker in place.yet, none of these seem to be infected at this point. The patient got moved to the intensive care unit after being admitted to the medical floor. She was having altered mental status. Her lactic acid level was at 2.8. The patient received IV fluids initially half a liter bolus of normal saline and then another half a liter. Subsequent lactic acid level dropped down to 1.4. Her blood cultures from this morning is showing gram-positive cocci in pairs. The patient had received a dose of Levaquin in the emergency department. I switch her to a combination of Zosyn and Levaquin. The patient's white cell count is at 17.5. Her renal function is within normal. Chest x-ray shows some limited infiltration of the left lung base other was not acute abdominal masses noted. Overnight, the patient was placed on a BiPAP and earlier this morning she was taken off the BiPAP and she was placed on 40 still oxygen nasal cannula. She is known to have CHF with diastolic dysfunction with an ejection fraction of 55-60%. She was in the hospital in September 2016 for an acute influenza be respiratory tract infection pH is known to have COPD along with various other comorbidities as will be discussed later on in my dictation. No skin rashes. No focal neurological deficits. She seems to be much more awake and alert is point in time. Hemodynamically stable. Producing adequate amount of urine output. On today's evaluation of 11/26/2016, the patient is being seen in follow-up. The patient is doing better. She is awake and alert. She was found to have enterococcus group D urinary tract infection and her blood culture was also positive. The patient was seen by infectious disease. The patient was kept on accommodation of Zosyn and vancomycin. She is on no pressors. No chest pain. No shortness of breath. No other complaints otherwise for now. Pulse ox is around 97% 40s of oxygen nasal cannula. The patient remains in atrial fibrillation. The patient was seen again today 11/27/2016 on the regular medical floor in follow-up. She is awake and alert in no acute distress. She denies any worsening shortness of breath, cough or congestion. She is maintaining good O2 saturations in the mid 90s on 2 L/m per nasal cannula. Blood and urine cultures were positive for Enterococcus faecalis. She remains on vancomycin and Zosyn. She has been hemodynamically stable. No leukocytosis. No fever. The patient is seen again today 11/28/2016 in follow-up on the regular medical floor. She is currently sitting up in a chair at the bedside. She is awake and alert in no acute distress. She states she is feeling stronger today as compared to yesterday. She has no pulmonary complaints. No worsening shortness of breath, cough or congestion. She is maintaining good O2 saturations in the mid 90s on 2 L/m per nasal cannula. She's been afebrile. Hemodynamically stable. On 11/29/2016, the patient is doing well pH is sitting up on a chair. She is less short of breath. She is not having any major stroke difficulties. No nausea. No vomiting. Her main complaint is generalized weakness. The patient has shown persistent bacteremia and 2 of the blood cultures came back positive for enterococcus group D and this is likely an Enterococcus faecalis. As such, ID is on the case and further workup will be done regarding the source of this infection including the possibility of endocarditis. As part of the investigation, a ROBERTO will be done. Meanwhile, the patient is on IV Unasyn. ID is on the case. Ultrasound of the renal system will be also done to make sure there is no evidence of any septic focus within the kidneys. On 11/30/2016, patient seems to be very comfortable, in no form of distress. No shortness of breath no cough no wheezing, patient is scheduled to have a transesophageal echocardiogram in a.m. Her blood cultures are positive for enterococcus group D/Enterococcus faecalis. Patient is being investigated for possible endocarditis. Remains on Unasyn, being followed by infectious disease. The patient is seen again today 12/01/2016 in follow-up in the regular medical floor. She is currently sitting up in the chair at the bedside. She is awake and alert in no acute distress. No pulmonary complaints. She is somewhat fatigued and weak more so today as compared to yesterday. She is planning to go for a ROBERTO today to rule out endocarditis. She remains on Unasyn per infectious disease for her positive enterococcus group D/Enterococcus faecalis follows blood cultures. The patient is seen again today 12/02/2016 in follow-up. She is awake and alert in no acute distress. She is actually anxious to go home. She is feeling quite a bit stronger today as compared to yesterday. Follow-up blood cultures from 11/30/2016 revealing no growth to date. ROBERTO did not reveal any evidence of vegetation. She remains afebrile. No leukocytosis. Maintaining good O2 saturations in the 90s on 2 L/m per nasal cannula. She's been hemodynamically stable. She has been maintained on Unasyn. Objective - Vital Signs Vital signs: Vital Signs Temp 97.6 F 12/02/16 07:00 Pulse 65 12/02/16 08:00 Resp 16 12/02/16 08:00 BP 142/66 12/02/16 07:00 Pulse Ox 97 12/02/16 07:00 Intake & Output 12/01/16 12/02/16 12/02/16 18:59 06:59 18:59 Intake Total 340 480 Output Total 35 Balance 340 480 -35 Weight 110 kg 110 kg Intake: IV 340 Sodium Chloride 0.9% 1, 140 000 ml @ 20 mls/hr IV . Q24H [facility] Rx#:[id number] Oral 480 Output: Urine 35 Other: Voiding Method Toilet Toilet Toilet # Voids 2 - Exam The patient appeared well nourished and normally developed. Vital signs as documented. Head exam is unremarkable. No scleral icterus or corneal arcus noted. Neck is without jugular venous distension, thyromegaly, or carotid bruits. Carotid upstrokes are brisk bilaterally. Lung sounds are diminished and there are some crackles in the lung bases bilaterally more so on the left. Cardiac exam reveals the PMI to be normally sized and situated. Rhythm is regular. First and second heart sounds normal. No murmurs, rubs or gallops. Patient has a pacemaker in place and the pacemaker pocket seems to be intact and within normal limits. Abdominal exam reveals normal bowel sounds, no masses , no organomegaly and no aortic enlargement. Extremities are nonedematous and both femoral and pedal pulses are normal. The patient has had multiple orthopedic surgeries including a scar over the left shoulder, bilateral hips, bilateral knees and all of these joints are within normal limits. Skin is intact and there is no open wounds or sores. - Labs CBC & Chem 7: 12/02/16 08:33 12/02/16 08:33 Labs: Abnormal Lab Results - Last 24 Hours (Table) 12/01/16 12/02/16 12/02/16 Range/Units 20:15 06:59 08:33 Lymphocytes # 0.9 L (1.0-4.8) k/uL Carbon Dioxide (22-30) mmol/L Glucose (74-99) mg/dL POC Glucose (mg/dL) 200 H 132 H (75-99) mg/dL 12/02/16 Range/Units 08:33 Lymphocytes # (1.0-4.8) k/uL Carbon Dioxide 21 L (22-30) mmol/L Glucose 129 H (74-99) mg/dL POC Glucose (mg/dL) (75-99) mg/dL Microbiology - Last 24 Hours (Table) 11/27/16 08:35 Blood Culture - Preliminary Blood No Growth after 120 hours 11/26/16 04:30 Blood Culture - Final Blood No Growth after 144 hours 11/30/16 19:31 Blood Culture - Preliminary Blood No Growth after 24 hours 11/30/16 18:55 Blood Culture - Preliminary Blood No Growth after 24 hours Assessment and Plan Plan: Assessment 1 sepsis secondary to Enterococcus faecalis and persistent bacteremia despite antibiotics. Currently on Unasyn. ROBERTO ruled out vegetation. Blood cultures from 11/30/2016 revealed no growth to date. 2 acute febrile illness secondary to sepsis, improved 3 change in mental status secondary to above, improving, improved, and a CAT scan of the brain was essentially negative 4 recent hospitalization for influenza B respiratory tract infection 5 CHF with diastolic dysfunction and an ejection fraction of 55% 6 history of heart block status post permanent pacemaker insertion 7 diabetes mellitus type 2 8 fibromyalgia 9 degenerative arthritis with multiple joint replacements 10 history of peptic ulcer disease and previous history of GI bleed 11 paroxysmal atrial fibrillation, current rhythm is paced and the patient is on anticoagulation in the form of Eliquis. 12 history of falls 13 peripheral neuropathy 14 COPD 15 coronary artery disease 16 hypothyroidism Plan: The patient was seen and evaluated by Dr. Danielle. She remains stable from the pulmonary standpoint. She is anxious to go home. Antibiotics per infectious disease. She has home oxygen in place. Continue with her current pulmonary medications. Follow-up in our office in 1 week. She is however encouraged to call sooner with any recurrence of symptoms or other questions or concerns.
--- NOTE | 2016-12-02 12:51 | PN ---
This patient is admitted with Enterobacter bacteremia. Patient underwent a transesophageal echocardiogram and there is no definite evidence of vegetations. Patient clinically is doing better. She is afebrile. First and second heart sounds are normal. Lungs are clinically clear to auscultation and percussion. IMPRESSION: It appears that this patient's Escherichia coli bacteremia is most likely secondary to underlying urinary tract infection. Clinically at present and by transesophageal echocardiogram, there is no definite evidence of any vegetations. Continue current antibiotic treatment at this point.
--- NOTE | 2016-12-02 16:57 | P.PN ---
Subjective HISTORY OF PRESENTING ILLNESS: This is an 81-year-old female who was admitted to the hospital multiple times previously; comes into the hospital with some complaints of difficulty in breathing. However, patient was brought into the hospital with change in mental status, was noted to have a high-grade fever recorded at 102 degrees Fahrenheit. Patient was initially admitted to the med/telemetry floor. Patient was appropriately fluid-resuscitated; however, due to respiratory distress, a Rapid Response was called. Thereafter she was triaged to the intensive care unit. Patient improved rapidly, until this morning on BiPAP; was alert, oriented x3. She was moving air well on physical examination, according to the dentures lab technician's note. Patient was supposed to be triaged out of the ICU; however, about half hour prior to my evaluation patient apparently was significantly dyspneic and was audibly wheezing. Thereafter BiPAP was restarted. Patient appeared to be in respiratory distress during my evaluation. Most of the history is obtained from review of the chart. Patient is currently on BiPAP with settings of 12/5 with FiO2 of 40%. Patient is noted to have a left lower lobe infiltrate with concern about [id number] organisms. Patient has been started on Levaquin and Zosyn at this time. The patient appears to be answering some questions appropriately. No other complaints are reported, including headaches, nausea, vomiting, diarrhea or lower extremity tenderness. 11/26/2016 Patient is on supplemental oxygen is awake is answering questions appropriately denies having any Breathing difficulty at this time. States that she is tired of being admitted to the hospital multiple times or graft no fevers chills diarrhea Nausea vomiting or reported at this time. 11/27/2016 Patient is improved is able to answer questions appropriately denies having headaches blurry vision nausea vomiting or diarrhea. No urinary urgency or frequency is reported. REVIEW OF SYSTEMS: Fourteen-point review of systems was none; none pertinent other than what was mentioned above. 11/28/2016 No new overnight events reported. Patient is doing well. States that she is had some cough with minimal sputum production No fevers chills nausea vomiting diarrhea or urinary urgency or frequency is reported 11/29/16 states to have cough with yellowish sputum no fevers, headaches, nausea, vomiting, diarrhea reported 11/30/16 Improved in regards to cough no fevers, chills, n/v, diarrhea noted 12/01/16 states to be doing well however continues to have a cough productive in nature states to have pleuritic chest pain no fevers, chills, diarrhea, urinary urgency or frequency reported. 12/02/16 doing well at rest states to have some SOB on exertion, however that is close to baseline no fevers, chillls, nausea, vomiting or diarrhea. Objective - Vital Signs Vital signs: Vital Signs Temp 98.4 F 12/02/16 15:00 Pulse 65 12/02/16 15:47 Resp 16 12/02/16 15:47 BP 134/61 12/02/16 15:00 Pulse Ox 97 12/02/16 15:00 Intake & Output 12/01/16 12/02/16 12/02/16 18:59 06:59 18:59 Intake Total 340 480 80 Output Total 70 Balance 340 480 10 Weight 110 kg 110 kg Intake: IV 340 80 Sodium Chloride 0.9% 1, 140 80 000 ml @ 20 mls/hr IV . Q24H [facility] Rx#:[id number] Oral 480 Output: Urine 70 Other: Voiding Method Toilet Toilet Toilet # Voids 2 - Exam PHYSICAL EXAM: Temperature 97.7, respiratory rate 32, heart rate around 110. Saturating 95% on 3 L of supplemental oxygen. GENERAL APPEARANCE: Appears to be in distress; improved LUNGS: Poor air movement appreciated anteriorly. Silent chest. No significant wheezing appreciated yet. HEART: S1, S2 heard. Appears to be irregular at this time. No murmurs appreciated. ABDOMEN: Soft; however, slightly distended. No organomegaly appreciated. LOWER EXTREMITIES: No significant edema noted. NEURO: Appropriate however, is moving all 4 extremities. No focal deficit appreciated - Labs CBC & Chem 7: 12/02/16 08:33 12/02/16 08:33 Labs: Abnormal Lab Results - Last 24 Hours (Table) 12/01/16 12/02/16 12/02/16 Range/Units 20:15 06:59 08:33 Lymphocytes # 0.9 L (1.0-4.8) k/uL Carbon Dioxide (22-30) mmol/L Glucose (74-99) mg/dL POC Glucose (mg/dL) 200 H 132 H (75-99) mg/dL 12/02/16 12/02/16 Range/Units 08:33 11:55 Lymphocytes # (1.0-4.8) k/uL Carbon Dioxide 21 L (22-30) mmol/L Glucose 129 H (74-99) mg/dL POC Glucose (mg/dL) 129 H (75-99) mg/dL Microbiology - Last 24 Hours (Table) 11/27/16 08:35 Blood Culture - Preliminary Blood No Growth after 120 hours 11/26/16 04:30 Blood Culture - Final Blood No Growth after 144 hours 11/30/16 19:31 Blood Culture - Preliminary Blood No Growth after 24 hours 11/30/16 18:55 Blood Culture - Preliminary Blood No Growth after 24 hours Assessment and Plan Plan: ASSESSMENT AND PLAN: 1. Severe sepsis with Gram-positive bacteremia, source likely being pneumonia. 2. Acute hypoxic respiratory failure from [id number] pneumonia. 3. Congestive heart failure with diastolic dysfunction, which is compensated. 4. History of heart block, status post pacemaker placement. 5. History of atrial fibrillation. Continues to be in atrial fibrillation. 6. Fibromyalgia. 7. Degenerative disc disease. 8. Diabetes mellitus, type 2. 9. Peripheral neuropathy. 10. Chronic obstructive pulmonary disease. 11. Mild to moderate protein-calorie malnutrition. 12. Hypothyroidism. 13. Coronary artery disease Plan patient is noted to have enterococcus faecalis bacteremia. which is persistent ROBERTO was negative for vegetations vitals stable continue PT blood cultures to be repeated. await negative cultures and PICC placement for iv abx for 14 days from negative cultures dc to [facility].
[2016-12-02 17:12] LABS: Glucose,Whole Blood 138 mg/dL (75-99)
[2016-12-02 20:37] LABS: Glucose,Whole Blood 123 mg/dL (75-99)
--- NOTE | 2016-12-02 22:03 | P.PN ---
Subjective Principal diagnosis: Pneumonia 81-year-old female who has a history of hospitalization earlier this year. At that point in time she had significant pneumonia and influenza. Since her hospital stations been doing relatively well. He does appear in the days before admission she was becoming weak and having difficulties with falls. She then developed temperature 102 and her mental status became altered. Because of this she was brought to the emergency room where she was complaining of shortness of breath she had cough without significant sputum production or hemoptysis. There was evidence of an elevated lactic acid and she did respond to fluid resuscitation and antibiotics. Ultrasound evidence of sepsis and was brought to the intensive care unit because of her respiratory failure requiring BiPAP. She this point time is doing slightly better. She is regaining her appetite and would like to have her dinner. Remains on nasal oxygen. She is having significant congestion. She is somewhat short of breath. Relates that she was more short of breath with breakfast. She is denying fever, chills or rigors. Feels better today. Fever has resolved. ROBERTO was performed showing no evidence of any vegetations. Ultrasound of renal system also without evidence of obstruction. Objective - Vital Signs Vital signs: Vital Signs Temp 98.4 F 12/02/16 15:00 Pulse 72 12/02/16 21:00 Resp 16 12/02/16 15:47 BP 134/61 12/02/16 15:00 Pulse Ox 97 12/02/16 15:00 Intake & Output 12/02/16 12/02/16 12/03/16 06:59 18:59 06:59 Intake Total 480 80 Output Total 70 Balance 480 10 Weight 110 kg Intake: IV 80 Sodium Chloride 0.9% 1, 80 000 ml @ 20 mls/hr IV . Q24H [facility] Rx#:[id number] Oral 480 Output: Urine 70 Other: Voiding Method Toilet Toilet # Voids 2 - Exam Pleasant 81-year-old woman who improved now on 4 L nasal cannula off of the BiPAP with adequate oxygenation. HEENT: Anicteric conjunctiva are pink and moist nasal mucosa grossly intact without significant lesions, there is no thrush. Neck: The neck is supple without significant lymphadenopathy or thyromegaly. Lungs: There is symmetrical air entry. There are now some coarse crackles that are scattered in the lung armendariz. Few basilar crackles are also noted. No dullness is noted. Heart: Irregular with an audible S1 and S2 soft S4 no distinct murmur click or rub. Pacemaker left anterior chest wall is without tenderness or purulence. Abdomen: Positive bowel sounds soft and nontender without palpable masses or organomegaly. There was no guarding or rebound. Extremities: The extremity is have trace edema. Pulses are 2+ and symmetric. No open lesions are seen. Neuro: Awake alert oriented to person and place. There are no acute new gross focal sensory motor deficits. - Labs CBC & Chem 7: 12/02/16 08:33 12/02/16 08:33 Labs: Abnormal Lab Results - Last 24 Hours (Table) 12/02/16 12/02/16 12/02/16 Range/Units 06:59 08:33 08:33 Lymphocytes # 0.9 L (1.0-4.8) k/uL Carbon Dioxide 21 L (22-30) mmol/L Glucose 129 H (74-99) mg/dL POC Glucose (mg/dL) 132 H (75-99) mg/dL 12/02/16 12/02/16 12/02/16 Range/Units 11:55 17:09 20:18 Lymphocytes # (1.0-4.8) k/uL Carbon Dioxide (22-30) mmol/L Glucose (74-99) mg/dL POC Glucose (mg/dL) 129 H 138 H 123 H (75-99) mg/dL Microbiology - Last 24 Hours (Table) 11/30/16 19:31 Blood Culture - Preliminary Blood No Growth after 48 hours 11/30/16 18:55 Blood Culture - Preliminary Blood No Growth after 48 hours 12/01/16 16:51 Blood Culture - Preliminary Blood No Growth after 24 hours 12/01/16 16:42 Blood Culture - Preliminary Blood No Growth after 24 hours 11/27/16 08:35 Blood Culture - Preliminary Blood No Growth after 120 hours 11/26/16 04:30 Blood Culture - Final Blood No Growth after 144 hours Laboratory Results WBC 8.6 k/uL (3.8-10.6) 12/02/16 08:33 RBC 4.49 m/uL (3.80-5.40) 12/02/16 08:33 Hgb 12.8 gm/dL (11.4-16.0) 12/02/16 08:33 Hct 39.1 % (34.0-46.0) 12/02/16 08:33 MCV 87.1 fL (80.0-100.0) 12/02/16 08:33 MCH 28.6 pg (25.0-35.0) 12/02/16 08:33 MCHC 32.8 g/dL (31.0-37.0) 12/02/16 08:33 RDW 15.0 % (11.5-15.5) 12/02/16 08:33 Plt Count 234 k/uL (150-450) 12/02/16 08:33 Neutrophils % 87 % 12/02/16 08:33 Neutrophils % (Manual) 58.0 % 11/29/16 07:12 Band Neutrophils % 1.0 % 11/29/16 07:12 Lymphocytes % 10 % 12/02/16 08:33 Lymphocytes % (Manual) 26.5 % 11/29/16 07:12 Monocytes % 2 % 12/02/16 08:33 Monocytes % (Manual) 8.0 % 11/29/16 07:12 Eosinophils % 0 % 12/02/16 08:33 Eosinophils % (Manual) 6.0 % 11/29/16 07:12 Basophils % 0 % 12/02/16 08:33 Myelocytes % 0.5 % 11/29/16 07:12 Neutrophils # 7.4 k/uL (1.3-7.7) 12/02/16 08:33 Neutrophils # (Manual) 3.9 k/uL (1.3-7.7) 11/29/16 07:12 Lymphocytes # 0.9 k/uL (1.0-4.8) L 12/02/16 08:33 Lymphocytes # (Manual) 1.7 k/uL (1.0-4.8) 11/29/16 07:12 Monocytes # 0.2 k/uL (0-1.0) 12/02/16 08:33 Monocytes # (Manual) 0.5 k/uL (0-1.0) 11/29/16 07:12 Eosinophils # 0.0 k/uL (0-0.7) 12/02/16 08:33 Eosinophils # (Manual) 0.4 k/uL (0-0.7) 11/29/16 07:12 Basophils # 0.0 k/uL (0-0.2) 12/02/16 08:33 Nucleated RBCs 0 /100 WBC (0-0) 11/29/16 07:12 Manual Slide Review Performed 11/29/16 07:12 Toxic Granulation Present 11/28/16 08:06 Toxic Vacuolation Present 11/25/16 05:13 Polychromasia Present 12/01/16 07:16 Hypochromasia Slight 12/02/16 08:33 Poikilocytosis Slight 11/27/16 08:06 Poikilocytosis (manual Present 11/25/16 05:13 [facility] 11/25/16 01:46 ABG pH 7.41 (7.35-7.45) 11/25/16 01:46 ABG pCO2 32 mmHg (35-45) L 11/25/16 01:46 ABG pO2 >400 mmHg (83-108) H 11/25/16 01:46 ABG HCO3 20 mmol/L (21-25) L 11/25/16 01:46 ABG Total CO2 21 mmol/L (19-24) 11/25/16 01:46 ABG O2 Saturation 100.0 % (94-97) H 11/25/16 01:46 ABG Base Excess -4.0 mmol/L 11/25/16 01:46 FiO2 100 % 11/25/16 01:46 Sodium 142 mmol/L (137-145) 12/02/16 08:33 Potassium 4.5 mmol/L (3.5-5.1) 12/02/16 08:33 Chloride 107 mmol/L (98-107) 12/02/16 08:33 Carbon Dioxide 21 mmol/L (22-30) L 12/02/16 08:33 Anion Gap 14 mmol/L 12/02/16 08:33 BUN 16 mg/dL (7-17) 12/02/16 08:33 Creatinine 0.72 mg/dL (0.52-1.04) 12/02/16 08:33 Est GFR (MDRD) Af Amer >60 (>60 ml/min/1.73 sqM) 12/02/16 08:33 Est GFR (MDRD) Non-Af >60 (>60 ml/min/1.73 sqM) 12/02/16 08:33 Glucose 129 mg/dL (74-99) H 12/02/16 08:33 POC Glucose (mg/dL) 123 mg/dL (75-99) H 12/02/16 20:18 POC Glu Speed Operator ID Judi Smith 12/02/16 20:[address] Glu mg/dL 120 mg/dL 11/27/16 08:06 Hemoglobin A1c 5.8 % (4.2-6.1) 11/27/16 08:06 Plasma Lactic Acid Benito 1.4 mmol/L (0.7-2.0) 11/25/16 05:13 Calcium 9.5 mg/dL (8.4-10.2) 12/02/16 08:33 Phosphorus 4.6 mg/dL (2.5-4.5) H 11/30/16 07:42 Magnesium 1.7 mg/dL (1.6-2.3) 11/30/16 07:42 Total Bilirubin 1.1 mg/dL (0.2-1.3) 12/02/16 08:33 AST 35 U/L (14-36) 12/02/16 08:33 ALT 28 U/L (9-52) 12/02/16 08:33 Alkaline Phosphatase 92 U/L (38-126) 12/02/16 08:33 Total Protein 7.3 g/dL (6.3-8.2) 12/02/16 08:33 Albumin 4.0 g/dL (3.5-5.0) 12/02/16 08:33 Vitamin B12 366 pg/mL 11/26/16 04:30 TSH 1.000 mIU/L (0.465-4.680) 11/26/16 04:30 Free T4 1.63 ng/dL (0.78-2.19) 11/26/16 04:30 Free T3 pg/mL 3.0 pg/ml (2.8-5.3) 11/26/16 04:30 Urine Color Yellow 11/24/16 15:15 Urine Appearance Clear (Clear) 11/24/16 15:15 Urine pH 7.0 (5.0-8.0) 11/24/16 15:15 Ur Specific Reeds 1.014 (1.001-1.035) 11/24/16 15:15 Urine Protein 1+ (Negative) H 11/24/16 15:15 Urine Glucose (UA) Negative (Negative) 11/24/16 15:15 Urine Ketones Trace (Negative) H 11/24/16 15:15 Urine Blood Small (Negative) H 11/24/16 15:15 Urine Nitrite Negative (Negative) 11/24/16 15:15 Urine Bilirubin Negative (Negative) 11/24/16 15:15 Urine Urobilinogen <2.0 mg/dL (<2.0) 11/24/16 15:15 Ur Leukocyte Esterase Small (Negative) H 11/24/16 15:15 Urine RBC 14 /hpf (0-5) H 11/24/16 15:15 Urine WBC 9 /hpf (0-5) H 11/24/16 15:15 Urine Mucus Rare /hpf (None) H 11/24/16 15:15 Microbiology 11/30/16 19:31 Blood Blood Culture - Preliminary No Growth after 48 hours 11/30/16 18:55 Blood Blood Culture - Preliminary No Growth after 48 hours 12/01/16 16:51 Blood Blood Culture - Preliminary No Growth after 24 hours 12/01/16 16:42 Blood Blood Culture - Preliminary No Growth after 24 hours 11/27/16 08:35 Blood Blood Culture - Preliminary No Growth after 120 hours 11/26/16 04:30 Blood Blood Culture - Final No Growth after 144 hours 11/24/16 15:15 Blood Blood Culture - Final No Growth after 144 hours 11/26/16 04:57 Blood Blood Culture - Final 11/27/16 08:06 Blood Blood Culture - Final 11/27/16 08:06 Blood Blood Culture Gram Stain - Final 11/27/16 08:06 Blood Blood Culture - Final Enterococcus faecalis 11/26/16 04:57 Blood Blood Culture Gram Stain - Final 11/26/16 04:57 Blood Blood Culture - Final Enterococcus faecalis 11/24/16 15:15 Urine,Catheterized Urine Culture - Final Enterococcus faecalis 11/24/16 15:15 Blood Blood Culture Gram Stain - Final 11/24/16 15:15 Blood Blood Culture - Final Enterococcus faecalis Assessment and Plan (1) Sepsis Narrative/Plan: 81-year-old woman who has a history of hospitalization earlier this year with pneumonia. Was at home when she became ill. She was having increasing weakness and falls. She had altered mental status was brought to hospital. There is evidence of a new left lower lobe infiltrate on the chest x-ray. The patient is evidence of positive blood cultures. Antibiotic therapy with piperacillin tazobactam and vancomycin are being utilized. Workup is in progress and septic coccus pneumoniae or group C strep would be concerned at this point in time for which Zosyn should give us coverage. as would the vancomycin. Continue Zosyn for now some process would continue treatment for gram-negative pneumonia given the fact she is in ICU and has a recent history of pneumonia. It is sometime since her influenza pneumonia diagnosis staph aureus pneumonia would be somewhat unusual in this situation. The leukocytosis directly related to the current pneumonia. As is the respiratory failure. The city showing some slight improvement this evening. We'll follow blood cultures to ensure her bacteremia is clearing. Did have an echocardiogram done in September which showed evidence of a preserved ejection fraction and some pulmonary hypertension. No evidence of vegetations at that time. With the multiple positive blood cultures follow-up imaging study of her heart will be required assessing for endocarditis. ROBERTO planned. There is evidence of enterococcus in the urine as well as the blood with the bloodstream is a likely etiology of the current sepsis. Complicated by secondary pneumonia. Antibiotic therapy was altered to Unasyn and gentamicin. Goal for clearance of her bacteremia. With evidence of negative blood cultures the gentamicin was discontinued, especially because the CHOCO 500 is resistant. ROBERTO has been performed without evidence of agitations Renal ultrasound did not reveal hydronephrosis or mass Now that there are multiple negative blood cultures will be for a PICC line to be placed to complete a multiweek course of intravenous antibiotic therapy with Unasyn for her bacteremia initiated from her urinary system. Status: Acute
[2016-12-02] MEDS: TEMAZEPAM 15 MG CAP PO PRN (22:48)
[2016-12-03] MEDS: AMPICILLIN-SULBACTAM 3 GM in SODIUM CHLORIDE 0.9% 100 ML IVPB SCH ×5 (00:05→23:41)
[2016-12-03] MEDS: LORazepam 2 MG/ML SYRINGE IV PRN ×2 (00:15→22:25)
[2016-12-03] MEDS: LEVOTHYROXINE 50 MCG TAB PO SCH (06:19)
[2016-12-03 07:31] LABS: Glucose,Whole Blood 114 mg/dL (75-99)
[2016-12-03] MEDS: IPRATROPIUM-ALBUTEROL 3 ML NEB INHALATION SCH ×4 (08:19→20:23)
[2016-12-03] MEDS: INSULIN LISPRO (humaLOG) 300 UNIT/3 ML VIAL SQ SCH ×4 (09:10→21:34)
[2016-12-03] MEDS: PANTOPRAZOLE 40 MG TABLET PO SCH (09:13)
[2016-12-03] MEDS: amLODIPine 10 MG TAB PO SCH (09:13)
[2016-12-03] MEDS: OXYBUTYNIN 15 MG TAB.ER.24 PO SCH (09:13)
[2016-12-03] MEDS: ATENOLOL 12.5 MG TAB PO SCH (09:13)
[2016-12-03] MEDS: BENZONATATE 100 MG CAP PO SCH ×3 (09:13→21:34)
[2016-12-03] MEDS: MELOXICAM 7.5 MG TAB PO SCH (09:13)
[2016-12-03] MEDS: DULoxetine HCL 60 MG CAPSULE.DR PO SCH (09:14)
[2016-12-03] MEDS: APIXABAN 2.5 MG TABLET PO SCH ×2 (09:14→18:43)
[2016-12-03] MEDS: SODIUM CHLORIDE 0.9% 1,000 ML IV SCH ×3 (09:16→12:57)
[2016-12-03 11:41] LABS: Glucose,Whole Blood 95 mg/dL (75-99)
--- NOTE | 2016-12-03 14:48 | PN ---
Patient is an 81-year-old female admitted for septic shock and bacteremia, secondary to possible pneumonia and patient is clinically doing well at this point of time. Patient will get a PICC line today and possible discharge tomorrow and patient will be discharged tomorrow to subacute rehabilitation. REVIEW OF SYSTEMS: CARDIOVASCULAR: No chest pain, no orthopnea, no PND, no palpitations. PULMONARY: Denied any shortness of breath. No cough or hemoptysis. GASTROINTESTINAL: No diarrhea, nausea or vomiting. No abdominal pain. Normoactive bowel sounds. NEUROLOGIC: No headaches, no weakness, no numbness. Medications were reviewed. PHYSICAL EXAMINATION: VITAL SIGNS: Temperature 98.4, pulse of 72, respiratory rate of 16. Blood pressure is 116/57. Saturating at 96% on 2 L of O2 by nasal cannula. GENERAL: The patient is alert and oriented x3, not in any acute distress. Well developed, well nourished. HEENT: Pupils are round and equally reacting to light. EOMI. No scleral icterus. No conjunctival pallor. Normocephalic, atraumatic. No pharyngeal erythema. No thyromegaly. CARDIOVASCULAR: S1 and S2 present. No murmurs, rubs, or gallops. PULMONARY: Chest is clear to auscultation, no wheezing or crackles. ABDOMEN: Soft, nontender, nondistended, normoactive bowel sounds. No palpable organomegaly. MUSCULOSKELETAL: No joint swelling or deformity. EXTREMITIES: No cyanosis, clubbing, or pedal edema. NEUROLOGICAL: Gross neurological examination did not reveal any focal deficits. SKIN: No rashes. LABORATORY DATA: CBC, CMP, essentially within normal limits. ASSESSMENT AND PLAN: 1. Sepsis and gram-positive bacteremia that his enterococcal bacteremia secondary to most probably pneumonia and acute hypoxic respiratory failure secondary to health care associated pneumonia. 2. Congestive heart failure, chronic diastolic dysfunction which is well compensated at this point of time. 3. Third-degree heart block, status post pacemaker placement and patient will be restarted back on atenolol since she has history of atrial fibrillation at a lower dose. 4. Patient already has a pacemaker for her atrial fibrillation, although will cut down the dose of amlodipine. 5. Type 2 diabetes mellitus. 6. Peripheral neuropathy. 7. Chronic obstructive pulmonary disease without any acute exacerbation. 8. Mild to moderate protein calorie malnutrition. 9. Hypothyroidism. 10. Coronary artery disease. PLAN: As mentioned above.
[2016-12-03 16:51] LABS: Glucose,Whole Blood 116 mg/dL (75-99)
[2016-12-03] MEDS ORDERED: Acetaminophen-Codeine 300-30mg TAB ONE (17:12)
[2016-12-03] MEDS: HYDROcodone/APAP 10-325MG 1 EACH TAB PO PRN ×2 (17:37→22:25)
[2016-12-03] MEDS: guaiFENesin SYRUP 100MG/5ML 200 MG/10 ML CUP PO PRN (20:05)
[2016-12-03 21:07] LABS: Glucose,Whole Blood 141 mg/dL (75-99)
--- NOTE | 2016-12-03 21:12 | P.PN ---
Subjective Principal diagnosis: Pneumonia 81-year-old female who has a history of hospitalization earlier this year. At that point in time she had significant pneumonia and influenza. Since her hospital stations been doing relatively well. He does appear in the days before admission she was becoming weak and having difficulties with falls. She then developed temperature 102 and her mental status became altered. Because of this she was brought to the emergency room where she was complaining of shortness of breath she had cough without significant sputum production or hemoptysis. There was evidence of an elevated lactic acid and she did respond to fluid resuscitation and antibiotics. Ultrasound evidence of sepsis and was brought to the intensive care unit because of her respiratory failure requiring BiPAP. She this point time is doing slightly better. She is regaining her appetite and would like to have her dinner. Remains on nasal oxygen. She is having significant congestion. She is somewhat short of breath. Relates that she was more short of breath with breakfast. She is denying fever, chills or rigors. Feels better today. Fever has resolved. ROBERTO was performed showing no evidence of any vegetations. Ultrasound of renal system also without evidence of obstruction. Objective - Vital Signs Vital signs: Vital Signs Temp 97.6 F 12/03/16 15:00 Pulse 68 12/03/16 20:34 Resp 16 12/03/16 15:00 BP 151/68 12/03/16 15:00 Pulse Ox 91 L 12/03/16 15:00 Intake & Output 12/03/16 12/03/16 12/04/16 06:59 18:59 06:59 Intake Total 100 320 Balance 100 320 Weight 92.034 kg Intake: IV 120 Sodium Chloride 0.9% 1, 120 000 ml @ 20 mls/hr IV . Q24H RICKI Rx#:[id number] Intake, IV Titration 100 200 Amount Ampicillin-Sulbactam 3 gm 100 200 In Sodium Chloride 0.9% 100 ml @ 100 mls/hr IVPB Q6HR RICKI Rx#:[id number] Other: Voiding Method Toilet Toilet # Voids 2 3 # Bowel Movements 1 - Exam Pleasant 81-year-old woman who improved now on 4 L nasal cannula off of the BiPAP with adequate oxygenation. HEENT: Anicteric conjunctiva are pink and moist nasal mucosa grossly intact without significant lesions, there is no thrush. Neck: The neck is supple without significant lymphadenopathy or thyromegaly. Lungs: There is symmetrical air entry. There are now some coarse crackles that are scattered in the lung armendariz. Few basilar crackles are also noted. No dullness is noted. Heart: Irregular with an audible S1 and S2 soft S4 no distinct murmur click or rub. Pacemaker left anterior chest wall is without tenderness or purulence. Abdomen: Positive bowel sounds soft and nontender without palpable masses or organomegaly. There was no guarding or rebound. Extremities: The extremity is have trace edema. Pulses are 2+ and symmetric. No open lesions are seen. Neuro: Awake alert oriented to person and place. There are no acute new gross focal sensory motor deficits. - Labs CBC & Chem 7: 12/02/16 08:33 12/02/16 08:33 Labs: Abnormal Lab Results - Last 24 Hours (Table) 12/03/16 12/03/16 12/03/16 Range/Units 07:10 16:46 21:06 POC Glucose (mg/dL) 114 H 116 H 141 H (75-99) mg/dL Microbiology - Last 24 Hours (Table) 12/01/16 16:51 Blood Culture - Preliminary Blood No Growth after 48 hours 12/01/16 16:42 Blood Culture - Preliminary Blood No Growth after 48 hours 11/27/16 08:35 Blood Culture - Final Blood No Growth after 144 hours 11/30/16 19:31 Blood Culture - Preliminary Blood No Growth after 48 hours 11/30/16 18:55 Blood Culture - Preliminary Blood No Growth after 48 hours Laboratory Results WBC 8.6 k/uL (3.8-10.6) 12/02/16 08:33 RBC 4.49 m/uL (3.80-5.40) 12/02/16 08:33 Hgb 12.8 gm/dL (11.4-16.0) 12/02/16 08:33 Hct 39.1 % (34.0-46.0) 12/02/16 08:33 MCV 87.1 fL (80.0-100.0) 12/02/16 08:33 MCH 28.6 pg (25.0-35.0) 12/02/16 08:33 MCHC 32.8 g/dL (31.0-37.0) 12/02/16 08:33 RDW 15.0 % (11.5-15.5) 12/02/16 08:33 Plt Count 234 k/uL (150-450) 12/02/16 08:33 Neutrophils % 87 % 12/02/16 08:33 Neutrophils % (Manual) 58.0 % 11/29/16 07:12 Band Neutrophils % 1.0 % 11/29/16 07:12 Lymphocytes % 10 % 12/02/16 08:33 Lymphocytes % (Manual) 26.5 % 11/29/16 07:12 Monocytes % 2 % 12/02/16 08:33 Monocytes % (Manual) 8.0 % 11/29/16 07:12 Eosinophils % 0 % 12/02/16 08:33 Eosinophils % (Manual) 6.0 % 11/29/16 07:12 Basophils % 0 % 12/02/16 08:33 Myelocytes % 0.5 % 11/29/16 07:12 Neutrophils # 7.4 k/uL (1.3-7.7) 12/02/16 08:33 Neutrophils # (Manual) 3.9 k/uL (1.3-7.7) 11/29/16 07:12 Lymphocytes # 0.9 k/uL (1.0-4.8) L 12/02/16 08:33 Lymphocytes # (Manual) 1.7 k/uL (1.0-4.8) 11/29/16 07:12 Monocytes # 0.2 k/uL (0-1.0) 12/02/16 08:33 Monocytes # (Manual) 0.5 k/uL (0-1.0) 11/29/16 07:12 Eosinophils # 0.0 k/uL (0-0.7) 12/02/16 08:33 Eosinophils # (Manual) 0.4 k/uL (0-0.7) 11/29/16 07:12 Basophils # 0.0 k/uL (0-0.2) 12/02/16 08:33 Nucleated RBCs 0 /100 WBC (0-0) 11/29/16 07:12 Manual Slide Review Performed 11/29/16 07:12 Toxic Granulation Present 11/28/16 08:06 Toxic Vacuolation Present 11/25/16 05:13 Polychromasia Present 12/01/16 07:16 Hypochromasia Slight 12/02/16 08:33 Poikilocytosis Slight 11/27/16 08:06 Poikilocytosis (manual Present 11/25/16 05:13 [facility] 11/25/16 01:46 ABG pH 7.41 (7.35-7.45) 11/25/16 01:46 ABG pCO2 32 mmHg (35-45) L 11/25/16 01:46 ABG pO2 >400 mmHg (83-108) H 11/25/16 01:46 ABG HCO3 20 mmol/L (21-25) L 11/25/16 01:46 ABG Total CO2 21 mmol/L (19-24) 11/25/16 01:46 ABG O2 Saturation 100.0 % (94-97) H 11/25/16 01:46 ABG Base Excess -4.0 mmol/L 11/25/16 01:46 FiO2 100 % 11/25/16 01:46 Sodium 142 mmol/L (137-145) 12/02/16 08:33 Potassium 4.5 mmol/L (3.5-5.1) 12/02/16 08:33 Chloride 107 mmol/L (98-107) 12/02/16 08:33 Carbon Dioxide 21 mmol/L (22-30) L 12/02/16 08:33 Anion Gap 14 mmol/L 12/02/16 08:33 BUN 16 mg/dL (7-17) 12/02/16 08:33 Creatinine 0.72 mg/dL (0.52-1.04) 12/02/16 08:33 Est GFR (MDRD) Af Amer >60 (>60 ml/min/1.73 sqM) 12/02/16 08:33 Est GFR (MDRD) Non-Af >60 (>60 ml/min/1.73 sqM) 12/02/16 08:33 Glucose 129 mg/dL (74-99) H 12/02/16 08:33 POC Glucose (mg/dL) 141 mg/dL (75-99) H 12/03/16 21:06 POC Glu Animation Director ID Blanca Orellana 12/03/16 21:[address] Glu mg/dL 120 mg/dL 11/27/16 08:06 Hemoglobin A1c 5.8 % (4.2-6.1) 11/27/16 08:06 Plasma Lactic Acid Benito 1.4 mmol/L (0.7-2.0) 11/25/16 05:13 Calcium 9.5 mg/dL (8.4-10.2) 12/02/16 08:33 Phosphorus 4.6 mg/dL (2.5-4.5) H 11/30/16 07:42 Magnesium 1.7 mg/dL (1.6-2.3) 11/30/16 07:42 Total Bilirubin 1.1 mg/dL (0.2-1.3) 12/02/16 08:33 AST 35 U/L (14-36) 12/02/16 08:33 ALT 28 U/L (9-52) 12/02/16 08:33 Alkaline Phosphatase 92 U/L (38-126) 12/02/16 08:33 Total Protein 7.3 g/dL (6.3-8.2) 12/02/16 08:33 Albumin 4.0 g/dL (3.5-5.0) 12/02/16 08:33 Vitamin B12 366 pg/mL 11/26/16 04:30 TSH 1.000 mIU/L (0.465-4.680) 11/26/16 04:30 Free T4 1.63 ng/dL (0.78-2.19) 11/26/16 04:30 Free T3 pg/mL 3.0 pg/ml (2.8-5.3) 11/26/16 04:30 Urine Color Yellow 11/24/16 15:15 Urine Appearance Clear (Clear) 11/24/16 15:15 Urine pH 7.0 (5.0-8.0) 11/24/16 15:15 Ur Specific [place] 1.014 (1.001-1.035) 11/24/16 15:15 Urine Protein 1+ (Negative) H 11/24/16 15:15 Urine Glucose (UA) Negative (Negative) 11/24/16 15:15 Urine Ketones Trace (Negative) H 11/24/16 15:15 Urine Blood Small (Negative) H 11/24/16 15:15 Urine Nitrite Negative (Negative) 11/24/16 15:15 Urine Bilirubin Negative (Negative) 11/24/16 15:15 Urine Urobilinogen <2.0 mg/dL (<2.0) 11/24/16 15:15 Ur Leukocyte Esterase Small (Negative) H 11/24/16 15:15 Urine RBC 14 /hpf (0-5) H 11/24/16 15:15 Urine WBC 9 /hpf (0-5) H 11/24/16 15:15 Urine Mucus Rare /hpf (None) H 11/24/16 15:15 Microbiology 12/01/16 16:51 Blood Blood Culture - Preliminary No Growth after 48 hours 12/01/16 16:42 Blood Blood Culture - Preliminary No Growth after 48 hours 11/27/16 08:35 Blood Blood Culture - Final No Growth after 144 hours 11/30/16 19:31 Blood Blood Culture - Preliminary No Growth after 48 hours 11/30/16 18:55 Blood Blood Culture - Preliminary No Growth after 48 hours 11/26/16 04:30 Blood Blood Culture - Final No Growth after 144 hours 11/24/16 15:15 Blood Blood Culture - Final No Growth after 144 hours 11/26/16 04:57 Blood Blood Culture - Final 11/27/16 08:06 Blood Blood Culture - Final 11/27/16 08:06 Blood Blood Culture Gram Stain - Final 11/27/16 08:06 Blood Blood Culture - Final Enterococcus faecalis 11/26/16 04:57 Blood Blood Culture Gram Stain - Final 11/26/16 04:57 Blood Blood Culture - Final Enterococcus faecalis 11/24/16 15:15 Urine,Catheterized Urine Culture - Final Enterococcus faecalis 11/24/16 15:15 Blood Blood Culture Gram Stain - Final 11/24/16 15:15 Blood Blood Culture - Final Enterococcus faecalis Assessment and Plan (1) Sepsis Narrative/Plan: 81-year-old woman who has a history of hospitalization earlier this year with pneumonia. Was at home when she became ill. She was having increasing weakness and falls. She had altered mental status was brought to hospital. There is evidence of a new left lower lobe infiltrate on the chest x-ray. The patient is evidence of positive blood cultures. Antibiotic therapy with piperacillin tazobactam and vancomycin are being utilized. Workup is in progress and septic coccus pneumoniae or group C strep would be concerned at this point in time for which Zosyn should give us coverage. as would the vancomycin. Continue Zosyn for now some process would continue treatment for gram-negative pneumonia given the fact she is in ICU and has a recent history of pneumonia. It is sometime since her influenza pneumonia diagnosis staph aureus pneumonia would be somewhat unusual in this situation. The leukocytosis directly related to the current pneumonia. As is the respiratory failure. The city showing some slight improvement this evening. We'll follow blood cultures to ensure her bacteremia is clearing. Did have an echocardiogram done in September which showed evidence of a preserved ejection fraction and some pulmonary hypertension. No evidence of vegetations at that time. With the multiple positive blood cultures follow-up imaging study of her heart will be required assessing for endocarditis. ROBERTO planned. There is evidence of enterococcus in the urine as well as the blood with the bloodstream is a likely etiology of the current sepsis. Complicated by secondary pneumonia. Antibiotic therapy was altered to Unasyn and gentamicin. Goal for clearance of her bacteremia. With evidence of negative blood cultures the gentamicin was discontinued, especially because the CHOCO 500 is resistant. ROBERTO has been performed without evidence of agitations Renal ultrasound did not reveal hydronephrosis or mass Now that there are multiple negative blood cultures will haver a PICC line to be placed to complete a multiweek course of intravenous antibiotic therapy with Unasyn for her bacteremia initiated from her urinary system. Status: Acute
[2016-12-04] MEDS: AMPICILLIN-SULBACTAM 3 GM in SODIUM CHLORIDE 0.9% 100 ML IVPB SCH ×2 (05:35→15:19)
[2016-12-04] MEDS: LEVOTHYROXINE 50 MCG TAB PO SCH (06:29)
[2016-12-04 07:15] VITALS: RESP 18
[2016-12-04] MEDS: IPRATROPIUM-ALBUTEROL 3 ML NEB INHALATION SCH ×3 (07:24→16:00)
[2016-12-04] MEDS: PANTOPRAZOLE 40 MG TABLET PO SCH (07:44)
[2016-12-04] MEDS: MELOXICAM 7.5 MG TAB PO SCH (07:44)
[2016-12-04] MEDS: BENZONATATE 100 MG CAP PO SCH ×2 (07:45→16:33)
[2016-12-04] MEDS: OXYBUTYNIN 15 MG TAB.ER.24 PO SCH (07:46)
[2016-12-04] MEDS: DULoxetine HCL 60 MG CAPSULE.DR PO SCH (07:46)
[2016-12-04] MEDS ORDERED: amLODIPine 5 MG TAB PO SCH (09:00)
[2016-12-04] MEDS ORDERED: ATENOLOL 12.5 MG TAB PO SCH (09:00)
[2016-12-04] MEDS: INSULIN LISPRO (humaLOG) 300 UNIT/3 ML VIAL SQ SCH ×2 (09:10→13:26)
[2016-12-04 12:23] LABS: Glucose,Whole Blood 107 mg/dL (75-99)
[2016-12-04] MEDS ORDERED: LIDOCAINE 2% INJ 20 MG/ML SQ ONE (13:40)
--- NOTE | 2016-12-04 14:03 | DS ---
DATE OF ADMISSION: 11/24/2016 DATE OF DISCHARGE: A 81-year-old admitted with septic shock and bacteremia, possibly secondary to pneumonia, and patient is being discharged to subacute rehabilitation today. Patient was seen and examined on the day of discharge. Vitals are stable. PHYSICAL EXAMINATION: GENERAL: The patient is alert and oriented x3, not in any acute distress. Well developed, well nourished. HEENT: Pupils are round and equally reacting to light. EOMI. No scleral icterus. No conjunctival pallor. Normocephalic, atraumatic. No pharyngeal erythema. No thyromegaly. CARDIOVASCULAR: S1 and S2 present. No murmurs, rubs, or gallops. PULMONARY: Chest is clear to auscultation, no wheezing or crackles. ABDOMEN: Soft, nontender, nondistended, normoactive bowel sounds. No palpable organomegaly. MUSCULOSKELETAL: No joint swelling or deformity. EXTREMITIES: No cyanosis, clubbing, or pedal edema. NEUROLOGICAL: Gross neurological examination did not reveal any focal deficits. SKIN: No rashes. FINAL DIAGNOSES: 1. Septicemia and gram-positive bacteremia secondary to enterococcus bacteremia and acute hypoxic respiratory failure secondary to possible health-care associated pneumonia. 2. Congestive heart failure with chronic diastolic dysfunction. Well compensated at this point of time. 3. 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 4. Type 2 diabetes mellitus. 5. Peripheral neuropathy. 6. Chronic obstructive pulmonary disease without any acute exacerbation. 7. Mild to moderate protein calorie malnutrition. 8. Hypothyroidism. 9. Coronary artery disease. Patient will discharge, please refer to my depart summary for further details of discharge. Activity as tolerated. Cardiac diet. CHF discharge instructions will be provided and patient will follow with Dr. Bora Hollins in 2 weeks, Dr. Balaji Marin once he is discharged from the rehab. Patient will follow with Dr. Cadena in subacute rehabilitation facility. Duration of antibiotics and antibiotic regimen as per Infectious Disease. Spent greater than 35 minutes in total discharge process.
[2016-12-04] MEDS: SODIUM CHLORIDE 0.9% 1,000 ML IV SCH ×2 (14:42→15:20)
[2016-12-04] MEDS: guaiFENesin SYRUP 100MG/5ML 200 MG/10 ML CUP PO PRN (14:49)
[2016-12-04] MEDS: HYDROcodone/APAP 10-325MG 1 EACH TAB PO PRN (14:49)
[2016-12-04 15:36] VITALS: BP 130/65; TEMP 97.9
[2016-12-04 16:21] VITALS: PULSE 82
--- NOTE | 2016-12-11 21:44 | IR ---
PICC LINE PLACEMENT: HISTORY: Infection requiring long-term antibiotic therapy PROCEDURE: Ultrasound and fluoroscopic guidance of PICC line placement. COMPLICATIONS: None ANESTHESIA: 1. 1% Lidocaine locally. FINDINGS/TECHNIQUE: The procedure was explained to the patient. The risks, complications, benefits and alternatives were discussed and any questions were answered. Informed consent was obtained. The patient was placed supine on the fluoroscopic table and prepped and draped in the usual sterile fash ion. Utilizing a 21 gauge needle and sonographic and fluoroscopic guidance, access in the right bas ilic vein was achieved and there is placement of a 0.018 guidewire. The vein is patent. A 4-F sheat h was placed over the guidewire. The guidewire and dilator were removed and a 4-F. PICC line was asya skylar through the sheath with the tip at the level of the SVC. The sheath was removed, the catheter wa s flushed and sutured into position. The patient was stable throughout the procedure and remained st able upon discharge from the Department of Radiology. The vein puncture was patent under ultrasound. A geiger scale image was obtained to document patency of the vein punctured. All elements of the maximal barrier technique were utilized. FLUOROSCOPY TIME: 0.1 minute IMPRESSION: Successful PICC line placement under ultrasound and fluoroscopic guidance.
== END 2016-12-04 17:00 | DRG 871 ==
LOC: EC 15:04 → 5MS5E 18:04 → 6ICU 11-25 00:57 → 5MS5E 11-26 18:10
PROVIDERS: ADMIT Internal Medicine; ATTEND Internal Medicine
PROC: B246ZZ4 Ultrasonography of Right and Left Heart, Transesophageal (ICD-10-PCS; 2016-12-01)
PROC: 02HV33Z Insertion of Infusion Device into Superior Vena Cava, Percutaneous Approach (ICD-10-PCS; principal; 2016-12-04 13:35)
DX: A41.89 Other specified sepsis (principal); J96.01 Acute respiratory failure with hypoxia; R65.21 Severe sepsis with septic shock; G93.49 Other encephalopathy; I44.2 Atrioventricular block, complete; J15.4 Pneumonia due to other streptococci; I11.0 Hypertensive heart disease with heart failure; I50.32 Chronic diastolic (congestive) heart failure; E87.2 Acidosis; D69.6 Thrombocytopenia, unspecified; J44.0 Chronic obstructive pulmonary disease with (acute) lower respiratory infection; E44.0 Moderate protein-calorie malnutrition; N39.0 Urinary tract infection, site not specified; I48.0 Paroxysmal atrial fibrillation; E03.9 Hypothyroidism, unspecified; I27.2 Other secondary pulmonary hypertension; G89.29 Other chronic pain; M19.90 Unspecified osteoarthritis, unspecified site; I67.9 Cerebrovascular disease, unspecified; I34.0 Nonrheumatic mitral (valve) insufficiency; R53.1 Weakness; R01.1 Cardiac murmur, unspecified; F44.89 Other dissociative and conversion disorders; K86.9 Disease of pancreas, unspecified; G31.84 Mild cognitive impairment of uncertain or unknown etiology; R29.6 Repeated falls; E11.42 Type 2 diabetes mellitus with diabetic polyneuropathy; E66.9 Obesity, unspecified; K21.9 Gastro-esophageal reflux disease without esophagitis; K64.9 Unspecified hemorrhoids; I25.10 Atherosclerotic heart disease of native coronary artery without angina pectoris; M79.7 Fibromyalgia; Z79.899 Other long term (current) drug therapy; Z96.653 Presence of artificial knee joint, bilateral; Z79.01 Long term (current) use of anticoagulants; Z83.3 Family history of diabetes mellitus; Z95.0 Presence of cardiac pacemaker; Z82.49 Family history of ischemic heart disease and other diseases of the circulatory system; Z87.891 Personal history of nicotine dependence; Z87.11 Personal history of peptic ulcer disease; Z91.81 History of falling; Z87.01 Personal history of pneumonia (recurrent); Z79.1 Long term (current) use of non-steroidal anti-inflammatories (NSAID); Z79.4 Long term (current) use of insulin; Z79.891 Long term (current) use of opiate analgesic; Z71.3 Dietary counseling and surveillance; Z68.37 Body mass index [BMI] 37.0-37.9, adult; Z80.9 Family history of malignant neoplasm, unspecified; Z98.42 Cataract extraction status, left eye; Z98.41 Cataract extraction status, right eye; Z90.49 Acquired absence of other specified parts of digestive tract; Z98.1 Arthrodesis status; Z87.440 Personal history of urinary (tract) infections; Z87.81 Personal history of (healed) traumatic fracture; Z87.19 Personal history of other diseases of the digestive system; Z86.19 Personal history of other infectious and parasitic diseases; Z87.09 Personal history of other diseases of the respiratory system; Z96.643 Presence of artificial hip joint, bilateral; Y95 Nosocomial condition
CPT/HCPCS: 36415; 36569; 36600; 70450; 71010; 71020; 76770; 76937; 77001; 80048; 80053; 81001; 82607; 82805; 83036; 83605; 83735; 84100; 84439; 84443; 84481; 85025; 87040; 87077; 87086; 87186; 93005; 93306; 93312; 93320; 93325; 94640; 94660; 94760

== ENCOUNTER 2017-02-11 07:53 | Day surgery (SDC) | payer MEDICARE ==
[2017-02-08 15:24] VITALS: BMI 34.5
[~2017-02-11 07:53] MED LIST: SODIUM CHLORIDE 0.9% 1,000 ML IV SCH; ceFAZolin 1,000 MG in SODIUM CHLORIDE 0.9% IRRIGATIO 250 ML IRRIGATION ONE; ceFAZolin 2 GM in SODIUM CHLORIDE 0.9% 100 ML IVPB ONE
[2017-02-11 08:26] LABS: Glucose,Whole Blood 117 mg/dL (75-99)
[2017-02-11 08:37] VITALS: PULSE 65; RESP 20; TEMP 98.5
[2017-02-11] MEDS ORDERED: MIDAZOLAM 2 MG/2 ML VIAL ONE (09:00)
[2017-02-11] MEDS ORDERED: fentaNYL (PF) 50 MCG/ML 2 ML AMP ONE (09:00)
[2017-02-11] MEDS: MIDAZOLAM 2 MG/2 ML VIAL IVP ONE ×2 (09:10→09:13)
[2017-02-11] MEDS: fentaNYL (PF) 50 MCG/ML 2 ML AMP IV ONE ×2 (09:10→09:35)
[2017-02-11] MEDS ORDERED: LIDOCAINE 2% INJ 20 MG/ML SQ ONE (09:14)
[2017-02-11] MEDS ORDERED: IV FLUID CONTINUATION 450 ML IV ONE (09:14)
[2017-02-11] MEDS: LIDOCAINE 1% INJ 10MG/ML (20 ML MDV) SQ ONE ×2 (09:34→09:45)
[2017-02-11] MEDS ORDERED: ACETAMINOPHEN TAB 325 MG TAB PO PRN (10:03)
[2017-02-11] MEDS ORDERED: HYDROcodone/APAP 5-325MG 1 EACH TAB PO PRN (10:03)
--- NOTE | 2017-02-11 10:22 | P.CRDCN ---
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 Patient is found to have evidence of battery depletion and is advised to have battery replacement. As patient is completely dependent on the pacemaker, temporary pacemaker is also advised prior to changing the battery. CONSENT: I have discussed the risks and benefits as related to the above mentioned procedure and both sedation/analgesia as well as necessary blood product administration. The patient has indicated understanding and acceptance of the risks of the procedure discussed. PROCEDURE: TEMPORARY PACEMAKER INSERTION: Patient was brought to the lab in a fasting state. Patient was given IV Versed and fentanyl for sedation. The skin in the groin area is infiltrated on the right side. The femoral vein was entered and a 6-[place] sheath was left in place. A 5-[place] balloontipped temporary pacemaker was advanced under fluoroscopy and was placed at the inferoapical region. Satisfactory thresholds were obtained. The pacemaker was set at rate of 50 and output of 3. GENERATOR CHANGE: The skin over the existing pulse generator was infiltrated with lidocaine. An incision was made in the skin and was deepened until the pectoral fascia was exposed. Hemostasis was obtained. The existing pulse generator was pulled out of the pocket. The leads were disconnected and were checked for thresholds. Conscious Sedation: Versed 1 mg Fentanyl : 50 g Duration: 42 minutes THRESHOLDS: ATRIAL: Minimal patient threshold in the atrium is 0.7 V at pulse width of 0.4 ms. Impedance is 344 ohms. P-wave: 5.2 mV VENTRICULAR: 0.4 V at pulse width of 0.4 ms. The impedance is 344 ohms R-wave: 23.3 THE LEADS: ATRIAL: . This is manufactured by [employer] model number is 5076. Serial number is [id number] VENTRICULAR: . This is manufactured by [employer]. Model number is 5076. Serial number is [id number] THE EXPLANTED DEVICE: This is manufactured by [employer]. Model number is P1501 DR and the serial number is [id number] THE NEW DEVICE: This is manufactured by [employer]. Model [place] L101[place] [id number]. The leads were then connected to a new pulse generator. Pacemaker seems to function normally. The pocket was irrigated with antibiotics. The pocket was closed in the usual fashion. Pectoral fascia was closed with 2-0 Prolene, the subcutaneous tissue was closed with 3-0 Prolene and the skin was closed with 4- 0 Prolene. The temporary pacemaker was removed and hemostasis was tied with manual compression. Patient tolerated the procedure well . Patient will be monitored on the telemetry unit for 2-3 hours. If stable patient be discharged home later today. PLAN: Patient will monitor for the next few hours. If stable patient be discharged home. Follow-up with Dr. VC Wade FALLOW UP: Follow-up with Dr. VC Wade in one week. 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 See Dr. Ordonez's H&P. History of Any Multi-Drug Resistant Organisms: None Reported Past Surgical History: Appendectomy, Back Surgery, Joint Replacement, Orthopedic Surgery, Pacemaker Additional Past Surgical History / Comment(s): 06/24/16 EGD/colonoscopy, IAVN total hip arthroplasties, IVAN total KNEE arthroplasties, L femur fx with surgery , back fusion, MELANIE TO BACK, plate in left shoulder, bilateral cataract removal, D&Cs. See Dr. Ordonez's H & P. Past Anesthesia/Blood Transfusion Reactions: No Reported Reaction Additional Past Anesthesia/Blood Transfusion Reaction / Comment(s): Pt has had blood transfusions and states "they couldn't finish the last one because I got sick." Type of Cardiac Device: Permanent Pacemaker Device Placement Date:: 2010 Smoking Status: Former smoker - Past Family History Mother Family Medical History: Diabetes Mellitus Additional Family Medical History / Comment(s): AAA Father Family Medical History: Diabetes Mellitus, Myocardial Infarction (PA) Additional Family Medical History / Comment(s): Father had a PA at the age of 62 yrs and . Brother(s) Family Medical History: Cancer, Diabetes Mellitus, Hypertension Medications and Allergies Home Medications Medication Instructions Recorded Confirmed Type Albuterol Nebulized [Ventolin 2.5 mg INHALATION RT-TID 06/21/16 02/08/17 History Nebulized] DULoxetine HCL [Cymbalta] 60 mg PO DAILY 06/21/16 02/08/17 History Levothyroxine Sodium [Synthroid] 50 mcg PO DAILY 06/21/16 02/08/17 History Oxybutynin ER [Ditropan Xl] 15 mg PO DAILY 06/21/16 02/08/17 History Atenolol [Tenormin] 12.5 mg PO DAILY 10/08/16 02/08/17 History Biotin 5 mg PO DAILY 10/08/16 02/08/17 History Meloxicam [Mobic] 15 mg PO DAILY 10/08/16 02/08/17 History Omeprazole [PriLOSEC] 20 mg PO DAILY 10/08/16 02/08/17 History Ipratropium-Albuterol Nebulize 3 ml INHALATION RT-TID 11/24/16 02/08/17 History [Duoneb 0.5 mg-3 mg/3 ml Soln] amLODIPine BESYLATE [Norvasc] 2.5 mg PO DAILY 11/24/16 02/08/17 History Allergies Allergy/AdvReac Type Severity Reaction Status Date / Time pregabalin [From Lyrica] Allergy Hallucinati Verified 02/08/17 14:52 ons Physical Exam Vitals: Vital Signs Temp Pulse Resp BP Pulse Ox 02/11/17 08:35 98.5 F 65 20 157/72 96 Intake and Output 02/10/17 02/11/17 02/11/17 22:59 06:59 14:59 Intake Total 100 Balance 100 Intake: IV 100 Results Current Medications Generic Name Dose Route Start Last Admin Trade Name Freq PRN Reason Stop Dose Admin Acetaminophen 650 mg 02/11/17 10:03 Tylenol Tab PO Q6HR PRN Mild Pain Hydrocodone Bitart/Acetaminophen 1 each 02/11/17 10:03 [place] 5-325 PO Q4HR PRN Moderate Pain Sodium Chloride 1,000 mls @ 20 mls/hr 02/11/17 06:24 Saline 0.9% IV .Q24H RICKI Sodium Chloride 10 ml 02/11/17 21:00 Saline Flush IV Q12HR RICKI Intake and Output 02/10/17 02/11/17 02/11/17 22:59 06:59 14:59 Intake Total 100 Balance 100 Intake: IV 100
[2017-02-11 11:00] LABS: Glucose,Whole Blood 104 mg/dL (75-99)
[2017-02-11 15:07] VITALS: BP 146/65
== END 2017-02-11 16:05 | disposition home or self-care (01) ==
LOC: CATHEP 07:53 → 3OBS 09:59 → CATHEP 16:05
PROVIDERS: ATTEND Internal Medicine Cardiovascular Disease
DX: Z45.010 Encounter for checking and testing of cardiac pacemaker pulse generator [battery] (principal); I44.2 Atrioventricular block, complete; I10 Essential (primary) hypertension; E78.2 Mixed hyperlipidemia; Z82.49 Family history of ischemic heart disease and other diseases of the circulatory system; Z79.1 Long term (current) use of non-steroidal anti-inflammatories (NSAID); Z79.02 Long term (current) use of antithrombotics/antiplatelets; Z79.51 Long term (current) use of inhaled steroids; Z79.899 Other long term (current) drug therapy; Z88.8 Allergy status to other drugs, medicaments and biological substances; Z87.891 Personal history of nicotine dependence; I48.91 Unspecified atrial fibrillation
CPT/HCPCS: 33228; 99152; 99153 ×2; C1894; C1769; C1785; J2001 ×2; J2250; J0690 ×2; J3010

== ENCOUNTER 2019-04-09 21:16 | Emergency (ER) | payer MEDICARE, OTHER ==
[2019-04-09] MEDS ORDERED: MORPHINE SULFATE 4 MG/ML SYRINGE IM STA (22:09)
--- NOTE | 2019-04-09 22:20 | ED ---
Fall HPI - General Chief Complaint: Fall Stated Complaint: Fall,arm injury Time Seen by Provider: 04/09/19 21:48 Source: patient, family Mode of arrival: wheelchair - History of Present Illness Initial Comments: This patient is an 83-year-old woman who states that she had a fall tonight just prior to coming in here. She states that she had been playing cards, went outside to her vehicle, and put her walker in the vehicle. She states that in turning away from the door, she tripped and fell striking her left wrist and her left forehead against the ground. There was no loss consciousness. Patient denies injuries to other locations. She states she was helped up by to ass ociates who brought her here to the hospital. Complaint: fall Onset/Timin -: hour(s) Fall From: standing When Fall Occurred: just prior to arrival Fall Witnessed: yes, by bystander Place Fall Occurred: street Loss of Consciousness: none Prolonged Down Time?: no Symptoms Prior to Fall: none Location: head Location - Extremities: Left: Forearm Severity: moderate Quality: aching Context: tripped/slipped Associated Symptoms: headache - Related Data Home Medications Medication Instructions Recorded Confirmed DULoxetine HCL [Cymbalta] 60 mg PO DAILY 06/21/16 04/09/19 Levothyroxine Sodium [Synthroid] 50 mcg PO DAILY 06/21/16 04/09/19 Oxybutynin ER [Ditropan Xl] 15 mg PO DAILY 06/21/16 04/09/19 Atenolol [Tenormin] 12.5 mg PO DAILY 10/08/16 04/09/19 amLODIPine BESYLATE [Norvasc] 2.5 mg PO DAILY 11/24/16 04/09/19 Apixaban [Eliquis] 2.5 mg PO BID 04/09/19 04/09/19 Hydrocodone/Acetaminophen [[place] 1 tab PO 5XD PRN 04/09/19 04/09/19 10-325] Omeprazole [PriLOSEC] 40 mg PO BID 04/09/19 04/09/19 tiZANidine HCL [Zanaflex] 4 mg PO TID PRN 04/09/19 04/09/19 Previous Rx's Medication Instructions Recorded Furosemide [Lasix] 40 mg PO DAILY #30 tab 06/24/16 Allergies Allergy/AdvReac Type Severity Reaction Status Date / Time pregabalin [From Lyrica] Allergy Hallucinati Verified 04/09/19 22:34 ons Review of Systems ROS Statement: Those systems with pertinent positive or pertinent negative responses have been documented in the HPI. ROS Other: All systems not noted in ROS Statement are negative. Constitutional: Denies: fever, chills Eyes: Denies: eye pain, vision change ENT: Denies: epistaxis Respiratory: Denies: cough, dyspnea Cardiovascular: Denies: chest pain, palpitations, edema, syncope Gastrointestinal: Denies: abdominal pain, vomiting, diarrhea Genitourinary: Denies: dysuria, frequency Musculoskeletal: Denies: back pain Skin: Denies: rash Neurological: Reports: headache. 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 See Dr. Ordonez's H&P. History of Any Multi-Drug Resistant Organisms: None Reported Past Surgical History: Appendectomy, Back Surgery, Joint Replacement, Orthopedic Surgery, Pacemaker Additional Past Surgical History / Comment(s): 06/24/16 EGD/colonoscopy, IVAN total hip arthroplasties, IVAN total KNEE arthroplasties, L femur fx with surgery, back fusion, MELANIE TO BACK, plate in left shoulder, bilateral cataract removal, D&Cs. See Dr. Ordonez's H & P. Past Anesthesia/Blood Transfusion Reactions: No Reported Reaction Additional Past Anesthesia/Blood Transfusion Reaction / Comment(s): Pt has had blood transfusions and states "they couldn't finish the last one because I got sick." Type of Cardiac Device: Permanent Pacemaker Device Placement Date:: 2010 Past Psychological History: No Psychological Hx Reported Smoking Status: Former smoker Past Alcohol Use History: None Reported Past Drug Use History: None Reported - Past Family History Mother Family Medical History: Diabetes Mellitus Additional Family Medical History / Comment(s): AAA Father Family Medical History: Diabetes Mellitus, Myocardial Infarction (VA) Additional Family Medical History / Comment(s): Father had a VA at the age of 62 yrs and . Brother(s) Family Medical History: Cancer, Diabetes Mellitus, Hypertension General Exam Limitations: no limitations General appearance: alert, in no apparent distress Head exam: Present: normocephalic, other (Left parietal Hematoma with some mild tenderness area no bony deformity or tenderness.) Eye exam: Present: normal appearance, PERRL, EOMI. Absent: scleral icterus, conjunctival injection, nystagmus, periorbital swelling, periorbital tenderness ENT exam: Present: normal oropharynx Neck exam: Present: normal inspection, tenderness. Absent: meningismus Respiratory exam: Present: normal lung sounds bilaterally. Absent: respiratory distress, wheezes, rales, rhonchi, stridor, chest wall tenderness Cardiovascular Exam: Present: regular rate, normal rhythm, normal heart sounds. Absent: systolic murmur, diastolic murmur, rubs, gallop GI/Abdominal exam: Present: soft. Absent: distended, tenderness, guarding, r ebound, rigid, mass Extremities exam: Present: normal capillary refill. Absent: pedal edema, calf tenderness Left Shoulder Exam: Present: normal inspection. Absent: full ROM (Chronic pain, patient states she has "a plate in the shoulder"), swelling Upper Arm exam: Present: normal inspection, full ROM. Absent: tenderness, swelling Elbow exam: Present: normal inspection, full ROM. Absent: tenderness, swelling Forearm Wrist exam: Present: tenderness, swelling, ecchymosis, deformity. Absent: full ROM Hand Wrist exam: Present: normal inspection, full ROM. Absent: tenderness, swelling, abrasion Neurosensory exam: Present: radial nerve intact, ulnar nerve intact, median nerve intact Vascular: Present: normal capillary refill. Absent: pulse deficit radial art, pulse deficit ulnar art Back exam: Present: normal inspection. Absent: CVA tenderness (R), CVA tend erness (L), paraspinal tenderness, vertebral tenderness Neurological exam: Present: alert, oriented X3, CN II-XII intact. Absent: motor sensory deficit Psychiatric exam: Present: normal affect Skin exam: Present: warm, dry, intact, normal color, abrasion (L parietal). Absent: rash Course Vital Signs 04/09/19 04/09/19 04/09/19 21:21 23:00 23:47 Temperature 97.4 F L 97.8 F Pulse Rate 58 L 60 73 Respiratory 20 19 18 Rate Blood Pressure 144/68 139/70 145/79 O2 Sat by Pulse 100 96 98 Oximetry - Reevaluation(s) Reevaluation #1: 04/09/19 23:03 I received a call from the radiologist detailing that the patient had subdural hematoma. I also reviewed the radiology. I discussed the injuries with the patient who would like to go to the nearest facility with neurosurgery. Discussed the case with Dr. Ferraro, at [facility] who will accept transfer the patient there for neurosurgery and is trauma/orthopedic surgery. Procedures - Orthopedic Splinting/Casting Injury #1 Side: left Upper Extremity Injury Location: short arm Upper Extremity Immobilizer: sugar tong splint Additional Comments: I did place a left forearm sugar tong splint to stabilize the patient's wrist fracture. Patient tolerated well without complication. Neurovascular function intact. Medical Decision Making - Lab Data Result diagrams: 04/09/19 23:19 04/09/19 23:19 Lab Results 04/09/19 04/09/19 04/09/19 Range/Units 23:19 23:19 23:19 WBC 14.5 H (3.8-10.6) k/uL RBC 4.29 (3.80-5.40) m/uL Hgb 12.2 (11.4-16.0) gm/dL Hct 35.7 (34.0-46.0) % MCV 83.2 (80.0-100.0) fL MCH 28.4 (25.0-35.0) pg MCHC 34.1 (31.0-37.0) g/dL RDW 14.6 (11.5-15.5) % Plt Count 229 (150-450) k/uL Neutrophils % 83 % Lymphocytes % 12 % Monocytes % 3 % Eosinophils % 1 % Basophils % 0 % Neutrophils # 12.0 H (1.3-7.7) k/uL Lymphocytes # 1.7 (1.0-4.8) k/uL Monocytes # 0.4 (0-1.0) k/uL Eosinophils # 0.2 (0-0.7) k/uL Basophils # 0.0 (0-0.2) k/uL PT 10.0 (9.0-12.0) sec INR 0.9 (<1.2) APTT 24.4 (22.0-30.0) sec Sodium 137 (137-145) mmol/L Potassium 3.5 (3.5-5.1) mmol/L Chloride 95 L (98-107) mmol/L Carbon Dioxide 26 (22-30) mmol/L Anion Gap 16 mmol/L BUN 17 (7-17) mg/dL Creatinine 1.43 H (0.52-1.04) mg/dL Est GFR (CKD-EPI)AfAm 39 (>60 ml/min/1.73 sqM) Est GFR (CKD-EPI)NonAf 34 (>60 ml/min/1.73 sqM) Glucose 141 H (74-99) mg/dL Calcium 9.6 (8.4-10.2) mg/dL Total Bilirubin 0.9 (0.2-1.3) mg/dL AST 36 (14-36) U/L ALT 14 (9-52) U/L Alkaline Phosphatase 128 H (38-126) U/L Total Protein 8.7 H (6.3-8.2) g/dL Albumin 4.8 (3.5-5.0) g/dL - EKG Data -: EKG Interpreted by Me Interpretation: other (The ECG shows what appears to be paced rhythm rate of 64 bpm.) Disposition Clinical Impression: Fall, Colles' fracture, Subdural hematoma Disposition: OTHER INSTITUTION NOT DEFINED Condition: Serious Is patient prescribed a controlled substance at d/c from ED?: No Referrals: Balaji Marin DO [Primary Care Provider] - 1-2 days - Out of Hospital Transfer - Req. Specs Out of Hospital Transfer - Requested Specifics: Other Emergency Center
[2019-04-09] MEDS ORDERED: MORPHINE SULFATE 4 MG/ML SYRINGE IVP STA (23:00)
--- NOTE | 2019-04-09 23:00 | CT ---
EXAMINATION TYPE: CT brain radhikaine wo con DATE OF EXAM: 04/09/2019 COMPARISON: CT brain 11/25/2016 HISTORY: pt fall Headache. Neck pain. CT DLP: 1383 mGycm Automated exposure control for dose reduction was used. TECHNIQUE: CT scan of the head and cervical spine are performed without contrast. FINDINGS: There is widening of the subdural space over the left temporal lobe related to moderate l eft subdural acute hematoma. This measures up to 10 mm thickness. There is large left lateral frontal scalp hematoma. There is apparent scalp laceration with air bubbles. There is no significant midline shift. There is no evidence of cortical infarct. I see no skull fracture. The skull base is intact. Cervical vertebra have normal alignment. There is degenerative disc space narrowing at C5-6 C6-7 with spur formation. Facet joints are intact. There is mild hypertrophic facet arthropathy. The skull bas e is intact. IMPRESSION: Acute subdural left side hematoma. Left frontal scalp hematoma. No significant mass effect. Exam was discussed with Dr. Harkins at 11:00 PM. Mild spondylotic changes in the cervical spine. No fracture seen.
--- NOTE | 2019-04-09 23:01 | XR ---
EXAMINATION TYPE: XR forearm LT DATE OF EXAM: 04/09/2019 COMPARISON: NONE HISTORY: Pain TECHNIQUE: 2 views FINDINGS: There are impacted acute transverse fractures of the distal radial metaphysis and also the ulnar styloid process. There is no dislocation. There is osteopenia. Elbow joint appears intact. IMPRESSION: Acute fractures of the distal radius and ulna. Mild posterior displacement.
[2019-04-09 23:36] LABS: Basophils % (A) 0 %; Eosinophils # (A) 0.2 k/uL (0-0.7); Eosinophils % (A) 1 %; HCT 35.7 % (34.0-46.0); HGB 12.2 gm/dL (11.4-16.0); Lymphocytes # (A) 1.7 k/uL (1.0-4.8); Lymphocytes % (A) 12 %; MCH 28.4 pg (25.0-35.0); MCHC 34.1 g/dL (31.0-37.0); MCV 83.2 fL (80.0-100.0); Mean Platelet Volume 7.8; Monocytes # (A) 0.4 k/uL (0-1.0); Monocytes % (A) 3 %; Neutrophils % (A) 83 %; Platelet Count 229 k/uL (150-450); RBC 4.29 m/uL (3.80-5.40); RDW 14.6 % (11.5-15.5); WBC 14.5 k/uL (3.8-10.6)
[2019-04-09 23:43] LABS: INR 0.9 (<1.2); Partial Thromboplastin Time 24.4 sec (22.0-30.0)
[2019-04-09 23:45] LABS: Albumin 4.8 g/dL (3.5-5.0); Calcium 9.6 mg/dL (8.4-10.2); Potassium 3.5 mmol/L (3.5-5.1); Total Bilirubin 0.9 mg/dL (0.2-1.3); Total Protein 8.7 g/dL (6.3-8.2)
[2019-04-09 23:47] VITALS: BP 145/79; PULSE 73; RESP 18; TEMP 97.8
== END 2019-04-10 00:05 | disposition short-term general hospital (02) ==
LOC: EC 21:16
DX: S52.532A Colles' fracture of left radius, initial encounter for closed fracture (principal); S06.5X0A Traumatic subdural hemorrhage without loss of consciousness, initial encounter; G89.29 Other chronic pain; I48.0 Paroxysmal atrial fibrillation; I25.10 Atherosclerotic heart disease of native coronary artery without angina pectoris; I11.0 Hypertensive heart disease with heart failure; I50.32 Chronic diastolic (congestive) heart failure; E03.9 Hypothyroidism, unspecified; M19.90 Unspecified osteoarthritis, unspecified site; K21.9 Gastro-esophageal reflux disease without esophagitis; M79.7 Fibromyalgia; Z87.891 Personal history of nicotine dependence; Z88.8 Allergy status to other drugs, medicaments and biological substances; Z79.01 Long term (current) use of anticoagulants; Z79.890 Hormone replacement therapy; Z79.899 Other long term (current) drug therapy; Z96.643 Presence of artificial hip joint, bilateral; Z96.653 Presence of artificial knee joint, bilateral; Z98.1 Arthrodesis status; Z96.698 Presence of other orthopedic joint implants; W01.0XXA Fall on same level from slipping, tripping and stumbling without subsequent striking against object, initial encounter; Y93.89 Activity, other specified; Y92.410 Unspecified street and highway as the place of occurrence of the external cause
CPT/HCPCS: 36415; 93005; 80053; 85025; 85610; 85730; 73090; 72125; 70450; 99285; 29125; 96374; J2270